=== PATIENT | female | born 1980 | race African-American/Black ===

== ENCOUNTER 2016-09-26 13:22 | Observation (INO) | payer MEDICARE, OTHER ==
[~2016-09-26] VITALS: Ht 172.7 cm; Wt 158.5 kg
[~2016-09-26 13:22] MED LIST: ATOR20TA58 PO; ATORVASTATIN CA80 MG PO; CARV25TA PO; CARV25TA2 PO; CARV6.252 PO; CLIN300C86 PO; ESOM20CA30 PO; FLUO20CA16 PO; GABA-585 PO; HYDR-2679 PO; HYDR-963 PO; INSU100C4 SQ; INSU100I13 SQ; INSU100I17 SQ; LISI30TA4 PO; LISI40TA PO; MECL25TA PO; MELO-156 PO; MULT-208 PO; OMEP40CA5 PO; OXYC-244 PO; PANCREASE PO; PRED-220 PO; PROAIR HFA8.5 GM IH; PROMETHAZINE; SPIR25TA3 PO; TRAZ150T55 PO; ZOLP5TAB PO
--- NOTE | 2016-09-26 13:48 | PHYS DOC ---
Past Medical History Past Medical History: No Pertinent History, CHF, Diabetes-Type I, Hypertension , Other Additional Past Medical Histor: Pancreatitis, diabetic gastroparesis Past Surgical History: Cholecystectomy, Other Additional Past Surgical Histo: Eye surgery, pancrteatic shunts; partial pancreatectomy Alcohol Use: None Drug Use: None Adult General Chief Complaint Chief Complaint: SHORTNESS OF BREATH HPI HPI Patient is a 36 year old female who presents with shortness breath and leg swelling. She states she has a history congestive heart failure secondary to her and last week saw her fast food manager [facility] who increased Coreg and lisinopril because of an elevated heart rate and blood pressure. She states the very next day she started feeling short of breath and her legs started swelling. She states she has keep her legs elevated to keep the swelling down. She states she feels shortness of breath when she ambulance half a flight of steps were normally she can go all the way up the steps without any difficulties. She denies any chest pain or shortness of breath with rest. She does have some lateral left leg discomfort but no pain in her calf area. She did state that she was taken off of Lasix 18 months ago secondary to her EF normalizing. Review of Systems Review of Systems Constitutional: Denies fever or chills [] Eyes: Denies change in visual acuity, redness, or eye pain [] HENT: Denies nasal congestion or sore throat [] Respiratory: Denies cough, positive for shortness of breath [] Cardiovascular: No additional information not addressed in HPI [] GI: Denies abdominal pain, nausea, vomiting, bloody stools or diarrhea [] : Denies dysuria or hematuria [] Musculoskeletal: Denies back pain or joint pain [] Integument: Denies rash or skin lesions [] Neurologic: Denies headache, focal weakness or sensory changes [] Endocrine: Denies polyuria or polydipsia [] Current Medications Current Medications Current Medications Medications (Trade) Dose Ordered Sig/Naveen Start Time Stop Time Status Last Admin Dose Admin Furosemide 20 mg 20 mg 1X ONCE 09/26/16 16:00 09/26/16 16:01 Magnesium Sulfate/ Dextrose (Magnesium Sulfate PREMIX 2GM) 50 ml @ 25 mls/hr 1X ONCE 09/26/16 16:15 09/26/16 18:14 Ondansetron HCl (Zofran) 4 mg PRN Q8HRS PRN 09/26/16 15:30 09/27/16 15:29 Allergies Allergies Allergies Coded Allergies Type Severity Reaction Last Updated Verified shellfish derived Allergy Severe anaphylaxis 09/17/14 Yes Iodine and Iodide Containing Produc Allergy Intermediate hives, itching, fevers, anaphylaxis 09/17/14 Yes Penicillins Allergy Intermediate itching, vomiting, fevers 09/17/14 Yes iodine Allergy Intermediate 03/11/16 Yes meperidine Adverse Reaction Intermediate fevers, vomiting 02/15/15 Yes Physical Exam Physical Exam Constitutional: Well developed, well nourished, no acute distress, non-toxic appearance. [] HENT: Normocephalic, atraumatic, bilateral external ears normal, oropharynx moist, no oral exudates, nose normal. [] Eyes: PERRLA, EOMI, conjunctiva normal, no discharge. [] Neck: Normal range of motion, no tenderness, supple, no stridor. [] Cardiovascular:Heart rate regular rhythm, no murmur [] Lungs & Thorax: Bilateral breath sounds clear to auscultation [] Abdomen: Bowel sounds normal, soft, no tenderness, no masses, no pulsatile masses. [] Skin: Warm, dry, no erythema, no rash. [] Back: No tenderness, no CVA tenderness. [] Extremities: No tenderness, no cyanosis, no clubbing, ROM intact, trace edema. [ ] Neurologic: Alert and oriented X 3, normal motor function, normal sensory function, no focal deficits noted. [] Psychologic: Affect normal, judgement normal, mood normal. [] Current Patient Data Vital Signs Vital Signs Date Time Temp Pulse Resp B/P Pulse Ox O2 Delivery O2 Flow Rate FiO2 09/26/16 13:47 97.3 101 24 150/75 97 Room Air 97.3 Lab Values Laboratory Tests Test 09/26/16 14:00 09/26/16 14:35 09/26/16 14:55 White Blood Count 9.9x10^3/uL (4.0-11.0) Red Blood Count 4.43x10^6/uL (3.50-5.40) Hemoglobin 10.4g/dL (12.0-15.5) L Hematocrit 33.1% (36.0-47.0) L Mean Corpuscular Volume 75fL (79-100) L Mean Corpuscular Hemoglobin 24pg (25-35) L Mean Corpuscular Hemoglobin Concent 31g/dL (31-37) Red Cell Distribution Width 14.8% (11.5-14.5) H Platelet Count 256x10^3/uL (140-400) Neutrophils (%) (Auto) 59% (31-73) Lymphocytes (%) (Auto) 32% (24-48) Monocytes (%) (Auto) 6% (0-9) Eosinophils (%) (Auto) 3% (0-3) Basophils (%) (Auto) 1% (0-3) Neutrophils # (Auto) 5.8x10^3uL (1.8-7.7) Lymphocytes # (Auto) 3.2x10^3/uL (1.0-4.8) Monocytes # (Auto) 0.6x10^3/uL (0.0-1.1) Eosinophils # (Auto) 0.3x10^3/uL (0.0-0.7) Basophils # (Auto) 0.1x10^3/uL (0.0-0.2) Sodium Level 141mmol/L (136-145) Potassium Level 3.8mmol/L (3.5-5.1) Chloride Level 104mmol/L (98-107) Carbon Dioxide Level 30mmol/L (21-32) Anion Gap 7 (6-14) Blood Urea Nitrogen 9mg/dL (7-20) Creatinine 0.8mg/dL (0.6-1.0) Estimated GFR (Cockcroft-Gault) 97.1 Glucose Level 196mg/dL (70-99) H Calcium Level 9.0mg/dL (8.5-10.1) Magnesium Level 1.5mg/dL (1.8-2.4) L Total Bilirubin 0.2mg/dL (0.2-1.0) Direct Bilirubin < 0.1mg/dL (0.0-0.2) Aspartate Amino Transferase (AST) 23U/L (15-37) Alanine Aminotransferase (ALT) 22U/L (14-59) Alkaline Phosphatase 155U/L (46-116) H Creatine Kinase 96U/L (26-192) Creatine Kinase MB (Mass) 0.9ng/mL (0.0-3.6) Creatine Kinase MB Relative Index 0.9% (0-4) Troponin I Quantitative < 0.017ng/mL (0.000-0.055) IT-Nbj-V-Type Natriuretic Peptide 623pg/mL (0-124) H Total Protein 6.9g/dL (6.4-8.2) Albumin 2.7g/dL (3.4-5.0) L Lipase 67U/L (73-393) L Thyroid Stimulating Hormone (TSH) 1.529uIU/mL (0.358-3.74) Prothrombin Time 13.1SEC (11.7-14.0) Prothrombin Time INR 1.1 (0.8-1.1) D-Dimer (Karishma) < 0.27ug/mlFEU (0.00-0.50) Urine Collection Type Unknown Urine Color Yellow Urine Clarity Clear Urine pH 5.0 Urine Specific [place] 1.020 Urine Protein Negativemg/dL (NEG-TRACE) Urine Glucose (UA) 500mg/dL (NEG) Urine Ketones (Stick) Negativemg/dL (NEG) Urine Blood Negative (NEG) Urine Nitrite Negative (NEG) Urine Bilirubin Negative (NEG) Urine Urobilinogen Dipstick 0.2mg/dL (0.2 mg/dL) Urine Leukocyte Esterase Negative (NEG) Urine RBC 0/HPF (0-2) Urine WBC Occ/HPF (0-4) Urine Squamous Epithelial Cells Mod/LPF Urine Bacteria Few/HPF (0-FEW) Urine Mucus Marked/LPF Laboratory Tests 09/26/16 14:00 Laboratory Tests 09/26/16 14:00 EKG EKG EKG shows normal sinus rhythm with left axis deviation, no ST elevations, T- wave inversions noted in lead aVL, 1, QTC 467 ms, as interpreted by me. Radiology/Procedures Radiology/Procedures [facility] [address] [place] [address] IMAGING REPORT Signed PATIENT: MAGNUS HERBERT ACCOUNT: [id number] : 1980 LOCATION: ER AGE: 36 SEX: F EXAM STATUS: PRE ER ORD. PHYSICIAN: SHAR CHARLES MD REASON: soa PROCEDURE: PORTABLE CHEST 1V Portable chest, 09/26/2016: History: Shortness of breath Comparison is made to a study from 04/04/2016. The heart size and pulmonary vascularity are normal. There is an unchanged right upper lobe nodule compatible with a granuloma. No acute infiltrates are seen. There is no evidence of pleural fluid. IMPRESSION: No acute cardiopulmonary abnormality is detected. DICTATED and SIGNED BY: DOROTHY DELCID MD DATE: 09/26/16 5628 CC: SHAR CHARLES MD; UNKNOWN PCP NAME ~ Impressions: Dyspnea Course & Med Decision Making Course & Med Decision Making Pertinent Labs and Imaging studies reviewed. (See chart for details) BNP is slightly elevated chest x-ray does not show acute abnormalities. Patient gets up she gets short of breath with exertion. Her d-dimer is negative. Will give 20 mg IV Lasix 1 and admit to the hospitalist with cardiology consultation for shortness of breath. The patient's agreeable plans in stable condition at this time. Dragon Disclaimer Dragon Disclaimer This electronic medical record was generated, in whole or in part, using a voice recognition dictation system. Departure Departure Impression: Primary Impression: Dyspnea Disposition: ADMITTED INPATIENT Admitting Physician: Kristian Martin Condition: STABLE Referrals: UNKNOWN PCP NAME (PCP) Problem Qualifiers Primary Impression: Dyspnea Dyspnea type: dyspnea on exertion Qualified Code: R06.09 - Other forms of dyspnea SHAR CHARLES MD Sep 26, 2016 13:48
--- NOTE | 2016-09-26 14:04 | EKG ---
[facility] [address] [place] [address] Test Date: 2016-09-26 Test Time: 13:44:40 Pat Name: MAGNUS HERBERT Department: Room: Gender: F Sr. Operations Manager: : 1980 Requested By: SHAR CHARLES Order Number: [id number] Reading MD: Grayson Ward Measurements Intervals [place] Rate: 89 P: 45 RI: 166 QRS: -10 QRSD: 80 T: 93 QT: 378 QTc: 467 Interpretive Statements SINUS RHYTHM LEFTWARD AXIS R-S TRANSITION ZONE IN V LEADS DISPLACED TO THE LEFT NONSPECIFIC ST-T WAVE CHANGES. RI6.01 Unconfirmed report Electronically Signed On 09-30-2016 13:49:00 VALIDATION ARCHITECT by Grayson Ward
[2016-09-26 14:13] LABS: BASO # 0.1 x10^3/uL (0.0-0.2); BASO % 1 % (0-3); EOS % 3 % (0-3); HEMATOCRIT 33.1 % (36.0-47.0); HEMOGLOBIN 10.4 g/dL (12.0-15.5); LYMPH # 3.2 x10^3/uL (1.0-4.8); LYMPH % 32 % (24-48); MEAN CORPUSCULAR HEMOGLOBIN 24 pg (25-35); MEAN CORPUSCULAR HGB CONC 31 g/dL (31-37); MEAN CORPUSCULAR VOLUME 75 fL (79-100); MONO % 6 % (0-9); NEUT % 59 % (31-73); PLATELET COUNT 256 x10^3/uL (140-400); RED BLOOD COUNT 4.43 x10^6/uL (3.50-5.40); RED CELL DISTRIBUTION WIDTH 14.8 % (11.5-14.5); WHITE BLOOD COUNT 9.9 x10^3/uL (4.0-11.0)
--- NOTE | 2016-09-26 14:18 | RAD ---
Portable chest, 09/26/2016: History: Shortness of breath Comparison is made to a study from 04/04/2016. The heart size and pulmonary vascularity are normal. There is an unchanged right upper lobe nodule compatible with a granuloma. No acute infiltrates are seen. There is no evidence of pleural fluid. IMPRESSION: No acute cardiopulmonary abnormality is detected.
[2016-09-26 14:35] LABS: ANION GAP 7 (6-14); BLOOD UREA NITROGEN 9 mg/dL (7-20); CARBON DIOXIDE 30 mmol/L (21-32); CHLORIDE 104 mmol/L (98-107); CREATININE 0.8 mg/dL (0.6-1.0); GFR 97.1; GLUCOSE 196 mg/dL (70-99); POTASSIUM 3.8 mmol/L (3.5-5.1); SODIUM 141 mmol/L (136-145)
[2016-09-26 14:42] LABS: ALBUMIN 2.7 g/dL (3.4-5.0); ALK PHOS 155 U/L (46-116); ALT (SGPT) 22 U/L (14-59); AST (SGOT) 23 U/L (15-37); DIRECT BILIRUBIN < 0.1 mg/dL (0.0-0.2); MAGNESIUM 1.5 mg/dL (1.8-2.4); TOTAL BILIRUBIN 0.2 mg/dL (0.2-1.0); TOTAL PROTEIN 6.9 g/dL (6.4-8.2)
[2016-09-26 14:51] LABS: CKMB INDEX 0.9 % (0-4); CKMB MASS 0.9 ng/mL (0.0-3.6)
[2016-09-26 14:51] LABS: INR 1.1 (0.8-1.1); PROTHROMBIN TIME PATIENT 13.1 SEC (11.7-14.0)
[2016-09-26 15:19] LABS: BILIRUBIN,URINE NEGATIVE (NEG); GLUCOSE,URINE 500 mg/dL (NEG); NITRITE,URINE NEGATIVE (NEG); PROTEIN,URINE NEGATIVE (NEG-TRACE); UROBILINOGEN,URINE 0.2 mg/dL (0.2 mg/dL)
[2016-09-26 15:28] LABS: BACTERIA,URINE FEW /HPF (0-FEW); RBC,URINE 0 /HPF (0-2); SQUAMOUS EPITHELIAL CELL,UR MOD /LPF; WBC,URINE OCC /HPF (0-4)
[2016-09-26] MEDS ORDERED: ONDANSETRON PF 4 MG/2 ML VIAL. IV PRN ×2 (15:30→19:30)
--- NOTE | 2016-09-26 15:54 | PDOC2 ---
CARDIAC CONSULT DATE OF CONSULT Date of Consult DATE: 09/26/16 TIME: 15:36 REASON FOR CONSULT Reason for Consult: Dyspnea REFERRING PHYSICIAN Referring Physician: Tristen SOURCE Source: Chart review, Patient HISTORY OF PRESENT ILLNESS HISTORY OF PRESENT ILLNESS This is a pleasant 36 yo female, with a history of cardiomyopathy, HTN, HLP, DM , and morbid obesity, who presented with complaints of shortness of breath. Patient was hospitalized 2 months ago at for hypotension. Coreg and lisinopril were decrease along with discontinuation of Aldactone. Previously on Lasix but was discontinued approximately 2 years ago. Routine furniture associate is Dr. Sanchez at . At recent visit, BP noted to be elevated. Coreg and Lisinopril were increased. Was not started back on Aldactone. Patient reports LE edema developed a week ago. Has been short of breath with exertion overt the last couple of days. Associated with orthopnea. Denies any CP, palpitations, dizziness, or diaphoresis. No recent illness or fevers. Noted wheezing last night; treated with inhalers, which improved symptoms. Patient reports compliance with medications. Echo conducted approximately 2 months ago at . PAST MEDICAL HISTORY Past Medical History Cardiovascular: CHF, HTN, Hyperlipidemia, Other (cardiomyopathy) Pulmonary: Asthma CENTRAL NERVOUS SYSTEM: Other (No pertinent history) GI: GERD, Other (Chronic pancreatitis) Heme/Onc: No pertinent hx Hepatobiliary: Cholelithiasis Psych: Anxiety Musculoskeletal: low back pain, Other (morbid obesity) Rheumatologic: No pertinent hx Infectious disease: No pertinent hx ENT: Allergic Rhinitis Renal/: No pertinent hx Endocrine: No pertinent hx Dermatology: No pertinent hx PAST SURGICAL HISTORY Past Surgical History Cholecystectomy (laparoscopic), Other (partial pancreatectomy; J tube placement) FAMILY HISTORY Family History Heart Disease (mother CHF) SOCIAL HISTORY Social History Smoke: No (7.5 pk yr) ALCOHOL: none Drugs: None Lives: with Family ALLERGIES ALLERGIES: Coded Allergies: shellfish derived (Verified Allergy, Severe, anaphylaxis, 09/17/14) Iodine and Iodide Containing Produc (Verified Allergy, Intermediate, hives , itching, fevers, anaphylaxis, 09/17/14) Penicillins (Verified Allergy, Intermediate, itching, vomiting, fevers, ) iodine (Verified Allergy, Intermediate, 03/11/16) meperidine (Verified Adverse Reaction, Intermediate, fevers, vomiting, ) ROS Review of System 14 point ROS evaluated with pertinent positive noted per HPI VITALS VITALS Vital Signs Date Time Temp Pulse Resp B/P Pulse Ox O2 Delivery O2 Flow Rate FiO2 09/26/16 13:47 97.3 101 24 150/75 97 Room Air 97.3 LABS Lab: Laboratory Tests Test 09/26/16 14:00 09/26/16 14:35 09/26/16 14:55 White Blood Count 9.9x10^3/uL (4.0-11.0) Red Blood Count 4.43x10^6/uL (3.50-5.40) Hemoglobin 10.4g/dL (12.0-15.5) Hematocrit 33.1% (36.0-47.0) Mean Corpuscular Volume 75fL (79-100) Mean Corpuscular Hemoglobin 24pg (25-35) Mean Corpuscular Hemoglobin Concent 31g/dL (31-37) Red Cell Distribution Width 14.8% (11.5-14.5) Platelet Count 256x10^3/uL (140-400) Neutrophils (%) (Auto) 59% (31-73) Lymphocytes (%) (Auto) 32% (24-48) Monocytes (%) (Auto) 6% (0-9) Eosinophils (%) (Auto) 3% (0-3) Basophils (%) (Auto) 1% (0-3) Neutrophils # (Auto) 5.8x10^3uL (1.8-7.7) Lymphocytes # (Auto) 3.2x10^3/uL (1.0-4.8) Monocytes # (Auto) 0.6x10^3/uL (0.0-1.1) Eosinophils # (Auto) 0.3x10^3/uL (0.0-0.7) Basophils # (Auto) 0.1x10^3/uL (0.0-0.2) Sodium Level 141mmol/L (136-145) Potassium Level 3.8mmol/L (3.5-5.1) Chloride Level 104mmol/L (98-107) Carbon Dioxide Level 30mmol/L (21-32) Anion Gap 7 (6-14) Blood Urea Nitrogen 9mg/dL (7-20) Creatinine 0.8mg/dL (0.6-1.0) Estimated GFR (Cockcroft-Gault) 97.1 Glucose Level 196mg/dL (70-99) Calcium Level 9.0mg/dL (8.5-10.1) Magnesium Level 1.5mg/dL (1.8-2.4) Total Bilirubin 0.2mg/dL (0.2-1.0) Direct Bilirubin < 0.1mg/dL (0.0-0.2) Aspartate Amino Transf (AST/SGOT) 23U/L (15-37) Alanine Aminotransferase (ALT/SGPT) 22U/L (14-59) Alkaline Phosphatase 155U/L (46-116) Creatine Kinase 96U/L (26-192) Creatine Kinase MB (Mass) 0.9ng/mL (0.0-3.6) Creatine Kinase MB Relative Index 0.9% (0-4) Troponin I Quantitative < 0.017ng/mL (0.000-0.055) XW-Viq-L-Type Natriuretic Peptide 623pg/mL (0-124) Total Protein 6.9g/dL (6.4-8.2) Albumin 2.7g/dL (3.4-5.0) Lipase 67U/L (73-393) Thyroid Stimulating Hormone (TSH) 1.529uIU/mL (0.358-3.74) Prothrombin Time 13.1SEC (11.7-14.0) Prothromb Time International Ratio 1.1 (0.8-1.1) D-Dimer (Karishma) < 0.27ug/mlFEU (0.00-0.50) Urine Collection Type Unknown Urine Color Yellow Urine Clarity Clear Urine pH 5.0 Urine Specific [place] 1.020 Urine Protein Negativemg/dL (NEG-TRACE) Urine Glucose (UA) 500mg/dL (NEG) Urine Ketones (Stick) Negativemg/dL (NEG) Urine Blood Negative (NEG) Urine Nitrite Negative (NEG) Urine Bilirubin Negative (NEG) Urine Urobilinogen Dipstick 0.2mg/dL (0.2 mg/dL) Urine Leukocyte Esterase Negative (NEG) Urine RBC 0/HPF (0-2) Urine WBC Occ/HPF (0-4) Urine Squamous Epithelial Cells Mod/LPF Urine Bacteria Few/HPF (0-FEW) Urine Mucus Marked/LPF ECHOCARDIOGRAM ECHOCARDIOGRAM <Conclusion> There is mild global hypokinesis of the left ventricle. EF 40-45% Suspect mild to moderate diastolic dysfunction. No significant valvular disease. Overall, the LV does not look to have robust function given the patient's age. Clinical correlation recommended. DATE: 02/19/16 1706 ASSESSMENT/PLAN ASSESSMENT/PLAN 1. Acute on chronic combine systolic/diastolic CHF: recent cardiac med modifications including BP meds 2. Cardiomyopathy: 30% in the past, improved to 55%. 01/2016 LVEF 40-45% and was ~ 40% on echo 05/2015 @ with Dr. Sanchez 3. DM2/HLP 4. Morbid obesity 5. HTN: labile 6. Hx of chronic pancreatitis 7. Microcytic hypochromic anemia: Hgb 10.4 8. Hypomagnesemia Recommendations 1. Replace Mg 2. Lasix therapy 3. Obtain recent [facility] records. 4. Daily wt. Strict I & O 5. lipid panel, A1C 6. Maintain BP control 7. Continue with lifestyle modification and optimization 8. Resume home antiHTN therapy 9. Hydralazine PRN Problems: VERÓNICA GUZMAN APRN Sep 26, 2016 15:54
[2016-09-26] MEDS ORDERED: FUROSEMIDE 40 MG/4 ML VIAL IVP ONE (16:00)
[2016-09-26] MEDS ORDERED: hydrALAZINE 20 MG/ML VIAL. IVP PRN ×2 (16:15→19:30)
[2016-09-26] MEDS ORDERED: MAGNESIUM SULFATE 2GM 50 ML IV ONE (16:15)
[2016-09-26] MEDS ORDERED: CARVEDILOL 6.25 MG TABLET PO SCH (17:00)
[2016-09-26 18:20] VITALS: BP 137/93
--- NOTE | 2016-09-26 19:21 | PDOC1 ---
History and Physical Past Medical History Cardiovascular: CHF, HTN GI: No pertinent hx, Other Hepatobiliary: No pertinent hx Endocrine: Diabetes Past Surgical History Past Surgical History: Cholecystectomy, Other Family History Family History: Heart Disease, Stroke Social History ALCOHOL: none Drugs: None Current Problem List Problem List Problems Medical Problems: (1) Dyspnea Status: Acute Current Medications Current Medications Current Medications Medications (Trade) Dose Ordered Sig/Naveen Start Time Stop Time Status Last Admin Dose Admin Carvedilol (Coreg) 6.25 mg BIDWMEALS 09/26/16 17:00 Furosemide (Lasix) 40 mg DAILY 09/27/16 09:00 Furosemide 20 mg 20 mg 1X ONCE 09/26/16 16:00 09/26/16 16:01 DC 09/26/16 16:10 20 MG Hydralazine HCl (Apresoline) 10 mg PRN Q4HRS PRN 09/26/16 16:15 Lisinopril (Prinivil) 40 mg DAILY 09/27/16 09:00 Magnesium Sulfate/ Dextrose (Magnesium Sulfate PREMIX 2GM) 50 ml @ 25 mls/hr 1X ONCE 09/26/16 16:15 09/26/16 18:14 DC 09/26/16 16:10 25 MLS/HR Ondansetron HCl (Zofran) 4 mg PRN Q8HRS PRN 09/26/16 15:30 09/27/16 15:29 Allergies Allergies Allergies Coded Allergies Type Severity Reaction Last Updated Verified shellfish derived Allergy Severe anaphylaxis 09/17/14 Yes Iodine and Iodide Containing Produc Allergy Intermediate hives, itching, fevers, anaphylaxis 09/17/14 Yes Penicillins Allergy Intermediate itching, vomiting, fevers 09/17/14 Yes iodine Allergy Intermediate 03/11/16 Yes meperidine Adverse Reaction Intermediate fevers, vomiting 02/15/15 Yes ROS Review of System CONSTITUTIONAL: No fever or chills EYES: No recent changes SKIN: No rash or itching CARDIOVASCULAR: No chest pain, syncope, palpitations, but mild edema RESPIRATORY: SOB GASTROINTESTINAL: No nausea, vomiting or abdominal pain NEUROLOGICAL: No headaches or weakness ENDOCRINE: No cold or heat intolerance GENITOURINARY: No urgency or frequency of urination MUSCULOSKELETAL: No back pain or joint pain LYMPHATICS: No enlarged lymph nodes PSYCHIATRIC: No anxiety or depression Physical Exam Physical Exam GEN.: No apparent distress. Alert and oriented. HEENT: Head is normocephalic, atraumatic NECK: Supple. no jvd LUNGS: Clear to auscultation. normal airflow HEART: RRR, S1, S2 present. Peripheral pulses intact ABDOMEN: Soft, nontender. Positive bowel sounds. EXTREMITIES: +1 edema. NEUROLOGIC: Normal speech, normal tone PSYCHIATRIC: Normal affect, normal mood. SKIN: No ulcerations Vitals Vitals Vital Signs Date Time Temp Pulse Resp B/P Pulse Ox O2 Delivery O2 Flow Rate FiO2 09/26/16 18:20 97.7 84 20 137/93 95 Room Air 97.7 Labs Labs Laboratory Tests Test 09/26/16 14:00 09/26/16 14:35 09/26/16 14:55 White Blood Count 9.9x10^3/uL (4.0-11.0) Red Blood Count 4.43x10^6/uL (3.50-5.40) Hemoglobin 10.4g/dL (12.0-15.5) Hematocrit 33.1% (36.0-47.0) Mean Corpuscular Volume 75fL (79-100) Mean Corpuscular Hemoglobin 24pg (25-35) Mean Corpuscular Hemoglobin Concent 31g/dL (31-37) Red Cell Distribution Width 14.8% (11.5-14.5) Platelet Count 256x10^3/uL (140-400) Neutrophils (%) (Auto) 59% (31-73) Lymphocytes (%) (Auto) 32% (24-48) Monocytes (%) (Auto) 6% (0-9) Eosinophils (%) (Auto) 3% (0-3) Basophils (%) (Auto) 1% (0-3) Neutrophils # (Auto) 5.8x10^3uL (1.8-7.7) Lymphocytes # (Auto) 3.2x10^3/uL (1.0-4.8) Monocytes # (Auto) 0.6x10^3/uL (0.0-1.1) Eosinophils # (Auto) 0.3x10^3/uL (0.0-0.7) Basophils # (Auto) 0.1x10^3/uL (0.0-0.2) Sodium Level 141mmol/L (136-145) Potassium Level 3.8mmol/L (3.5-5.1) Chloride Level 104mmol/L (98-107) Carbon Dioxide Level 30mmol/L (21-32) Anion Gap 7 (6-14) Blood Urea Nitrogen 9mg/dL (7-20) Creatinine 0.8mg/dL (0.6-1.0) Estimated GFR (Cockcroft-Gault) 97.1 Glucose Level 196mg/dL (70-99) Calcium Level 9.0mg/dL (8.5-10.1) Magnesium Level 1.5mg/dL (1.8-2.4) Total Bilirubin 0.2mg/dL (0.2-1.0) Direct Bilirubin < 0.1mg/dL (0.0-0.2) Aspartate Amino Transf (AST/SGOT) 23U/L (15-37) Alanine Aminotransferase (ALT/SGPT) 22U/L (14-59) Alkaline Phosphatase 155U/L (46-116) Creatine Kinase 96U/L (26-192) Creatine Kinase MB (Mass) 0.9ng/mL (0.0-3.6) Creatine Kinase MB Relative Index 0.9% (0-4) Troponin I Quantitative < 0.017ng/mL (0.000-0.055) LE-Hcr-U-Type Natriuretic Peptide 623pg/mL (0-124) Total Protein 6.9g/dL (6.4-8.2) Albumin 2.7g/dL (3.4-5.0) Lipase 67U/L (73-393) Thyroid Stimulating Hormone (TSH) 1.529uIU/mL (0.358-3.74) Prothrombin Time 13.1SEC (11.7-14.0) Prothromb Time International Ratio 1.1 (0.8-1.1) D-Dimer (Karishma) < 0.27ug/mlFEU (0.00-0.50) Urine Collection Type Unknown Urine Color Yellow Urine Clarity Clear Urine pH 5.0 Urine Specific [place] 1.020 Urine Protein Negativemg/dL (NEG-TRACE) Urine Glucose (UA) 500mg/dL (NEG) Urine Ketones (Stick) Negativemg/dL (NEG) Urine Blood Negative (NEG) Urine Nitrite Negative (NEG) Urine Bilirubin Negative (NEG) Urine Urobilinogen Dipstick 0.2mg/dL (0.2 mg/dL) Urine Leukocyte Esterase Negative (NEG) Urine RBC 0/HPF (0-2) Urine WBC Occ/HPF (0-4) Urine Squamous Epithelial Cells Mod/LPF Urine Bacteria Few/HPF (0-FEW) Urine Mucus Marked/LPF Laboratory Tests Test 09/26/16 14:00 09/26/16 14:35 09/26/16 14:55 White Blood Count 9.9x10^3/uL (4.0-11.0) Red Blood Count 4.43x10^6/uL (3.50-5.40) Hemoglobin 10.4g/dL (12.0-15.5) Hematocrit 33.1% (36.0-47.0) Mean Corpuscular Volume 75fL (79-100) Mean Corpuscular Hemoglobin 24pg (25-35) Mean Corpuscular Hemoglobin Concent 31g/dL (31-37) Red Cell Distribution Width 14.8% (11.5-14.5) Platelet Count 256x10^3/uL (140-400) Neutrophils (%) (Auto) 59% (31-73) Lymphocytes (%) (Auto) 32% (24-48) Monocytes (%) (Auto) 6% (0-9) Eosinophils (%) (Auto) 3% (0-3) Basophils (%) (Auto) 1% (0-3) Neutrophils # (Auto) 5.8x10^3uL (1.8-7.7) Lymphocytes # (Auto) 3.2x10^3/uL (1.0-4.8) Monocytes # (Auto) 0.6x10^3/uL (0.0-1.1) Eosinophils # (Auto) 0.3x10^3/uL (0.0-0.7) Basophils # (Auto) 0.1x10^3/uL (0.0-0.2) Sodium Level 141mmol/L (136-145) Potassium Level 3.8mmol/L (3.5-5.1) Chloride Level 104mmol/L (98-107) Carbon Dioxide Level 30mmol/L (21-32) Anion Gap 7 (6-14) Blood Urea Nitrogen 9mg/dL (7-20) Creatinine 0.8mg/dL (0.6-1.0) Estimated GFR (Cockcroft-Gault) 97.1 Glucose Level 196mg/dL (70-99) Calcium Level 9.0mg/dL (8.5-10.1) Magnesium Level 1.5mg/dL (1.8-2.4) Total Bilirubin 0.2mg/dL (0.2-1.0) Direct Bilirubin < 0.1mg/dL (0.0-0.2) Aspartate Amino Transf (AST/SGOT) 23U/L (15-37) Alanine Aminotransferase (ALT/SGPT) 22U/L (14-59) Alkaline Phosphatase 155U/L (46-116) Creatine Kinase 96U/L (26-192) Creatine Kinase MB (Mass) 0.9ng/mL (0.0-3.6) Creatine Kinase MB Relative Index 0.9% (0-4) Troponin I Quantitative < 0.017ng/mL (0.000-0.055) WE-Fdp-I-Type Natriuretic Peptide 623pg/mL (0-124) Total Protein 6.9g/dL (6.4-8.2) Albumin 2.7g/dL (3.4-5.0) Lipase 67U/L (73-393) Thyroid Stimulating Hormone (TSH) 1.529uIU/mL (0.358-3.74) Prothrombin Time 13.1SEC (11.7-14.0) Prothromb Time International Ratio 1.1 (0.8-1.1) D-Dimer (Karishma) < 0.27ug/mlFEU (0.00-0.50) Urine Collection Type Unknown Urine Color Yellow Urine Clarity Clear Urine pH 5.0 Urine Specific [place] 1.020 Urine Protein Negativemg/dL (NEG-TRACE) Urine Glucose (UA) 500mg/dL (NEG) Urine Ketones (Stick) Negativemg/dL (NEG) Urine Blood Negative (NEG) Urine Nitrite Negative (NEG) Urine Bilirubin Negative (NEG) Urine Urobilinogen Dipstick 0.2mg/dL (0.2 mg/dL) Urine Leukocyte Esterase Negative (NEG) Urine RBC 0/HPF (0-2) Urine WBC Occ/HPF (0-4) Urine Squamous Epithelial Cells Mod/LPF Urine Bacteria Few/HPF (0-FEW) Urine Mucus Marked/LPF VTE Prophylaxis Ordered VTE Prophylaxis Devices: No VTE Pharmacological Prophylaxi: No HARSH JENSEN MD Sep 26, 2016 19:21
[2016-09-26] MEDS ORDERED: ACETAMINOPHEN 325 MG TABLET. PO PRN (19:30)
[2016-09-26] MEDS ORDERED: ALBUTEROL SULFATE 2.5 MG/3 ML NEBU. NEB PRN (19:30)
[2016-09-26] MEDS: HYDROCODONE/APAP 5/325MG TABLET. PO PRN (20:03)
[2016-09-26] MEDS ORDERED: CARV25TA PO (21:22)
[2016-09-26] MEDS ORDERED: INSU100I30 SQ (21:22)
[2016-09-26] MEDS ORDERED: FLUO10CA13 PO ×2 (21:25)
[2016-09-26] MEDS ORDERED: LISI40TA PO (21:25)
[2016-09-26] MEDS: INSULIN DEGLUDEC 45 UNIT SQ SCH (22:00)
--- NOTE | 2016-09-26 22:01 | ACF ---
Admission Forms Criteria HEART FAILURE: COMMON COMPLICATIONS Clinical Indications for Inpatient Care (Place 'X' for any and all applicable criteria): Ongoing inpatient care may be indicated for heart failure with ANY ONE of the following (1)(2)(3)(4)(5): [ ]I. Ongoing need for care for primary condition requiring frequent therapy adjustments because of changes in cardiac function (eg, drug dosage changes for drugs that are renally metabolized) [ ]II. New-onset heart failure [ ]III. Heart failure with decreased urine output not responsive to attempts to optimize volume status [ ]IV. Acute cardiac ischemia causing or associated with failure [X]V. Complications of heart failure, including ANY ONE of the following: [ ]a) Pericardial effusion [ ]b) Symptomatic pleural effusion [ ]c) O2 saturation <90% or PO2 < 60 mm Hg (8.0 kPa) on room air or require baseline supplemental O2 [ ]d) Tachypnea [X]e) Dyspnea [ ]f) Syncope [ ]g) Change in mental status [ ]h) Acute renal insufficiency that is severe (reduction of more than 50% in estimated glomerular filtration rate from baseline) or progressive reduction of more than 25% in estimated glomerular filtration rate from baseline, with creatinine continuing to rise) [ ]i) Hemodynamic instability [ ]j) Anasarca [ ]k) Clinically significant metabolic abnormalities due to heart failure (eg, new-onset metabolic acidosis) Extended stay beyond goal length of stay for primary condition may be needed until ALL of the following are present(1)(3): [ ]a) Stable and effective diuretic regimen established (or patient on stable dialysis regimen if in chronic renal failure) [ ]b) Breathing comfortably at rest [ ]c) Saturation of arterial oxygen greater than 90% or at acceptable baseline [ ]d) Pulmonary edema absent or improved [ ]e) Hemodynamic stability [ ]f) Volume status acceptable on oral medication [ ]g) Peripheral or sacral edema absent or improved [ ]h) Renal function stable and manageable at a lower level of care [ ]i) Complications (eg, pleural effusion) resolved or manageable at a lower level of care [ ]j) Patient or caregiver has received written discharge instructions or educational material addressing activity level, diet, discharge medications, follow-up appointment, weight monitoring, and what to do if symptoms worsen The original [facility] content created by [employer] has been revised. The portions of the content which have been revised are identified through the use of italic text or in bold, and [facility] has neither reviewed nor approved the modified material.All other unmodified content is copyright [facility]. Please see references footnoted in the original [facility] edition 2016 Admission Criteria Met?: Yes VAUGHN PERALES Sep 26, 2016 22:00
[2016-09-26] MEDS: FLUOXETINE HCL 10 MG CAPSULE PO SCH (22:30)
[2016-09-26] MEDS: ZOLPIDEM 5 MG TABLET. PO SCH (22:30)
[2016-09-26 23:04] VITALS: BP 147/101
--- NOTE | 2016-09-27 01:15 | HP ---
ADMIT DATE: 09/26/2016 CHIEF COMPLAINT: Short of breath and leg swelling. HISTORY OF PRESENT ILLNESS: A 36-year-old female patient with prior history of cardiomyopathy, hypertension, diabetes and morbid obesity, presented to the ER with few days of worsening shortness of breath and leg swelling. She was seeing doctors at [facility] and her medications have been adjusted. Previously, she was on Lasix, Coreg and lisinopril for heart failure; however, they were discontinued. Recently, the patient's blood pressure was not controlled and also noted to have some leg swellings with increased shortness of breath and fatigue. She denies any new complaints such as palpitations or chest pain. She was last seen in two months ago. PAST MEDICAL HISTORY: Please see my electronic H and P. REVIEW OF SYSTEMS: Please see my electronic H and P. PHYSICAL EXAMINATION: Please see my electronic H and P. LABORATORY FINDINGS: BMP is essentially in normal range except for magnesium of 1.5, troponin is less than 0.01, proBNP is 623. CBC: Hemoglobin is 10.4, MCV is 75, and MCH is 31. PT/INR and D-dimer within normal range. Urine, protein is negative, nitrites negative and leukocyte esterase negative. IMAGING STUDIES: Chest x-ray, no acute process seen. ASSESSMENT: 1. History of cardiomyopathy. 2. Shortness of breath, possibly due to acute on chronic heart failure. 3. Diabetes mellitus. 4. Morbid obesity. 5. Hypertension. 6. Anemia. 7. Hypomagnesemia. PLAN: 1. She received IV Lasix in the ER. 2. Obtain echocardiogram in the a.m. 3. Monitor labs for CBC and BMP in the a.m. 4. Cardiology has been consulted. 5. Home medications need to be verified with family and will be resumed. Currently, she was started on Lasix, lisinopril and Coreg. 6. Cardiac diet. 7. Appreciate Cardiology recommendations. HARSH JENSEN MD DR: FRANCISCO JAVIER/placido JOB#: [id number] / [id number] [place]
[2016-09-27 02:44] VITALS: BP 138/80
[2016-09-27 03:33] LABS: BASO # 0.1 x10^3/uL (0.0-0.2); BASO % 1 % (0-3); EOS % 3 % (0-3); HEMATOCRIT 33.8 % (36.0-47.0); HEMOGLOBIN 10.5 g/dL (12.0-15.5); LYMPH # 3.5 x10^3/uL (1.0-4.8); LYMPH % 36 % (24-48); MEAN CORPUSCULAR HEMOGLOBIN 23 pg (25-35); MEAN CORPUSCULAR HGB CONC 31 g/dL (31-37); MEAN CORPUSCULAR VOLUME 75 fL (79-100); MONO % 6 % (0-9); NEUT % 55 % (31-73); PLATELET COUNT 238 x10^3/uL (140-400); RED BLOOD COUNT 4.54 x10^6/uL (3.50-5.40); RED CELL DISTRIBUTION WIDTH 14.8 % (11.5-14.5); WHITE BLOOD COUNT 9.7 x10^3/uL (4.0-11.0)
[2016-09-27 03:44] LABS: CALCIUM 8.8 mg/dL (8.5-10.1); CREATININE 0.8 mg/dL (0.6-1.0); GFR 97.1; POTASSIUM 3.9 mmol/L (3.5-5.1)
[2016-09-27 03:49] LABS: CHOLESTEROL/HDL RATIO 5.4
[2016-09-27 07:00] VITALS: BP 187/89
[2016-09-27] MEDS: INSULIN DEGLUDEC 45 UNIT SQ SCH ×2 (09:00→21:00)
[2016-09-27] MEDS: CARVEDILOL 12.5 MG TABLET PO SCH ×2 (09:56→17:19)
[2016-09-27] MEDS: FLUOXETINE HCL 10 MG CAPSULE PO SCH ×2 (09:56→21:12)
[2016-09-27] MEDS: PANTOPRAZOLE 40 MG TABLET. PO SCH (09:56)
[2016-09-27] MEDS: FUROSEMIDE 40 MG TABLET PO SCH (09:57)
[2016-09-27] MEDS: LISINOPRIL 10 MG TABLET PO SCH (09:57)
[2016-09-27] MEDS: INSULIN ASPART 300 UNITS/3 ML INSULN.PEN SQ SCH ×3 (10:01→17:21)
--- NOTE | 2016-09-27 10:59 | PDOC ---
PROGRESS NOTES Chief Complaint Chief Complaint 1. History of cardiomyopathy. 2. Shortness of breath, possibly due to acute on chronic heart failure. 3. Diabetes mellitus. 4. Morbid obesity. 5. Hypertension. NOT Controlled. 6. Anemia. 7. Hypomagnesemia.resolved. Plan awaiting cardiology recommendatons Adjust BP medication echo pending BP not cotrolled PT/OT 6 walk before DC History of Present Illness History of Present Illness sob, no fever no chills. Vitals Vitals Vital Signs Date Time Temp Pulse Resp B/P Pulse Ox O2 Delivery O2 Flow Rate FiO2 09/27/16 09:57 84 187/89 09/27/16 07:00 98.1 18 95 Room Air 98.1 Physical Exam General: Alert, Oriented X3 Heart: Normal S1 Lungs: Clear, Other Abdomen: Normal bowel sounds, Soft Labs LABS Laboratory Tests Test 09/26/16 14:00 09/26/16 14:35 09/26/16 14:55 09/26/16 20:29 White Blood Count 9.9x10^3/uL (4.0-11.0) Red Blood Count 4.43x10^6/uL (3.50-5.40) Hemoglobin 10.4g/dL (12.0-15.5) Hematocrit 33.1% (36.0-47.0) Mean Corpuscular Volume 75fL (79-100) Mean Corpuscular Hemoglobin 24pg (25-35) Mean Corpuscular Hemoglobin Concent 31g/dL (31-37) Red Cell Distribution Width 14.8% (11.5-14.5) Platelet Count 256x10^3/uL (140-400) Neutrophils (%) (Auto) 59% (31-73) Lymphocytes (%) (Auto) 32% (24-48) Monocytes (%) (Auto) 6% (0-9) Eosinophils (%) (Auto) 3% (0-3) Basophils (%) (Auto) 1% (0-3) Neutrophils # (Auto) 5.8x10^3uL (1.8-7.7) Lymphocytes # (Auto) 3.2x10^3/uL (1.0-4.8) Monocytes # (Auto) 0.6x10^3/uL (0.0-1.1) Eosinophils # (Auto) 0.3x10^3/uL (0.0-0.7) Basophils # (Auto) 0.1x10^3/uL (0.0-0.2) Sodium Level 141mmol/L (136-145) Potassium Level 3.8mmol/L (3.5-5.1) Chloride Level 104mmol/L (98-107) Carbon Dioxide Level 30mmol/L (21-32) Anion Gap 7 (6-14) Blood Urea Nitrogen 9mg/dL (7-20) Creatinine 0.8mg/dL (0.6-1.0) Estimated GFR (Cockcroft-Gault) 97.1 Glucose Level 196mg/dL (70-99) Hemoglobin A1c 13.0% (4.8-5.6) Calcium Level 9.0mg/dL (8.5-10.1) Magnesium Level 1.5mg/dL (1.8-2.4) Total Bilirubin 0.2mg/dL (0.2-1.0) Direct Bilirubin < 0.1mg/dL (0.0-0.2) Aspartate Amino Transf (AST/SGOT) 23U/L (15-37) Alanine Aminotransferase (ALT/SGPT) 22U/L (14-59) Alkaline Phosphatase 155U/L (46-116) Creatine Kinase 96U/L (26-192) Creatine Kinase MB (Mass) 0.9ng/mL (0.0-3.6) Creatine Kinase MB Relative Index 0.9% (0-4) Troponin I Quantitative < 0.017ng/mL (0.000-0.055) FG-Qza-Y-Type Natriuretic Peptide 623pg/mL (0-124) Total Protein 6.9g/dL (6.4-8.2) Albumin 2.7g/dL (3.4-5.0) Lipase 67U/L (73-393) Thyroid Stimulating Hormone (TSH) 1.529uIU/mL (0.358-3.74) Prothrombin Time 13.1SEC (11.7-14.0) Prothromb Time International Ratio 1.1 (0.8-1.1) D-Dimer (Karishma) < 0.27ug/mlFEU (0.00-0.50) Urine Collection Type Unknown Urine Color Yellow Urine Clarity Clear Urine pH 5.0 Urine Specific [place] 1.020 Urine Protein Negativemg/dL (NEG-TRACE) Urine Glucose (UA) 500mg/dL (NEG) Urine Ketones (Stick) Negativemg/dL (NEG) Urine Blood Negative (NEG) Urine Nitrite Negative (NEG) Urine Bilirubin Negative (NEG) Urine Urobilinogen Dipstick 0.2mg/dL (0.2 mg/dL) Urine Leukocyte Esterase Negative (NEG) Urine RBC 0/HPF (0-2) Urine WBC Occ/HPF (0-4) Urine Squamous Epithelial Cells Mod/LPF Urine Bacteria Few/HPF (0-FEW) Urine Mucus Marked/LPF Glucose (Fingerstick) 117mg/dL (70-99) Test 09/26/16 21:40 09/27/16 03:15 09/27/16 07:10 09/27/16 10:27 Troponin I Quantitative < 0.017ng/mL (0.000-0.055) < 0.017ng/mL (0.000-0.055) White Blood Count 9.7x10^3/uL (4.0-11.0) Red Blood Count 4.54x10^6/uL (3.50-5.40) Hemoglobin 10.5g/dL (12.0-15.5) Hematocrit 33.8% (36.0-47.0) Mean Corpuscular Volume 75fL (79-100) Mean Corpuscular Hemoglobin 23pg (25-35) Mean Corpuscular Hemoglobin Concent 31g/dL (31-37) Red Cell Distribution Width 14.8% (11.5-14.5) Platelet Count 238x10^3/uL (140-400) Neutrophils (%) (Auto) 55% (31-73) Lymphocytes (%) (Auto) 36% (24-48) Monocytes (%) (Auto) 6% (0-9) Eosinophils (%) (Auto) 3% (0-3) Basophils (%) (Auto) 1% (0-3) Neutrophils # (Auto) 5.4x10^3uL (1.8-7.7) Lymphocytes # (Auto) 3.5x10^3/uL (1.0-4.8) Monocytes # (Auto) 0.5x10^3/uL (0.0-1.1) Eosinophils # (Auto) 0.3x10^3/uL (0.0-0.7) Basophils # (Auto) 0.1x10^3/uL (0.0-0.2) Sodium Level 141mmol/L (136-145) Potassium Level 3.9mmol/L (3.5-5.1) Chloride Level 103mmol/L (98-107) Carbon Dioxide Level 31mmol/L (21-32) Anion Gap 7 (6-14) Blood Urea Nitrogen 12mg/dL (7-20) Creatinine 0.8mg/dL (0.6-1.0) Estimated GFR (Cockcroft-Gault) 97.1 Glucose Level 226mg/dL (70-99) Calcium Level 8.8mg/dL (8.5-10.1) Triglycerides Level 202mg/dL (0-150) Cholesterol Level 162mg/dL (0-200) LDL Cholesterol, Calculated 92mg/dL (0-100) VLDL Cholesterol, Calculated 40mg/dL (0-40) HDL Cholesterol 30mg/dL (40-60) Cholesterol/HDL Ratio 5.4 Glucose (Fingerstick) 177mg/dL (70-99) 170mg/dL (70-99) Assessment and Plan Assessmemt and Plan Problems Medical Problems: (1) Dyspnea Status: Acute Problems: Comment Review of Relevant I have reviewed the following items snow (where applicable) has been applied. Labs Laboratory Tests Test 09/26/16 14:00 09/26/16 14:35 09/26/16 14:55 09/26/16 20:29 White Blood Count 9.9x10^3/uL (4.0-11.0) Red Blood Count 4.43x10^6/uL (3.50-5.40) Hemoglobin 10.4g/dL (12.0-15.5) Hematocrit 33.1% (36.0-47.0) Mean Corpuscular Volume 75fL (79-100) Mean Corpuscular Hemoglobin 24pg (25-35) Mean Corpuscular Hemoglobin Concent 31g/dL (31-37) Red Cell Distribution Width 14.8% (11.5-14.5) Platelet Count 256x10^3/uL (140-400) Neutrophils (%) (Auto) 59% (31-73) Lymphocytes (%) (Auto) 32% (24-48) Monocytes (%) (Auto) 6% (0-9) Eosinophils (%) (Auto) 3% (0-3) Basophils (%) (Auto) 1% (0-3) Neutrophils # (Auto) 5.8x10^3uL (1.8-7.7) Lymphocytes # (Auto) 3.2x10^3/uL (1.0-4.8) Monocytes # (Auto) 0.6x10^3/uL (0.0-1.1) Eosinophils # (Auto) 0.3x10^3/uL (0.0-0.7) Basophils # (Auto) 0.1x10^3/uL (0.0-0.2) Sodium Level 141mmol/L (136-145) Potassium Level 3.8mmol/L (3.5-5.1) Chloride Level 104mmol/L (98-107) Carbon Dioxide Level 30mmol/L (21-32) Anion Gap 7 (6-14) Blood Urea Nitrogen 9mg/dL (7-20) Creatinine 0.8mg/dL (0.6-1.0) Estimated GFR (Cockcroft-Gault) 97.1 Glucose Level 196mg/dL (70-99) Hemoglobin A1c 13.0% (4.8-5.6) Calcium Level 9.0mg/dL (8.5-10.1) Magnesium Level 1.5mg/dL (1.8-2.4) Total Bilirubin 0.2mg/dL (0.2-1.0) Direct Bilirubin < 0.1mg/dL (0.0-0.2) Aspartate Amino Transf (AST/SGOT) 23U/L (15-37) Alanine Aminotransferase (ALT/SGPT) 22U/L (14-59) Alkaline Phosphatase 155U/L (46-116) Creatine Kinase 96U/L (26-192) Creatine Kinase MB (Mass) 0.9ng/mL (0.0-3.6) Creatine Kinase MB Relative Index 0.9% (0-4) Troponin I Quantitative < 0.017ng/mL (0.000-0.055) OC-Ncr-V-Type Natriuretic Peptide 623pg/mL (0-124) Total Protein 6.9g/dL (6.4-8.2) Albumin 2.7g/dL (3.4-5.0) Lipase 67U/L (73-393) Thyroid Stimulating Hormone (TSH) 1.529uIU/mL (0.358-3.74) Prothrombin Time 13.1SEC (11.7-14.0) Prothromb Time International Ratio 1.1 (0.8-1.1) D-Dimer (Karishma) < 0.27ug/mlFEU (0.00-0.50) Urine Collection Type Unknown Urine Color Yellow Urine Clarity Clear Urine pH 5.0 Urine Specific [place] 1.020 Urine Protein Negativemg/dL (NEG-TRACE) Urine Glucose (UA) 500mg/dL (NEG) Urine Ketones (Stick) Negativemg/dL (NEG) Urine Blood Negative (NEG) Urine Nitrite Negative (NEG) Urine Bilirubin Negative (NEG) Urine Urobilinogen Dipstick 0.2mg/dL (0.2 mg/dL) Urine Leukocyte Esterase Negative (NEG) Urine RBC 0/HPF (0-2) Urine WBC Occ/HPF (0-4) Urine Squamous Epithelial Cells Mod/LPF Urine Bacteria Few/HPF (0-FEW) Urine Mucus Marked/LPF Glucose (Fingerstick) 117mg/dL (70-99) Test 09/26/16 21:40 09/27/16 03:15 09/27/16 07:10 09/27/16 10:27 Troponin I Quantitative < 0.017ng/mL (0.000-0.055) < 0.017ng/mL (0.000-0.055) White Blood Count 9.7x10^3/uL (4.0-11.0) Red Blood Count 4.54x10^6/uL (3.50-5.40) Hemoglobin 10.5g/dL (12.0-15.5) Hematocrit 33.8% (36.0-47.0) Mean Corpuscular Volume 75fL (79-100) Mean Corpuscular Hemoglobin 23pg (25-35) Mean Corpuscular Hemoglobin Concent 31g/dL (31-37) Red Cell Distribution Width 14.8% (11.5-14.5) Platelet Count 238x10^3/uL (140-400) Neutrophils (%) (Auto) 55% (31-73) Lymphocytes (%) (Auto) 36% (24-48) Monocytes (%) (Auto) 6% (0-9) Eosinophils (%) (Auto) 3% (0-3) Basophils (%) (Auto) 1% (0-3) Neutrophils # (Auto) 5.4x10^3uL (1.8-7.7) Lymphocytes # (Auto) 3.5x10^3/uL (1.0-4.8) Monocytes # (Auto) 0.5x10^3/uL (0.0-1.1) Eosinophils # (Auto) 0.3x10^3/uL (0.0-0.7) Basophils # (Auto) 0.1x10^3/uL (0.0-0.2) Sodium Level 141mmol/L (136-145) Potassium Level 3.9mmol/L (3.5-5.1) Chloride Level 103mmol/L (98-107) Carbon Dioxide Level 31mmol/L (21-32) Anion Gap 7 (6-14) Blood Urea Nitrogen 12mg/dL (7-20) Creatinine 0.8mg/dL (0.6-1.0) Estimated GFR (Cockcroft-Gault) 97.1 Glucose Level 226mg/dL (70-99) Calcium Level 8.8mg/dL (8.5-10.1) Triglycerides Level 202mg/dL (0-150) Cholesterol Level 162mg/dL (0-200) LDL Cholesterol, Calculated 92mg/dL (0-100) VLDL Cholesterol, Calculated 40mg/dL (0-40) HDL Cholesterol 30mg/dL (40-60) Cholesterol/HDL Ratio 5.4 Glucose (Fingerstick) 177mg/dL (70-99) 170mg/dL (70-99) Laboratory Tests Test 09/26/16 14:00 09/26/16 14:35 09/26/16 14:55 09/26/16 20:29 White Blood Count 9.9x10^3/uL (4.0-11.0) Red Blood Count 4.43x10^6/uL (3.50-5.40) Hemoglobin 10.4g/dL (12.0-15.5) Hematocrit 33.1% (36.0-47.0) Mean Corpuscular Volume 75fL (79-100) Mean Corpuscular Hemoglobin 24pg (25-35) Mean Corpuscular Hemoglobin Concent 31g/dL (31-37) Red Cell Distribution Width 14.8% (11.5-14.5) Platelet Count 256x10^3/uL (140-400) Neutrophils (%) (Auto) 59% (31-73) Lymphocytes (%) (Auto) 32% (24-48) Monocytes (%) (Auto) 6% (0-9) Eosinophils (%) (Auto) 3% (0-3) Basophils (%) (Auto) 1% (0-3) Neutrophils # (Auto) 5.8x10^3uL (1.8-7.7) Lymphocytes # (Auto) 3.2x10^3/uL (1.0-4.8) Monocytes # (Auto) 0.6x10^3/uL (0.0-1.1) Eosinophils # (Auto) 0.3x10^3/uL (0.0-0.7) Basophils # (Auto) 0.1x10^3/uL (0.0-0.2) Sodium Level 141mmol/L (136-145) Potassium Level 3.8mmol/L (3.5-5.1) Chloride Level 104mmol/L (98-107) Carbon Dioxide Level 30mmol/L (21-32) Anion Gap 7 (6-14) Blood Urea Nitrogen 9mg/dL (7-20) Creatinine 0.8mg/dL (0.6-1.0) Estimated GFR (Cockcroft-Gault) 97.1 Glucose Level 196mg/dL (70-99) Hemoglobin A1c 13.0% (4.8-5.6) Calcium Level 9.0mg/dL (8.5-10.1) Magnesium Level 1.5mg/dL (1.8-2.4) Total Bilirubin 0.2mg/dL (0.2-1.0) Direct Bilirubin < 0.1mg/dL (0.0-0.2) Aspartate Amino Transf (AST/SGOT) 23U/L (15-37) Alanine Aminotransferase (ALT/SGPT) 22U/L (14-59) Alkaline Phosphatase 155U/L (46-116) Creatine Kinase 96U/L (26-192) Creatine Kinase MB (Mass) 0.9ng/mL (0.0-3.6) Creatine Kinase MB Relative Index 0.9% (0-4) Troponin I Quantitative < 0.017ng/mL (0.000-0.055) HX-Krp-M-Type Natriuretic Peptide 623pg/mL (0-124) Total Protein 6.9g/dL (6.4-8.2) Albumin 2.7g/dL (3.4-5.0) Lipase 67U/L (73-393) Thyroid Stimulating Hormone (TSH) 1.529uIU/mL (0.358-3.74) Prothrombin Time 13.1SEC (11.7-14.0) Prothromb Time International Ratio 1.1 (0.8-1.1) D-Dimer (Karishma) < 0.27ug/mlFEU (0.00-0.50) Urine Collection Type Unknown Urine Color Yellow Urine Clarity Clear Urine pH 5.0 Urine Specific [place] 1.020 Urine Protein Negativemg/dL (NEG-TRACE) Urine Glucose (UA) 500mg/dL (NEG) Urine Ketones (Stick) Negativemg/dL (NEG) Urine Blood Negative (NEG) Urine Nitrite Negative (NEG) Urine Bilirubin Negative (NEG) Urine Urobilinogen Dipstick 0.2mg/dL (0.2 mg/dL) Urine Leukocyte Esterase Negative (NEG) Urine RBC 0/HPF (0-2) Urine WBC Occ/HPF (0-4) Urine Squamous Epithelial Cells Mod/LPF Urine Bacteria Few/HPF (0-FEW) Urine Mucus Marked/LPF Glucose (Fingerstick) 117mg/dL (70-99) Test 09/26/16 21:40 09/27/16 03:15 09/27/16 07:10 09/27/16 10:27 Troponin I Quantitative < 0.017ng/mL (0.000-0.055) < 0.017ng/mL (0.000-0.055) White Blood Count 9.7x10^3/uL (4.0-11.0) Red Blood Count 4.54x10^6/uL (3.50-5.40) Hemoglobin 10.5g/dL (12.0-15.5) Hematocrit 33.8% (36.0-47.0) Mean Corpuscular Volume 75fL (79-100) Mean Corpuscular Hemoglobin 23pg (25-35) Mean Corpuscular Hemoglobin Concent 31g/dL (31-37) Red Cell Distribution Width 14.8% (11.5-14.5) Platelet Count 238x10^3/uL (140-400) Neutrophils (%) (Auto) 55% (31-73) Lymphocytes (%) (Auto) 36% (24-48) Monocytes (%) (Auto) 6% (0-9) Eosinophils (%) (Auto) 3% (0-3) Basophils (%) (Auto) 1% (0-3) Neutrophils # (Auto) 5.4x10^3uL (1.8-7.7) Lymphocytes # (Auto) 3.5x10^3/uL (1.0-4.8) Monocytes # (Auto) 0.5x10^3/uL (0.0-1.1) Eosinophils # (Auto) 0.3x10^3/uL (0.0-0.7) Basophils # (Auto) 0.1x10^3/uL (0.0-0.2) Sodium Level 141mmol/L (136-145) Potassium Level 3.9mmol/L (3.5-5.1) Chloride Level 103mmol/L (98-107) Carbon Dioxide Level 31mmol/L (21-32) Anion Gap 7 (6-14) Blood Urea Nitrogen 12mg/dL (7-20) Creatinine 0.8mg/dL (0.6-1.0) Estimated GFR (Cockcroft-Gault) 97.1 Glucose Level 226mg/dL (70-99) Calcium Level 8.8mg/dL (8.5-10.1) Triglycerides Level 202mg/dL (0-150) Cholesterol Level 162mg/dL (0-200) LDL Cholesterol, Calculated 92mg/dL (0-100) VLDL Cholesterol, Calculated 40mg/dL (0-40) HDL Cholesterol 30mg/dL (40-60) Cholesterol/HDL Ratio 5.4 Glucose (Fingerstick) 177mg/dL (70-99) 170mg/dL (70-99) Medications Current Medications Ondansetron HCl (Zofran) 4 mg PRN Q8HRS PRN IV NAUSEA/VOMITING; Start 09/26/16 at 15:30; Stop 09/26/16 at 22:13; Status DC Furosemide 20 mg 20 mg 1X ONCE IVP Last administered on 09/26/16 16:10; Start 09/26/16 at 16:00; Stop 09/26/16 at 16:01; Status DC Magnesium Sulfate/ Dextrose (Magnesium Sulfate PREMIX 2GM) 50 ml @ 25 mls/hr 1X ONCE IV Last administered on 09/26/16 16:10; Start 09/26/16 at 16:15; Stop 09/26/16 at 18:14; Status DC Carvedilol (Coreg) 6.25 mg BIDWMEALS PO ; Start 09/26/16 at 17:00; Stop 09/26/16 at 22:19; Status DC Hydralazine HCl (Apresoline) 10 mg PRN Q4HRS PRN IVP ELEVATED BP, SEE COMMENTS ; Start 09/26/16 at 16:15 Lisinopril (Prinivil) 40 mg DAILY PO Last administered on 09/27/16 09:57; Start 09/27/16 at 09:00 Furosemide (Lasix) 40 mg DAILY PO Last administered on 09/27/16 09:57; Start at 09:00 Acetaminophen (Tylenol) 325 mg PRN Q6HRS PRN PO MILD PAIN / TEMP; Start at 19:30 Acetaminophen/ Hydrocodone Bitart (Lortab 5/325) 1 tab PRN Q6HRS PRN PO MODERATE TO SEVERE PAIN Last administered on 09/26/16 20:03; Start 09/26/16 at 19 :30 Hydralazine HCl (Apresoline) 10 mg PRN Q4HRS PRN IVP ELEVATED BP, SEE COMMENTS ; Start 09/26/16 at 19:30 Ondansetron HCl (Zofran) 4 mg PRN Q8HRS PRN IV NAUSEA/VOMITING; Start 09/26/16 at 19:30 Albuterol Sulfate (Ventolin Neb Soln) 2.5 mg PRN Q4HRS PRN NEB SHORTNESS OF BREATH; Start 09/26/16 at 19:30 Fluoxetine HCl (Prozac) 10 mg DAILY PO Last administered on 09/27/16 09:56; Start 09/27/16 at 09:00 Fluoxetine HCl (Prozac) 20 mg HS PO ; Start 09/26/16 at 22:30 Zolpidem Tartrate (Ambien) 5 mg QHS PO ; Start 09/26/16 at 22:30 Carvedilol (Coreg) 25 mg BIDWMEALS PO Last administered on 09/27/16 09:56; Start 09/27/16 at 08:00 Insulin Aspart (Novolog) 60 units TIDWMEALS SQ Last administered on 09/27/16 10 :01; Start 09/27/16 at 08:00 Non-Formulary Medication 45 unit BID SQ ; Start 09/26/16 at 22:00; Status UNV Pantoprazole Sodium (Protonix) 40 mg DAILYAC PO Last administered on 09/27/16 09:56; Start 09/27/16 at 07:30 Active Scripts Active Carvedilol 6.25 Mg Tablet 6.25 Mg PO BIDWMEALS Reported Lisinopril 40 Mg Tablet 1 Tab PO Prozac (Fluoxetine Hcl) 10 Mg Capsule 1 Cap PO DAILY Prozac (Fluoxetine Hcl) 10 Mg Capsule 2 Cap PO HS Coreg (Carvedilol) 25 Mg Tablet 1 Tab PO BID Tresiba Flextouch U-100 (Insulin Degludec) 100 Unit/1 Ml Insuln.pen 45 Unit SQ BID Ambien (Zolpidem Tartrate) 5 Mg Tablet 1 Tab PO QHS Lortab 7.5-325 mg Tablet (Hydrocodone/Acetaminophen) 1 Each Tablet 1 Tab PO PRN Q6HRS PRN Novolog (Insulin Aspart) 100 Unit/1 Ml Cartridge 60 Unit SQ TIDWMEALS Proair Hfa Inhaler (Albuterol Sulfate) 8.5 Gm Hfa.aer.ad 2 Puff IH PRN Q4-6HRS Omeprazole 40 Mg Capsule.dr 40 Mg PO DAILY [pancrease mt16] Tab PO QIDACHS Vitals/I & O Vital Sign - Last 24 Hours 09/26/16 09/26/16 09/26/16 09/26/16 13:31 13:47 14:01 14:31 Temp 97.3 97.3 Pulse 89 101 85 84 Resp 24 24 22 20 B/P 150/75 150/75 167/75 145/55 Pulse Ox 97 97 97 97 O2 Delivery Room Air Room Air Room Air Room Air 09/26/16 09/26/16 09/26/16 09/26/16 15:03 15:31 16:01 17:01 Pulse 85 86 81 81 Resp 18 B/P 158/75 176/74 201/88 153/90 Pulse Ox 95 95 96 96 O2 Delivery Room Air Room Air Room Air Room Air 09/26/16 09/26/16 09/26/16 09/26/16 18:20 20:03 21:03 23:04 Temp 97.7 98.2 97.7 98.2 Pulse 84 83 Resp 19 B/P 137/93 147/101 Pulse Ox 95 96 O2 Delivery Room Air Room Air Room Air Room Air 09/27/16 09/27/16 09/27/16 09/27/16 02:44 07:00 09:56 09:57 Temp 98.1 98.1 98.1 98.1 Pulse 85 84 84 84 Resp 18 B/P 138/80 187/89 187/89 187/89 Pulse Ox 96 95 O2 Delivery Room Air Room Air Intake and Output 09/26/16 09/26/16 09/27/16 15:00 23:00 07:00 Intake Total 50 ml 400 ml Balance 50 ml 400 ml HARSH JENSEN MD Sep 27, 2016 10:59
[2016-09-27 11:00] VITALS: BP 156/94
--- NOTE | 2016-09-27 11:12 | PDOC ---
CARDIO Progress Notes Date and Time Date of Service 09/27/16 Subjective Subjective: No Chest Pain, No shortness of breath, No Palpitations, No Dizziness, Other (breathing improved. mild dyspnea with exertion.) Vitals Vitals Vital Signs Date Time Temp Pulse Resp B/P Pulse Ox O2 Delivery O2 Flow Rate FiO2 09/27/16 09:57 84 187/89 09/27/16 07:00 98.1 18 95 Room Air 98.1 Weight Weight [ ] Input and Output Intake and Output Intake and Output 09/27/16 07:00 Intake Total 450 ml Balance 450 ml Intake Oral 400 ml IV Total 50 ml Laboratory Labs Laboratory Tests Test 09/26/16 14:00 09/26/16 14:35 09/26/16 14:55 09/26/16 20:29 White Blood Count 9.9x10^3/uL (4.0-11.0) Red Blood Count 4.43x10^6/uL (3.50-5.40) Hemoglobin 10.4g/dL (12.0-15.5) Hematocrit 33.1% (36.0-47.0) Mean Corpuscular Volume 75fL (79-100) Mean Corpuscular Hemoglobin 24pg (25-35) Mean Corpuscular Hemoglobin Concent 31g/dL (31-37) Red Cell Distribution Width 14.8% (11.5-14.5) Platelet Count 256x10^3/uL (140-400) Neutrophils (%) (Auto) 59% (31-73) Lymphocytes (%) (Auto) 32% (24-48) Monocytes (%) (Auto) 6% (0-9) Eosinophils (%) (Auto) 3% (0-3) Basophils (%) (Auto) 1% (0-3) Neutrophils # (Auto) 5.8x10^3uL (1.8-7.7) Lymphocytes # (Auto) 3.2x10^3/uL (1.0-4.8) Monocytes # (Auto) 0.6x10^3/uL (0.0-1.1) Eosinophils # (Auto) 0.3x10^3/uL (0.0-0.7) Basophils # (Auto) 0.1x10^3/uL (0.0-0.2) Sodium Level 141mmol/L (136-145) Potassium Level 3.8mmol/L (3.5-5.1) Chloride Level 104mmol/L (98-107) Carbon Dioxide Level 30mmol/L (21-32) Anion Gap 7 (6-14) Blood Urea Nitrogen 9mg/dL (7-20) Creatinine 0.8mg/dL (0.6-1.0) Estimated GFR (Cockcroft-Gault) 97.1 Glucose Level 196mg/dL (70-99) Hemoglobin A1c 13.0% (4.8-5.6) Calcium Level 9.0mg/dL (8.5-10.1) Magnesium Level 1.5mg/dL (1.8-2.4) Total Bilirubin 0.2mg/dL (0.2-1.0) Direct Bilirubin < 0.1mg/dL (0.0-0.2) Aspartate Amino Transf (AST/SGOT) 23U/L (15-37) Alanine Aminotransferase (ALT/SGPT) 22U/L (14-59) Alkaline Phosphatase 155U/L (46-116) Creatine Kinase 96U/L (26-192) Creatine Kinase MB (Mass) 0.9ng/mL (0.0-3.6) Creatine Kinase MB Relative Index 0.9% (0-4) Troponin I Quantitative < 0.017ng/mL (0.000-0.055) QA-Qbe-J-Type Natriuretic Peptide 623pg/mL (0-124) Total Protein 6.9g/dL (6.4-8.2) Albumin 2.7g/dL (3.4-5.0) Lipase 67U/L (73-393) Thyroid Stimulating Hormone (TSH) 1.529uIU/mL (0.358-3.74) Prothrombin Time 13.1SEC (11.7-14.0) Prothromb Time International Ratio 1.1 (0.8-1.1) D-Dimer (Karishma) < 0.27ug/mlFEU (0.00-0.50) Urine Collection Type Unknown Urine Color Yellow Urine Clarity Clear Urine pH 5.0 Urine Specific [place] 1.020 Urine Protein Negativemg/dL (NEG-TRACE) Urine Glucose (UA) 500mg/dL (NEG) Urine Ketones (Stick) Negativemg/dL (NEG) Urine Blood Negative (NEG) Urine Nitrite Negative (NEG) Urine Bilirubin Negative (NEG) Urine Urobilinogen Dipstick 0.2mg/dL (0.2 mg/dL) Urine Leukocyte Esterase Negative (NEG) Urine RBC 0/HPF (0-2) Urine WBC Occ/HPF (0-4) Urine Squamous Epithelial Cells Mod/LPF Urine Bacteria Few/HPF (0-FEW) Urine Mucus Marked/LPF Glucose (Fingerstick) 117mg/dL (70-99) Test 09/26/16 21:40 09/27/16 03:15 09/27/16 07:10 09/27/16 10:27 Troponin I Quantitative < 0.017ng/mL (0.000-0.055) < 0.017ng/mL (0.000-0.055) White Blood Count 9.7x10^3/uL (4.0-11.0) Red Blood Count 4.54x10^6/uL (3.50-5.40) Hemoglobin 10.5g/dL (12.0-15.5) Hematocrit 33.8% (36.0-47.0) Mean Corpuscular Volume 75fL (79-100) Mean Corpuscular Hemoglobin 23pg (25-35) Mean Corpuscular Hemoglobin Concent 31g/dL (31-37) Red Cell Distribution Width 14.8% (11.5-14.5) Platelet Count 238x10^3/uL (140-400) Neutrophils (%) (Auto) 55% (31-73) Lymphocytes (%) (Auto) 36% (24-48) Monocytes (%) (Auto) 6% (0-9) Eosinophils (%) (Auto) 3% (0-3) Basophils (%) (Auto) 1% (0-3) Neutrophils # (Auto) 5.4x10^3uL (1.8-7.7) Lymphocytes # (Auto) 3.5x10^3/uL (1.0-4.8) Monocytes # (Auto) 0.5x10^3/uL (0.0-1.1) Eosinophils # (Auto) 0.3x10^3/uL (0.0-0.7) Basophils # (Auto) 0.1x10^3/uL (0.0-0.2) Sodium Level 141mmol/L (136-145) Potassium Level 3.9mmol/L (3.5-5.1) Chloride Level 103mmol/L (98-107) Carbon Dioxide Level 31mmol/L (21-32) Anion Gap 7 (6-14) Blood Urea Nitrogen 12mg/dL (7-20) Creatinine 0.8mg/dL (0.6-1.0) Estimated GFR (Cockcroft-Gault) 97.1 Glucose Level 226mg/dL (70-99) Calcium Level 8.8mg/dL (8.5-10.1) Triglycerides Level 202mg/dL (0-150) Cholesterol Level 162mg/dL (0-200) LDL Cholesterol, Calculated 92mg/dL (0-100) VLDL Cholesterol, Calculated 40mg/dL (0-40) HDL Cholesterol 30mg/dL (40-60) Cholesterol/HDL Ratio 5.4 Glucose (Fingerstick) 177mg/dL (70-99) 170mg/dL (70-99) Physical Exam HEENT: Neck Supple W Full Motion Chest: Symmetric LUNGS: Clear to Auscultation Heart: S1S2, RRR Abdomen: Soft N/T, Other (obestiy ) Extremities: 2+ Dorsalis Pedis, No Edema Neurology: alert, oriented, follow commands Assessment Assessment 1. 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 echo conducted 2 months ago at - records not obtained; request refaxed. 2. cardiomyopathy 30% in the past, improved to 55%. 01/2016 LVEF 40-45% continue optimization therapy 3. Hypertension labile this morning- BP meds not yet give coreg increased- monitor trend if BP stable this afternoon, may discharge from CV standpoint and f/u with routine area safety manager in 1-2 weeks. 4. DM2 uncontrolled, A1C 13 treatment per PCP 5. HLP LDL 92 6. Morbid obesity lifestyle and dietary modification encouraged 7. Hypomagnesemia replaced. recheck LUIS ALBERTO Rodriguez APRN Sep 27, 2016 11:12
[2016-09-27 15:00] VITALS: BP 115/71
[2016-09-27 19:00] VITALS: BP 137/97
[2016-09-27] MEDS: ZOLPIDEM 5 MG TABLET. PO SCH (21:00)
[2016-09-27 22:40] VITALS: BP 141/89
[2016-09-28] MEDS: HYDROCODONE/APAP 5/325MG TABLET. PO PRN (02:47)
[2016-09-28 02:56] VITALS: BP 129/78
[2016-09-28 07:00] VITALS: BP 144/103
[2016-09-28] MEDS: INSULIN ASPART 300 UNITS/3 ML INSULN.PEN SQ SCH ×2 (07:52→11:39)
[2016-09-28] MEDS: PANTOPRAZOLE 40 MG TABLET. PO SCH (08:36)
[2016-09-28] MEDS: FLUOXETINE HCL 10 MG CAPSULE PO SCH (08:36)
[2016-09-28] MEDS: FUROSEMIDE 40 MG TABLET PO SCH (08:36)
[2016-09-28] MEDS: LISINOPRIL 10 MG TABLET PO SCH (08:37)
[2016-09-28] MEDS: CARVEDILOL 12.5 MG TABLET PO SCH (08:38)
[2016-09-28] MEDS: INSULIN DEGLUDEC 45 UNIT SQ SCH (08:41)
[2016-09-28] MEDS ORDERED: FURO-68 PO (09:06)
[2016-09-28 10:45] VITALS: BP 122/85
--- NOTE | 2016-09-28 12:10 | PDOC ---
PROGRESS NOTES Subjective Subjective Patient seen and examined The patient looks and feels better today. Objective Objective Vital Signs Date Time Temp Pulse Resp B/P Pulse Ox O2 Delivery O2 Flow Rate FiO2 09/28/16 10:45 98.8 102 18 122/85 93 Room Air 98.8 Intake and Output 09/28/16 07:00 Intake Total 1170 ml Balance 1170 ml Intake Oral 1170 ml # Voids 5 Physical Exam Abdomen: Normal bowel sounds Heart: Regular rate General: No acute distress Lungs: Other (mildly decreased breath sounds in the bases) Assessment Assessment Problems Medical Problems: (1) Dyspnea Status: Acute (2) HTN (hypertension) Status: Acute Assessment 1. 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 Will continue present medical treatment. Patient is scheduled for follow-up at in the next 3-4 weeks. 2. cardiomyopathy 30% in the past, improved to 55%. 01/2016 LVEF 40-45% continue present treatment. 3. Hypertension Improved. Continue continue present medications. 4. DM2 treatment per PCP 5. HLP LDL 92 6. Morbid obesity lifestyle and dietary modification encouraged Comment Review of Relevant I have reviewed the following items snow (where applicable) has been applied. Labs Laboratory Tests Test 09/26/16 14:00 09/26/16 14:35 09/26/16 14:55 09/26/16 20:29 White Blood Count 9.9x10^3/uL (4.0-11.0) Red Blood Count 4.43x10^6/uL (3.50-5.40) Hemoglobin 10.4g/dL (12.0-15.5) Hematocrit 33.1% (36.0-47.0) Mean Corpuscular Volume 75fL (79-100) Mean Corpuscular Hemoglobin 24pg (25-35) Mean Corpuscular Hemoglobin Concent 31g/dL (31-37) Red Cell Distribution Width 14.8% (11.5-14.5) Platelet Count 256x10^3/uL (140-400) Neutrophils (%) (Auto) 59% (31-73) Lymphocytes (%) (Auto) 32% (24-48) Monocytes (%) (Auto) 6% (0-9) Eosinophils (%) (Auto) 3% (0-3) Basophils (%) (Auto) 1% (0-3) Neutrophils # (Auto) 5.8x10^3uL (1.8-7.7) Lymphocytes # (Auto) 3.2x10^3/uL (1.0-4.8) Monocytes # (Auto) 0.6x10^3/uL (0.0-1.1) Eosinophils # (Auto) 0.3x10^3/uL (0.0-0.7) Basophils # (Auto) 0.1x10^3/uL (0.0-0.2) Sodium Level 141mmol/L (136-145) Potassium Level 3.8mmol/L (3.5-5.1) Chloride Level 104mmol/L (98-107) Carbon Dioxide Level 30mmol/L (21-32) Anion Gap 7 (6-14) Blood Urea Nitrogen 9mg/dL (7-20) Creatinine 0.8mg/dL (0.6-1.0) Estimated GFR (Cockcroft-Gault) 97.1 Glucose Level 196mg/dL (70-99) Hemoglobin A1c 13.0% (4.8-5.6) Calcium Level 9.0mg/dL (8.5-10.1) Magnesium Level 1.5mg/dL (1.8-2.4) Total Bilirubin 0.2mg/dL (0.2-1.0) Direct Bilirubin < 0.1mg/dL (0.0-0.2) Aspartate Amino Transf (AST/SGOT) 23U/L (15-37) Alanine Aminotransferase (ALT/SGPT) 22U/L (14-59) Alkaline Phosphatase 155U/L (46-116) Creatine Kinase 96U/L (26-192) Creatine Kinase MB (Mass) 0.9ng/mL (0.0-3.6) Creatine Kinase MB Relative Index 0.9% (0-4) Troponin I Quantitative < 0.017ng/mL (0.000-0.055) XH-Laz-L-Type Natriuretic Peptide 623pg/mL (0-124) Total Protein 6.9g/dL (6.4-8.2) Albumin 2.7g/dL (3.4-5.0) Lipase 67U/L (73-393) Thyroid Stimulating Hormone (TSH) 1.529uIU/mL (0.358-3.74) Prothrombin Time 13.1SEC (11.7-14.0) Prothromb Time International Ratio 1.1 (0.8-1.1) D-Dimer (Karishma) < 0.27ug/mlFEU (0.00-0.50) Urine Collection Type Unknown Urine Color Yellow Urine Clarity Clear Urine pH 5.0 Urine Specific [place] 1.020 Urine Protein Negativemg/dL (NEG-TRACE) Urine Glucose (UA) 500mg/dL (NEG) Urine Ketones (Stick) Negativemg/dL (NEG) Urine Blood Negative (NEG) Urine Nitrite Negative (NEG) Urine Bilirubin Negative (NEG) Urine Urobilinogen Dipstick 0.2mg/dL (0.2 mg/dL) Urine Leukocyte Esterase Negative (NEG) Urine RBC 0/HPF (0-2) Urine WBC Occ/HPF (0-4) Urine Squamous Epithelial Cells Mod/LPF Urine Bacteria Few/HPF (0-FEW) Urine Mucus Marked/LPF Glucose (Fingerstick) 117mg/dL (70-99) Test 09/26/16 21:40 09/27/16 03:15 09/27/16 07:10 09/27/16 10:27 Troponin I Quantitative < 0.017ng/mL (0.000-0.055) < 0.017ng/mL (0.000-0.055) White Blood Count 9.7x10^3/uL (4.0-11.0) Red Blood Count 4.54x10^6/uL (3.50-5.40) Hemoglobin 10.5g/dL (12.0-15.5) Hematocrit 33.8% (36.0-47.0) Mean Corpuscular Volume 75fL (79-100) Mean Corpuscular Hemoglobin 23pg (25-35) Mean Corpuscular Hemoglobin Concent 31g/dL (31-37) Red Cell Distribution Width 14.8% (11.5-14.5) Platelet Count 238x10^3/uL (140-400) Neutrophils (%) (Auto) 55% (31-73) Lymphocytes (%) (Auto) 36% (24-48) Monocytes (%) (Auto) 6% (0-9) Eosinophils (%) (Auto) 3% (0-3) Basophils (%) (Auto) 1% (0-3) Neutrophils # (Auto) 5.4x10^3uL (1.8-7.7) Lymphocytes # (Auto) 3.5x10^3/uL (1.0-4.8) Monocytes # (Auto) 0.5x10^3/uL (0.0-1.1) Eosinophils # (Auto) 0.3x10^3/uL (0.0-0.7) Basophils # (Auto) 0.1x10^3/uL (0.0-0.2) Sodium Level 141mmol/L (136-145) Potassium Level 3.9mmol/L (3.5-5.1) Chloride Level 103mmol/L (98-107) Carbon Dioxide Level 31mmol/L (21-32) Anion Gap 7 (6-14) Blood Urea Nitrogen 12mg/dL (7-20) Creatinine 0.8mg/dL (0.6-1.0) Estimated GFR (Cockcroft-Gault) 97.1 Glucose Level 226mg/dL (70-99) Calcium Level 8.8mg/dL (8.5-10.1) Magnesium Level 1.7mg/dL (1.8-2.4) Triglycerides Level 202mg/dL (0-150) Cholesterol Level 162mg/dL (0-200) LDL Cholesterol, Calculated 92mg/dL (0-100) VLDL Cholesterol, Calculated 40mg/dL (0-40) HDL Cholesterol 30mg/dL (40-60) Cholesterol/HDL Ratio 5.4 Glucose (Fingerstick) 177mg/dL (70-99) 170mg/dL (70-99) Test 09/27/16 16:09 09/27/16 20:20 09/28/16 07:39 09/28/16 11:00 Glucose (Fingerstick) 106mg/dL (70-99) 118mg/dL (70-99) 317mg/dL (70-99) 202mg/dL (70-99) Laboratory Tests Test 09/27/16 16:09 09/27/16 20:20 09/28/16 07:39 09/28/16 11:00 Glucose (Fingerstick) 106mg/dL (70-99) 118mg/dL (70-99) 317mg/dL (70-99) 202mg/dL (70-99) Medications Current Medications Ondansetron HCl (Zofran) 4 mg PRN Q8HRS PRN IV NAUSEA/VOMITING; Start 09/26/16 at 15:30; Stop 09/26/16 at 22:13; Status DC Furosemide 20 mg 20 mg 1X ONCE IVP Last administered on 09/26/16 16:10; Start 09/26/16 at 16:00; Stop 09/26/16 at 16:01; Status DC Magnesium Sulfate/ Dextrose (Magnesium Sulfate PREMIX 2GM) 50 ml @ 25 mls/hr 1X ONCE IV Last administered on 09/26/16 16:10; Start 09/26/16 at 16:15; Stop 09/26/16 at 18:14; Status DC Carvedilol (Coreg) 6.25 mg BIDWMEALS PO ; Start 09/26/16 at 17:00; Stop 09/26/16 at 22:19; Status DC Hydralazine HCl (Apresoline) 10 mg PRN Q4HRS PRN IVP ELEVATED BP, SEE COMMENTS ; Start 09/26/16 at 16:15 Lisinopril (Prinivil) 40 mg DAILY PO Last administered on 09/28/16 08:37; Start 09/27/16 at 09:00 Furosemide (Lasix) 40 mg DAILY PO Last administered on 09/28/16 08:36; Start at 09:00 Acetaminophen (Tylenol) 325 mg PRN Q6HRS PRN PO MILD PAIN / TEMP; Start at 19:30 Acetaminophen/ Hydrocodone Bitart (Lortab 5/325) 1 tab PRN Q6HRS PRN PO MODERATE TO SEVERE PAIN Last administered on 09/28/16 02:47; Start 09/26/16 at 19 :30 Hydralazine HCl (Apresoline) 10 mg PRN Q4HRS PRN IVP ELEVATED BP, SEE COMMENTS ; Start 09/26/16 at 19:30 Ondansetron HCl (Zofran) 4 mg PRN Q8HRS PRN IV NAUSEA/VOMITING; Start 09/26/16 at 19:30 Albuterol Sulfate (Ventolin Neb Soln) 2.5 mg PRN Q4HRS PRN NEB SHORTNESS OF BREATH; Start 09/26/16 at 19:30 Fluoxetine HCl (Prozac) 10 mg DAILY PO Last administered on 09/28/16 08:36; Start 09/27/16 at 09:00 Fluoxetine HCl (Prozac) 20 mg HS PO Last administered on 09/27/16 21:12; Start 09/26/16 at 22:30 Zolpidem Tartrate (Ambien) 5 mg QHS PO ; Start 09/26/16 at 22:30 Carvedilol (Coreg) 25 mg BIDWMEALS PO Last administered on 09/28/16 08:38; Start 09/27/16 at 08:00 Insulin Aspart (Novolog) 60 units TIDWMEALS SQ Last administered on 09/28/16 11 :39; Start 09/27/16 at 08:00 Non-Formulary Medication 45 unit BID SQ ; Start 09/26/16 at 22:00; Status UNV Pantoprazole Sodium (Protonix) 40 mg DAILYAC PO Last administered on 09/28/16 08:36; Start 09/27/16 at 07:30 Active Scripts Active Carvedilol 6.25 Mg Tablet 6.25 Mg PO BIDWMEALS Reported Lisinopril 40 Mg Tablet 1 Tab PO Prozac (Fluoxetine Hcl) 10 Mg Capsule 1 Cap PO DAILY Prozac (Fluoxetine Hcl) 10 Mg Capsule 2 Cap PO HS Coreg (Carvedilol) 25 Mg Tablet 1 Tab PO BID Tresiba Flextouch U-100 (Insulin Degludec) 100 Unit/1 Ml Insuln.pen 45 Unit SQ BID Ambien (Zolpidem Tartrate) 5 Mg Tablet 1 Tab PO QHS Lortab 7.5-325 mg Tablet (Hydrocodone/Acetaminophen) 1 Each Tablet 1 Tab PO PRN Q6HRS PRN Novolog (Insulin Aspart) 100 Unit/1 Ml Cartridge 60 Unit SQ TIDWMEALS Proair Hfa Inhaler (Albuterol Sulfate) 8.5 Gm Hfa.aer.ad 2 Puff IH PRN Q4-6HRS Omeprazole 40 Mg Capsule.dr 40 Mg PO DAILY [pancrease mt16] Tab PO QIDACHS Vitals/I & O Vital Sign - Last 24 Hours 09/27/16 09/27/16 09/27/16 09/27/16 15:00 17:19 19:00 20:10 Temp 98.7 98.1 98.7 98.1 Pulse 100 100 91 Resp 20 B/P 115/71 115/71 137/97 Pulse Ox 94 98 O2 Delivery Room Air Room Air Room Air 09/27/16 09/28/16 09/28/16 09/28/16 22:40 02:47 02:56 03:47 Temp 99.4 99.0 99.4 99.0 Pulse 93 91 Resp 18 18 B/P 141/89 129/78 Pulse Ox 94 96 94 96 O2 Delivery Room Air Room Air Room Air Room Air 09/28/16 09/28/16 09/28/16 09/28/16 07:00 08:10 08:37 08:38 Temp 98.3 98.3 Pulse 93 93 93 Resp 20 B/P 144/103 144/103 144/103 Pulse Ox 94 O2 Delivery Room Air Room Air 09/28/16 10:45 Temp 98.8 98.8 Pulse 102 Resp 18 B/P 122/85 Pulse Ox 93 O2 Delivery Room Air Intake and Output 09/27/16 09/27/16 09/28/16 15:00 23:00 07:00 Intake Total 180 ml 600 ml 390 ml Balance 180 ml 600 ml 390 ml KEATON PEREZ MD Sep 28, 2016 12:10
--- NOTE | 2016-09-28 12:11 | PDOC3 ---
Discharge Summary Visit Information Date of Admission: Sep 26, 2016 Date of Discharge: Sep 28, 2016 Admitting Diagnosis Comment: 1. History of cardiomyopathy. 2. Shortness of breath, possibly due to acute on chronic heart failure. 3. Diabetes mellitus. 4. Morbid obesity. 5. Hypertension. NOT Controlled. 6. Anemia. 7. Hypomagnesemia.resolved. Final Diagnosis Problems Medical Problems: (1) Dyspnea Status: Acute (2) HTN (hypertension) Status: Acute Brief Hospital Course Allergies Allergies Coded Allergies Type Severity Reaction Last Updated Verified shellfish derived Allergy Severe anaphylaxis 09/17/14 Yes Iodine and Iodide Containing Produc Allergy Intermediate hives, itching, fevers, anaphylaxis 09/17/14 Yes Penicillins Allergy Intermediate itching, vomiting, fevers 09/17/14 Yes iodine Allergy Intermediate 03/11/16 Yes meperidine Adverse Reaction Intermediate fevers, vomiting 02/15/15 Yes Vital Signs Vital Signs Date Time Temp Pulse Resp B/P Pulse Ox O2 Delivery O2 Flow Rate FiO2 09/28/16 10:45 98.8 102 18 122/85 93 Room Air 98.8 Lab Results Laboratory Tests Test 09/26/16 14:00 09/26/16 14:35 09/26/16 14:55 09/26/16 20:29 White Blood Count 9.9x10^3/uL (4.0-11.0) Red Blood Count 4.43x10^6/uL (3.50-5.40) Hemoglobin 10.4g/dL (12.0-15.5) Hematocrit 33.1% (36.0-47.0) Mean Corpuscular Volume 75fL (79-100) Mean Corpuscular Hemoglobin 24pg (25-35) Mean Corpuscular Hemoglobin Concent 31g/dL (31-37) Red Cell Distribution Width 14.8% (11.5-14.5) Platelet Count 256x10^3/uL (140-400) Neutrophils (%) (Auto) 59% (31-73) Lymphocytes (%) (Auto) 32% (24-48) Monocytes (%) (Auto) 6% (0-9) Eosinophils (%) (Auto) 3% (0-3) Basophils (%) (Auto) 1% (0-3) Neutrophils # (Auto) 5.8x10^3uL (1.8-7.7) Lymphocytes # (Auto) 3.2x10^3/uL (1.0-4.8) Monocytes # (Auto) 0.6x10^3/uL (0.0-1.1) Eosinophils # (Auto) 0.3x10^3/uL (0.0-0.7) Basophils # (Auto) 0.1x10^3/uL (0.0-0.2) Sodium Level 141mmol/L (136-145) Potassium Level 3.8mmol/L (3.5-5.1) Chloride Level 104mmol/L (98-107) Carbon Dioxide Level 30mmol/L (21-32) Anion Gap 7 (6-14) Blood Urea Nitrogen 9mg/dL (7-20) Creatinine 0.8mg/dL (0.6-1.0) Estimated GFR (Cockcroft-Gault) 97.1 Glucose Level 196mg/dL (70-99) Hemoglobin A1c 13.0% (4.8-5.6) Calcium Level 9.0mg/dL (8.5-10.1) Magnesium Level 1.5mg/dL (1.8-2.4) Total Bilirubin 0.2mg/dL (0.2-1.0) Direct Bilirubin < 0.1mg/dL (0.0-0.2) Aspartate Amino Transf (AST/SGOT) 23U/L (15-37) Alanine Aminotransferase (ALT/SGPT) 22U/L (14-59) Alkaline Phosphatase 155U/L (46-116) Creatine Kinase 96U/L (26-192) Creatine Kinase MB (Mass) 0.9ng/mL (0.0-3.6) Creatine Kinase MB Relative Index 0.9% (0-4) Troponin I Quantitative < 0.017ng/mL (0.000-0.055) DF-Afh-B-Type Natriuretic Peptide 623pg/mL (0-124) Total Protein 6.9g/dL (6.4-8.2) Albumin 2.7g/dL (3.4-5.0) Lipase 67U/L (73-393) Thyroid Stimulating Hormone (TSH) 1.529uIU/mL (0.358-3.74) Prothrombin Time 13.1SEC (11.7-14.0) Prothromb Time International Ratio 1.1 (0.8-1.1) D-Dimer (Karishma) < 0.27ug/mlFEU (0.00-0.50) Urine Collection Type Unknown Urine Color Yellow Urine Clarity Clear Urine pH 5.0 Urine Specific [place] 1.020 Urine Protein Negativemg/dL (NEG-TRACE) Urine Glucose (UA) 500mg/dL (NEG) Urine Ketones (Stick) Negativemg/dL (NEG) Urine Blood Negative (NEG) Urine Nitrite Negative (NEG) Urine Bilirubin Negative (NEG) Urine Urobilinogen Dipstick 0.2mg/dL (0.2 mg/dL) Urine Leukocyte Esterase Negative (NEG) Urine RBC 0/HPF (0-2) Urine WBC Occ/HPF (0-4) Urine Squamous Epithelial Cells Mod/LPF Urine Bacteria Few/HPF (0-FEW) Urine Mucus Marked/LPF Glucose (Fingerstick) 117mg/dL (70-99) Test 09/26/16 21:40 09/27/16 03:15 09/27/16 07:10 09/27/16 10:27 Troponin I Quantitative < 0.017ng/mL (0.000-0.055) < 0.017ng/mL (0.000-0.055) White Blood Count 9.7x10^3/uL (4.0-11.0) Red Blood Count 4.54x10^6/uL (3.50-5.40) Hemoglobin 10.5g/dL (12.0-15.5) Hematocrit 33.8% (36.0-47.0) Mean Corpuscular Volume 75fL (79-100) Mean Corpuscular Hemoglobin 23pg (25-35) Mean Corpuscular Hemoglobin Concent 31g/dL (31-37) Red Cell Distribution Width 14.8% (11.5-14.5) Platelet Count 238x10^3/uL (140-400) Neutrophils (%) (Auto) 55% (31-73) Lymphocytes (%) (Auto) 36% (24-48) Monocytes (%) (Auto) 6% (0-9) Eosinophils (%) (Auto) 3% (0-3) Basophils (%) (Auto) 1% (0-3) Neutrophils # (Auto) 5.4x10^3uL (1.8-7.7) Lymphocytes # (Auto) 3.5x10^3/uL (1.0-4.8) Monocytes # (Auto) 0.5x10^3/uL (0.0-1.1) Eosinophils # (Auto) 0.3x10^3/uL (0.0-0.7) Basophils # (Auto) 0.1x10^3/uL (0.0-0.2) Sodium Level 141mmol/L (136-145) Potassium Level 3.9mmol/L (3.5-5.1) Chloride Level 103mmol/L (98-107) Carbon Dioxide Level 31mmol/L (21-32) Anion Gap 7 (6-14) Blood Urea Nitrogen 12mg/dL (7-20) Creatinine 0.8mg/dL (0.6-1.0) Estimated GFR (Cockcroft-Gault) 97.1 Glucose Level 226mg/dL (70-99) Calcium Level 8.8mg/dL (8.5-10.1) Magnesium Level 1.7mg/dL (1.8-2.4) Triglycerides Level 202mg/dL (0-150) Cholesterol Level 162mg/dL (0-200) LDL Cholesterol, Calculated 92mg/dL (0-100) VLDL Cholesterol, Calculated 40mg/dL (0-40) HDL Cholesterol 30mg/dL (40-60) Cholesterol/HDL Ratio 5.4 Glucose (Fingerstick) 177mg/dL (70-99) 170mg/dL (70-99) Test 09/27/16 16:09 09/27/16 20:20 09/28/16 07:39 09/28/16 11:00 Glucose (Fingerstick) 106mg/dL (70-99) 118mg/dL (70-99) 317mg/dL (70-99) 202mg/dL (70-99) Laboratory Tests Test 09/27/16 16:09 09/27/16 20:20 09/28/16 07:39 09/28/16 11:00 Glucose (Fingerstick) 106mg/dL (70-99) 118mg/dL (70-99) 317mg/dL (70-99) 202mg/dL (70-99) Brief Hospital Course Ms. Celeste is a 36 old AA female admitted for hTN, hx of above, ONly meds adjusted by cards was to start lasix 40 PO qD and to continue the rest of her meds, Also on high doses insulin, BS ok here, FF up [facility] cards 2 weeks SHe understands Pt seen and examined, [facility] rn internal medicine Information Condition at Discharge: Improved, Stable Follow Up: Weeks (cards [facility] 2 weeks) Disposition/Orders: D/C to Home Scheduled ([pancrease mt16]) TAB PO QIDACHS (Reported) Albuterol Sulfate (Proair Hfa Inhaler) 2 PUFF IH PRN Q4-6HRS (Reported) Carvedilol (Carvedilol) 6.25 MG PO BIDWMEALS Carvedilol (Coreg) 1 TAB PO BID (Reported) Fluoxetine Hcl (Prozac) 2 CAP PO HS (Reported) Fluoxetine Hcl (Prozac) 1 CAP PO DAILY (Reported) Insulin Aspart (Novolog) 60 UNIT SQ TIDWMEALS (Reported) Insulin Degludec (Tresiba Flextouch U-100) 45 UNIT SQ BID (Reported) Omeprazole (Omeprazole) 40 MG PO DAILY (Reported) Zolpidem Tartrate (Ambien) 1 TAB PO QHS (Reported) Scheduled PRN Hydrocodone/Acetaminophen (Lortab 7.5-325 mg Tablet) 1 TAB PO PRN Q6HRS PRN PRN PAIN (Reported) Miscellaneous Medications Lisinopril (Lisinopril) 1 TAB PO (Reported) Discontinued Medications Esomeprazole Magnesium (Nexium 24Hr) 20 MG PO DAILY (Reported) Fluoxetine Hcl (Prozac) 1 CAP PO TID (Reported) Fluoxetine Hcl (Prozac) 30 MG PO QHS (Reported) Insulin Aspart (Novolog) 80 UNIT SQ HS (Reported) Insulin Aspart (Novolog) 60 UNIT SQ TIDWMEALS (Reported) Insulin Glargine,Hum.rec.anlog (Lantus Solostar) 40 UNIT SQ QHS (Reported) Insulin Glargine,Hum.rec.anlog (Lantus Solostar) 40 UNIT SQ DAILY16 (Reported) Insulin Glargine,Hum.rec.anlog (Lantus Solostar) 45 UNIT SQ BID (Reported) Meclizine Hcl (Antivert) 1 TAB PO PRN TID PRN PRN DIZZINESS (Reported) Multivitamin (Multi-Day Vitamins) 1 TAB PO DAILY (Reported) Trazodone Hcl (Trazodone Hcl) 300 MG PO HS (Reported) MARSHA KENNY MD Sep 28, 2016 12:11
== END 2016-09-28 12:55 | disposition home or self-care (01) ==
LOC: ER 13:22 → 5 SOUTH 15:30
PROVIDERS: ADMIT Internal Medicine; ATTEND Internal Medicine
DX: R06.02 Shortness of breath (principal); E11.65 Type 2 diabetes mellitus with hyperglycemia; E11.43 Type 2 diabetes mellitus with diabetic autonomic (poly)neuropathy; K31.84 Gastroparesis; D50.9 Iron deficiency anemia, unspecified; E66.01 Morbid (severe) obesity due to excess calories; E78.5 Hyperlipidemia, unspecified; I10 Essential (primary) hypertension; Z86.79 Personal history of other diseases of the circulatory system; J45.909 Unspecified asthma, uncomplicated; Z87.19 Personal history of other diseases of the digestive system; Z79.899 Other long term (current) drug therapy
CPT/HCPCS: 36415; 71010; 80048; 80061; 80076; 81001; 82553; 82947; 83036; 83690; 83735; 83880; 84443; 84484; 85027; 85379; 85610; 93005; 94250; 94620; 96365; 96366; 96372; 96375; 99285; G0378; J1815; J1940; J7060; G0379

== ENCOUNTER 2016-12-03 12:02 | Emergency (ER) | payer MEDICARE, OTHER ==
[~2016-12-03] VITALS: Ht 171.4 cm; Wt 156.5 kg
[~2016-12-03 12:02] MED LIST changes: +FLUO10CA13 PO; +FURO-68 PO; +INSU100I30 SQ
[2016-12-03] MEDS ORDERED: 0.9 % SODIUM CHLORIDE 10 ML DISP.SYRIN. IV PRN (12:30)
[2016-12-03] MEDS ORDERED: IV NORMAL SALINE 1000ML BAG 1,000 ML IV SCH (12:30)
[2016-12-03 12:33] LABS: BILIRUBIN,URINE NEGATIVE (NEG); GLUCOSE,URINE >=1000 mg/dL (NEG); NITRITE,URINE NEGATIVE (NEG); PH,URINE 5.5; PROTEIN,URINE NEGATIVE (NEG-TRACE); UROBILINOGEN,URINE 0.2 mg/dL (0.2 mg/dL)
[2016-12-03 12:41] LABS: BACTERIA,URINE FEW /HPF (0-FEW); RBC,URINE 0 /HPF (0-2); SQUAMOUS EPITHELIAL CELL,UR MOD /LPF
[2016-12-03] MEDS ORDERED: ONDANSETRON PF 4 MG/2 ML VIAL. IV ONE (12:45)
[2016-12-03] MEDS ORDERED: FAMOTIDINE 20 MG/2 ML VIAL IVP ONE (12:45)
--- NOTE | 2016-12-03 12:46 | PHYS DOC ---
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 Since that time some intermittent bouts of chronic pancreatic tightness. This episode began 3 days ago with typical pain in the epigastrium with radiation to the back described as a sharp burning pain that it does go into her left breast. She denies any vomiting but has had some nausea without loose stool or blood in her stool. She normally uses hydrocodone for treatments which did not improve her symptoms. Pain is worse with deep breaths or movement of her abdominal wall and walking. Patient denies any fever, cough, URI symptoms, trauma, or recent sick contacts. She has had a relationship with her GI doctor for years Review of Systems Review of Systems Constitutional: Denies fever or chills [] Eyes: Denies change in visual acuity, redness, or eye pain [] HENT: Denies nasal congestion or sore throat [] Respiratory: Denies cough or shortness of breath [] Cardiovascular: No additional information not addressed in HPI [] GI: Legs of abdominal pain with nausea no vomiting no diarrhea no bloody stools. : Denies dysuria or hematuria [] Musculoskeletal chronic lower back pain Integument: Denies rash or skin lesions [] Neurologic: Denies headache, focal weakness or sensory changes [] Endocrine: Denies polyuria or polydipsia [] Current Medications Current Medications Current Medications Medications (Trade) Dose Ordered Sig/Naveen Start Time Stop Time Status Last Admin Dose Admin Famotidine (Pepcid) 20 mg 1X ONCE 12/03/16 12:45 12/03/16 12:46 DC 12/03/16 13:10 20 MG Hydromorphone HCl (Dilaudid) 1 mg PRN Q15MIN PRN 12/03/16 12:30 12/04/16 12:29 12/03/16 13:49 1 MG Ondansetron HCl (Zofran) 4 mg 1X ONCE 12/03/16 12:45 12/03/16 12:46 DC 12/03/16 13:08 4 MG Sodium Chloride (Normal Saline Flush) 10 ml QSHIFT PRN 12/03/16 12:30 Allergies Allergies Allergies Coded Allergies Type Severity Reaction Last Updated Verified shellfish derived Allergy Severe anaphylaxis 09/17/14 Yes Iodine and Iodide Containing Produc Allergy Intermediate hives, itching, fevers, anaphylaxis 09/17/14 Yes Penicillins Allergy Intermediate itching, vomiting, fevers 09/17/14 Yes iodine Allergy Intermediate 03/11/16 Yes meperidine Adverse Reaction Intermediate fevers, vomiting 02/15/15 Yes Physical Exam Physical Exam Constitutional: Well developed, patient understand comfortable nontoxic in appearance and diaphoretic morbidly obese laying quietly in the bed grabbing her mid abdomen. HENT: Normocephalic, atraumatic, bilateral external ears normal, oropharynx moist, no oral exudates, nose normal. [] Eyes: PERRLA, EOMI, conjunctiva normal, no discharge. [] Neck: Normal range of motion, no tenderness, supple, no stridor. [] Cardiovascular:Heart rate regular rhythm, no murmur [] Lungs & Thorax: Bilateral breath sounds clear to auscultation [] Abdomen: H is normal bowel sounds with tenderness in the epigastric region with no guarding rebound or organomegaly no pulsatile mass Skin: Warm, dry, no erythema, no rash. [] Back: No tenderness, Extremities: No tenderness, no cyanosis, no clubbing, ROM intact, no edema. [] Neurologic: Alert and oriented X 3, normal motor function, normal sensory function, no focal deficits noted. [] Psychologic: Affect normal, judgement normal, mood normal. [] Current Patient Data Vital Signs Vital Signs Date Time Temp Pulse Resp B/P (MAP) Pulse Ox O2 Delivery O2 Flow Rate FiO2 12/03/16 13:49 Room Air 12/03/16 13:14 90 143/103 (116) 96 12/03/16 12:11 98.7 20 98.7 Lab Values Laboratory Tests Test 12/03/16 12:05 12/03/16 12:40 12/03/16 12:53 Urine Collection Type Void Urine Color Yellow Urine Clarity Clear Urine pH 5.5 Urine Specific Dwarf >=1.030 Urine Protein Negative mg/dL (NEG-TRACE) Urine Glucose (UA) >=1000 mg/dL (NEG) Urine Ketones (Stick) Negative mg/dL (NEG) Urine Blood Negative (NEG) Urine Nitrite Negative (NEG) Urine Bilirubin Negative (NEG) Urine Urobilinogen Dipstick 0.2 mg/dL (0.2 mg/dL) Urine Leukocyte Esterase Negative (NEG) Urine RBC 0 /HPF (0-2) Urine WBC 5-10 /HPF (0-4) Urine Squamous Epithelial Cells Mod /LPF Urine Bacteria Few /HPF (0-FEW) Urine Hyaline Casts Occasional /HPF Urine Mucus Mod /LPF Urine Test Negative (NEG) White Blood Count 11.9 x10^3/uL (4.0-11.0) H Red Blood Count 4.67 x10^6/uL (3.50-5.40) Hemoglobin 10.7 g/dL (12.0-15.5) L Hematocrit 34.4 % (36.0-47.0) L Mean Corpuscular Volume 74 fL (79-100) L Mean Corpuscular Hemoglobin 23 pg (25-35) L Mean Corpuscular Hemoglobin Concent 31 g/dL (31-37) Red Cell Distribution Width 15.3 % (11.5-14.5) H Platelet Count 224 x10^3/uL (140-400) Neutrophils (%) (Auto) 61 % (31-73) Lymphocytes (%) (Auto) 30 % (24-48) Monocytes (%) (Auto) 5 % (0-9) Eosinophils (%) (Auto) 3 % (0-3) Basophils (%) (Auto) 1 % (0-3) Neutrophils # (Auto) 7.2 x10^3uL (1.8-7.7) Lymphocytes # (Auto) 3.6 x10^3/uL (1.0-4.8) Monocytes # (Auto) 0.6 x10^3/uL (0.0-1.1) Eosinophils # (Auto) 0.3 x10^3/uL (0.0-0.7) Basophils # (Auto) 0.1 x10^3/uL (0.0-0.2) Platelet Estimate Adequate (ADEQUATE) Anisocytosis Slight Sodium Level 136 mmol/L (136-145) Potassium Level 3.9 mmol/L (3.5-5.1) Chloride Level 99 mmol/L (98-107) Carbon Dioxide Level 26 mmol/L (21-32) Anion Gap 11 (6-14) Blood Urea Nitrogen 16 mg/dL (7-20) Creatinine 0.9 mg/dL (0.6-1.0) Estimated GFR (Cockcroft-Gault) 84.8 BUN/Creatinine Ratio 18 (6-20) Glucose Level 372 mg/dL (70-99) H Calcium Level 8.7 mg/dL (8.5-10.1) Total Bilirubin 0.3 mg/dL (0.2-1.0) Aspartate Amino Transferase (AST) 11 U/L (15-37) L Alanine Aminotransferase (ALT) 14 U/L (14-59) Alkaline Phosphatase 144 U/L (46-116) H Creatine Kinase 146 U/L (26-192) Creatine Kinase MB (Mass) 1.0 ng/mL (0.0-3.6) Creatine Kinase MB Relative Index 0.7 % (0-4) Troponin I Quantitative < 0.017 ng/mL (0.000-0.055) Total Protein 7.4 g/dL (6.4-8.2) Albumin 2.9 g/dL (3.4-5.0) L Albumin/Globulin Ratio 0.6 (1.0-1.7) L Lipase 72 U/L (73-393) L POC Troponin I 0.00 ng/ml (<0.08) Laboratory Tests 12/03/16 12:40 Laboratory Tests 12/03/16 12:40 EKG EKG [] Radiology/Procedures Radiology/Procedures [] Course & Med Decision Making Course & Med Decision Making Pertinent Labs and Imaging studies reviewed. (See chart for details). Pertinent labs at approximately 1:05 PM troponin negative at this time negative white count urinalysis is clear there is mild contamination with epithelial cells. White blood cells mild bacteria. Patient denies any symptoms without UTI. Patient's abdominal exam is still benign was examined at 1400 with decreasing pain bowel sounds are normal no guarding or rebound or organomegaly. Still awaiting CT scan at this time. Patient has a mildly elevated white count with mild left shift which may be associated with acute pain. Given duration of symptoms lipase is normal which is likely secondary to chronic pancreatitis may be low anyhow. 2:50 PM results of CAT scan from the return after [address] scan small area of dilated small bowel which may be a small ileus patient's abdomen is soft and secondary exam. Given the opportunity for admission for IV fluids keeping nothing by mouth status and medications patient elected to go home instead. She will follow-up with her regular doctor. We talked about the risk of small bowel obstruction versus ileus patient is okay with risk and understands need to follow with primary care doctor. She has normal flatus feels that she will do fine with the second his medications. She understands that she cannot be discharged with any pain medications as this is her chronic pain medic protocol as well as putting her at increased risk for constipation and increasing abdominal pain. Impression abdominal pain of unclear etiology. Possible early small ileus small bowel Disposition told to 24 follow-up repeat abdominal exam by her primary care doctor or here to the mother's pertinent symptoms continue unimproved. Given precautions appendixes looked at as well the normal at the time of CT scan patient has no abdomen pain over the lower right lower quadrant asked to return for any new or increasing symptoms. [] Dragon Disclaimer Dragon Disclaimer This electronic medical record was generated, in whole or in part, using a voice recognition dictation system. Departure Departure Impression: Primary Impression: Abdominal pain Additional Impression: Nausea Disposition: 01 HOME, SELF-CARE Condition: IMPROVED Referrals: UNKNOWN PCP NAME (PCP) Patient Instructions: Abdominal Pain, Nausea, Adult Scripts Ondansetron (ZOFRAN ODT) 4 Mg Tab.rapdis 1 TAB SL Q8HRS, #10 TAB Prov: CHONG MASON MD 12/03/16 Dicyclomine Hcl (BENTYL) 10 Mg Capsule 1 CAP PO TID, #12 CAP 1 Refill Prov: CHONG MASON MD 12/03/16 Problem Qualifiers CHONG MASON MD December 03, 2016 12:46
[2016-12-03 12:54] LABS: BASO # 0.1 x10^3/uL (0.0-0.2); BASO % 1 % (0-3); EOS % 3 % (0-3); HEMATOCRIT 34.4 % (36.0-47.0); HEMOGLOBIN 10.7 g/dL (12.0-15.5); LYMPH # 3.6 x10^3/uL (1.0-4.8); LYMPH % 30 % (24-48); MEAN CORPUSCULAR HEMOGLOBIN 23 pg (25-35); MEAN CORPUSCULAR HGB CONC 31 g/dL (31-37); MEAN CORPUSCULAR VOLUME 74 fL (79-100); MONO % 5 % (0-9); NEUT % 61 % (31-73); PLATELET COUNT 224 x10^3/uL (140-400); RED BLOOD COUNT 4.67 x10^6/uL (3.50-5.40); RED CELL DISTRIBUTION WIDTH 15.3 % (11.5-14.5); WHITE BLOOD COUNT 11.9 x10^3/uL (4.0-11.0)
[2016-12-03] MEDS: HYDROmorphone 2 MG/ML VIAL IV/SQ PRN ×2 (13:11→13:49)
[2016-12-03 13:14] LABS: CALCIUM 8.7 mg/dL (8.5-10.1); CREATININE 0.9 mg/dL (0.6-1.0); GFR 84.8; POTASSIUM 3.9 mmol/L (3.5-5.1)
[2016-12-03 13:20] LABS: ALBUMIN 2.9 g/dL (3.4-5.0); ALBUMIN/GLOBULIN RATIO 0.6 (1.0-1.7); TOTAL BILIRUBIN 0.3 mg/dL (0.2-1.0); TOTAL PROTEIN 7.4 g/dL (6.4-8.2)
[2016-12-03 13:23] LABS: ANISOCYTOSIS SLIGHT; PLT ESTIMATE ADEQUATE (ADEQUATE)
[2016-12-03 13:52] LABS: NEG OBC UR NEG; POS OBC UR POS
--- NOTE | 2016-12-03 14:46 | RAD ---
Exam performed: CT abdomen pelvis. History: Diffuse upper abdominal pain, history of pancreatitis. Date of service: 12/03/16. Comparison: CT abdomen pelvis from 12/10/15. Technique: Contiguous helical acquisitions are obtained through the abdomen and pelvis without IV contrast. Sagittal and coronal reformatted images are obtained and reviewed. Findings: The lung bases are clear. The visualized heart is normal. Lack of IV contrast limits evaluation of abdominal viscera, however the liver, spleen and pancreas appear normal. Cholecystectomy. Both adrenal glands and bilateral kidneys are normal in size. There is no hydronephrosis or nephrolithiasis. Aorta is normal in caliber without aneurysm. Mild prominence of small bowel loops in the left upper abdomen is noted. Scattered stool in the colon. Appendix is normal. No inflammatory changes are seen in the right lower quadrant. The urinary bladder is partially decompressed. Uterus is retroverted. No adnexal masses seen. No free or focal fluid collections or pelvic lymphadenopathy seen. Impression: 1. Mild gaseous prominence of a few small bowel loops in the mid and left upper abdomen probably mild ileus pattern, no obstruction. 2. No additional abnormality seen. . PQRS Compliance Statement: One or more of the following individualized dose reduction techniques were utilized for this examination: 1. Automated exposure control 2. Adjustment of the mA and/or kV according to patient size 3. Use of iterative reconstruction technique
[2016-12-03] MEDS ORDERED: DICY10CA53 PO (14:56)
[2016-12-03] MEDS ORDERED: ONDA4TAB10 SL (14:56)
[2016-12-03 14:58] VITALS: BP 124/71
[2016-12-03] MEDS ORDERED: HYDROmorphone 2 MG/ML VIAL IV ONE (15:00)
== END 2016-12-03 15:19 | disposition home or self-care (01) ==
LOC: ER 12:02
DX: R10.13 Epigastric pain (principal); R11.0 Nausea; D72.829 Elevated white blood cell count, unspecified; G89.29 Other chronic pain; E66.01 Morbid (severe) obesity due to excess calories; R61 Generalized hyperhidrosis; I11.0 Hypertensive heart disease with heart failure; I50.9 Heart failure, unspecified; E10.43 Type 1 diabetes mellitus with diabetic autonomic (poly)neuropathy; K31.84 Gastroparesis; Z87.891 Personal history of nicotine dependence; Z88.0 Allergy status to penicillin; Z88.8 Allergy status to other drugs, medicaments and biological substances; Z91.013 Allergy to seafood; Z90.49 Acquired absence of other specified parts of digestive tract; Z68.43 Body mass index [BMI] 50.0-59.9, adult
CPT/HCPCS: 36415; 74176; 80053; 81001; 81025; 82550; 82553; 83690; 84484; 85007; 85027; 87086; 96361; 96374; 96375; 96376; 99285; J1170; J2405; J7030; S0028

== ENCOUNTER 2016-12-16 20:44 | Inpatient (IN) | payer MEDICARE, OTHER ==
[~2016-12-16] VITALS: Ht 172.7 cm; Wt 161.1 kg
[~2016-12-16 20:44] MED LIST changes: +CLIN300C8 PO; -CLIN300C86 PO; +DICY10CA53 PO; -MELO-156 PO; +MELO7.5T29 PO; +ONDA4TAB10 SL; -OXYC-244 PO; +OXYC-327 PO; +TRAZ150T49 PO; -TRAZ150T55 PO
[2016-12-16 21:23] LABS: BILIRUBIN,URINE NEGATIVE (NEG); GLUCOSE,URINE 100 mg/dL (NEG); NITRITE,URINE NEGATIVE (NEG); PROTEIN,URINE NEGATIVE (NEG-TRACE); UROBILINOGEN,URINE 0.2 mg/dL (0.2 mg/dL)
--- NOTE | 2016-12-16 21:26 | PHYS DOC ---
Past Medical History Past Medical History: CHF, Diabetes-Type I, Hypertension, Pancreatitis, Other Additional Past Medical Histor: diabetic gastroparesis, morbid obesity Past Surgical History: Cholecystectomy, Other Additional Past Surgical Histo: Eye surgery, pancrteatic shunts; partial pancreatectomy Alcohol Use: None Drug Use: None Adult General Chief Complaint Chief Complaint: ABDOMINAL PAIN HPI HPI This is a 36-year-old female with history of chronic pancreatitis who's had continuous abdominal pain in the epigastrium and left upper quadrant for the last several weeks. She has history of diabetes. Patient was seen in this department several weeks ago and offered admission but ultimately decided to leave. She followed up with her audio visual coordinator several days ago and was taken off Glucophage therapy as she was told this could be related to her ongoing pain. Her pain persists despite taking hydrocodone daily. Patient does have history of partial pancreatectomy as well as cholecystectomy but no other history abdominal surgery. She has any dysuria or hematuria. She states she has minimal appetite but has been able tolerate oral fluids without difficulty by taking Zofran. Currently she rates her pain a 10 out of 10 although she does not appear to be in any acute distress. She is nontoxic and afebrile in appearance upon arrival. Review of Systems Review of Systems Constitutional: Denies fever or chills [] Eyes: Denies change in visual acuity, redness, or eye pain [] HENT: Denies nasal congestion or sore throat [] Respiratory: Denies cough or shortness of breath [] Cardiovascular: No additional information not addressed in HPI [] GI: Has abdominal pain, has nausea, denies vomiting, denies bloody stools or diarrhea [] : Denies dysuria or hematuria [] Musculoskeletal: Denies back pain or joint pain [] Integument: Denies rash or skin lesions [] Neurologic: Denies headache, focal weakness or sensory changes [] Endocrine: Denies polyuria or polydipsia [] Current Medications Current Medications Allergies Allergies Allergies Coded Allergies Type Severity Reaction Last Updated Verified shellfish derived Allergy Severe anaphylaxis 09/17/14 Yes Iodine and Iodide Containing Produc Allergy Intermediate hives, itching, fevers, anaphylaxis 09/17/14 Yes Penicillins Allergy Intermediate itching, vomiting, fevers 09/17/14 Yes iodine Allergy Intermediate 03/11/16 Yes meperidine Adverse Reaction Intermediate fevers, vomiting 7/22/15 Yes Physical Exam Physical Exam Constitutional: Well developed, well nourished, no acute distress, non-toxic appearance. [] HENT: Normocephalic, atraumatic, bilateral external ears normal, oropharynx moist, no oral exudates, nose normal. [] Eyes: PERRLA, EOMI, conjunctiva normal, no discharge. [] Neck: Normal range of motion, no tenderness, supple, no stridor. [] Cardiovascular:Heart rate regular rhythm, no murmur [] Lungs & Thorax: Bilateral breath sounds clear to auscultation [] Abdomen: Bowel sounds normal, soft, moderate epigastric and LUQ tenderness, no masses, no pulsatile masses. [] Skin: Warm, dry, no erythema, no rash. [] Back: No tenderness, no CVA tenderness. [] Extremities: No tenderness, no cyanosis, no clubbing, ROM intact, no edema. [] Neurologic: Alert and oriented X 3, normal motor function, normal sensory function, no focal deficits noted. [] Psychologic: Affect normal, judgement normal, mood normal. [] Current Patient Data Vital Signs Vital Signs Date Time Temp Pulse Resp B/P (MAP) Pulse Ox O2 Delivery O2 Flow Rate FiO2 12/16/16 21:00 98.3 110 22 188/110 (136) 97 Room Air 98.3 Lab Values Laboratory Tests Test 12/16/16 20:14 12/16/16 21:00 POC Urine HCG, Qualitative Hcg negative (Negative) Urine Collection Type Unknown Urine Color Yellow Urine Clarity Clear Urine pH 6.0 Urine Specific [place] 1.015 Urine Protein Negative mg/dL (NEG-TRACE) Urine Glucose (UA) 100 mg/dL (NEG) Urine Ketones (Stick) Negative mg/dL (NEG) Urine Blood Negative (NEG) Urine Nitrite Negative (NEG) Urine Bilirubin Negative (NEG) Urine Urobilinogen Dipstick 0.2 mg/dL (0.2 mg/dL) Urine Leukocyte Esterase Negative (NEG) Urine RBC 0 /HPF (0-2) Urine WBC 1-4 /HPF (0-4) Urine Squamous Epithelial Cells Mod /LPF Urine Bacteria Few /HPF (0-FEW) Urine Mucus Mod /LPF EKG EKG [] Radiology/Procedures Radiology/Procedures [] Course & Med Decision Making Course & Med Decision Making Pertinent Labs and Imaging studies reviewed. (See chart for details) This 36-year-old female will have IV placed and have laboratory workup including a CMP and lipase. After discussing at length with the patient about her expectations, the patient will be admitted for ongoing pain control due to her history of chronic pancreatitis and the fact that has not remitted in the last several weeks. The patient will be given a fluid bolus, Zofran, and Dilaudid. I do not see an indication to CT her abdomen as she had a CT scan approximately 10 days ago that did not demonstrate anything other than a partial ileus. She has had no changes in her pain location or severity since that time. Her laboratory workup was unremarkable. She'll be admitted for ongoing pain control. IV was eventually placed and she was given a dose of Dilaudid and Zofran as well as a fluid bolus. I discussed the need to admit the patient with the hospitalist, Dr. Jensen, who agreed to accept the patient for further management and treatment. A GI consult was also placed. Dragon Disclaimer Dragon Disclaimer This electronic medical record was generated, in whole or in part, using a voice recognition dictation system. Departure Departure Impression: Primary Impression: Abdominal pain Additional Impression: Chronic pancreatitis Disposition: ADMITTED INPATIENT Admitting Physician: Ruy Jensen Condition: STABLE Referrals: UNKNOWN PCP NAME (PCP) Problem Qualifiers SAWYER GUERRERO DO December 16, 2016 21:26
[2016-12-16] MEDS ORDERED: HYDROmorphone 2 MG/ML VIAL IV PRN (21:30)
[2016-12-16] MEDS ORDERED: IV NORMAL SALINE 1000ML BAG 1,000 ML IV ONE (21:30)
[2016-12-16] MEDS ORDERED: ONDANSETRON PF 4 MG/2 ML VIAL. IV PRN (21:30)
[2016-12-16] MEDS ORDERED: ONDANSETRON PF 4 MG/2 ML VIAL. IV ONE ×2 (21:30→22:55)
[2016-12-16] MEDS ORDERED: HYDROmorphone 2 MG/ML VIAL IV ONE ×2 (21:30→22:55)
[2016-12-16 21:39] LABS: BACTERIA,URINE FEW /HPF (0-FEW); RBC,URINE 0 /HPF (0-2); SQUAMOUS EPITHELIAL CELL,UR MOD /LPF
[2016-12-16] MEDS: IV NORMAL SALINE 1000ML BAG 1,000 ML IV SCH (21:45)
--- NOTE | 2016-12-16 22:26 | ACF ---
Admission Forms Criteria ABDOMINAL PAIN Clinical Indications for Admission to Inpatient Care (Place 'X' for any and all applicable criteria): Admission is indicated for ANY ONE of the following(1)(2)(3)(4)(5): [X ]I. Inpatient admission required rather than observation care (Also use Abdominal Pain: Observation Care, as appropriate) because of ANY ONE of the following: [X ]a) Severe pain requiring acute inpatient management [X ]b) Identification of etiology/finding that requires inpatient care (eg, aortic dissection, free air) [ ]c) Absent bowel sounds with complete ileus(6) [ ]d) Suspected toxic megacolon [ ]e) Severe electrolyte abnormalities requiring inpatient care [ ]f) High fever or infection requiring inpatient admission as indicated by ANY ONE of following(7)(8): [ ] i) Appropriate outpatient or observational care antimicrobial treatment unavailable, not effective, or not feasible [ ] ii) Documented bacteremia [ ] iii) Temperature > 104.9 degrees F (oral) [ ] iv) T >103.1 F (oral) or < 96.8 F(rectal) that does not respond to all emergency treatment measures [ ]g) Signs of intestinal obstruction [B] [ ]h) Hemodynamic instability [ ]i) IV fluid to replace significant ongoing losses (greater than 3 L/m2 per day) (12)(13) [ ]j) Percutaneous or open drainage (eg, abscess, biliary tract ) procedures [ ]k) Parenteral nutrition regimen that must be implemented on inpatient basis [ ]l) Other condition,treatment or monitoring requiring inpatient admission. [ ]II. Peritoneal signs present [ ]III. Surgery needed that cannot be performed on an ambulatory basis. [ ]IV. Evaluation requires patient to not eat or drink for extended period ( eg, more than 24 hours). [ ]V. Contraindications and/or Inappropriate clinical situations for Observational Care in patients with abdominal pain, when ANY ONE of the following is required: [ ]a) Thorough evaluation is required to prevent catastrophic events due to delays in diagnosing (e.g.Mesenteric ischemia) 1,3 [ ]b) Patient with severe pathology or with chronic symptoms unlikely to improve in the ED stay (3) [ ]. General contraindications and/or Inappropriate clinical situations for Observational Care in patients with abdominal pain, when ANY ONE of the following is required: [ ]a) Prediction of prolongation of LOS based on ANY ONE of the following may be considered as a contraindication for observational care 2, 3, 4, 5, 6, 7, 8, 9, 10, 11 [ ]i) Age > 65 yrs. [ ]ii) Patient arriving by ambulance [ ]iii) Patient with high acuity [ ]iv) Patient requiring vital sign monitoring [ ]v) Patient on IV medication [ ]b) Systolic blood pressures 180mmHg 3,12 [ ]c) Patient with altered mental status including delirium and other alteration of consciousness, (3) [ ]d) Patient whose discharge disposition will be to a nursing home home or rehabilitation home should not be managed in Emergency Department Observation Unit. CMS rule requires 3 days hospital stay before such placement.3,13 [ ]e) Patient with failure to thrive due to broad array of etiologies 3,16,17 [ ]f) Inability to ambulate 3,14 Extended stay beyond goal length of stay may be needed for(2)(3): [ ]a) Persistent abdominal pain with suspected intra-abdominal process [ ]b) Diagnosed condition requiring continued stay (e.g., pancreatitis, complicated diverticulitis) [ ]c) Surgery (e.g., colectomy) The original [facility] content created by [employer] has been revised. The portions of the content which have been revised are identified through the use of italic text or in bold, and [facility] has neither reviewed nor approved the modified material.All other unmodified content is copyright [employer] [facility]. Please see references footnoted in the original [facility] edition 2016 Admission Criteria Met?: Yes JAIME VO December 16, 2016 22:26
[2016-12-16] MEDS ORDERED: HYDROmorphone 2 MG/ML VIAL IM ONE (22:30)
[2016-12-16] MEDS ORDERED: HYDROmorphone 2 MG/ML VIAL IM PRN (22:30)
[2016-12-16 22:40] LABS: BASO # 0.1 x10^3/uL (0.0-0.2); BASO % 1 % (0-3); EOS % 2 % (0-3); HEMATOCRIT 35.7 % (36.0-47.0); HEMOGLOBIN 11.2 g/dL (12.0-15.5); LYMPH # 2.8 x10^3/uL (1.0-4.8); LYMPH % 28 % (24-48); MEAN CORPUSCULAR HEMOGLOBIN 23 pg (25-35); MEAN CORPUSCULAR HGB CONC 31 g/dL (31-37); MEAN CORPUSCULAR VOLUME 74 fL (79-100); MONO % 5 % (0-9); NEUT % 64 % (31-73); PLATELET COUNT 257 x10^3/uL (140-400); RED BLOOD COUNT 4.84 x10^6/uL (3.50-5.40); RED CELL DISTRIBUTION WIDTH 15.7 % (11.5-14.5); WHITE BLOOD COUNT 10.1 x10^3/uL (4.0-11.0)
[2016-12-16] MEDS ORDERED: HYDROmorphone 2 MG/ML VIAL ONE (22:43)
[2016-12-16] MEDS ORDERED: ONDANSETRON ODT 4 MG TAB.RAPDIS. PO ONE (22:45)
[2016-12-16 22:50] LABS: CALCIUM 8.9 mg/dL (8.5-10.1); CREATININE 0.8 mg/dL (0.6-1.0); GFR 97.1; POTASSIUM 4.4 mmol/L (3.5-5.1)
[2016-12-16 22:55] LABS: ALBUMIN 2.9 g/dL (3.4-5.0); ALBUMIN/GLOBULIN RATIO 0.6 (1.0-1.7); TOTAL BILIRUBIN 0.2 mg/dL (0.2-1.0); TOTAL PROTEIN 7.6 g/dL (6.4-8.2)
[2016-12-16 23:32] VITALS: BP 180/120
[2016-12-16 23:35] VITALS: BP 180/120
[2016-12-16] MEDS ORDERED: SPIR25TA3 PO (23:39)
[2016-12-17] VITALS (8 sets, daily range): BP systolic 143–178; BP diastolic 85–109
[2016-12-17] MEDS ORDERED: ONDA4TAB12 PO (00:18)
[2016-12-17] MEDS: MORPHINE SULFATE 2 MG/ML DISP.SYRIN. IV PRN ×8 (01:39→21:32)
[2016-12-17] MEDS: LABETALOL 20 MG/4 ML DISP.SYRIN. IVP PRN ×3 (01:43→15:54)
[2016-12-17] MEDS: IV NORMAL SALINE 1000ML BAG 1,000 ML IV SCH ×2 (07:53→19:24)
[2016-12-17] MEDS ORDERED: PANTOPRAZOLE 40 MG TABLET.DR. PO SCH (08:00)
[2016-12-17] MEDS ORDERED: NON FORMULARY ITEM (Albuterol Sulfate (Proair Hfa Inhaler) 2 PUFF) IH SCH (08:15)
[2016-12-17] MEDS ORDERED: HYDROcodone/APAP 7.5/325MG 1 TAB TABLET PO PRN (08:15)
[2016-12-17] MEDS: CARVEDILOL 12.5 MG TABLET. PO SCH ×2 (08:30→17:00)
[2016-12-17] MEDS: FLUoxetine HCL 20 MG CAPSULE PO SCH (09:00)
[2016-12-17] MEDS: LISINOPRIL 40 MG TABLET. PO SCH (09:00)
[2016-12-17] MEDS: DICYCLOMINE HCL 10 MG CAPSULE PO SCH ×3 (09:00→20:45)
[2016-12-17] MEDS: SPIRONOLACTONE 25 MG TABLET PO SCH (09:00)
[2016-12-17] MEDS ORDERED: FUROSEMIDE 40 MG TABLET. PO SCH (09:00)
--- NOTE | 2016-12-17 09:47 | PDOC2 ---
GI CONSULT Reason For Consult: Chronic pancreatitis HPI: HPI: 36 y/o morbidly obese AA female w/ chronic pancreatitis s/p cholecystectomy for cholelithiasis (h/o gallstone pancreatitis), s/p partial pancreatectomy, and s/ p EUS w/ Dr. Unger at . GI-escobar, takes takes omeprazole, hydrocodone, Zofran , pancreaze, and dicyclomine. Worsening epigastric and LUQ discomfort w/ decreased oral intake and increased nausea after starting Glucophage recently ( which was stopped on Fri). Diarrhea chronic/stable. Last EGD a couple years ago, unclear when last colonoscopy performed. No weight loss. WBC normal, Hgb 11.2 (stable), Alk Phos 174, otherwise normal LFTs, lipse 58. Had CT in ER on w/o significant finding as below. Per RN, primary has just increased morphine dose for better pain control. PMH: PMH: CHF, HTN, HLD, cardiomyopathy, asthma, DM, GERD, pancreatitis, cholelithiasis s/ p cholecystectomy, panxiety, low back pain, allergic rhinitis, partial pancreatectomy, previous J tube FH: Family History: No pertinent hx Social History: ALCOHOL: none Drugs: None ROS: GEN: Denies fevers, chills, sweats HEENT: Denies blurred vision, sore throat CV: Denies chest pain RESP: Denies shortness of air, cough GI: Per HPI : Denies hematuria, dysuria ENDO: Denies weight changes NEURO: Denies confusion, dizziness MSK: Denies weakness, joint pain/swelling SKIN: Denies jaundice, pruritus Vitals: Vitals: Vital Signs Date Time Temp Pulse Resp B/P (MAP) Pulse Ox O2 Delivery O2 Flow Rate FiO2 12/17/16 08:19 106 175/103 12/17/16 08:00 Room Air 12/17/16 07:52 96 12/17/16 07:00 98.9 20 98.9 Labs: Labs: Laboratory Tests Test 12/16/16 20:14 12/16/16 21:00 12/16/16 22:25 Bedside Urine HCG, Qualitative Hcg negative (Negative) Urine Collection Type Unknown Urine Color Yellow Urine Clarity Clear Urine pH 6.0 Urine Specific [place] 1.015 Urine Protein Negative mg/dL (NEG-TRACE) Urine Glucose (UA) 100 mg/dL (NEG) Urine Ketones (Stick) Negative mg/dL (NEG) Urine Blood Negative (NEG) Urine Nitrite Negative (NEG) Urine Bilirubin Negative (NEG) Urine Urobilinogen Dipstick 0.2 mg/dL (0.2 mg/dL) Urine Leukocyte Esterase Negative (NEG) Urine RBC 0 /HPF (0-2) Urine WBC 1-4 /HPF (0-4) Urine Squamous Epithelial Cells Mod /LPF Urine Bacteria Few /HPF (0-FEW) Urine Mucus Mod /LPF White Blood Count 10.1 x10^3/uL (4.0-11.0) Red Blood Count 4.84 x10^6/uL (3.50-5.40) Hemoglobin 11.2 g/dL (12.0-15.5) Hematocrit 35.7 % (36.0-47.0) Mean Corpuscular Volume 74 fL (79-100) Mean Corpuscular Hemoglobin 23 pg (25-35) Mean Corpuscular Hemoglobin Concent 31 g/dL (31-37) Red Cell Distribution Width 15.7 % (11.5-14.5) Platelet Count 257 x10^3/uL (140-400) Neutrophils (%) (Auto) 64 % (31-73) Lymphocytes (%) (Auto) 28 % (24-48) Monocytes (%) (Auto) 5 % (0-9) Eosinophils (%) (Auto) 2 % (0-3) Basophils (%) (Auto) 1 % (0-3) Neutrophils # (Auto) 6.5 x10^3uL (1.8-7.7) Lymphocytes # (Auto) 2.8 x10^3/uL (1.0-4.8) Monocytes # (Auto) 0.5 x10^3/uL (0.0-1.1) Eosinophils # (Auto) 0.2 x10^3/uL (0.0-0.7) Basophils # (Auto) 0.1 x10^3/uL (0.0-0.2) Sodium Level 139 mmol/L (136-145) Potassium Level 4.4 mmol/L (3.5-5.1) Chloride Level 103 mmol/L (98-107) Carbon Dioxide Level 28 mmol/L (21-32) Anion Gap 8 (6-14) Blood Urea Nitrogen 9 mg/dL (7-20) Creatinine 0.8 mg/dL (0.6-1.0) Estimated GFR (Cockcroft-Gault) 97.1 BUN/Creatinine Ratio 11 (6-20) Glucose Level 291 mg/dL (70-99) Calcium Level 8.9 mg/dL (8.5-10.1) Total Bilirubin 0.2 mg/dL (0.2-1.0) Aspartate Amino Transf (AST/SGOT) 27 U/L (15-37) Alanine Aminotransferase (ALT/SGPT) 21 U/L (14-59) Alkaline Phosphatase 174 U/L (46-116) Total Protein 7.6 g/dL (6.4-8.2) Albumin 2.9 g/dL (3.4-5.0) Albumin/Globulin Ratio 0.6 (1.0-1.7) Lipase 58 U/L (73-393) Allergies: Coded Allergies: shellfish derived (Verified Allergy, Severe, anaphylaxis, 09/17/14) Iodine and Iodide Containing Produc (Verified Allergy, Intermediate, hives , itching, fevers, anaphylaxis, 09/17/14) Penicillins (Verified Allergy, Intermediate, itching, vomiting, fevers, ) iodine (Verified Allergy, Intermediate, 03/11/16) meperidine (Verified Adverse Reaction, Intermediate, fevers, vomiting, ) Medications: Current Medications Medications (Trade) Dose Ordered Sig/Naveen Route PRN Reason Start Time Stop Time Status Last Admin Dose Admin Sodium Chloride 1,000 ml @ 1,000 mls/hr 1X ONCE IV 12/16/16 21:30 12/16/16 22:29 DC 12/16/16 22:45 Sodium Chloride 1,000 ml @ 150 mls/hr Q6H40M IV 12/16/16 21:45 12/17/16 21:44 12/17/16 07:53 Hydromorphone HCl (Dilaudid) 1 mg 1X ONCE IV 12/16/16 22:55 12/16/16 22:56 DC 12/16/16 22:46 Ondansetron HCl (Zofran) 4 mg 1X ONCE IV 12/16/16 22:55 12/16/16 22:56 DC 12/16/16 22:45 Morphine Sulfate 2 mg PRN Q2HR PRN IV PAIN 12/17/16 00:45 12/17/16 08:17 DC 12/17/16 07:52 Labetalol HCl (Normodyne) 20 mg PRN Q6HRS PRN IVP HYPERTENSION, SEE COMMENTS 12/17/16 00:45 12/17/16 08:19 Imaging: Imaging: CT A/P w/o contrast 12/03/16 Findings: The lung bases are clear. The visualized heart is normal. Lack of IV contrast limits evaluation of abdominal viscera, however the liver, spleen and pancreas appear normal. Cholecystectomy. Both adrenal glands and bilateral kidneys are normal in size. There is no hydronephrosis or nephrolithiasis. Aorta is normal in caliber without aneurysm. Mild prominence of small bowel loops in the left upper abdomen is noted. Scattered stool in the colon. Appendix is normal. No inflammatory changes are seen in the right lower quadrant. The urinary bladder is partially decompressed. Uterus is retroverted. No adnexal masses seen. No free or focal fluid collections or pelvic lymphadenopathy seen. Impression: 1. Mild gaseous prominence of a few small bowel loops in the mid and left upper abdomen probably mild ileus pattern, no obstruction. 2. No additional abnormality seen. PE: GEN: NAD, obese HEENT: Atraumatic, PERRL LUNGS: CTAB HEART: RRR ABD: NABS, S/ND, epigastric discomfort toward LUQ EXTREMITY: BLE edema SKIN: No rashes, no jaundice NEURO/PSYCH: A & O 3 A/P: A/P: Chronic pancreatitis -s/p cholecystectomy, partial pancreatectomy, EUS, and previous J-tube placement (now removed) -h/o DM, recently started on Glucophage (stopped Fri) -chronic abd pain worse recently w/ decreased PO intake and increased nausea -CT from 12/03 as above -- Resume home GI meds. NPO, supportive care, monitor symptoms. Will also check CA19-9. CLIFFORD MORRISON December 17, 2016 09:47
[2016-12-17] MEDS: INSULIN ASPART 300 UNITS/3 ML INSULN.PEN SQ SCH ×3 (11:30→17:00)
[2016-12-17] MEDS: LIPASE/PROTEAS/AMYLAS 10/34/55 CAPSULE.DR. PO SCH ×2 (12:00→17:00)
[2016-12-17 12:31] LABS: AMYLASE 28 U/L (25-115)
--- NOTE | 2016-12-17 13:10 | HP ---
ADMIT DATE: 12/17/2016 CHIEF COMPLAINT: Abdominal pain. HISTORY OF PRESENT ILLNESS: The patient is a pleasant 36-year-old female who has had a cholecystectomy and partial pancreatitis in the past. She does have a chronic flares of pancreatitis ever since. Once again she has been having more pain in the last few weeks. She went to her doctor, they took her off Glucophage but that did not seem to help, her pain is rated 10/10. She has been increasing her hydrocodone at home as well. In the ER, her lipase level was surprisingly normal, discussed the case with ER physician. We are going to admit the patient and consult Dr. Mercer to get a second opinion regarding her chronic pain. PAST MEDICAL HISTORY: Chronic pancreatitis, partial pancreatectomy, cholecystectomy, obesity, CHF, hypertension, diabetes, diabetic gastroparesis, left eye surgery, pancreatic stents. ALLERGIES: IODINE, PENICILLIN, MEPERIDINE, SHELLFISH. FAMILY HISTORY: Hypertension. SOCIAL HISTORY: She does not drink, smoke or take drugs. MEDICATIONS: Reviewed, please refer to the MRAD. REVIEW OF SYSTEMS: GENERAL: No history of weight change, weakness or fevers. SKIN: No bruising, hair changes or rashes. EYES: No blurred, double or loss of vision. NOSE AND THROAT: No history of nosebleeds, hoarseness or sore throat. HEART: No history of palpitations, chest pain or shortness of breath on exertion. LUNGS: Denies cough, hemoptysis, wheezing or shortness of breath. GASTROINTESTINAL: She complains of severe abdominal pain despite morphine. I discussed this with her, ____ morphine dose. GENITOURINARY: No history of frequency, urgency, hesitancy or nocturia. NEUROLOGIC: Denies history of numbness, tingling, tremor or weakness. PSYCHIATRIC: No history of panic, anxiety or depression. ENDOCRINE: No history of heat or cold intolerance, polyuria or polydipsia. EXTREMITIES: Denies muscle weakness, joint pain, pain on walking or stiffness. PHYSICAL EXAMINATION: VITAL SIGNS: Temperature afebrile, pulse 92, respirations 18, blood pressure 175/103. GENERAL: She is alert, cooperative, complaining of pain. HEART: Normal S1, S2. LUNGS: Clear. ABDOMEN: Soft. Decreased bowel sounds, tender, obese. EXTREMITIES: 1+ edema. SKIN: No rashes. PSYCHIATRIC: She is little anxious. VASCULAR: Good capillary refill. ENDOCRINE: No thyromegaly. LYMPHATICS: No cervical nodes. HEMATOPOIETIC: No bruising. LABORATORY DATA: White count 10, hemoglobin 11, platelets 257. Electrolytes normal. Urinalysis is negative. ASSESSMENT AND PLAN: Abdominal pain, suspect possible pancreatitis. The patient has been admitted, will consult GI, IV narcotics, IV fluids, continue home medicines n.p.o. PROGNOSIS: Guarded. MAURA FERMIN DO DR: ANA LILIA/placido JOB#: [id number] / [id number]
[2016-12-17] MEDS ORDERED: DEXTROSE 50% 25 GM / 50ML DISP.SYRIN. IV PRN (13:30)
[2016-12-17] MEDS: FUROSEMIDE 40 MG/4 ML VIAL. IVP SCH (16:04)
[2016-12-17] MEDS: PANTOPRAZOLE IV PUSH 40 MG VIAL. IVP SCH (16:06)
[2016-12-17] MEDS: ONDANSETRON ODT 4 MG TAB.RAPDIS. PO PRN (19:36)
[2016-12-17] MEDS ORDERED: NON FORMULARY ITEM (Insulin Degludec (Tresiba Flextouch U-100) 100 UNIT) SQ SCH (21:00)
[2016-12-18] VITALS (7 sets, daily range): BP systolic 135–161; BP diastolic 86–108
[2016-12-18] MEDS: ZOLPIDEM 5 MG TABLET. PO SCH ×2 (00:06→21:38)
[2016-12-18] MEDS: MORPHINE SULFATE 2 MG/ML DISP.SYRIN. IV PRN ×6 (00:30→21:50)
[2016-12-18] MEDS: IV NORMAL SALINE 1000ML BAG 1,000 ML IV SCH (04:15)
[2016-12-18 07:09] LABS: CALCIUM 8.8 mg/dL (8.5-10.1); CREATININE 0.6 mg/dL (0.6-1.0); GFR 135.4; POTASSIUM 4.1 mmol/L (3.5-5.1)
[2016-12-18] MEDS: INSULIN ASPART 300 UNITS/3 ML INSULN.PEN SQ SCH ×6 (07:30→17:00)
[2016-12-18] MEDS: CARVEDILOL 12.5 MG TABLET. PO SCH ×2 (08:00→11:25)
[2016-12-18] MEDS: LIPASE/PROTEAS/AMYLAS 10/34/55 CAPSULE.DR. PO SCH ×3 (08:00→18:14)
[2016-12-18] MEDS: SPIRONOLACTONE 25 MG TABLET PO SCH (09:00)
[2016-12-18] MEDS: FLUoxetine HCL 20 MG CAPSULE PO SCH ×2 (09:00)
[2016-12-18] MEDS: LISINOPRIL 40 MG TABLET. PO SCH (09:00)
[2016-12-18] MEDS: DICYCLOMINE HCL 10 MG CAPSULE PO SCH ×3 (09:00→21:38)
--- NOTE | 2016-12-18 09:34 | PDOC ---
PROGRESS NOTES Chief Complaint Chief Complaint Abdominal pain Chronic pancreatitis H/o partial pancreatectomy H/o pancreatic stents H/o cholecystectomy Obesity CHF Hypertension Diabetes Diabetic gastroparesis History of Present Illness History of Present Illness Patient was lying in bed resting in no acute distress Still having abdominal pain Patient states her lipase levels are usually low even with pancreatitis due to partial pancreatectomy Discussed pending CA 19-9 lab Vitals Vitals Vital Signs Date Time Temp Pulse Resp B/P (MAP) Pulse Ox O2 Delivery O2 Flow Rate FiO2 12/18/16 07:53 87 21 161/95 (117) 94 Room Air 12/18/16 03:41 97.0 97.0 Physical Exam General: Alert, Cooperative, No acute distress Heart: Regular rate, Normal S1, Normal S2 Lungs: Clear, Other (no wheezing) Abdomen: Normal bowel sounds, Soft Extremities: No clubbing, No cyanosis Skin: No rashes, No breakdown Labs LABS Laboratory Tests Test 12/17/16 11:35 12/17/16 11:49 12/17/16 16:50 12/17/16 21:03 Amylase Level 28 U/L (25-115) Lipase 59 U/L (73-393) Glucose (Fingerstick) 197 mg/dL (70-99) 196 mg/dL (70-99) 182 mg/dL (70-99) Test 12/18/16 01:11 12/18/16 06:40 12/18/16 07:33 Glucose (Fingerstick) 165 mg/dL (70-99) 183 mg/dL (70-99) Sodium Level 136 mmol/L (136-145) Potassium Level 4.1 mmol/L (3.5-5.1) Chloride Level 102 mmol/L (98-107) Carbon Dioxide Level 24 mmol/L (21-32) Anion Gap 10 (6-14) Blood Urea Nitrogen 10 mg/dL (7-20) Creatinine 0.6 mg/dL (0.6-1.0) Estimated GFR (Cockcroft-Gault) 135.4 Glucose Level 187 mg/dL (70-99) Calcium Level 8.8 mg/dL (8.5-10.1) Review of Systems Review of Systems General: denies weakness GI: abdominal pain, denies N/V/D/C Assessment and Plan Assessmemt and Plan Problems Medical Problems: (1) Abdominal pain Status: Acute (2) Chronic pancreatitis Status: Acute Abdominal pain Chronic pancreatitis H/o partial pancreatectomy H/o pancreatic stents H/o cholecystectomy Obesity CHF Hypertension Diabetes Diabetic gastroparesis Plan: -Continue home GI meds -Diet per GI -Continue pain management -GI following - CA19-9 lab ordered, pending -Recheck am labs -PT/OT if appropriate -Subspecialty input appreciated Problems: Comment Review of Relevant I have reviewed the following items snow (where applicable) has been applied. Labs Laboratory Tests Test 12/16/16 20:14 12/16/16 21:00 12/16/16 22:25 12/17/16 07:31 Bedside Urine HCG, Qualitative Hcg negative (Negative) Urine Collection Type Unknown Urine Color Yellow Urine Clarity Clear Urine pH 6.0 Urine Specific [place] 1.015 Urine Protein Negative mg/dL (NEG-TRACE) Urine Glucose (UA) 100 mg/dL (NEG) Urine Ketones (Stick) Negative mg/dL (NEG) Urine Blood Negative (NEG) Urine Nitrite Negative (NEG) Urine Bilirubin Negative (NEG) Urine Urobilinogen Dipstick 0.2 mg/dL (0.2 mg/dL) Urine Leukocyte Esterase Negative (NEG) Urine RBC 0 /HPF (0-2) Urine WBC 1-4 /HPF (0-4) Urine Squamous Epithelial Cells Mod /LPF Urine Bacteria Few /HPF (0-FEW) Urine Mucus Mod /LPF White Blood Count 10.1 x10^3/uL (4.0-11.0) Red Blood Count 4.84 x10^6/uL (3.50-5.40) Hemoglobin 11.2 g/dL (12.0-15.5) Hematocrit 35.7 % (36.0-47.0) Mean Corpuscular Volume 74 fL (79-100) Mean Corpuscular Hemoglobin 23 pg (25-35) Mean Corpuscular Hemoglobin Concent 31 g/dL (31-37) Red Cell Distribution Width 15.7 % (11.5-14.5) Platelet Count 257 x10^3/uL (140-400) Neutrophils (%) (Auto) 64 % (31-73) Lymphocytes (%) (Auto) 28 % (24-48) Monocytes (%) (Auto) 5 % (0-9) Eosinophils (%) (Auto) 2 % (0-3) Basophils (%) (Auto) 1 % (0-3) Neutrophils # (Auto) 6.5 x10^3uL (1.8-7.7) Lymphocytes # (Auto) 2.8 x10^3/uL (1.0-4.8) Monocytes # (Auto) 0.5 x10^3/uL (0.0-1.1) Eosinophils # (Auto) 0.2 x10^3/uL (0.0-0.7) Basophils # (Auto) 0.1 x10^3/uL (0.0-0.2) Sodium Level 139 mmol/L (136-145) Potassium Level 4.4 mmol/L (3.5-5.1) Chloride Level 103 mmol/L (98-107) Carbon Dioxide Level 28 mmol/L (21-32) Anion Gap 8 (6-14) Blood Urea Nitrogen 9 mg/dL (7-20) Creatinine 0.8 mg/dL (0.6-1.0) Estimated GFR (Cockcroft-Gault) 97.1 BUN/Creatinine Ratio 11 (6-20) Glucose Level 291 mg/dL (70-99) Calcium Level 8.9 mg/dL (8.5-10.1) Total Bilirubin 0.2 mg/dL (0.2-1.0) Aspartate Amino Transf (AST/SGOT) 27 U/L (15-37) Alanine Aminotransferase (ALT/SGPT) 21 U/L (14-59) Alkaline Phosphatase 174 U/L (46-116) Total Protein 7.6 g/dL (6.4-8.2) Albumin 2.9 g/dL (3.4-5.0) Albumin/Globulin Ratio 0.6 (1.0-1.7) Lipase 58 U/L (73-393) Glucose (Fingerstick) 197 mg/dL (70-99) Test 12/17/16 11:35 12/17/16 11:49 12/17/16 16:50 12/17/16 21:03 Amylase Level 28 U/L (25-115) Lipase 59 U/L (73-393) Glucose (Fingerstick) 197 mg/dL (70-99) 196 mg/dL (70-99) 182 mg/dL (70-99) Test 12/18/16 01:11 12/18/16 06:40 12/18/16 07:33 Glucose (Fingerstick) 165 mg/dL (70-99) 183 mg/dL (70-99) Sodium Level 136 mmol/L (136-145) Potassium Level 4.1 mmol/L (3.5-5.1) Chloride Level 102 mmol/L (98-107) Carbon Dioxide Level 24 mmol/L (21-32) Anion Gap 10 (6-14) Blood Urea Nitrogen 10 mg/dL (7-20) Creatinine 0.6 mg/dL (0.6-1.0) Estimated GFR (Cockcroft-Gault) 135.4 Glucose Level 187 mg/dL (70-99) Calcium Level 8.8 mg/dL (8.5-10.1) Laboratory Tests Test 12/17/16 11:35 12/17/16 11:49 12/17/16 16:50 12/17/16 21:03 Amylase Level 28 U/L (25-115) Lipase 59 U/L (73-393) Glucose (Fingerstick) 197 mg/dL (70-99) 196 mg/dL (70-99) 182 mg/dL (70-99) Test 12/18/16 01:11 12/18/16 06:40 12/18/16 07:33 Glucose (Fingerstick) 165 mg/dL (70-99) 183 mg/dL (70-99) Sodium Level 136 mmol/L (136-145) Potassium Level 4.1 mmol/L (3.5-5.1) Chloride Level 102 mmol/L (98-107) Carbon Dioxide Level 24 mmol/L (21-32) Anion Gap 10 (6-14) Blood Urea Nitrogen 10 mg/dL (7-20) Creatinine 0.6 mg/dL (0.6-1.0) Estimated GFR (Cockcroft-Gault) 135.4 Glucose Level 187 mg/dL (70-99) Calcium Level 8.8 mg/dL (8.5-10.1) Medications Current Medications Hydromorphone HCl (Dilaudid) 1 mg 1X ONCE IV ; Start 12/16/16 at 21:30; Stop at 22:30; Status DC Ondansetron HCl (Zofran) 4 mg 1X ONCE IV ; Start 12/16/16 at 21:30; Stop at 22:30; Status DC Sodium Chloride 1,000 ml @ 1,000 mls/hr 1X ONCE IV Last administered on 22:45; Start 12/16/16 at 21:30; Stop 12/16/16 at 22:29; Status DC Ondansetron HCl (Zofran) 4 mg PRN Q8HRS PRN IV NAUSEA/VOMITING; Start 12/16/16 at 21:30; Stop 12/17/16 at 21:29; Status DC Sodium Chloride 1,000 ml @ 150 mls/hr Q6H40M IV Last administered on 04:15; Start 12/16/16 at 21:45; Stop 12/17/16 at 21:44; Status DC Hydromorphone HCl (Dilaudid) 1 mg PRN Q2HR PRN IV PAIN; Start 12/16/16 at 21:30 ; Stop 12/16/16 at 22:30; Status DC Hydromorphone HCl (Dilaudid) 1 mg PRN Q2HR PRN IM PAIN; Start 12/16/16 at 22:30 ; Stop 12/16/16 at 22:43; Status DC Hydromorphone HCl (Dilaudid) 1 mg 1X ONCE IM ; Start 12/16/16 at 22:30; Stop at 22:43; Status DC Ondansetron HCl (Zofran Odt) 4 mg 1X ONCE PO ; Start 12/16/16 at 22:45; Stop at 22:46; Status DC Hydromorphone HCl (Dilaudid) 1 mg 1X ONCE IV Last administered on 12/16/16 22 :46; Start 12/16/16 at 22:55; Stop 12/16/16 at 22:56; Status DC Ondansetron HCl (Zofran) 4 mg 1X ONCE IV Last administered on 12/16/16 22:45 ; Start 12/16/16 at 22:55; Stop 12/16/16 at 22:56; Status DC Hydromorphone HCl (Dilaudid) 2 mg STK-MED ONCE .ROUTE ; Start 12/16/16 at 22:43 ; Stop 12/16/16 at 22:44; Status DC Morphine Sulfate 2 mg PRN Q2HR PRN IV PAIN Last administered on 12/17/16 07:52 ; Start 12/17/16 at 00:45; Stop 12/17/16 at 08:17; Status DC Labetalol HCl (Normodyne) 20 mg PRN Q6HRS PRN IVP HYPERTENSION, SEE COMMENTS Last administered on 12/17/16 15:54; Start 12/17/16 at 00:45 Dicyclomine HCl (Bentyl) 10 mg TID PO Last administered on 12/17/16 20:45; Start 12/17/16 at 09:00 Fluoxetine HCl (PROzac) 20 mg DAILY PO ; Start 12/17/16 at 09:00 Fluoxetine HCl (PROzac) 20 mg DAILY PO ; Start 12/18/16 at 09:00 Furosemide (Lasix) 40 mg DAILY PO ; Start 12/17/16 at 09:00; Stop 12/17/16 at 15 :08; Status DC Acetaminophen/ Hydrocodone Bitart (Lortab 7.5/325) 1 tab PRN Q6HRS PRN PO PAIN MILD TO MOD; Start 12/17/16 at 08:15 Lisinopril (Prinivil) 40 mg DAILY PO ; Start 12/17/16 at 09:00 Ondansetron HCl (Zofran Odt) 4 mg PRN Q8HRS PRN PO NAUSEA/VOMITING Last administered on 12/17/16 19:36; Start 12/17/16 at 08:15 Spironolactone (Aldactone) 25 mg DAILY PO ; Start 12/17/16 at 09:00 Zolpidem Tartrate (Ambien) 5 mg QHS PO Last administered on 12/18/16 00:06; Start 12/17/16 at 21:00 Non-Formulary Medication 2 puff PRN Q4-6HRS IH ; Start 12/17/16 at 08:15 Carvedilol (Coreg) 50 mg BIDWMEALS PO ; Start 12/17/16 at 08:30 Insulin Aspart (NovoLOG) 60 units TIDAC SQ ; Start 12/17/16 at 11:30 Non-Formulary Medication 100 unit HS SQ ; Start 12/17/16 at 21:00; Status UNV Pantoprazole Sodium (Protonix) 40 mg DAILYAC PO ; Start 12/17/16 at 08:00; Stop 12/17/16 at 15:08; Status DC Morphine Sulfate 4 mg PRN Q2HR PRN IV PAIN SEVERE Last administered on 13:44; Start 12/17/16 at 08:30 Amylase/Lipase/ Protease (Zenpep 10,000) 2 cap TIDWMEALS PO ; Start 12/17/16 at 12:00 Insulin Aspart (NovoLOG) 0-7 UNITS TIDWMEALS SQ ; Start 12/17/16 at 17:00 Dextrose (Dextrose 50%-Water Syringe) 12.5 gm PRN Q15MIN PRN IV SEE COMMENTS; Start 12/17/16 at 13:30 Pantoprazole Sodium (Protonix Vial) 40 mg DAILYAC IVP Last administered on 12/17 16:06; Start 12/17/16 at 15:15 Furosemide (Lasix) 40 mg DAILY IVP Last administered on 12/17/16 16:04; Start 12/17/16 at 15:15 Morphine Sulfate 6 mg PRN Q2HR PRN IV PAIN Last administered on 12/18/16 03:45 ; Start 12/17/16 at 16:00 Active Scripts Active Bentyl (Dicyclomine Hcl) 10 Mg Capsule 1 Cap PO TID Lasix (Furosemide) 40 Mg Tablet 1 Tab PO DAILY Reported Ondansetron Odt (Ondansetron) 4 Mg Tab.rapdis 1 Tab PO PRN Q8HRS PRN Spironolactone 25 Mg Tablet 1 Tab PO DAILY Lisinopril 40 Mg Tablet 1 Tab PO Prozac (Fluoxetine Hcl) 10 Mg Capsule 2 Cap PO DAILY Prozac (Fluoxetine Hcl) 10 Mg Capsule 2 Cap PO HS Coreg (Carvedilol) 25 Mg Tablet 2 Tab PO BID Tresiba Flextouch U-100 (Insulin Degludec) 100 Unit/1 Ml Insuln.pen 100 Unit SQ HS Ambien (Zolpidem Tartrate) 5 Mg Tablet 1 Tab PO QHS Lortab 7.5-325 mg Tablet (Hydrocodone/Acetaminophen) 1 Each Tablet 1 Tab PO PRN Q6HRS PRN Novolog (Insulin Aspart) 100 Unit/1 Ml Cartridge 60 Unit SQ TIDWMEALS Proair Hfa Inhaler (Albuterol Sulfate) 8.5 Gm Hfa.aer.ad 2 Puff IH PRN Q4-6HRS Omeprazole 40 Mg Capsule.dr 40 Mg PO DAILY [pancrease mt16] Tab PO QIDACHS Vitals/I & O Vital Sign - Last 24 Hours 12/17/16 12/17/16 12/17/16 12/17/16 11:00 11:03 13:44 14:46 Temp 98.6 98.6 Pulse 96 Resp 20 B/P (MAP) 151/103 (119) Pulse Ox 96 96 96 96 O2 Delivery Room Air Room Air Room Air Room Air 12/17/16 12/17/16 12/17/16 12/17/16 15:00 15:48 15:54 15:58 Temp 98.9 98.9 Pulse 89 94 94 Resp 18 B/P (MAP) 151/109 (123) 167/104 167/104 (125) Pulse Ox 100 100 O2 Delivery Room Air Room Air 12/17/16 12/17/16 12/17/16 12/17/16 17:21 19:38 19:51 21:32 Temp 97.4 97.4 Pulse 97 Resp 20 20 20 B/P (MAP) 163/109 (127) Pulse Ox 100 97 O2 Delivery Room Air Room Air Room Air Room Air 12/17/16 12/18/16 12/18/16 12/18/16 23:50 00:30 03:41 03:45 Temp 98.2 97.0 98.2 97.0 Pulse 95 89 Resp 20 18 20 20 B/P (MAP) 152/99 (116) 161/93 (115) Pulse Ox 95 99 O2 Delivery Room Air Room Air Room Air Room Air 12/18/16 12/18/16 04:20 07:53 Pulse 90 87 Resp 21 B/P (MAP) 152/92 (112) 161/95 (117) Pulse Ox 94 O2 Delivery Room Air Room Air Intake and Output 12/17/16 12/17/16 12/18/16 15:00 23:00 07:00 Intake Total 0 ml 80 ml Output Total 2200 ml Balance -2200 ml 80 ml CASTMATT,NIAL K III DO December 18, 2016 09:34
[2016-12-18 10:08] LABS: BASO % 1 % (0-3); EOS % 2 % (0-3); HEMATOCRIT 33.6 % (36.0-47.0); HEMOGLOBIN 10.9 g/dL (12.0-15.5); LYMPH # 2.6 x10^3/uL (1.0-4.8); LYMPH % 29 % (24-48); MEAN CORPUSCULAR HEMOGLOBIN 23 pg (25-35); MEAN CORPUSCULAR HGB CONC 33 g/dL (31-37); MEAN CORPUSCULAR VOLUME 72 fL (79-100); MONO % 7 % (0-9); NEUT % 61 % (31-73); PLATELET COUNT 240 x10^3/uL (140-400); RED BLOOD COUNT 4.67 x10^6/uL (3.50-5.40); RED CELL DISTRIBUTION WIDTH 15.3 % (11.5-14.5); WHITE BLOOD COUNT 8.8 x10^3/uL (4.0-11.0)
[2016-12-18] MEDS: FUROSEMIDE 40 MG/4 ML VIAL. IVP SCH (11:35)
[2016-12-18] MEDS: PANTOPRAZOLE IV PUSH 40 MG VIAL. IVP SCH (11:36)
--- NOTE | 2016-12-18 12:29 | PDOC ---
Subjective: Subjective: A little less pain. Mouth is dry - would like to drink something. Nausea earlier, better now. Objective: Vital Signs: Vital Signs Date Time Temp Pulse Resp B/P (MAP) Pulse Ox O2 Delivery O2 Flow Rate FiO2 12/18/16 11:37 Room Air 12/18/16 10:43 89 20 148/108 (121) 96 12/18/16 03:41 97.0 97.0 Labs: Laboratory Tests Test 12/17/16 16:50 12/17/16 21:03 12/18/16 01:11 12/18/16 06:40 Glucose (Fingerstick) 196 mg/dL 182 mg/dL 165 mg/dL Sodium Level 136 mmol/L Potassium Level 4.1 mmol/L Chloride Level 102 mmol/L Carbon Dioxide Level 24 mmol/L Anion Gap 10 Blood Urea Nitrogen 10 mg/dL Creatinine 0.6 mg/dL Estimated GFR (Cockcroft-Gault) 135.4 Glucose Level 187 mg/dL Calcium Level 8.8 mg/dL Test 12/18/16 07:33 12/18/16 09:25 12/18/16 10:26 Glucose (Fingerstick) 183 mg/dL 177 mg/dL White Blood Count 8.8 x10^3/uL Red Blood Count 4.67 x10^6/uL Hemoglobin 10.9 g/dL Hematocrit 33.6 % Mean Corpuscular Volume 72 fL Mean Corpuscular Hemoglobin 23 pg Mean Corpuscular Hemoglobin Concent 33 g/dL Red Cell Distribution Width 15.3 % Platelet Count 240 x10^3/uL Neutrophils (%) (Auto) 61 % Lymphocytes (%) (Auto) 29 % Monocytes (%) (Auto) 7 % Eosinophils (%) (Auto) 2 % Basophils (%) (Auto) 1 % Neutrophils # (Auto) 5.3 x10^3uL Lymphocytes # (Auto) 2.6 x10^3/uL Monocytes # (Auto) 0.7 x10^3/uL Eosinophils # (Auto) 0.2 x10^3/uL Basophils # (Auto) 0.0 x10^3/uL PE: GEN: NAD LUNGS: clear anteriorly HEART: distant ABD: LUQ > epigastric discomfort, morbidly obese NEURO/PSYCH: A & O 3 A/P: Chronic pancreatitis -s/p cholecystectomy, partial pancreatectomy, EUS -h/o DM -chronic abd pain worse recently (?after starting Glucophage - since stopped) -last CT 12/03, CA19-9 WNL -- She would like to cautiously try clears. RN present, discussed. CLIFFORD MORRISON December 18, 2016 12:29
[2016-12-18] MEDS ORDERED: INSULIN DETEMIR 300 UNITS/3 ML INSULN.PEN. SQ SCH (21:00)
[2016-12-19 03:00] VITALS: BP 161/95
[2016-12-19] MEDS: MORPHINE SULFATE 2 MG/ML DISP.SYRIN. IV PRN ×4 (04:17→11:53)
[2016-12-19] MEDS: PANTOPRAZOLE IV PUSH 40 MG VIAL. IVP SCH (06:26)
[2016-12-19 06:43] LABS: BASO # 0.1 x10^3/uL (0.0-0.2); BASO % 1 % (0-3); EOS % 3 % (0-3); HEMATOCRIT 36.9 % (36.0-47.0); HEMOGLOBIN 11.4 g/dL (12.0-15.5); LYMPH # 3.6 x10^3/uL (1.0-4.8); LYMPH % 32 % (24-48); MEAN CORPUSCULAR HEMOGLOBIN 23 pg (25-35); MEAN CORPUSCULAR HGB CONC 31 g/dL (31-37); MEAN CORPUSCULAR VOLUME 74 fL (79-100); MONO % 6 % (0-9); NEUT % 59 % (31-73); PLATELET COUNT 270 x10^3/uL (140-400); RED BLOOD COUNT 4.99 x10^6/uL (3.50-5.40); RED CELL DISTRIBUTION WIDTH 15.5 % (11.5-14.5); WHITE BLOOD COUNT 11.4 x10^3/uL (4.0-11.0)
[2016-12-19 06:58] LABS: CALCIUM 9.3 mg/dL (8.5-10.1); CREATININE 0.7 mg/dL (0.6-1.0); GFR 113.3; POTASSIUM 4.1 mmol/L (3.5-5.1)
[2016-12-19 07:00] VITALS: BP 149/84
[2016-12-19] MEDS: INSULIN ASPART 300 UNITS/3 ML INSULN.PEN SQ SCH ×6 (07:30→17:52)
[2016-12-19] MEDS: LIPASE/PROTEAS/AMYLAS 10/34/55 CAPSULE.DR. PO SCH ×3 (08:53→17:45)
[2016-12-19] MEDS: SPIRONOLACTONE 25 MG TABLET PO SCH (08:53)
[2016-12-19] MEDS: DICYCLOMINE HCL 10 MG CAPSULE PO SCH ×3 (08:53→20:48)
[2016-12-19] MEDS: FLUoxetine HCL 20 MG CAPSULE PO SCH (08:53)
[2016-12-19] MEDS: LISINOPRIL 40 MG TABLET. PO SCH (08:55)
[2016-12-19] MEDS: FUROSEMIDE 40 MG/4 ML VIAL. IVP SCH (08:56)
[2016-12-19] MEDS: CARVEDILOL 12.5 MG TABLET. PO SCH ×2 (09:01→17:47)
[2016-12-19 11:00] VITALS: BP 126/85
--- NOTE | 2016-12-19 11:10 | PDOC ---
Subjective: Subjective: Pain is a little better overall even though needed pain meds this morning. Hasn 't tried eating yet today but took a couple sips yesterday, tolerated. Objective: Objective: Per RN - needed morphine this morning, hasn't eaten anything today. Vital Signs: Vital Signs Date Time Temp Pulse Resp B/P (MAP) Pulse Ox O2 Delivery O2 Flow Rate FiO2 12/19/16 09:52 Room Air 12/19/16 09:01 108 149/84 12/19/16 07:00 97.9 20 94 97.9 Labs: Laboratory Tests Test 12/18/16 16:16 12/18/16 21:08 12/19/16 04:22 12/19/16 06:00 Glucose (Fingerstick) 175 mg/dL 166 mg/dL 178 mg/dL White Blood Count 11.4 x10^3/uL Red Blood Count 4.99 x10^6/uL Hemoglobin 11.4 g/dL Hematocrit 36.9 % Mean Corpuscular Volume 74 fL Mean Corpuscular Hemoglobin 23 pg Mean Corpuscular Hemoglobin Concent 31 g/dL Red Cell Distribution Width 15.5 % Platelet Count 270 x10^3/uL Neutrophils (%) (Auto) 59 % Lymphocytes (%) (Auto) 32 % Monocytes (%) (Auto) 6 % Eosinophils (%) (Auto) 3 % Basophils (%) (Auto) 1 % Neutrophils # (Auto) 6.7 x10^3uL Lymphocytes # (Auto) 3.6 x10^3/uL Monocytes # (Auto) 0.6 x10^3/uL Eosinophils # (Auto) 0.3 x10^3/uL Basophils # (Auto) 0.1 x10^3/uL Sodium Level 137 mmol/L Potassium Level 4.1 mmol/L Chloride Level 100 mmol/L Carbon Dioxide Level 24 mmol/L Anion Gap 13 Blood Urea Nitrogen 10 mg/dL Creatinine 0.7 mg/dL Estimated GFR (Cockcroft-Gault) 113.3 Glucose Level 206 mg/dL Calcium Level 9.3 mg/dL Test 12/19/16 11:05 Glucose (Fingerstick) 222 mg/dL PE: GEN: NAD, up to chair, was asleep LUNGS:clear HEART: distant ABD: obese, LUQ discomfort NEURO/PSYCH: A & O 3 A/P: Chronic pancreatitis -s/p cholecystectomy, partial pancreatectomy, EUS, h/o DM -abd pain, mostly LUQ to back -last CT 12/03, CA19-9 WNL, WBC up today (11.4) -- ?slow improvement in pain, very slight elevation in WBC today Continue clear liquid diet, supportive care. CLIFFORD MORRISON December 19, 2016 11:10
[2016-12-19] MEDS ORDERED: POLYETHYLENE GLYCOL 3350 17 GM PACKET. PO PRN (11:15)
[2016-12-19] MEDS: ONDANSETRON ODT 4 MG TAB.RAPDIS. PO PRN (11:54)
--- NOTE | 2016-12-19 12:29 | PDOC ---
PROGRESS NOTES Chief Complaint Chief Complaint Abdominal pain Chronic pancreatitis H/o partial pancreatectomy H/o pancreatic stents H/o cholecystectomy Obesity CHF Hypertension Diabetes Diabetic gastroparesis History of Present Illness History of Present Illness So nauseated DId not touch breakfast NOt interested in lunch Lipase normal HGb a1c 13 in september Chuck DM gastroparesis ON very high doses insulin,.60 TID and 80 plus qhs PLAN: Start reglan 10 PO TID MAy check GET if none done recently - I did check old records, did not see any Dec levemir to 40 qhs Dc novolog 60 SInce not eating Requests hydrcodone upon dc - not ready yet WIll consider IVF since very poor PO Vitals Vitals Vital Signs Date Time Temp Pulse Resp B/P (MAP) Pulse Ox O2 Delivery O2 Flow Rate FiO2 12/19/16 11:53 Room Air 12/19/16 11:00 98.1 71 18 126/85 (99) 93 98.1 Physical Exam General: Alert, Cooperative, No acute distress Heart: Regular rate, Normal S1, Normal S2 Lungs: Clear, Other (no wheezing) Abdomen: Normal bowel sounds, Soft Extremities: No clubbing, No cyanosis Skin: No rashes, No breakdown Labs LABS Laboratory Tests Test 12/18/16 16:16 12/18/16 21:08 12/19/16 04:22 12/19/16 06:00 Glucose (Fingerstick) 175 mg/dL (70-99) 166 mg/dL (70-99) 178 mg/dL (70-99) White Blood Count 11.4 x10^3/uL (4.0-11.0) Red Blood Count 4.99 x10^6/uL (3.50-5.40) Hemoglobin 11.4 g/dL (12.0-15.5) Hematocrit 36.9 % (36.0-47.0) Mean Corpuscular Volume 74 fL (79-100) Mean Corpuscular Hemoglobin 23 pg (25-35) Mean Corpuscular Hemoglobin Concent 31 g/dL (31-37) Red Cell Distribution Width 15.5 % (11.5-14.5) Platelet Count 270 x10^3/uL (140-400) Neutrophils (%) (Auto) 59 % (31-73) Lymphocytes (%) (Auto) 32 % (24-48) Monocytes (%) (Auto) 6 % (0-9) Eosinophils (%) (Auto) 3 % (0-3) Basophils (%) (Auto) 1 % (0-3) Neutrophils # (Auto) 6.7 x10^3uL (1.8-7.7) Lymphocytes # (Auto) 3.6 x10^3/uL (1.0-4.8) Monocytes # (Auto) 0.6 x10^3/uL (0.0-1.1) Eosinophils # (Auto) 0.3 x10^3/uL (0.0-0.7) Basophils # (Auto) 0.1 x10^3/uL (0.0-0.2) Sodium Level 137 mmol/L (136-145) Potassium Level 4.1 mmol/L (3.5-5.1) Chloride Level 100 mmol/L (98-107) Carbon Dioxide Level 24 mmol/L (21-32) Anion Gap 13 (6-14) Blood Urea Nitrogen 10 mg/dL (7-20) Creatinine 0.7 mg/dL (0.6-1.0) Estimated GFR (Cockcroft-Gault) 113.3 Glucose Level 206 mg/dL (70-99) Calcium Level 9.3 mg/dL (8.5-10.1) Test 12/19/16 11:05 Glucose (Fingerstick) 222 mg/dL (70-99) Review of Systems Review of Systems nausea, emesis, abd pain, no cp, soa Assessment and Plan Assessmemt and Plan Problems Medical Problems: (1) Abdominal pain Status: Acute (2) Chronic pancreatitis Status: Acute Problems: Comment Review of Relevant I have reviewed the following items snow (where applicable) has been applied. Labs Laboratory Tests Test 12/17/16 16:50 12/17/16 21:03 12/18/16 01:11 12/18/16 06:40 Glucose (Fingerstick) 196 mg/dL (70-99) 182 mg/dL (70-99) 165 mg/dL (70-99) Sodium Level 136 mmol/L (136-145) Potassium Level 4.1 mmol/L (3.5-5.1) Chloride Level 102 mmol/L (98-107) Carbon Dioxide Level 24 mmol/L (21-32) Anion Gap 10 (6-14) Blood Urea Nitrogen 10 mg/dL (7-20) Creatinine 0.6 mg/dL (0.6-1.0) Estimated GFR (Cockcroft-Gault) 135.4 Glucose Level 187 mg/dL (70-99) Calcium Level 8.8 mg/dL (8.5-10.1) Test 12/18/16 07:33 12/18/16 09:25 12/18/16 10:26 12/18/16 16:16 Glucose (Fingerstick) 183 mg/dL (70-99) 177 mg/dL (70-99) 175 mg/dL (70-99) White Blood Count 8.8 x10^3/uL (4.0-11.0) Red Blood Count 4.67 x10^6/uL (3.50-5.40) Hemoglobin 10.9 g/dL (12.0-15.5) Hematocrit 33.6 % (36.0-47.0) Mean Corpuscular Volume 72 fL (79-100) Mean Corpuscular Hemoglobin 23 pg (25-35) Mean Corpuscular Hemoglobin Concent 33 g/dL (31-37) Red Cell Distribution Width 15.3 % (11.5-14.5) Platelet Count 240 x10^3/uL (140-400) Neutrophils (%) (Auto) 61 % (31-73) Lymphocytes (%) (Auto) 29 % (24-48) Monocytes (%) (Auto) 7 % (0-9) Eosinophils (%) (Auto) 2 % (0-3) Basophils (%) (Auto) 1 % (0-3) Neutrophils # (Auto) 5.3 x10^3uL (1.8-7.7) Lymphocytes # (Auto) 2.6 x10^3/uL (1.0-4.8) Monocytes # (Auto) 0.7 x10^3/uL (0.0-1.1) Eosinophils # (Auto) 0.2 x10^3/uL (0.0-0.7) Basophils # (Auto) 0.0 x10^3/uL (0.0-0.2) Test 12/18/16 21:08 12/19/16 04:22 12/19/16 06:00 12/19/16 11:05 Glucose (Fingerstick) 166 mg/dL (70-99) 178 mg/dL (70-99) 222 mg/dL (70-99) White Blood Count 11.4 x10^3/uL (4.0-11.0) Red Blood Count 4.99 x10^6/uL (3.50-5.40) Hemoglobin 11.4 g/dL (12.0-15.5) Hematocrit 36.9 % (36.0-47.0) Mean Corpuscular Volume 74 fL (79-100) Mean Corpuscular Hemoglobin 23 pg (25-35) Mean Corpuscular Hemoglobin Concent 31 g/dL (31-37) Red Cell Distribution Width 15.5 % (11.5-14.5) Platelet Count 270 x10^3/uL (140-400) Neutrophils (%) (Auto) 59 % (31-73) Lymphocytes (%) (Auto) 32 % (24-48) Monocytes (%) (Auto) 6 % (0-9) Eosinophils (%) (Auto) 3 % (0-3) Basophils (%) (Auto) 1 % (0-3) Neutrophils # (Auto) 6.7 x10^3uL (1.8-7.7) Lymphocytes # (Auto) 3.6 x10^3/uL (1.0-4.8) Monocytes # (Auto) 0.6 x10^3/uL (0.0-1.1) Eosinophils # (Auto) 0.3 x10^3/uL (0.0-0.7) Basophils # (Auto) 0.1 x10^3/uL (0.0-0.2) Sodium Level 137 mmol/L (136-145) Potassium Level 4.1 mmol/L (3.5-5.1) Chloride Level 100 mmol/L (98-107) Carbon Dioxide Level 24 mmol/L (21-32) Anion Gap 13 (6-14) Blood Urea Nitrogen 10 mg/dL (7-20) Creatinine 0.7 mg/dL (0.6-1.0) Estimated GFR (Cockcroft-Gault) 113.3 Glucose Level 206 mg/dL (70-99) Calcium Level 9.3 mg/dL (8.5-10.1) Laboratory Tests Test 12/18/16 16:16 12/18/16 21:08 12/19/16 04:22 12/19/16 06:00 Glucose (Fingerstick) 175 mg/dL (70-99) 166 mg/dL (70-99) 178 mg/dL (70-99) White Blood Count 11.4 x10^3/uL (4.0-11.0) Red Blood Count 4.99 x10^6/uL (3.50-5.40) Hemoglobin 11.4 g/dL (12.0-15.5) Hematocrit 36.9 % (36.0-47.0) Mean Corpuscular Volume 74 fL (79-100) Mean Corpuscular Hemoglobin 23 pg (25-35) Mean Corpuscular Hemoglobin Concent 31 g/dL (31-37) Red Cell Distribution Width 15.5 % (11.5-14.5) Platelet Count 270 x10^3/uL (140-400) Neutrophils (%) (Auto) 59 % (31-73) Lymphocytes (%) (Auto) 32 % (24-48) Monocytes (%) (Auto) 6 % (0-9) Eosinophils (%) (Auto) 3 % (0-3) Basophils (%) (Auto) 1 % (0-3) Neutrophils # (Auto) 6.7 x10^3uL (1.8-7.7) Lymphocytes # (Auto) 3.6 x10^3/uL (1.0-4.8) Monocytes # (Auto) 0.6 x10^3/uL (0.0-1.1) Eosinophils # (Auto) 0.3 x10^3/uL (0.0-0.7) Basophils # (Auto) 0.1 x10^3/uL (0.0-0.2) Sodium Level 137 mmol/L (136-145) Potassium Level 4.1 mmol/L (3.5-5.1) Chloride Level 100 mmol/L (98-107) Carbon Dioxide Level 24 mmol/L (21-32) Anion Gap 13 (6-14) Blood Urea Nitrogen 10 mg/dL (7-20) Creatinine 0.7 mg/dL (0.6-1.0) Estimated GFR (Cockcroft-Gault) 113.3 Glucose Level 206 mg/dL (70-99) Calcium Level 9.3 mg/dL (8.5-10.1) Test 12/19/16 11:05 Glucose (Fingerstick) 222 mg/dL (70-99) Medications Current Medications Hydromorphone HCl (Dilaudid) 1 mg 1X ONCE IV ; Start 12/16/16 at 21:30; Stop at 22:30; Status DC Ondansetron HCl (Zofran) 4 mg 1X ONCE IV ; Start 12/16/16 at 21:30; Stop at 22:30; Status DC Sodium Chloride 1,000 ml @ 1,000 mls/hr 1X ONCE IV Last administered on 22:45; Start 12/16/16 at 21:30; Stop 12/16/16 at 22:29; Status DC Ondansetron HCl (Zofran) 4 mg PRN Q8HRS PRN IV NAUSEA/VOMITING; Start 12/16/16 at 21:30; Stop 12/17/16 at 21:29; Status DC Sodium Chloride 1,000 ml @ 150 mls/hr Q6H40M IV Last administered on 04:15; Start 12/16/16 at 21:45; Stop 12/17/16 at 21:44; Status DC Hydromorphone HCl (Dilaudid) 1 mg PRN Q2HR PRN IV PAIN; Start 12/16/16 at 21:30 ; Stop 12/16/16 at 22:30; Status DC Hydromorphone HCl (Dilaudid) 1 mg PRN Q2HR PRN IM PAIN; Start 12/16/16 at 22:30 ; Stop 12/16/16 at 22:43; Status DC Hydromorphone HCl (Dilaudid) 1 mg 1X ONCE IM ; Start 12/16/16 at 22:30; Stop at 22:43; Status DC Ondansetron HCl (Zofran Odt) 4 mg 1X ONCE PO ; Start 12/16/16 at 22:45; Stop at 22:46; Status DC Hydromorphone HCl (Dilaudid) 1 mg 1X ONCE IV Last administered on 12/16/16 22 :46; Start 12/16/16 at 22:55; Stop 12/16/16 at 22:56; Status DC Ondansetron HCl (Zofran) 4 mg 1X ONCE IV Last administered on 12/16/16 22:45 ; Start 12/16/16 at 22:55; Stop 12/16/16 at 22:56; Status DC Hydromorphone HCl (Dilaudid) 2 mg STK-MED ONCE .ROUTE ; Start 12/16/16 at 22:43 ; Stop 12/16/16 at 22:44; Status DC Morphine Sulfate 2 mg PRN Q2HR PRN IV PAIN Last administered on 12/17/16 07:52 ; Start 12/17/16 at 00:45; Stop 12/17/16 at 08:17; Status DC Labetalol HCl (Normodyne) 20 mg PRN Q6HRS PRN IVP HYPERTENSION, SEE COMMENTS Last administered on 12/17/16 15:54; Start 12/17/16 at 00:45 Dicyclomine HCl (Bentyl) 10 mg TID PO Last administered on 12/19/16 08:53; Start 12/17/16 at 09:00 Fluoxetine HCl (PROzac) 20 mg DAILY PO ; Start 12/17/16 at 09:00; Stop 12/18/16 at 13:05; Status DC Fluoxetine HCl (PROzac) 20 mg DAILY PO Last administered on 12/19/16 08:53; Start 12/18/16 at 09:00 Furosemide (Lasix) 40 mg DAILY PO ; Start 12/17/16 at 09:00; Stop 12/17/16 at 15 :08; Status DC Acetaminophen/ Hydrocodone Bitart (Lortab 7.5/325) 1 tab PRN Q6HRS PRN PO PAIN MILD TO MOD; Start 12/17/16 at 08:15 Lisinopril (Prinivil) 40 mg DAILY PO Last administered on 12/19/16 08:55; Start 12/17/16 at 09:00 Ondansetron HCl (Zofran Odt) 4 mg PRN Q8HRS PRN PO NAUSEA/VOMITING Last administered on 12/19/16 11:54; Start 12/17/16 at 08:15 Spironolactone (Aldactone) 25 mg DAILY PO Last administered on 12/19/16 08:53 ; Start 12/17/16 at 09:00 Zolpidem Tartrate (Ambien) 5 mg QHS PO Last administered on 12/18/16 21:38; Start 12/17/16 at 21:00 Non-Formulary Medication 2 puff PRN Q4-6HRS IH ; Start 12/17/16 at 08:15 Carvedilol (Coreg) 50 mg BIDWMEALS PO Last administered on 12/19/16 09:01; Start 12/17/16 at 08:30 Insulin Aspart (NovoLOG) 60 units TIDAC SQ ; Start 12/17/16 at 11:30 Non-Formulary Medication 100 unit HS SQ ; Start 12/17/16 at 21:00; Stop at 14:46; Status DC Pantoprazole Sodium (Protonix) 40 mg DAILYAC PO ; Start 12/17/16 at 08:00; Stop 12/17/16 at 15:08; Status DC Morphine Sulfate 4 mg PRN Q2HR PRN IV PAIN SEVERE Last administered on 11:53; Start 12/17/16 at 08:30 Amylase/Lipase/ Protease (Zenpep 10,000) 2 cap TIDWMEALS PO Last administered on 12/19/16 08:53; Start 12/17/16 at 12:00 Insulin Aspart (NovoLOG) 0-7 UNITS TIDWMEALS SQ ; Start 12/17/16 at 17:00 Dextrose (Dextrose 50%-Water Syringe) 12.5 gm PRN Q15MIN PRN IV SEE COMMENTS; Start 12/17/16 at 13:30 Pantoprazole Sodium (Protonix Vial) 40 mg DAILYAC IVP Last administered on 12/19 06:26; Start 12/17/16 at 15:15 Furosemide (Lasix) 40 mg DAILY IVP Last administered on 12/19/16 08:56; Start 12/17/16 at 15:15 Morphine Sulfate 6 mg PRN Q2HR PRN IV PAIN Last administered on 12/19/16 06:35 ; Start 12/17/16 at 16:00 Insulin Detemir (Levemir) 82 units QHS SQ Last administered on 12/18/16 23:39 ; Start 12/18/16 at 21:00 Polyethylene Glycol (miraLAX PACKET) 17 gm PRN DAILY PRN PO CONSTIPATION; Start 12/19/16 at 11:15 Active Scripts Active Bentyl (Dicyclomine Hcl) 10 Mg Capsule 1 Cap PO TID Lasix (Furosemide) 40 Mg Tablet 1 Tab PO DAILY Reported Ondansetron Odt (Ondansetron) 4 Mg Tab.rapdis 1 Tab PO PRN Q8HRS PRN Spironolactone 25 Mg Tablet 1 Tab PO DAILY Lisinopril 40 Mg Tablet 1 Tab PO Prozac (Fluoxetine Hcl) 10 Mg Capsule 2 Cap PO DAILY Prozac (Fluoxetine Hcl) 10 Mg Capsule 2 Cap PO HS Coreg (Carvedilol) 25 Mg Tablet 2 Tab PO BID Tresiba Flextouch U-100 (Insulin Degludec) 100 Unit/1 Ml Insuln.pen 100 Unit SQ HS Ambien (Zolpidem Tartrate) 5 Mg Tablet 1 Tab PO QHS Lortab 7.5-325 mg Tablet (Hydrocodone/Acetaminophen) 1 Each Tablet 1 Tab PO PRN Q6HRS PRN Novolog (Insulin Aspart) 100 Unit/1 Ml Cartridge 60 Unit SQ TIDWMEALS Proair Hfa Inhaler (Albuterol Sulfate) 8.5 Gm Hfa.aer.ad 2 Puff IH PRN Q4-6HRS Omeprazole 40 Mg Capsule.dr 40 Mg PO DAILY [pancrease mt16] Tab PO QIDACHS Vitals/I & O Vital Sign - Last 24 Hours 12/18/16 12/18/16 12/18/16 12/18/16 14:02 15:00 16:27 19:00 Temp 97.9 97.9 Pulse 92 90 Resp 20 B/P (MAP) 135/95 (108) 148/86 (106) Pulse Ox 94 96 O2 Delivery Room Air Room Air Room Air 12/18/16 12/18/16 12/19/16 12/19/16 21:50 23:00 03:00 04:17 Temp 96.6 97.7 96.6 97.7 Pulse 91 101 Resp 16 20 20 18 B/P (MAP) 144/88 (106) 161/95 (117) Pulse Ox 96 98 94 94 O2 Delivery Room Air Room Air Room Air Room Air 12/19/16 12/19/16 12/19/16 12/19/16 04:47 06:35 07:00 08:00 Temp 97.9 97.9 Pulse 106 Resp 20 20 20 B/P (MAP) 149/84 (105) Pulse Ox 94 94 94 O2 Delivery Room Air Room Air Room Air Room Air 12/19/16 12/19/16 12/19/16 12/19/16 08:55 09:01 09:52 11:00 Temp 98.1 98.1 Pulse 108 108 71 Resp 18 B/P (MAP) 149/84 149/84 126/85 (99) Pulse Ox 93 O2 Delivery Room Air Room Air 12/19/16 11:53 O2 Delivery Room Air Intake and Output 12/18/16 12/18/16 12/19/16 15:00 23:00 07:00 Intake Total 600 ml Balance 600 ml MARSHA KENNY MD December 19, 2016 12:29
[2016-12-19] MEDS ORDERED: DEXTROSE 50% 25 GM / 50ML DISP.SYRIN. IV PRN (12:30)
[2016-12-19] MEDS ORDERED: ALBUTEROL SULFATE 2.5 MG/3 ML NEBU. NEB PRN (12:45)
[2016-12-19] MEDS: METOCLOPRAMIDE 10 MG TABLET. PO SCH ×2 (13:09→20:48)
[2016-12-19 15:26] VITALS: BP 94/60
[2016-12-19 19:00] VITALS: BP 89/45
[2016-12-19] MEDS ORDERED: INSULIN DETEMIR 300 UNITS/3 ML INSULN.PEN. SQ SCH (21:00)
[2016-12-19] MEDS: ZOLPIDEM 5 MG TABLET. PO SCH (21:00)
[2016-12-19 23:00] VITALS: BP 166/85
[2016-12-20 03:00] VITALS: BP 157/106
[2016-12-20] MEDS ORDERED: oxyCODONE/APAP 5/325 1 TAB TABLET PO PRN (05:15)
[2016-12-20 07:52] VITALS: BP 143/83
[2016-12-20] MEDS: MORPHINE SULFATE 2 MG/ML DISP.SYRIN. IV PRN (07:54)
[2016-12-20] MEDS: LIPASE/PROTEAS/AMYLAS 10/34/55 CAPSULE.DR. PO SCH ×2 (07:57→12:34)
[2016-12-20] MEDS: DICYCLOMINE HCL 10 MG CAPSULE PO SCH ×2 (07:57→14:00)
[2016-12-20] MEDS: PANTOPRAZOLE IV PUSH 40 MG VIAL. IVP SCH (07:58)
[2016-12-20] MEDS: METOCLOPRAMIDE 10 MG TABLET. PO SCH ×2 (07:58→14:00)
[2016-12-20] MEDS: FLUoxetine HCL 20 MG CAPSULE PO SCH (07:58)
[2016-12-20] MEDS: SPIRONOLACTONE 25 MG TABLET PO SCH (07:58)
[2016-12-20] MEDS: LISINOPRIL 40 MG TABLET. PO SCH (08:02)
[2016-12-20] MEDS: CARVEDILOL 12.5 MG TABLET. PO SCH (08:03)
[2016-12-20] MEDS: INSULIN ASPART 300 UNITS/3 ML INSULN.PEN SQ SCH ×2 (08:11→12:37)
[2016-12-20] MEDS ORDERED: FUROSEMIDE 40 MG TABLET. PO SCH (09:00)
[2016-12-20 09:29] LABS: BASO # 0.1 x10^3/uL (0.0-0.2); BASO % 1 % (0-3); EOS % 2 % (0-3); HEMATOCRIT 35.3 % (36.0-47.0); HEMOGLOBIN 11.3 g/dL (12.0-15.5); LYMPH # 3.4 x10^3/uL (1.0-4.8); LYMPH % 34 % (24-48); MEAN CORPUSCULAR HEMOGLOBIN 23 pg (25-35); MEAN CORPUSCULAR HGB CONC 32 g/dL (31-37); MEAN CORPUSCULAR VOLUME 73 fL (79-100); MONO % 6 % (0-9); NEUT % 58 % (31-73); PLATELET COUNT 303 x10^3/uL (140-400); RED BLOOD COUNT 4.86 x10^6/uL (3.50-5.40); RED CELL DISTRIBUTION WIDTH 15.5 % (11.5-14.5); WHITE BLOOD COUNT 9.9 x10^3/uL (4.0-11.0)
[2016-12-20 09:41] LABS: CALCIUM 9.1 mg/dL (8.5-10.1); GFR 75.1; POTASSIUM 3.9 mmol/L (3.5-5.1)
[2016-12-20 10:45] VITALS: BP 122/76
--- NOTE | 2016-12-20 11:42 | PDOC3 ---
Discharge Summary Visit Information Date of Admission: December 16, 2016 Date of Discharge: December 20, 2016 Admitting Diagnosis Comment: Abdominal pain Chronic pancreatitis H/o partial pancreatectomy H/o pancreatic stents H/o cholecystectomy Obesity CHF Hypertension Diabetes Diabetic gastroparesis Final Diagnosis Problems Medical Problems: (1) Abdominal pain Status: Acute (2) Chronic pancreatitis Status: Acute Brief Hospital Course Allergies Allergies Coded Allergies Type Severity Reaction Last Updated Verified shellfish derived Allergy Severe anaphylaxis 09/17/14 Yes Iodine and Iodide Containing Produc Allergy Intermediate hives, itching, fevers, anaphylaxis 09/17/14 Yes Penicillins Allergy Intermediate itching, vomiting, fevers 09/17/14 Yes iodine Allergy Intermediate 03/11/16 Yes meperidine Adverse Reaction Intermediate fevers, vomiting 02/15/15 Yes Vital Signs Vital Signs Date Time Temp Pulse Resp B/P (MAP) Pulse Ox O2 Delivery O2 Flow Rate FiO2 12/20/16 08:03 92 143/83 12/20/16 08:00 Room Air 12/20/16 07:52 98.1 18 94 98.1 Lab Results Laboratory Tests Test 12/18/16 16:16 12/18/16 21:08 12/19/16 04:22 12/19/16 06:00 Glucose (Fingerstick) 175 mg/dL (70-99) 166 mg/dL (70-99) 178 mg/dL (70-99) White Blood Count 11.4 x10^3/uL (4.0-11.0) Red Blood Count 4.99 x10^6/uL (3.50-5.40) Hemoglobin 11.4 g/dL (12.0-15.5) Hematocrit 36.9 % (36.0-47.0) Mean Corpuscular Volume 74 fL (79-100) Mean Corpuscular Hemoglobin 23 pg (25-35) Mean Corpuscular Hemoglobin Concent 31 g/dL (31-37) Red Cell Distribution Width 15.5 % (11.5-14.5) Platelet Count 270 x10^3/uL (140-400) Neutrophils (%) (Auto) 59 % (31-73) Lymphocytes (%) (Auto) 32 % (24-48) Monocytes (%) (Auto) 6 % (0-9) Eosinophils (%) (Auto) 3 % (0-3) Basophils (%) (Auto) 1 % (0-3) Neutrophils # (Auto) 6.7 x10^3uL (1.8-7.7) Lymphocytes # (Auto) 3.6 x10^3/uL (1.0-4.8) Monocytes # (Auto) 0.6 x10^3/uL (0.0-1.1) Eosinophils # (Auto) 0.3 x10^3/uL (0.0-0.7) Basophils # (Auto) 0.1 x10^3/uL (0.0-0.2) Sodium Level 137 mmol/L (136-145) Potassium Level 4.1 mmol/L (3.5-5.1) Chloride Level 100 mmol/L (98-107) Carbon Dioxide Level 24 mmol/L (21-32) Anion Gap 13 (6-14) Blood Urea Nitrogen 10 mg/dL (7-20) Creatinine 0.7 mg/dL (0.6-1.0) Estimated GFR (Cockcroft-Gault) 113.3 Glucose Level 206 mg/dL (70-99) Calcium Level 9.3 mg/dL (8.5-10.1) Test 12/19/16 07:21 12/19/16 11:05 12/19/16 16:06 12/19/16 20:52 Glucose (Fingerstick) 200 mg/dL (70-99) 222 mg/dL (70-99) 231 mg/dL (70-99) 239 mg/dL (70-99) Test 12/20/16 08:01 12/20/16 09:05 12/20/16 11:29 Glucose (Fingerstick) 245 mg/dL (70-99) 258 mg/dL (70-99) White Blood Count 9.9 x10^3/uL (4.0-11.0) Red Blood Count 4.86 x10^6/uL (3.50-5.40) Hemoglobin 11.3 g/dL (12.0-15.5) Hematocrit 35.3 % (36.0-47.0) Mean Corpuscular Volume 73 fL (79-100) Mean Corpuscular Hemoglobin 23 pg (25-35) Mean Corpuscular Hemoglobin Concent 32 g/dL (31-37) Red Cell Distribution Width 15.5 % (11.5-14.5) Platelet Count 303 x10^3/uL (140-400) Neutrophils (%) (Auto) 58 % (31-73) Lymphocytes (%) (Auto) 34 % (24-48) Monocytes (%) (Auto) 6 % (0-9) Eosinophils (%) (Auto) 2 % (0-3) Basophils (%) (Auto) 1 % (0-3) Neutrophils # (Auto) 5.7 x10^3uL (1.8-7.7) Lymphocytes # (Auto) 3.4 x10^3/uL (1.0-4.8) Monocytes # (Auto) 0.6 x10^3/uL (0.0-1.1) Eosinophils # (Auto) 0.1 x10^3/uL (0.0-0.7) Basophils # (Auto) 0.1 x10^3/uL (0.0-0.2) Sodium Level 137 mmol/L (136-145) Potassium Level 3.9 mmol/L (3.5-5.1) Chloride Level 101 mmol/L (98-107) Carbon Dioxide Level 26 mmol/L (21-32) Anion Gap 10 (6-14) Blood Urea Nitrogen 10 mg/dL (7-20) Creatinine 1.0 mg/dL (0.6-1.0) Estimated GFR (Cockcroft-Gault) 75.1 Glucose Level 225 mg/dL (70-99) Calcium Level 9.1 mg/dL (8.5-10.1) Laboratory Tests Test 12/19/16 16:06 12/19/16 20:52 12/20/16 08:01 12/20/16 09:05 Glucose (Fingerstick) 231 mg/dL (70-99) 239 mg/dL (70-99) 245 mg/dL (70-99) White Blood Count 9.9 x10^3/uL (4.0-11.0) Red Blood Count 4.86 x10^6/uL (3.50-5.40) Hemoglobin 11.3 g/dL (12.0-15.5) Hematocrit 35.3 % (36.0-47.0) Mean Corpuscular Volume 73 fL (79-100) Mean Corpuscular Hemoglobin 23 pg (25-35) Mean Corpuscular Hemoglobin Concent 32 g/dL (31-37) Red Cell Distribution Width 15.5 % (11.5-14.5) Platelet Count 303 x10^3/uL (140-400) Neutrophils (%) (Auto) 58 % (31-73) Lymphocytes (%) (Auto) 34 % (24-48) Monocytes (%) (Auto) 6 % (0-9) Eosinophils (%) (Auto) 2 % (0-3) Basophils (%) (Auto) 1 % (0-3) Neutrophils # (Auto) 5.7 x10^3uL (1.8-7.7) Lymphocytes # (Auto) 3.4 x10^3/uL (1.0-4.8) Monocytes # (Auto) 0.6 x10^3/uL (0.0-1.1) Eosinophils # (Auto) 0.1 x10^3/uL (0.0-0.7) Basophils # (Auto) 0.1 x10^3/uL (0.0-0.2) Sodium Level 137 mmol/L (136-145) Potassium Level 3.9 mmol/L (3.5-5.1) Chloride Level 101 mmol/L (98-107) Carbon Dioxide Level 26 mmol/L (21-32) Anion Gap 10 (6-14) Blood Urea Nitrogen 10 mg/dL (7-20) Creatinine 1.0 mg/dL (0.6-1.0) Estimated GFR (Cockcroft-Gault) 75.1 Glucose Level 225 mg/dL (70-99) Calcium Level 9.1 mg/dL (8.5-10.1) Test 12/20/16 11:29 Glucose (Fingerstick) 258 mg/dL (70-99) Brief Hospital Course Ms. Celeste is a 36 old obese AA female on very high doses insulin, admitted ofr abd pain and emesis, Last hgba1c was 10,. REally was having emesis,. SAid she has had numerous GET and was delayed. Treate symptomatically., I did rx reglan tabs 10 TID scheduled for 7 days then prn DispO; home Proc: none COnsults Rx in chart time 31 mins > 50% counselling Discharge Information Condition at Discharge: Improved, Stable Disposition/Orders: D/C to Home Scheduled Albuterol Sulfate (Proair Hfa Inhaler), 2 PUFF IH PRN Q4-6HRS, (Reported) Carvedilol (Coreg), 2 TAB PO BID, (Reported) Dicyclomine Hcl (Bentyl), 1 CAP PO TID Fluoxetine Hcl (Prozac), 2 CAP PO HS, (Reported) Fluoxetine Hcl (Prozac), 2 CAP PO DAILY, (Reported) Furosemide (Lasix), 1 TAB PO DAILY Insulin Aspart (Novolog), 60 UNIT SQ TIDWMEALS, (Reported) Insulin Degludec (Tresiba Flextouch U-100), 100 UNIT SQ HS, (Reported) Omeprazole (Omeprazole), 40 MG PO DAILY, (Reported) Spironolactone (Spironolactone), 1 TAB PO DAILY, (Reported) Zolpidem Tartrate (Ambien), 1 TAB PO QHS, (Reported) [pancrease mt16], TAB PO QIDACHS, (Reported) Scheduled PRN Hydrocodone/Acetaminophen (Lortab 7.5-325 mg Tablet), 1 TAB PO PRN Q6HRS PRN for PAIN, (Reported) Ondansetron (Ondansetron Odt), 1 TAB PO PRN Q8HRS PRN for NAUSEA/VOMITING, ( Reported) Miscellaneous Medications Lisinopril (Lisinopril), 1 TAB PO, (Reported) MARSHA KENNY MD December 20, 2016 11:42
--- NOTE | 2016-12-20 13:59 | PDOC ---
Subjective: Subjective: Feeling better, tolerating PO. Ready to leave. Objective: Objective: DC today per RN. Vital Signs: Vital Signs Date Time Temp Pulse Resp B/P (MAP) Pulse Ox O2 Delivery O2 Flow Rate FiO2 12/20/16 10:45 97.7 85 18 122/76 (91) 94 Room Air 97.7 Labs: Laboratory Tests Test 12/19/16 16:06 12/19/16 20:52 12/20/16 08:01 12/20/16 11:29 Glucose (Fingerstick) 231 mg/dL (70-99) 239 mg/dL (70-99) 245 mg/dL (70-99) 258 mg/dL (70-99) PE: GEN: NAD ABD: less tender, obese NEURO/PSYCH: A & O 3 A/P: Chronic pancreatitis -s/p cholecystectomy, partial pancreatectomy, EUS, h/o DM -abd pain improved, nausea better, was started on PO Reglan by primary w/ suspicion for diabetic gastroparesis -- DC okay per GI. CLIFFORD MORRISON December 20, 2016 13:59
[2016-12-20] MEDS ORDERED: INSULIN DETEMIR 300 UNITS/3 ML INSULN.PEN. SQ SCH (21:00)
[2016-12-21] MEDS ORDERED: PANTOPRAZOLE 40 MG TABLET.DR. PO SCH (07:30)
== END 2016-12-20 13:55 | disposition home or self-care (01) | DRG 438 ==
LOC: ER 20:44 → 5 NORTH 21:29
PROVIDERS: ADMIT Internal Medicine; ATTEND Internal Medicine
DX: K86.1 Other chronic pancreatitis (principal); E43 Unspecified severe protein-calorie malnutrition; I42.9 Cardiomyopathy, unspecified; Z68.43 Body mass index [BMI] 50.0-59.9, adult; E11.43 Type 2 diabetes mellitus with diabetic autonomic (poly)neuropathy; K31.84 Gastroparesis; E66.01 Morbid (severe) obesity due to excess calories; E78.5 Hyperlipidemia, unspecified; G89.29 Other chronic pain; I11.0 Hypertensive heart disease with heart failure; I50.9 Heart failure, unspecified; J45.909 Unspecified asthma, uncomplicated; K21.9 Gastro-esophageal reflux disease without esophagitis; R31.9 Hematuria, unspecified; Z79.4 Long term (current) use of insulin; Z82.49 Family history of ischemic heart disease and other diseases of the circulatory system; Z90.411 Acquired partial absence of pancreas; Z90.49 Acquired absence of other specified parts of digestive tract; Z88.8 Allergy status to other drugs, medicaments and biological substances; Z88.0 Allergy status to penicillin; Z91.013 Allergy to seafood
CPT/HCPCS: 36415; 80048; 80053; 81001; 81025; 82150; 82962; 83690; 85027; 86301; 96374; 96375; C9113; J1170; J1815; J1940; J2270; J2405; J3490; J7030; J8597; Q0162; 99285-25

== ENCOUNTER 2016-12-24 22:23 | Emergency (ER) | payer MEDICARE, OTHER ==
[~2016-12-24] VITALS: Ht 172.7 cm; Wt 154.2 kg
[~2016-12-24 22:23] MED LIST changes: -CLIN300C8 PO; +CLIN300C86 PO; +MELO-156 PO; -MELO7.5T29 PO; +ONDA4TAB12 PO; +OXYC-244 PO; -OXYC-327 PO; -TRAZ150T49 PO; +TRAZ150T55 PO
[2016-12-24] MEDS ORDERED: IV NORMAL SALINE 1000ML BAG 1,000 ML IV SCH (22:50)
--- NOTE | 2016-12-24 23:11 | PHYS DOC ---
Past Medical History Past Medical History: CHF, Diabetes-Type I, Hypertension, Pancreatitis, Other Additional Past Medical Histor: diabetic gastroparesis, morbid obesity Past Surgical History: Cholecystectomy, Other Additional Past Surgical Histo: Eye surgery, pancrteatic shunts; partial pancreatectomy Alcohol Use: None Drug Use: None Adult General Chief Complaint Chief Complaint: FLANK PAIN [facility] HPI Patient is a 36 year old female who presents with complaint of right-sided flank and abdominal pain. Patient has history of chronic pancreatitis type 2 diabetes mellitus, and diabetic gastroparesis. Patient was recently admitted the hospital and released on December 14 for treatment of abdominal pain and gastroparesis. Patient states she started having worsening symptoms over the past few days. Patient denies any vomiting or bloody stools. Patient has been taking hydrocodone with no relief in symptoms. The patient states that she has also been taking Reglan as prescribed from her previous discharge. Patient rates her pain as 10 out of 10. Patient states that the pain starts in her right flank and radiates towards her right lower quadrant. Patient denies any fevers or shortness of breath. Review of Systems Review of Systems Constitutional: Denies fever or chills [] Eyes: Denies change in visual acuity, redness, or eye pain [] HENT: Denies nasal congestion or sore throat [] Respiratory: Denies cough or shortness of breath [] Cardiovascular: No additional information not addressed in HPI [] GI: Abdominal pain, nausea, denies vomiting or diarrhea [] : Right flank pain, denies dysuria or hematuria [] Musculoskeletal: Denies back pain or joint pain [] Integument: Denies rash or skin lesions [] Neurologic: Denies headache, focal weakness or sensory changes [] Endocrine: Denies polyuria or polydipsia [] Current Medications Current Medications Current Medications Medications (Trade) Dose Ordered Sig/Naveen Start Time Stop Time Status Last Admin Dose Admin Famotidine (Pepcid) 20 mg 1X ONCE 12/24/16 23:15 12/24/16 23:16 DC Hydromorphone HCl (Dilaudid) 1 mg PRN Q15MIN PRN 12/24/16 23:00 12/25/16 22:59 12/25/16 00:05 1 MG Labetalol HCl (Normodyne) 20 mg 1X ONCE 12/24/16 23:30 12/24/16 23:31 DC 12/24/16 23:55 20 MG Ondansetron HCl (Zofran) 4 mg 1X ONCE 12/24/16 23:15 12/24/16 23:16 DC 12/24/16 23:39 4 MG Sodium Chloride 1,000 ml @ 1,000 mls/hr Q1H 12/24/16 22:50 12/24/16 23:49 DC 12/24/16 23:38 1,000 MLS/HR Allergies Allergies Allergies Coded Allergies Type Severity Reaction Last Updated Verified shellfish derived Allergy Severe anaphylaxis 09/17/14 Yes Iodine and Iodide Containing Produc Allergy Intermediate hives, itching, fevers, anaphylaxis 09/17/14 Yes Penicillins Allergy Intermediate itching, vomiting, fevers 09/17/14 Yes iodine Allergy Intermediate 03/11/16 Yes meperidine Adverse Reaction Intermediate fevers, vomiting 02/15/15 Yes Physical Exam Physical Exam Constitutional: Alert, afebrile, appears in mild discomfort. [] HENT: Normocephalic, atraumatic, bilateral external ears normal, oropharynx moist, no oral exudates, nose normal. [] Eyes: PERRLA, EOMI, conjunctiva normal, no discharge. [] Neck: Normal range of motion, no tenderness, supple, no stridor. [] Cardiovascular:Heart rate regular rhythm, no murmur [] Lungs & Thorax: Bilateral breath sounds clear to auscultation [] Abdomen: Bowel sounds normal, soft, right upper and lower quadrant tenderness to palpation, no masses, no pulsatile masses. [] Skin: Warm, dry, no erythema, no rash. [] Back: No midline tenderness, no CVA tenderness, no flank ecchymosis. [] Extremities: No tenderness, no cyanosis, no clubbing, ROM intact, no edema. [] Neurologic: Alert and oriented X 3, normal motor function, normal sensory function, no focal deficits noted. [] Current Patient Data Vital Signs Vital Signs Date Time Temp Pulse Resp B/P (MAP) Pulse Ox O2 Delivery O2 Flow Rate FiO2 12/25/16 00:05 18 99 Room Air 12/25/16 00:00 95 166/90 (115) 12/24/16 23:08 98.4 98.4 Lab Values Laboratory Tests Test 12/24/16 21:44 12/24/16 22:50 12/24/16 23:50 POC Urine HCG, Qualitative Hcg negative (Negative) Urine Collection Type Unknown Urine Color Yellow Urine Clarity Clear Urine pH 7.0 Urine Specific [place] 1.015 Urine Protein Negative mg/dL (NEG-TRACE) Urine Glucose (UA) Negative mg/dL (NEG) Urine Ketones (Stick) Negative mg/dL (NEG) Urine Blood Negative (NEG) Urine Nitrite Negative (NEG) Urine Bilirubin Negative (NEG) Urine Urobilinogen Dipstick 1.0 mg/dL (0.2 mg/dL) Urine Leukocyte Esterase Negative (NEG) Urine RBC 0 /HPF (0-2) Urine WBC Occ /HPF (0-4) Urine Squamous Epithelial Cells Mod /LPF Urine Bacteria 0 /HPF (0-FEW) White Blood Count 10.8 x10^3/uL (4.0-11.0) Red Blood Count 5.16 x10^6/uL (3.50-5.40) Hemoglobin 11.9 g/dL (12.0-15.5) L Hematocrit 37.5 % (36.0-47.0) Mean Corpuscular Volume 73 fL (79-100) L Mean Corpuscular Hemoglobin 23 pg (25-35) L Mean Corpuscular Hemoglobin Concent 32 g/dL (31-37) Red Cell Distribution Width 15.7 % (11.5-14.5) H Platelet Count 266 x10^3/uL (140-400) Neutrophils (%) (Auto) 56 % (31-73) Lymphocytes (%) (Auto) 36 % (24-48) Monocytes (%) (Auto) 5 % (0-9) Eosinophils (%) (Auto) 1 % (0-3) Basophils (%) (Auto) 1 % (0-3) Neutrophils # (Auto) 6.0 x10^3uL (1.8-7.7) Lymphocytes # (Auto) 3.9 x10^3/uL (1.0-4.8) Monocytes # (Auto) 0.6 x10^3/uL (0.0-1.1) Eosinophils # (Auto) 0.1 x10^3/uL (0.0-0.7) Basophils # (Auto) 0.1 x10^3/uL (0.0-0.2) Sodium Level 140 mmol/L (136-145) Potassium Level 3.8 mmol/L (3.5-5.1) Chloride Level 103 mmol/L (98-107) Carbon Dioxide Level 27 mmol/L (21-32) Anion Gap 10 (6-14) Blood Urea Nitrogen 7 mg/dL (7-20) Creatinine 0.7 mg/dL (0.6-1.0) Estimated GFR (Cockcroft-Gault) 113.3 BUN/Creatinine Ratio 10 (6-20) Glucose Level 157 mg/dL (70-99) H Calcium Level 9.5 mg/dL (8.5-10.1) Total Bilirubin 0.4 mg/dL (0.2-1.0) Aspartate Amino Transferase (AST) 25 U/L (15-37) Alanine Aminotransferase (ALT) 27 U/L (14-59) Alkaline Phosphatase 178 U/L (46-116) H Total Protein 8.4 g/dL (6.4-8.2) H Albumin 3.4 g/dL (3.4-5.0) Albumin/Globulin Ratio 0.7 (1.0-1.7) L Lipase 51 U/L (73-393) L Laboratory Tests 12/24/16 23:50 Laboratory Tests 12/24/16 23:50 EKG EKG Not performed [] Radiology/Procedures Radiology/Procedures Two-view abdominal x-rays interpreted by me: Nonobstructive bowel gas pattern, no free air under the diaphragm, mild to moderate amount of retained stool in colon [] Course & Med Decision Making Course & Med Decision Making Pertinent Labs and Imaging studies reviewed. (See chart for details) Patient was given IV Zofran, Dilaudid, and labetalol. Patient's blood pressure improved to 160 systolic and patient's pain has improved on reevaluation. Patient's workup shows no acute or surgical pathology causing the patient's symptoms at this time. I suspect that the patient's symptoms are due to exacerbation of chronic abdominal pain syndrome. Advised patient to continue on her home medications as needed for pain. Advised return to the emergency department for any worsening symptoms and recommended follow-up in one week with her primary doctor. Patient voiced understanding and in agreement with treatment plan. Dragon Disclaimer Dragon Disclaimer This electronic medical record was generated, in whole or in part, using a voice recognition dictation system. Departure Departure Impression: Primary Impression: Abdominal pain Additional Impression: Accelerated hypertension Disposition: 01 HOME, SELF-CARE Condition: IMPROVED Referrals: UNKNOWN PCP NAME (PCP) Patient Instructions: Abdominal Pain (Nonspecific), Hypertension Additional Instructions: Follow-up to primary doctor in 1 week. Return to emergency department for any worsening symptoms. Problem Qualifiers Primary Impression: Abdominal pain Abdominal location: lower abdomen, unspecified Qualified Codes: R10.30 - Lower abdominal pain, unspecified ADIEL LEONE MD December 24, 2016 23:11
[2016-12-24] MEDS ORDERED: ONDANSETRON PF 4 MG/2 ML VIAL. IV ONE (23:15)
[2016-12-24] MEDS ORDERED: FAMOTIDINE 20 MG/2 ML VIAL IVP ONE (23:15)
[2016-12-24 23:16] LABS: BILIRUBIN,URINE NEGATIVE (NEG); GLUCOSE,URINE NEGATIVE (NEG); NITRITE,URINE NEGATIVE (NEG); PROTEIN,URINE NEGATIVE (NEG-TRACE)
[2016-12-24 23:26] LABS: BACTERIA,URINE 0 /HPF (0-FEW); RBC,URINE 0 /HPF (0-2); SQUAMOUS EPITHELIAL CELL,UR MOD /LPF; WBC,URINE OCC /HPF (0-4)
[2016-12-24] MEDS ORDERED: LABETALOL 20 MG/4 ML DISP.SYRIN. IVP ONE (23:30)
[2016-12-24] MEDS: HYDROmorphone 2 MG/ML VIAL IV/SQ PRN (23:46)
[2016-12-25] LABS: BASO # 0.1 x10^3/uL (0.0-0.2); BASO % 1 % (0-3); EOS % 1 % (0-3); HEMATOCRIT 37.5 % (36.0-47.0); HEMOGLOBIN 11.9 g/dL (12.0-15.5); LYMPH # 3.9 x10^3/uL (1.0-4.8); LYMPH % 36 % (24-48); MEAN CORPUSCULAR HEMOGLOBIN 23 pg (25-35); MEAN CORPUSCULAR HGB CONC 32 g/dL (31-37); MEAN CORPUSCULAR VOLUME 73 fL (79-100); MONO % 5 % (0-9); NEUT % 56 % (31-73); PLATELET COUNT 266 x10^3/uL (140-400); RED BLOOD COUNT 5.16 x10^6/uL (3.50-5.40); RED CELL DISTRIBUTION WIDTH 15.7 % (11.5-14.5); WHITE BLOOD COUNT 10.8 x10^3/uL (4.0-11.0)
[2016-12-25] MEDS: HYDROmorphone 2 MG/ML VIAL IV/SQ PRN (00:05)
[2016-12-25 00:10] LABS: CALCIUM 9.5 mg/dL (8.5-10.1); CREATININE 0.7 mg/dL (0.6-1.0); GFR 113.3; POTASSIUM 3.8 mmol/L (3.5-5.1)
[2016-12-25 00:16] LABS: ALBUMIN 3.4 g/dL (3.4-5.0); ALBUMIN/GLOBULIN RATIO 0.7 (1.0-1.7); TOTAL BILIRUBIN 0.4 mg/dL (0.2-1.0); TOTAL PROTEIN 8.4 g/dL (6.4-8.2)
[2016-12-25 00:36] VITALS: BP 155/104
[2016-12-25] MEDS ORDERED: METOCLOPRAMIDE HCL 10 MG/2 ML VIAL. IV ONE (00:45)
--- NOTE | 2016-12-25 08:21 | RAD ---
Indication right-sided abdominal pain. Supine and upright films of the abdomen were obtained. Note is made of a similar examination 10/07/2015. The lung bases are clear. There is no evidence of free air. The abdominal gas pattern is normal. No organomegaly or abnormal calculi are seen and the visualized bony structures appear grossly intact. IMPRESSION: No acute finding seen on plain films of the abdomen
== END 2016-12-25 01:00 | disposition home or self-care (01) ==
LOC: ER 22:23
DX: R10.31 Right lower quadrant pain (principal); I10 Essential (primary) hypertension; I11.0 Hypertensive heart disease with heart failure; I50.9 Heart failure, unspecified; E10.43 Type 1 diabetes mellitus with diabetic autonomic (poly)neuropathy; K31.84 Gastroparesis; E66.01 Morbid (severe) obesity due to excess calories; Z68.43 Body mass index [BMI] 50.0-59.9, adult; Z90.49 Acquired absence of other specified parts of digestive tract; Z88.0 Allergy status to penicillin; Z88.8 Allergy status to other drugs, medicaments and biological substances; Z91.041 Radiographic dye allergy status; Z91.013 Allergy to seafood; Z90.411 Acquired partial absence of pancreas
CPT/HCPCS: 36415; 74020; 80053; 81001; 81025; 83690; 85027; 96361; 96374; 96375; 99285; J1170; J2405; J2765; J3490; J7030

== ENCOUNTER 2017-01-01 08:05 | Emergency (ER) | payer MEDICARE, OTHER ==
[~2017-01-01] VITALS: Ht 172.7 cm; Wt 154.2 kg
[~2017-01-01 08:05] MED LIST changes: +CLIN300C8 PO; -CLIN300C86 PO; -MELO-156 PO; +MELO7.5T29 PO; -OXYC-244 PO; +OXYC-327 PO; +TRAZ150T49 PO; -TRAZ150T55 PO
[2017-01-01 08:21] VITALS: BP 147/93
[2017-01-01 08:36] LABS: BILIRUBIN,URINE NEGATIVE (NEG); GLUCOSE,URINE NEGATIVE (NEG); NITRITE,URINE NEGATIVE (NEG); PH,URINE 5.5; PROTEIN,URINE NEGATIVE (NEG-TRACE); UROBILINOGEN,URINE 0.2 mg/dL (0.2 mg/dL)
--- NOTE | 2017-01-01 08:42 | PHYS DOC ---
Past Medical History Past Medical History: Other Additional Past Medical Histor: GASTROPORESIS, chronic pain Past Surgical History: Cholecystectomy, Other Additional Past Surgical Histo: Eye surgery, pancrteatic shunts; partial pancreatectomy Alcohol Use: None Drug Use: None Adult General Chief Complaint Chief Complaint: ABDOMINAL PAIN HPI HPI Patient is a 36 year old female with gastroparesis, chronic abdominal pain, and chronic n/v/d who presents with right upper quadrant abdominal pain radiating to right flank persistently for the past >1 week. She was seen here close to onset of her symptoms on 12/24/16. States she had negative workup and tried to follow-up with her PCP [facility]. Her PCP recommended coming to the emergency department at . She had a CT scan and labs there that were noted to be unremarkable. She then followed up with her primary care doctor and had a pelvic exam with urinalysis that were noted to be unremarkable. She states these were normal. She has continued to take narcotic pain medicine as prescribed by her primary care doctor. She has not called or been seen by her GI doctor. She is on a PPI chronically. She denies fever or chills, dark or bloody stools, bloody or bilious emesis, chest pain, dyspnea, cough, palpitations, orthopnea, leg pain or swelling, numbness, tingling, weakness, saddle anesthesia, bowel or bladder dysfunction. Review of Systems Review of Systems Constitutional: Denies fever or chills [] Eyes: Denies change in visual acuity, redness, or eye pain [] HENT: Denies nasal congestion or sore throat [] Respiratory: Denies cough or shortness of breath [] Cardiovascular: No additional information not addressed in HPI [] GI: Denies nausea, vomiting, bloody stools or diarrhea [] : Denies dysuria or hematuria [] Musculoskeletal: Denies joint pain [] Integument: Denies rash or skin lesions [] Neurologic: Denies headache, focal weakness or sensory changes [] Endocrine: Denies polyuria or polydipsia [] Current Medications Current Medications Current Medications Medications (Trade) Dose Ordered Sig/Naveen Start Time Stop Time Status Last Admin Dose Admin Multi-Ingredient Mouthwash/Gargle (Gi Cocktail Single Dose) 15 ml 1X ONCE 01/01/17 08:45 01/01/17 08:46 DC 01/01/17 08:43 15 ML Allergies Allergies Allergies Coded Allergies Type Severity Reaction Last Updated Verified shellfish derived Allergy Severe anaphylaxis 09/17/14 Yes Iodine and Iodide Containing Produc Allergy Intermediate hives, itching, fevers, anaphylaxis 09/17/14 Yes Penicillins Allergy Intermediate itching, vomiting, fevers 09/17/14 Yes iodine Allergy Intermediate 03/11/16 Yes meperidine Adverse Reaction Intermediate fevers, vomiting 02/15/15 Yes Physical Exam Physical Exam Constitutional: Well developed, well nourished, no acute distress, non-toxic appearance. [] HENT: Normocephalic, atraumatic, bilateral external ears normal, oropharynx moist, nose normal. [] Eyes: PERRLA, EOMI. [] Neck: Normal range of motion, supple. [] Cardiovascular:Heart rate regular rhythm [] Lungs & Thorax: Bilateral breath sounds clear to auscultation [] Abdomen: Bowel sounds normal, soft, mild RUQ tenderness, no guarding or rebound. [] Skin: Warm, dry, no erythema, no rash. [] Back: No tenderness, no CVA tenderness. No visual or palpable abnormality. [] Extremities: No tenderness, ROM intact, no edema. [] Neurologic: Alert and oriented X 3, normal motor function, normal sensory function, no focal deficits noted. [] Psychologic: Affect normal, judgement normal, mood normal. [] Current Patient Data Vital Signs Vital Signs Date Time Temp Pulse Resp B/P (MAP) Pulse Ox O2 Delivery O2 Flow Rate FiO2 01/01/17 08:21 98.3 110 20 147/93 (111) 99 Room Air 98.3 Lab Values Laboratory Tests Test 01/01/17 07:34 01/01/17 08:10 POC Urine HCG, Qualitative Hcg negative (Negative) Urine Collection Type Unknown Urine Color Yellow Urine Clarity Clear Urine pH 5.5 Urine Specific [place] >=1.030 Urine Protein Negative mg/dL (NEG-TRACE) Urine Glucose (UA) Negative mg/dL (NEG) Urine Ketones (Stick) Negative mg/dL (NEG) Urine Blood Negative (NEG) Urine Nitrite Negative (NEG) Urine Bilirubin Negative (NEG) Urine Urobilinogen Dipstick 0.2 mg/dL (0.2 mg/dL) Urine Leukocyte Esterase Negative (NEG) Urine RBC 0 /HPF (0-2) Urine WBC Occ /HPF (0-4) Urine Squamous Epithelial Cells Occ /LPF Urine Bacteria 0 /HPF (0-FEW) Urine Hyaline Casts Occasional /HPF Urine Mucus Marked /LPF Course & Med Decision Making Course & Med Decision Making Discussed has recent thorough workup and have concern for gastritis versus peptic ulcer disease versus other. Recommend taking H2 ivania in addition of PPI for short course as well as sucralfate. Recommend follow-up with GI and primary care. Return precautions given. She understands and agrees with plan. Vickey Disclaimer Vickey Disclaimer This electronic medical record was generated, in whole or in part, using a voice recognition dictation system. Departure Departure Impression: Primary Impression: Abdominal pain Disposition: HOME, SELF-CARE Condition: STABLE Referrals: UNKNOWN PCP NAME (PCP) Patient Instructions: Gastritis, Adult, [id number] Additional Instructions: Take famotidine and sacral as prescribed. Follow-up with your GI and primary care doctor. Please call for appointment. Return for any concerns. Scripts Sucralfate (SUCRALFATE) 1 Gm Tablet 1 TAB PO TID, #45 TAB 0 Refills Do not take within 2 hours of taking furosemide. Prov: Winnie FISCHER MD 01/01/17 Famotidine (FAMOTIDINE) 20 Mg Tablet 20 MG PO BID, #30 TAB Prov: Winnie FISCHER MD 01/01/17 Problem Qualifiers Primary Impression: Abdominal pain Abdominal location: right upper quadrant Qualified Codes: R10.11 - Right upper quadrant pain Winnie FISCHER MD Jan 01, 2017 08:42
[2017-01-01] MEDS ORDERED: LIDO:MAALOX:DONNATAL 1:1:1 15 ML SINGLE DOSE SWSW ONE (08:45)
[2017-01-01 08:46] LABS: BACTERIA,URINE 0 /HPF (0-FEW); RBC,URINE 0 /HPF (0-2); SQUAMOUS EPITHELIAL CELL,UR OCC /LPF; WBC,URINE OCC /HPF (0-4)
[2017-01-01] MEDS ORDERED: FAMO20TA5 PO (08:55)
[2017-01-01] MEDS ORDERED: SUCR1TAB PO (08:55)
== END 2017-01-01 09:06 | disposition home or self-care (01) ==
LOC: ER 08:05
DX: G89.29 Other chronic pain (principal); R10.11 Right upper quadrant pain; R11.2 Nausea with vomiting, unspecified; Z90.49 Acquired absence of other specified parts of digestive tract; Z90.411 Acquired partial absence of pancreas; Z88.0 Allergy status to penicillin; Z88.8 Allergy status to other drugs, medicaments and biological substances; Z91.041 Radiographic dye allergy status; Z91.013 Allergy to seafood
CPT/HCPCS: 81001; 81025; 99283

== ENCOUNTER 2017-03-14 11:42 | Emergency (ER) | payer MEDICARE, OTHER ==
[~2017-03-14] VITALS: Ht 172.7 cm; Wt 153.8 kg
[~2017-03-14 11:42] MED LIST changes: +FAMO20TA5 PO; +SUCR1TAB PO
[2017-03-14 12:58] LABS: BILIRUBIN,URINE NEGATIVE (NEG); GLUCOSE,URINE NEGATIVE (NEG); NITRITE,URINE NEGATIVE (NEG); PH,URINE 5.5; PROTEIN,URINE NEGATIVE (NEG-TRACE); UROBILINOGEN,URINE 0.2 mg/dL (0.2 mg/dL)
[2017-03-14 12:59] LABS: BASO # 0.1 x10^3/uL (0.0-0.2); BASO % 1 % (0-3); EOS % 2 % (0-3); HEMATOCRIT 28.2 % (36.0-47.0); HEMOGLOBIN 8.8 g/dL (12.0-15.5); LYMPH # 2.5 x10^3/uL (1.0-4.8); LYMPH % 30 % (24-48); MEAN CORPUSCULAR HEMOGLOBIN 23 pg (25-35); MEAN CORPUSCULAR HGB CONC 31 g/dL (31-37); MEAN CORPUSCULAR VOLUME 73 fL (79-100); MONO % 7 % (0-9); NEUT % 61 % (31-73); PLATELET COUNT 342 x10^3/uL (140-400); RED BLOOD COUNT 3.88 x10^6/uL (3.50-5.40); RED CELL DISTRIBUTION WIDTH 15.7 % (11.5-14.5); WHITE BLOOD COUNT 8.5 x10^3/uL (4.0-11.0)
[2017-03-14] MEDS ORDERED: ONDANSETRON PF 4 MG/2 ML VIAL. IV ONE (13:00)
[2017-03-14] MEDS ORDERED: IV NORMAL SALINE 1000ML BAG 1,000 ML IV ONE (13:00)
[2017-03-14] MEDS ORDERED: MORPHINE SULFATE 10 MG/ML VIAL. IV ONE (13:00)
[2017-03-14 13:08] LABS: CALCIUM 8.6 mg/dL (8.5-10.1); CREATININE 0.7 mg/dL (0.6-1.0); GFR 112.7; POTASSIUM 3.8 mmol/L (3.5-5.1)
[2017-03-14 13:11] LABS: BACTERIA,URINE MODERATE /HPF (0-FEW); RBC,URINE 0 /HPF (0-2); SQUAMOUS EPITHELIAL CELL,UR MOD /LPF
[2017-03-14 13:12] LABS: INR 1.1 (0.8-1.1); PROTHROMBIN TIME PATIENT 13.3 SEC (11.7-14.0)
[2017-03-14 13:13] LABS: ALBUMIN 2.8 g/dL (3.4-5.0); ALBUMIN/GLOBULIN RATIO 0.6 (1.0-1.7); TOTAL BILIRUBIN 0.2 mg/dL (0.2-1.0); TOTAL PROTEIN 7.4 g/dL (6.4-8.2)
--- NOTE | 2017-03-14 13:40 | RAD ---
Acute abdominal series with single view chest 03/14/2017 at 1308 hours Indication: Abdominal pain status post gastric bypass surgery Comparison: Abdominal radiograph 12/24/2016 Technique: Frontal view of the chest, upright view of the abdomen and supine views of the abdomen are provided. Findings: The cardiomediastinal silhouette is within normal limits. There are no pleural effusions. No pulmonary vascular congestion. No pneumothorax. Stable 5 mm nodule in the right upper lobe, favored to represent calcified granuloma. There is no free intraperitoneal air. Surgical clips from cholecystectomy are noted. Surgical clips from gastric bypass surgery are present. There are no dilated loops of small or large bowel. Moderate amount fecal contents are identified. Gas is identified within the rectum. Impression: 1. No acute cardiopulmonary process. 2. No findings to suggest pneumoperitoneum. Nonobstructive bowel gas pattern.
[2017-03-14] MEDS ORDERED: HYDROmorphone 2 MG/ML VIAL IV ONE (13:45)
--- NOTE | 2017-03-14 13:55 | PHYS DOC ---
Past Medical History Past Medical History: Other Additional Past Medical Histor: GASTROPORESIS, chronic pain Past Surgical History: Cholecystectomy, Gastric Bypass, Other Additional Past Surgical Histo: Eye surgery, pancrteatic shunts; partial pancreatectomy Alcohol Use: None Drug Use: None Adult General Chief Complaint Chief Complaint: ABDOMINAL PAIN HPI HPI Patient is a 37 year old female presenting to the emergency department for evaluation of diffuse abdominal pain worse in her upper quadrants. Patient had gastric bypass surgery at [facility] on February [address] Kearney. I spoke to Dr. Kearney and he says that the surgery went fairly well except she had some wound dehiscence and delayed closure with wound VAC in place. He says that she has not kept her follow-up appointments including yesterday she did not go to her follow-up appointment. Patient says that the pain is upper with nausea but no fevers chills vomiting dysuria hematuria diarrhea or constipation. Patient says that she thinks she may have pancreatitis as she has had in the past. She follows with GI at [facility]. Review of Systems Review of Systems Constitutional: Denies fever or chills [] Eyes: Denies change in visual acuity, redness, or eye pain [] HENT: Denies nasal congestion or sore throat [] Respiratory: Denies cough or shortness of breath [] Cardiovascular: No additional information not addressed in HPI [] GI: + abdominal pain, nausea. No vomiting, bloody stools or diarrhea [] : Denies dysuria or hematuria [] Musculoskeletal: Denies back pain or joint pain [] Integument: No redness swelling or drainage Neurologic: Denies headache, focal weakness or sensory changes [] Current Medications Current Medications Current Medications Medications (Trade) Dose Ordered Sig/[facility] Start Time Stop Time Status Last Admin Dose Admin Hydromorphone HCl (Dilaudid) 1 mg 1X ONCE 03/14/17 13:45 03/14/17 13:46 DC Morphine Sulfate 5 mg 1X ONCE 03/14/17 13:00 03/14/17 13:01 DC 03/14/17 13:00 5 MG Ondansetron HCl (Zofran) 8 mg 1X ONCE 03/14/17 13:00 03/14/17 13:01 DC 03/14/17 13:00 8 MG Sodium Chloride 1,000 ml @ 1,000 mls/hr 1X ONCE 03/14/17 13:00 03/14/17 13:59 03/14/17 13:00 1,000 MLS/HR Allergies Allergies Allergies Coded Allergies Type Severity Reaction Last Updated Verified shellfish derived Allergy Severe anaphylaxis 09/17/14 Yes Iodine and Iodide Containing Produc Allergy Intermediate hives, itching, fevers, anaphylaxis 09/17/14 Yes Penicillins Allergy Intermediate itching, vomiting, fevers 09/17/14 Yes iodine Allergy Intermediate 03/11/16 Yes meperidine Adverse Reaction Intermediate fevers, vomiting 02/15/15 Yes Physical Exam Physical Exam Constitutional: Well developed, well nourished, no acute distress, non-toxic appearance. [] HENT: Normocephalic, atraumatic, bilateral external ears normal, oropharynx moist, no oral exudates, nose normal. [] Eyes: PERRLA, EOMI, conjunctiva normal, no discharge. [] Neck: Normal range of motion, no tenderness, supple, no stridor. [] Cardiovascular:Heart rate regular rhythm, no murmur [] Lungs & Thorax: Bilateral breath sounds clear to auscultation [] Abdomen: Bowel sounds normal, soft, mild diffuse tenderness, no rebound or guarding, no masses, no pulsatile masses. [] Skin: Slight wound dehiscence on bottom 2 inches. Skin is dehisced and there is some fat exposure but there is no peritoneal dehiscence. It is clean dry and intact with no drainage. Back: No tenderness, no CVA tenderness. [] Extremities: No tenderness, no cyanosis, no clubbing, ROM intact, no edema. [] Neurologic: Alert and oriented X 3, normal motor function, normal sensory function, no focal deficits noted. [] Current Patient Data Vital Signs Vital Signs Date Time Temp Pulse Resp B/P (MAP) Pulse Ox O2 Delivery O2 Flow Rate FiO2 03/14/17 13:30 88 15 162/77 (105) 94 Room Air 03/14/17 11:50 97.5 97.5 Lab Values Laboratory Tests Test 03/14/17 11:05 03/14/17 12:00 03/14/17 12:02 03/14/17 12:39 POC Urine HCG, Qualitative Hcg negative (Negative) Urine Collection Type Unknown Urine Color Yellow Urine Clarity Clear Urine pH 5.5 Urine Specific [place] 1.025 Urine Protein Negative mg/dL (NEG-TRACE) Urine Glucose (UA) Negative mg/dL (NEG) Urine Ketones (Stick) Negative mg/dL (NEG) Urine Blood Negative (NEG) Urine Nitrite Negative (NEG) Urine Bilirubin Negative (NEG) Urine Urobilinogen Dipstick 0.2 mg/dL (0.2 mg/dL) Urine Leukocyte Esterase Small (NEG) Urine RBC 0 /HPF (0-2) Urine WBC 1-4 /HPF (0-4) Urine Squamous Epithelial Cells Mod /LPF Urine Bacteria Moderate /HPF (0-FEW) Urine Mucus Marked /LPF Glucose (Fingerstick) 163 mg/dL (70-99) H White Blood Count 8.5 x10^3/uL (4.0-11.0) Red Blood Count 3.88 x10^6/uL (3.50-5.40) Hemoglobin 8.8 g/dL (12.0-15.5) L Hematocrit 28.2 % (36.0-47.0) L Mean Corpuscular Volume 73 fL (79-100) L Mean Corpuscular Hemoglobin 23 pg (25-35) L Mean Corpuscular Hemoglobin Concent 31 g/dL (31-37) Red Cell Distribution Width 15.7 % (11.5-14.5) H Platelet Count 342 x10^3/uL (140-400) Neutrophils (%) (Auto) 61 % (31-73) Lymphocytes (%) (Auto) 30 % (24-48) Monocytes (%) (Auto) 7 % (0-9) Eosinophils (%) (Auto) 2 % (0-3) Basophils (%) (Auto) 1 % (0-3) Neutrophils # (Auto) 5.2 x10^3uL (1.8-7.7) Lymphocytes # (Auto) 2.5 x10^3/uL (1.0-4.8) Monocytes # (Auto) 0.6 x10^3/uL (0.0-1.1) Eosinophils # (Auto) 0.2 x10^3/uL (0.0-0.7) Basophils # (Auto) 0.1 x10^3/uL (0.0-0.2) Platelet Estimate Pending Prothrombin Time 13.3 SEC (11.7-14.0) Prothrombin Time INR 1.1 (0.8-1.1) PTT 30 SEC (24-38) Sodium Level 141 mmol/L (136-145) Potassium Level 3.8 mmol/L (3.5-5.1) Chloride Level 103 mmol/L (98-107) Carbon Dioxide Level 26 mmol/L (21-32) Anion Gap 12 (6-14) Blood Urea Nitrogen 11 mg/dL (7-20) Creatinine 0.7 mg/dL (0.6-1.0) Estimated GFR (Cockcroft-Gault) 112.7 BUN/Creatinine Ratio 16 (6-20) Glucose Level 181 mg/dL (70-99) H Calcium Level 8.6 mg/dL (8.5-10.1) Total Bilirubin 0.2 mg/dL (0.2-1.0) Aspartate Amino Transferase (AST) 20 U/L (15-37) Alanine Aminotransferase (ALT) 16 U/L (14-59) Alkaline Phosphatase 156 U/L (46-116) H Total Protein 7.4 g/dL (6.4-8.2) Albumin 2.8 g/dL (3.4-5.0) L Albumin/Globulin Ratio 0.6 (1.0-1.7) L Lipase 188 U/L (73-393) Laboratory Tests 03/14/17 12:39 Laboratory Tests 03/14/17 12:39 EKG EKG Normal sinus rhythm at 88 bpm with leftward axis no obvious ST elevation or depression and normal T waves. 2 PVCs noted. Radiology/Procedures Radiology/Procedures Acute abdominal series with single view chest 03/14/2017 at 1308 hours Indication: Abdominal pain status post gastric bypass surgery Comparison: Abdominal radiograph 12/24/2016 Technique: Frontal view of the chest, upright view of the abdomen and supine views of the abdomen are provided. Findings: The cardiomediastinal silhouette is within normal limits. There are no pleural effusions. No pulmonary vascular congestion. No pneumothorax. Stable 5 mm nodule in the right upper lobe, favored to represent calcified granuloma. There is no free intraperitoneal air. Surgical clips from cholecystectomy are noted. Surgical clips from gastric bypass surgery are present. There are no dilated loops of small or large bowel. Moderate amount fecal contents are identified. Gas is identified within the rectum. Impression: 1. No acute cardiopulmonary process. 2. No findings to suggest pneumoperitoneum. Nonobstructive bowel gas pattern. DICTATED and SIGNED BY: MARJORIE CORDOVA MD DATE: 03/14/17 4067 Course & Med Decision Making Course & Med Decision Making Patient with nonspecific diffuse abdominal pain. Unfortunately unable to do CT with contrast given her allergies but clinically I do not suspect an anastomotic leak. She has no rebound or guarding on exam. She says that she is almost out of her pain medications. I had a lengthy discussion with Dr. Kearney about patient and went over labs and presentation and exam. He stated there is no reason to transfer her to [facility] and in his opinion there is no reason to admit the patient as it would be better if she went home and was up and ambulatory rather than being in the hospital. She has no fever leukocytosis and her labs are fairly unremarkable. Her pain is much improved after morphine and Dilaudid and she has a repeat benign abdominal exam. I spoke to patient about workup and she said that she would rather go home given she is feeling better and she is eating and drinking at home. She has a Zofran prescription but she would like more pain medicines written for her. He said that she has already rescheduled her appointment with Dr. Kearney. Patient aware and agreeable with plan for discharge and verbalized understanding of the need for short-term follow-up and strict ER return precautions discussed including worsening pain fevers vomiting or other general concerns. Dragon Disclaimer Dragon Disclaimer This electronic medical record was generated, in whole or in part, using a voice recognition dictation system. Departure Departure Impression: Primary Impression: Abdominal pain Additional Impression: Nausea Disposition: 01 HOME, SELF-CARE Condition: STABLE Referrals: NON,STAFF (PCP) Patient Instructions: Abdominal Pain (Nonspecific) Scripts Hydrocodone/Apap 5-325 (NORCO 5-325 TABLET) 1 Each Tablet 1 TAB PO PRN Q6HRS Y for PAIN, #20 TAB 0 Refills Prov: TJ KAMINSKI DO 03/14/17 Problem Qualifiers Primary Impression: Abdominal pain Abdominal location: generalized Qualified Codes: R10.84 - Generalized abdominal pain TJ KAMINSKI DO Mar 14, 2017 13:54
[2017-03-14] MEDS ORDERED: HYDR-971 PO (13:58)
[2017-03-14 14:13] LABS: PLT ESTIMATE ADEQUATE (ADEQUATE)
[2017-03-14 14:14] LABS: HYPOCHROMIA MOD; MICROCYTOSIS SLIGHT
[2017-03-14 14:26] LABS: POIKILOCYTOSIS SLIGHT
[2017-03-14 14:30] VITALS: BP 144/84
[2017-03-14] MEDS ORDERED: ONDANSETRON PF 4 MG/2 ML VIAL. IV PRN (14:45)
[2017-03-14] MEDS ORDERED: ACETAMINOPHEN 325 MG TABLET. PO PRN (14:45)
== END 2017-03-14 15:07 | disposition home or self-care (01) ==
LOC: ER 11:42
DX: R10.84 Generalized abdominal pain (principal); R11.0 Nausea; K31.84 Gastroparesis; G89.29 Other chronic pain; Z98.84 Bariatric surgery status; Z88.0 Allergy status to penicillin; Z91.013 Allergy to seafood; Z91.041 Radiographic dye allergy status; Z88.8 Allergy status to other drugs, medicaments and biological substances
CPT/HCPCS: 36415; 74022; 80053; 81001; 81025; 82962; 83690; 83880; 85025; 85610; 85730; 87086; 96361; 96374; 96375; 99285; J1170; J2270; J2405; J7030

== ENCOUNTER 2017-04-03 21:37 | Emergency (ER) | payer MEDICARE, OTHER ==
[~2017-04-03] VITALS: Ht 172.7 cm; Wt 148.8 kg
[~2017-04-03 21:37] MED LIST changes: +HYDR-971 PO
[2017-04-03] MEDS ORDERED: ONDANSETRON PF 4 MG/2 ML VIAL. IV ONE (22:00)
[2017-04-03] MEDS ORDERED: KETOROLAC TROMETHAMINE 30 MG/ML INJ. IV ONE (22:00)
[2017-04-03 22:10] LABS: BILIRUBIN,URINE SMALL (NEG); GLUCOSE,URINE 100 mg/dL (NEG); NITRITE,URINE NEGATIVE (NEG); PROTEIN,URINE 30 mg/dL (NEG-TRACE)
[2017-04-03 22:16] LABS: BACTERIA,URINE FEW /HPF (0-FEW); RBC,URINE 0 /HPF (0-2); SQUAMOUS EPITHELIAL CELL,UR MOD /LPF
[2017-04-03 22:35] LABS: BASO # 0.1 x10^3/uL (0.0-0.2); BASO % 1 % (0-3); EOS % 3 % (0-3); HEMATOCRIT 34.6 % (36.0-47.0); HEMOGLOBIN 10.8 g/dL (12.0-15.5); LYMPH # 2.6 x10^3/uL (1.0-4.8); LYMPH % 28 % (24-48); MEAN CORPUSCULAR HEMOGLOBIN 23 pg (25-35); MEAN CORPUSCULAR HGB CONC 31 g/dL (31-37); MEAN CORPUSCULAR VOLUME 73 fL (79-100); MONO % 5 % (0-9); NEUT % 63 % (31-73); PLATELET COUNT 191 x10^3/uL (140-400); RED BLOOD COUNT 4.74 x10^6/uL (3.50-5.40); RED CELL DISTRIBUTION WIDTH 16.4 % (11.5-14.5); WHITE BLOOD COUNT 9.2 x10^3/uL (4.0-11.0)
[2017-04-03 22:45] LABS: CREATININE 0.9 mg/dL (0.6-1.0); GFR 84.3; POTASSIUM 3.6 mmol/L (3.5-5.1)
[2017-04-03] MEDS ORDERED: KETOROLAC TROMETHAMINE 30 MG/ML INJ. IM ONE (22:45)
[2017-04-03] MEDS ORDERED: ONDANSETRON ODT 4 MG TAB.RAPDIS. PO ONE (22:45)
[2017-04-03 22:50] LABS: ALBUMIN 3.3 g/dL (3.4-5.0); ALBUMIN/GLOBULIN RATIO 0.7 (1.0-1.7); TOTAL BILIRUBIN 0.4 mg/dL (0.2-1.0); TOTAL PROTEIN 8.2 g/dL (6.4-8.2)
[2017-04-03 23:00] VITALS: BP 185/95
[2017-04-03 23:27] LABS: PLT ESTIMATE ADEQUATE (ADEQUATE)
[2017-04-03 23:29] LABS: HYPOCHROMIA SLIGHT; MICROCYTOSIS SLIGHT
--- NOTE | 2017-04-04 00:53 | ED.ADGEN ---
Past Medical History Past Medical History: Diabetes-Type I, High Cholesterol, Hypertension, Pancreatitis, Other Additional Past Medical Histor: GASTROPORESIS, chronic pain Past Surgical History: Cholecystectomy, Gastric Bypass, Other Additional Past Surgical Histo: Eye surgery, pancrteatic shunts; partial pancreatectomy Alcohol Use: None Drug Use: None Adult General Chief Complaint Chief Complaint: ABDOMINAL PAIN HPI HPI Patient is a 37 year old woman, history of diabetes, gastroparesis, chronic pancreatitis, hypertension, morbid obesity, who uses hydrocodone and Zofran as needed at baseline, who presents to the emergency department with complaint of "chronic pancreatitis, again". Patient states that she's been taking her medications that is experiencing pain in the middle of her upper abdomen and the left side of her abdomen. Patient has a healing surgical incision after a gastric bypass surgery, denies any changes in this incision, any pain in the lower abdomen, states that she did have some nausea but no vomiting, denies any fevers or chills, denies any weakness, numbness, tingling, diarrhea, since last although was yesterday and was normal. No new injuries or other complaints. States her symptoms are consistent with previous episodes of pancreatitis. Review of Systems Review of Systems Constitutional: Denies fever or chills. [] Eyes: Denies change in visual acuity. [] HENT: Denies nasal congestion or sore throat. [] Respiratory: Denies cough or shortness of breath. [] Cardiovascular: Denies chest pain or edema. [] GI: Denies vomiting, bloody stools or diarrhea. [] Complaining of nausea, and upper mid epigastric and left-sided abdominal pain. : Denies dysuria. [] Musculoskeletal: Denies back pain or joint pain. [] Integument: Denies rash. [] Neurologic: Denies headache, focal weakness or sensory changes. [] Endocrine: Denies polyuria or polydipsia. [] Lymphatic: Denies swollen glands. [] Psychiatric: Denies depression or anxiety. [] Current Medications Current Medications Current Medications Medications (Trade) Dose Ordered Sig/[facility] Start Time Stop Time Status Last Admin Dose Admin Ketorolac Tromethamine (Toradol) 30 mg 1X ONCE 04/03/17 22:45 04/03/17 22:46 DC 04/03/17 22:45 30 MG Ondansetron HCl (Zofran Odt) 4 mg 1X ONCE 04/03/17 22:45 04/03/17 22:46 DC 04/03/17 22:45 4 MG Ondansetron HCl (Zofran) 4 mg 1X ONCE 04/03/17 22:00 04/03/17 22:01 DC Allergies Allergies Allergies Coded Allergies Type Severity Reaction Last Updated Verified shellfish derived Allergy Severe anaphylaxis 09/17/14 Yes Iodine and Iodide Containing Produc Allergy Intermediate hives, itching, fevers, anaphylaxis 09/17/14 Yes Penicillins Allergy Intermediate itching, vomiting, fevers 09/17/14 Yes iodine Allergy Intermediate 03/11/16 Yes meperidine Adverse Reaction Intermediate fevers, vomiting 02/15/15 Yes Physical Exam Physical Exam Constitutional: Well developed, well nourished, no acute distress, non-toxic appearance. [] HENT: Normocephalic, atraumatic, bilateral external ears normal, oropharynx moist, no oral exudates, nose normal. [] Eyes: PERRLA, EOMI, conjunctiva normal, no discharge. [] Neck: Normal range of motion, no tenderness, supple, no stridor. [] Cardiovascular:Heart rate regular rhythm, no murmur, S1, S2, rubs or gallops. Things reasonable [] Lungs & Thorax: Bilateral breath sounds clear to auscultation, no wheezing, rhonchi, rales. No chest or crepitus or tenderness. [] Abdomen: Bowel sounds normal, soft, obese, mild tenderness to palpation in the epigastric region, patient with healing surgical incision noted in the midline abdomen, with dressing in place, small area of dehiscence noted at the lower aspect, but no evidence of induration or drainage, patient states the area is looking improved and has been evaluated recently by her surgeon. No masses, no pulsatile masses. [] Skin: Warm, dry, no erythema, no rash. [] Back: No tenderness, no CVA tenderness. [] Extremities: No tenderness, no cyanosis, no clubbing, ROM intact, no edema. [] Neurologic: Alert and oriented X 3, normal motor function, normal sensory function, no focal deficits noted. [] Psychologic: Affect normal, judgement normal, mood normal. [] Current Patient Data Vital Signs Vital Signs Date Time Temp Pulse Resp B/P (MAP) Pulse Ox O2 Delivery O2 Flow Rate FiO2 9/7/17 23:00 92 20 185/95 (125) 100 Room Air 04/03/17 21:37 98.1 98.1 Lab Values Laboratory Tests Test 04/03/17 21:50 04/03/17 22:25 Urine Collection Type Unknown Urine Color Leonora Urine Clarity Cloudy Urine pH 5.0 Urine Specific [place] >=1.030 Urine Protein 30 mg/dL (NEG-TRACE) Urine Glucose (UA) 100 mg/dL (NEG) Urine Ketones (Stick) Negative mg/dL (NEG) Urine Blood Negative (NEG) Urine Nitrite Negative (NEG) Urine Bilirubin Small (NEG) Urine Urobilinogen Dipstick 1.0 mg/dL (0.2 mg/dL) Urine Leukocyte Esterase Negative (NEG) Urine RBC 0 /HPF (0-2) Urine WBC 1-4 /HPF (0-4) Urine Squamous Epithelial Cells Mod /LPF Urine Bacteria Few /HPF (0-FEW) Urine Mucus Marked /LPF White Blood Count 9.2 x10^3/uL (4.0-11.0) Red Blood Count 4.74 x10^6/uL (3.50-5.40) Hemoglobin 10.8 g/dL (12.0-15.5) L Hematocrit 34.6 % (36.0-47.0) L Mean Corpuscular Volume 73 fL (79-100) L Mean Corpuscular Hemoglobin 23 pg (25-35) L Mean Corpuscular Hemoglobin Concent 31 g/dL (31-37) Red Cell Distribution Width 16.4 % (11.5-14.5) H Platelet Count 191 x10^3/uL (140-400) Neutrophils (%) (Auto) 63 % (31-73) Lymphocytes (%) (Auto) 28 % (24-48) Monocytes (%) (Auto) 5 % (0-9) Eosinophils (%) (Auto) 3 % (0-3) Basophils (%) (Auto) 1 % (0-3) Neutrophils # (Auto) 5.8 x10^3uL (1.8-7.7) Lymphocytes # (Auto) 2.6 x10^3/uL (1.0-4.8) Monocytes # (Auto) 0.5 x10^3/uL (0.0-1.1) Eosinophils # (Auto) 0.2 x10^3/uL (0.0-0.7) Basophils # (Auto) 0.1 x10^3/uL (0.0-0.2) Platelet Estimate Adequate (ADEQUATE) Hypochromasia Slight Microcytosis Slight Sodium Level 140 mmol/L (136-145) Potassium Level 3.6 mmol/L (3.5-5.1) Chloride Level 102 mmol/L (98-107) Carbon Dioxide Level 27 mmol/L (21-32) Anion Gap 11 (6-14) Blood Urea Nitrogen 10 mg/dL (7-20) Creatinine 0.9 mg/dL (0.6-1.0) Estimated GFR (Cockcroft-Gault) 84.3 BUN/Creatinine Ratio 11 (6-20) Glucose Level 244 mg/dL (70-99) H Calcium Level 9.0 mg/dL (8.5-10.1) Total Bilirubin 0.4 mg/dL (0.2-1.0) Aspartate Amino Transferase (AST) 44 U/L (15-37) H Alanine Aminotransferase (ALT) 32 U/L (14-59) Alkaline Phosphatase 199 U/L (46-116) H Total Protein 8.2 g/dL (6.4-8.2) Albumin 3.3 g/dL (3.4-5.0) L Albumin/Globulin Ratio 0.7 (1.0-1.7) L Lipase 64 U/L (73-393) L Laboratory Tests 04/03/17 22:25 Laboratory Tests 04/03/17 22:25 EKG EKG Not indicated.[] Radiology/Procedures Radiology/Procedures Acute abdominal series: 3 view: Patient with unchanged 5 mm nodule noted in the right chest, no infiltrates or effusions, normal cardiac silhouette, no pneumothorax, no free air, no bony or soft tissue abnormality is identified. Patient noted to have stool and gas throughout, although there is some posterior the right side, no evidence of dilatation or mechanical obstruction. As interpreted by me. Course & Med Decision Making Course & Med Decision Making Pertinent Labs and Imaging studies reviewed. (See chart for details) Patient well-appearing, multiple attempts to obtain IV access were unsuccessful , including attempts placement of an EJ. Laboratory studies were obtained, which revealed a lipase of 62, and no other concerning abnormality identified. Patient received IM injection of Toradol, and sublingual Zofran, with no vomiting in the emergency department. On reevaluation, I did discuss these findings with patient, and presence of chronic pancreatitis without evidence of acutely concerning findings. I did offer the patient additional intramuscular medication, patient states that she does not want any additional IM medications at this time, as the initial medication did not work, and states "I'm just going to leave and go to ". Patient is ambulating without difficulty, with no concerning findings and laboratory studies on examination at this time, and if she desires stated and further treatment at this time, she did receive discharge paperwork, inserting her to continue her home medications, and to follow-up with a primary care provider, to return to the ED for concerning symptoms as discussed. Patient discharged in stable condition with plan as above. Dragon Disclaimer Dragon Disclaimer This electronic medical record was generated, in whole or in part, using a voice recognition dictation system. Departure Impression: Primary Impression: Abdominal pain Disposition: HOME, SELF-CARE Condition: STABLE JACINTA ORO DO Apr 04, 2017 00:53
--- NOTE | 2017-04-04 08:03 | RAD ---
Acute abdomen series with chest, 3 views, 04/03/2017: History: Abdominal pain, nausea and vomiting The images are of suboptimal quality due to the patient's size. There are surgical clips in the abdomen. The abdominal gas pattern is unremarkable without evidence of obstruction. No free air is seen in the abdomen. The heart size is normal. There is a calcified granuloma in the right upper lobe. No acute infiltrates are seen. There is no evidence of pleural fluid. IMPRESSION: No acute abdominal abnormality is detected.
== END 2017-04-04 00:54 | disposition home or self-care (01) ==
LOC: ER 21:37
DX: R10.11 Right upper quadrant pain (principal); R10.13 Epigastric pain; E10.9 Type 1 diabetes mellitus without complications; G89.29 Other chronic pain; I10 Essential (primary) hypertension; E78.00 Pure hypercholesterolemia, unspecified; E66.01 Morbid (severe) obesity due to excess calories; Z98.84 Bariatric surgery status; Z90.49 Acquired absence of other specified parts of digestive tract; Z88.8 Allergy status to other drugs, medicaments and biological substances; Z91.041 Radiographic dye allergy status; Z88.0 Allergy status to penicillin; Z91.013 Allergy to seafood
CPT/HCPCS: 36415; 74022; 80053; 81001; 83690; 85025; 96372; 99285; J1885; Q0162

== ENCOUNTER 2017-08-22 19:02 | Inpatient (IN) | payer MEDICARE, OTHER ==
[2017-08-22 20:36] LABS: URINE HCG POC HCG NEGATIVE (Negative)
[2017-08-22 20:40] LABS: BILIRUBIN,URINE NEGATIVE (NEG); CLARITY,URINE CLEAR; COLOR,URINE YELLOW; GLUCOSE,URINE >=1000 mg/dL (NEG); NITRITE,URINE NEGATIVE (NEG); PH,URINE 5.5; PROTEIN,URINE NEGATIVE (NEG-TRACE); UROBILINOGEN,URINE 0.2 mg/dL (0.2 mg/dL)
[2017-08-22 20:45] LABS: RBC,URINE 0 /HPF (0-2); WBC,URINE 0 /HPF (0-4)
[2017-08-22 20:46] LABS: BACTERIA,URINE FEW /HPF (0-FEW); SQUAMOUS EPITHELIAL CELL,UR FEW /LPF
[2017-08-22 21:09] LABS: ADD MAN DIFF? NO
[2017-08-22 21:16] LABS: BASO % 0 % (0-3); EOS # 0.2 x10^3/uL (0.0-0.7); EOS % 2 % (0-3); HEMATOCRIT 36.8 % (36.0-47.0); HEMOGLOBIN 11.6 g/dL (12.0-15.5); LYMPH # 2.9 x10^3/uL (1.0-4.8); LYMPH % 33 % (24-48); MEAN CORPUSCULAR HEMOGLOBIN 23 pg (25-35); MEAN CORPUSCULAR HGB CONC 32 g/dL (31-37); MEAN CORPUSCULAR VOLUME 74 fL (79-100); MONO # 0.4 x10^3/uL (0.0-1.1); MONO % 5 % (0-9); NEUT # 5.2 x10^3uL (1.8-7.7); NEUT % 60 % (31-73); PLATELET COUNT 209 x10^3/uL (140-400); RED BLOOD COUNT 4.96 x10^6/uL (3.50-5.40); RED CELL DISTRIBUTION WIDTH 16.8 % (11.5-14.5); WHITE BLOOD COUNT 8.6 x10^3/uL (4.0-11.0)
[2017-08-22 21:28] LABS: ANION GAP 11 (6-14); BLOOD UREA NITROGEN 21 mg/dL (7-20); CALCIUM 8.7 mg/dL (8.5-10.1); CARBON DIOXIDE 23 mmol/L (21-32); CHLORIDE 96 mmol/L (98-107); CREATININE 1.1 mg/dL (0.6-1.0); GFR 66.9; GLUCOSE 439 mg/dL (70-99); POTASSIUM 4.3 mmol/L (3.5-5.1); SODIUM 130 mmol/L (136-145)
[2017-08-22 21:32] LABS: C-REACTIVE PROTEIN 25.6 mg/L (0-3.3)
[2017-08-22 21:34] LABS: ALBUMIN 3.4 g/dL (3.4-5.0); ALK PHOS 176 U/L (46-116); ALT (SGPT) 22 U/L (14-59); AST (SGOT) 20 U/L (15-37); DIRECT BILIRUBIN 0.1 mg/dL (0.0-0.2); TOTAL BILIRUBIN 0.3 mg/dL (0.2-1.0); TOTAL PROTEIN 8.3 g/dL (6.4-8.2)
[2017-08-22 21:43] LABS: NT-PRO BNP 99 pg/mL (0-124)
[2017-08-22] MEDS: VANCOMYCIN 2 GM in IV DEXTROSE 5 %-0.2 % NACL 500 ML IV (21:59)
[2017-08-22] MEDS ORDERED: ONDANSETRON PF 4 MG/2 ML VIAL. IV ×4 (22:15→22:45)
[2017-08-22 22:18] LABS: SEDIMENTATION RATE 35 (0-25)
[2017-08-22] MEDS: oxyCODONE IR 5 MG TABLET PO ×2 (22:20)
[2017-08-22] MEDS: VANCOMYCIN PER PHARMACY MC ×2 (22:36)
[2017-08-22] MEDS ORDERED: NON FORMULARY ITEM (Albuterol Sulfate (Proair Hfa Inhaler) 2 PUFF) IH ×2 (22:45)
[2017-08-22] MEDS ORDERED: ONDANSETRON ODT 4 MG TAB.RAPDIS. PO ×2 (22:45)
[2017-08-22] MEDS ORDERED: LABETALOL 20 MG/4 ML DISP.SYRIN. IVP ×2 (22:45)
[2017-08-22] MEDS ORDERED: diphenhydrAMINE HCL 25 MG CAPSULE PO ×2 (22:45)
[2017-08-22] MEDS: ZOLPIDEM 5 MG TABLET. PO ×2 (22:45)
[2017-08-22] MEDS: IV NORMAL SALINE 1000ML BAG 1,000 ML IV ×2 (22:45)
[2017-08-22] MEDS ORDERED: DEXTROSE 50% 25 GM / 50ML DISP.SYRIN. IV ×2 (22:45)
[2017-08-22] MEDS ORDERED: ALBUTEROL SULFATE 2.5 MG/3 ML NEBU. NEB ×2 (23:00)
[2017-08-22 23:22] LABS: TROPONINI < 0.017 ng/mL (0.000-0.055)
[2017-08-23] MEDS: DICYCLOMINE HCL 10 MG CAPSULE PO ×8 (01:59→20:09)
[2017-08-23] MEDS: INSULIN DETEMIR 300 UNITS/3 ML INSULN.PEN. SQ ×4 (02:03→22:04)
[2017-08-23] MEDS: INSULIN ASPART 300 UNITS/3 ML INSULN.PEN SQ ×14 (02:04→17:34)
[2017-08-23 02:09] LABS: POC GLUCOSE 387 mg/dL (70-99)
[2017-08-23] MEDS: IV NORMAL SALINE 1000ML BAG 1,000 ML IV ×6 (03:18→14:45)
[2017-08-23] MEDS: fentaNYL PF VIAL 100 MCG/2 ML VIAL IV ×2 (03:21)
[2017-08-23 05:54] LABS: ADD MAN DIFF? NO
[2017-08-23 05:57] LABS: POC GLUCOSE 124 mg/dL (70-99)
[2017-08-23 06:29] LABS: BASO % 0 % (0-3); EOS # 0.2 x10^3/uL (0.0-0.7); EOS % 3 % (0-3); HEMATOCRIT 38.2 % (36.0-47.0); HEMOGLOBIN 11.9 g/dL (12.0-15.5); LYMPH # 3.6 x10^3/uL (1.0-4.8); LYMPH % 40 % (24-48); MEAN CORPUSCULAR HEMOGLOBIN 23 pg (25-35); MEAN CORPUSCULAR HGB CONC 31 g/dL (31-37); MEAN CORPUSCULAR VOLUME 74 fL (79-100); MONO # 0.5 x10^3/uL (0.0-1.1); MONO % 6 % (0-9); NEUT # 4.6 x10^3uL (1.8-7.7); NEUT % 51 % (31-73); PLATELET COUNT 195 x10^3/uL (140-400); RED BLOOD COUNT 5.14 x10^6/uL (3.50-5.40); RED CELL DISTRIBUTION WIDTH 16.8 % (11.5-14.5)
[2017-08-23 06:43] LABS: ANION GAP 14 (6-14); BLOOD UREA NITROGEN 20 mg/dL (7-20); CALCIUM 8.8 mg/dL (8.5-10.1); CARBON DIOXIDE 21 mmol/L (21-32); CHLORIDE 101 mmol/L (98-107); CREATININE 0.9 mg/dL (0.6-1.0); GFR 84.3; GLUCOSE 159 mg/dL (70-99); POTASSIUM 3.7 mmol/L (3.5-5.1); SODIUM 136 mmol/L (136-145)
[2017-08-23] MEDS ORDERED: diphenhydrAMINE HCL 25 MG CAPSULE PO ×2 (08:00)
[2017-08-23 08:30] LABS: POC GLUCOSE 135 mg/dL (70-99)
[2017-08-23] MEDS: SUCRALFATE 1 GM TABLET. PO ×6 (09:04→16:31)
[2017-08-23] MEDS: LIPASE/PROTEAS/AMYLAS 10/34/55 CAPSULE.DR. PO ×6 (09:04→17:24)
[2017-08-23] MEDS: CARVEDILOL 12.5 MG TABLET. PO ×4 (09:04→17:27)
[2017-08-23] MEDS: PANTOPRAZOLE 40 MG TABLET.DR. PO ×2 (09:04)
[2017-08-23] MEDS: LACTOBACILLUS RHAMNOSUS GG 1 CAPSULE. PO ×4 (09:09→20:09)
[2017-08-23] MEDS: VANCOMYCIN 1.75 GM in IV DEXTROSE 5 %-0.2 % NACL 500 ML IV ×2 (10:36→21:55)
[2017-08-23] MEDS: oxyCODONE/APAP 5/325 1 TAB TABLET PO ×4 (11:01→20:09)
[2017-08-23 11:23] LABS: POC GLUCOSE 137 mg/dL (70-99)
[2017-08-23] MEDS: VANCOMYCIN PER PHARMACY MC ×2 (14:52)
[2017-08-23] MEDS: FLUCONAZOLE 100 MG TABLET. PO ×2 (16:30)
[2017-08-23 16:57] LABS: POC GLUCOSE 175 mg/dL (70-99)
[2017-08-23 20:12] LABS: HEMOGLOBIN A1C 11.7 % (4.8-5.6)
[2017-08-23] MEDS: DIPHENHYDRAMINE/ZINC ACETATE 2%/0.1% TOPICAL CREAM 28GM TUBE. TP ×2 (20:12)
[2017-08-23] MEDS: MINERAL OIL/PETROLATUM TOPICAL CREAM 113GM JAR. TP ×2 (20:12)
[2017-08-23 21:49] LABS: POC GLUCOSE 204 mg/dL (70-99)
[2017-08-23] MEDS: ZOLPIDEM 5 MG TABLET. PO ×2 (23:58)
[2017-08-24] MEDS: oxyCODONE/APAP 5/325 1 TAB TABLET PO ×8 (00:01→21:38)
[2017-08-24] MEDS: IV NORMAL SALINE 1000ML BAG 1,000 ML IV ×8 (03:13→23:32)
[2017-08-24 07:39] LABS: POC GLUCOSE 159 mg/dL (70-99)
[2017-08-24] MEDS: INSULIN ASPART 300 UNITS/3 ML INSULN.PEN SQ ×12 (08:00→17:11)
[2017-08-24] MEDS: DICYCLOMINE HCL 10 MG CAPSULE PO ×6 (08:27→21:38)
[2017-08-24] MEDS: SUCRALFATE 1 GM TABLET. PO ×6 (08:27→16:34)
[2017-08-24] MEDS: CARVEDILOL 12.5 MG TABLET. PO ×4 (08:28→17:06)
[2017-08-24] MEDS: PANTOPRAZOLE 40 MG TABLET.DR. PO ×2 (08:28)
[2017-08-24] MEDS: FLUCONAZOLE 100 MG TABLET. PO ×2 (08:28)
[2017-08-24] MEDS: LIPASE/PROTEAS/AMYLAS 10/34/55 CAPSULE.DR. PO ×6 (08:28→17:06)
[2017-08-24] MEDS: LACTOBACILLUS RHAMNOSUS GG 1 CAPSULE. PO ×4 (08:28→21:38)
[2017-08-24 09:48] LABS: VANC TR 20.6 mcg/mL (10.0-20.0)
[2017-08-24] MEDS: VANCOMYCIN 1.75 GM in IV DEXTROSE 5 %-0.2 % NACL 500 ML IV (10:00)
[2017-08-24 11:56] LABS: POC GLUCOSE 159 mg/dL (70-99)
[2017-08-24] MEDS: VANCOMYCIN PER PHARMACY MC ×2 (12:13)
[2017-08-24] MEDS: VANCOMYCIN 1.5 GM in IV DEXTROSE 5 %-0.2 % NACL 500 ML IV (12:29)
[2017-08-24 16:13] LABS: POC GLUCOSE 174 mg/dL (70-99)
[2017-08-24 21:35] LABS: POC GLUCOSE 187 mg/dL (70-99)
[2017-08-24] MEDS: INSULIN DETEMIR 300 UNITS/3 ML INSULN.PEN. SQ ×2 (21:46)
[2017-08-24] MEDS: ZOLPIDEM 5 MG TABLET. PO ×2 (23:33)
[2017-08-25] MEDS: oxyCODONE/APAP 5/325 1 TAB TABLET PO ×4 (03:15→09:07)
[2017-08-25 05:21] LABS: THYROID STIM HORMONE (TSH) 1.973 uIU/mL (0.358-3.74)
[2017-08-25 07:27] LABS: POC GLUCOSE 105 mg/dL (70-99)
[2017-08-25] MEDS: INSULIN ASPART 300 UNITS/3 ML INSULN.PEN SQ ×14 (07:54→17:42)
[2017-08-25] MEDS: PANTOPRAZOLE 40 MG TABLET.DR. PO ×2 (08:58)
[2017-08-25] MEDS: FLUCONAZOLE 100 MG TABLET. PO ×2 (08:58)
[2017-08-25] MEDS: DICYCLOMINE HCL 10 MG CAPSULE PO ×6 (08:58→20:55)
[2017-08-25] MEDS: LIPASE/PROTEAS/AMYLAS 10/34/55 CAPSULE.DR. PO ×6 (08:58→17:35)
[2017-08-25] MEDS: LACTOBACILLUS RHAMNOSUS GG 1 CAPSULE. PO ×4 (08:58→20:55)
[2017-08-25] MEDS: CARVEDILOL 12.5 MG TABLET. PO ×4 (08:58→17:35)
[2017-08-25] MEDS: SUCRALFATE 1 GM TABLET. PO ×6 (08:59→17:35)
[2017-08-25 10:59] LABS: POC GLUCOSE 150 mg/dL (70-99)
[2017-08-25] MEDS: oxyCODONE/APAP 7.5/325 1 TAB TABLET PO ×4 (12:44→23:16)
[2017-08-25 17:02] LABS: POC GLUCOSE 168 mg/dL (70-99)
[2017-08-25] MEDS: MINERAL OIL/PETROLATUM TOPICAL CREAM 113GM JAR. TP ×2 (17:35)
[2017-08-25] MEDS: DIPHENHYDRAMINE/ZINC ACETATE 2%/0.1% TOPICAL CREAM 28GM TUBE. TP ×2 (17:36)
[2017-08-25] MEDS: INSULIN DETEMIR 300 UNITS/3 ML INSULN.PEN. SQ ×2 (21:00)
[2017-08-25] MEDS: ZOLPIDEM 5 MG TABLET. PO ×2 (21:00)
[2017-08-25 21:15] LABS: POC GLUCOSE 188 mg/dL (70-99)
[2017-08-26] MEDS: oxyCODONE/APAP 7.5/325 1 TAB TABLET PO ×8 (04:57→22:46)
[2017-08-26 05:37] LABS: CREATININE 0.8 mg/dL (0.6-1.0)
[2017-08-26 05:37] LABS: GFR 96.6
[2017-08-26] MEDS: INSULIN ASPART 300 UNITS/3 ML INSULN.PEN SQ ×12 (08:00→17:00)
[2017-08-26 08:01] LABS: POC GLUCOSE 109 mg/dL (70-99)
[2017-08-26] MEDS: LIPASE/PROTEAS/AMYLAS 10/34/55 CAPSULE.DR. PO ×6 (08:19→17:21)
[2017-08-26] MEDS: DICYCLOMINE HCL 10 MG CAPSULE PO ×6 (08:19→20:49)
[2017-08-26] MEDS: SUCRALFATE 1 GM TABLET. PO ×6 (08:19→16:28)
[2017-08-26] MEDS: FLUCONAZOLE 100 MG TABLET. PO ×2 (08:20)
[2017-08-26] MEDS: CARVEDILOL 12.5 MG TABLET. PO ×4 (08:20→17:22)
[2017-08-26] MEDS: PANTOPRAZOLE 40 MG TABLET.DR. PO ×2 (08:20)
[2017-08-26] MEDS: LACTOBACILLUS RHAMNOSUS GG 1 CAPSULE. PO ×4 (08:20→20:49)
[2017-08-26] MEDS: DIPHENHYDRAMINE/ZINC ACETATE 2%/0.1% TOPICAL CREAM 28GM TUBE. TP ×4 (08:21→17:21)
[2017-08-26] MEDS: LINEZOLID 600 MG TABLET PO ×4 (11:17→20:49)
[2017-08-26 11:18] LABS: POC GLUCOSE 104 mg/dL (70-99)
[2017-08-26 16:29] LABS: POC GLUCOSE 138 mg/dL (70-99)
[2017-08-26] MEDS: INSULIN DETEMIR 300 UNITS/3 ML INSULN.PEN. SQ ×2 (20:54)
[2017-08-26 20:57] LABS: POC GLUCOSE 167 mg/dL (70-99)
[2017-08-26] MEDS: ZOLPIDEM 5 MG TABLET. PO ×2 (22:45)
[2017-08-27] MEDS: SUCRALFATE 1 GM TABLET. PO ×2 (07:58)
[2017-08-27] MEDS: LACTOBACILLUS RHAMNOSUS GG 1 CAPSULE. PO ×2 (07:58)
[2017-08-27] MEDS: PANTOPRAZOLE 40 MG TABLET.DR. PO ×2 (07:58)
[2017-08-27] MEDS: FLUCONAZOLE 100 MG TABLET. PO ×2 (07:59)
[2017-08-27] MEDS: LIPASE/PROTEAS/AMYLAS 10/34/55 CAPSULE.DR. PO ×2 (07:59)
[2017-08-27] MEDS: CARVEDILOL 12.5 MG TABLET. PO ×2 (07:59)
[2017-08-27] MEDS: DICYCLOMINE HCL 10 MG CAPSULE PO ×2 (07:59)
[2017-08-27] MEDS: LINEZOLID 600 MG TABLET PO ×2 (07:59)
[2017-08-27] MEDS: INSULIN ASPART 300 UNITS/3 ML INSULN.PEN SQ ×4 (08:00)
[2017-08-27] MEDS: oxyCODONE/APAP 7.5/325 1 TAB TABLET PO ×2 (08:00)
[2017-08-27 08:03] LABS: POC GLUCOSE 116 mg/dL (70-99)
== END 2017-08-27 10:52 | disposition home or self-care (01) | DRG 872 ==
LOC: ER 19:02 → 5 SOUTH 21:30
DX: A41.9 Sepsis, unspecified organism (principal); I42.9 Cardiomyopathy, unspecified; E11.42 Type 2 diabetes mellitus with diabetic polyneuropathy; I50.32 Chronic diastolic (congestive) heart failure; I11.0 Hypertensive heart disease with heart failure; E66.01 Morbid (severe) obesity due to excess calories; L03.115 Cellulitis of right lower limb; L03.116 Cellulitis of left lower limb; K86.1 Other chronic pancreatitis; Z68.42 Body mass index [BMI] 45.0-49.9, adult; K31.84 Gastroparesis; B35.9 Dermatophytosis, unspecified; E78.00 Pure hypercholesterolemia, unspecified; F41.9 Anxiety disorder, unspecified; I95.1 Orthostatic hypotension; J45.909 Unspecified asthma, uncomplicated; K21.9 Gastro-esophageal reflux disease without esophagitis; F32.9 Major depressive disorder, single episode, unspecified; G89.29 Other chronic pain; M19.90 Unspecified osteoarthritis, unspecified site; E11.43 Type 2 diabetes mellitus with diabetic autonomic (poly)neuropathy; Z88.8 Allergy status to other drugs, medicaments and biological substances; Z91.041 Radiographic dye allergy status; Z88.0 Allergy status to penicillin; Z91.013 Allergy to seafood; Z79.4 Long term (current) use of insulin; Z79.899 Other long term (current) drug therapy; Z82.3 Family history of stroke; Z87.891 Personal history of nicotine dependence; Z98.84 Bariatric surgery status; Z90.411 Acquired partial absence of pancreas; Z90.49 Acquired absence of other specified parts of digestive tract; Z82.49 Family history of ischemic heart disease and other diseases of the circulatory system
CPT/HCPCS: 36415; 80048; 80076; 80202; 81001; 81025; 82565; 82962; 83036; 83880; 84443; 84484; 85025; 85651; 86140; 87040; 93306; 93970; 96374; 97165-GO; 99285; 99285-25; J1815; J3010; J3370; J7030

== ENCOUNTER 2017-10-24 19:42 | Emergency (ER) | payer MEDICARE, OTHER | END 2017-10-24 22:35 | disposition home or self-care (01) | LOC: ER 19:42 | DX: L03.116 Cellulitis of left lower limb (principal); L03.115 Cellulitis of right lower limb; E10.40 Type 1 diabetes mellitus with diabetic neuropathy, unspecified; G89.29 Other chronic pain; E78.00 Pure hypercholesterolemia, unspecified; I10 Essential (primary) hypertension; Z88.1 Allergy status to other antibiotic agents; Z91.041 Radiographic dye allergy status; Z88.0 Allergy status to penicillin; Z91.013 Allergy to seafood | CPT/HCPCS: 99283 ==

== ENCOUNTER 2017-10-28 03:01 | Emergency (ER) | payer MEDICARE, OTHER | END 2017-10-28 03:47 | disposition home or self-care (01) | LOC: ER 03:01 | DX: B35.9 Dermatophytosis, unspecified (principal); G89.4 Chronic pain syndrome; E10.43 Type 1 diabetes mellitus with diabetic autonomic (poly)neuropathy; K31.84 Gastroparesis; E10.40 Type 1 diabetes mellitus with diabetic neuropathy, unspecified; E78.00 Pure hypercholesterolemia, unspecified; I10 Essential (primary) hypertension; Z88.0 Allergy status to penicillin; Z90.49 Acquired absence of other specified parts of digestive tract; Z98.84 Bariatric surgery status; Z90.411 Acquired partial absence of pancreas; Z91.013 Allergy to seafood; Z91.041 Radiographic dye allergy status; Z88.8 Allergy status to other drugs, medicaments and biological substances | CPT/HCPCS: 99283 ==

== ENCOUNTER 2018-03-01 17:18 | Emergency (ER) | payer MEDICARE, OTHER ==
[2018-03-01] MEDS: NAPROXEN 500 MG TABLET PO (17:56)
[2018-03-01] MEDS: HYDROcodone/APAP 5/325MG 1 TAB TABLET PO (17:56)
== END 2018-03-01 18:13 | disposition home or self-care (01) ==
LOC: ER 17:18
DX: L03.116 Cellulitis of left lower limb (principal); L03.115 Cellulitis of right lower limb; E78.00 Pure hypercholesterolemia, unspecified; G89.29 Other chronic pain; E10.40 Type 1 diabetes mellitus with diabetic neuropathy, unspecified; E10.43 Type 1 diabetes mellitus with diabetic autonomic (poly)neuropathy; K31.84 Gastroparesis; I10 Essential (primary) hypertension; Z88.8 Allergy status to other drugs, medicaments and biological substances; Z91.041 Radiographic dye allergy status; Z88.0 Allergy status to penicillin; Z91.013 Allergy to seafood
CPT/HCPCS: 99283

== ENCOUNTER 2018-03-26 08:32 | Emergency (ER) | payer MEDICARE, OTHER ==
[~2018-03-26] VITALS: Ht 174 cm; Wt 116.6 kg
[~2018-03-26 08:32] MED LIST changes: +CARV12.5 PO; +CLOT15CR3 TP; +FLUC200T PO; +LINE600T PO; +LISI-130 PO; -LISI40TA PO; -SPIR25TA3 PO; +SPIR25TA5 PO; +SULF1TAB24 PO; +TRAM50TA PO
[2018-03-26] MEDS ORDERED: MORPHINE SULFATE 10 MG/ML VIAL. IV ONE ×2 (09:00→13:30)
[2018-03-26] MEDS ORDERED: IV NORMAL SALINE 1000ML BAG 1,000 ML IV ONE (09:00)
[2018-03-26] MEDS ORDERED: ONDANSETRON PF 4 MG/2 ML VIAL. IV ONE (09:00)
--- NOTE | 2018-03-26 09:00 | PHYS DOC ---
Past Medical History Past Medical History: Diabetes-Type I, High Cholesterol, Hypertension, Pancreatitis, Other Additional Past Medical Histor: GASTROPORESIS, chronic pain, NEUROPATHY Past Surgical History: Cholecystectomy, Gastric Bypass, Other Additional Past Surgical Histo: Eye surgery, pancreatic shunts; partial pancreatectomy Alcohol Use: None Drug Use: None Adult General Chief Complaint Chief Complaint: ABDOMINAL PAIN [facility] HPI Patient is a 38 year old female with history of hypertension, pancreatitis with partial pancreatomy, diabetes who presents today complaining of 8 out of 10 left upper quadrant abdominal pain with nausea that began 3 days ago. Patient denies anything exacerbating or making the pain better. She has not tried anything for her pain. She states she believes she is having pancreatitis. She states she does not know what induces her pancreatitis but she does not drink. Review of Systems Review of Systems Constitutional: Denies fever or chills [] Eyes: Denies change in visual acuity, redness, or eye pain [] HENT: Denies nasal congestion or sore throat [] Respiratory: Denies cough or shortness of breath [] Cardiovascular: No additional information not addressed in HPI [] GI: Reports left upper quadrant abdominal pain and nausea, denies vomiting, bloody stools or diarrhea [] : Denies dysuria or hematuria [] Musculoskeletal: Denies back pain or joint pain [] Integument: Denies rash or skin lesions [] Neurologic: Denies headache, focal weakness or sensory changes [] All other systems were reviewed and found to be within normal limits, except as documented in this note. Current Medications Current Medications Current Medications Medications (Trade) Dose Ordered Sig/Naveen Start Time Stop Time Status Last Admin Dose Admin Morphine Sulfate (Morphine Sulfate) 5 mg 1X ONCE 03/26/18 13:30 03/26/18 13:31 DC 03/26/18 13:52 5 MG Ondansetron HCl (Zofran) 4 mg 1X ONCE 03/26/18 09:00 03/26/18 09:01 DC 03/26/18 10:35 4 MG Sodium Chloride 1,000 ml @ 1,000 mls/hr 1X ONCE 03/26/18 09:00 03/26/18 09:59 DC 03/26/18 10:33 1,000 MLS/HR Allergies Allergies Allergies Coded Allergies Type Severity Reaction Last Updated Verified shellfish derived Allergy Severe anaphylaxis 09/17/14 Yes Iodine and Iodide Containing Produc Allergy Intermediate hives, itching, fevers, anaphylaxis 09/17/14 Yes Penicillins Allergy Intermediate itching, vomiting, fevers 09/17/14 Yes iodine Allergy Intermediate 03/11/16 Yes meperidine Adverse Reaction Intermediate fevers, vomiting 02/15/15 Yes Physical Exam Physical Exam Constitutional: Well developed, well nourished, no acute distress, non-toxic appearance. [] HENT: Normocephalic, atraumatic, bilateral external ears normal, oropharynx moist, no oral exudates, nose normal. [] Eyes: PERRLA, EOMI, conjunctiva normal, no discharge. [] Neck: Normal range of motion, no tenderness, supple, no stridor. [] Cardiovascular:Heart rate regular rhythm, no murmur [] Lungs & Thorax: Bilateral breath sounds clear to auscultation [] Abdomen: Abdomen with an old healed surgical incision midline abdomen. Bowel sounds normal, soft, mild tenderness to the left upper quadrant, no tenderness of the right lower quadrant or right upper quadrant no masses, no pulsatile masses. [] Skin: Warm, dry, no erythema, no rash. [] Back: No tenderness, no CVA tenderness. [] Extremities: No tenderness, no cyanosis, no clubbing, ROM intact, no edema. [] Neurologic: Alert and oriented X 3, normal motor function, normal sensory function, no focal deficits noted. [] Psychologic: Affect normal, judgement normal, mood normal. [] Current Patient Data Vital Signs Vital Signs Date Time Temp Pulse Resp B/P (MAP) Pulse Ox O2 Delivery O2 Flow Rate FiO2 03/26/18 14:33 82 18 145/97 (113) 97 Room Air 03/26/18 08:55 97.7 97.7 Lab Values Laboratory Tests Test 03/26/18 08:35 03/26/18 09:00 03/26/18 10:25 Urine Collection Type Unknown Urine Color Yellow Urine Clarity Clear Urine pH 6.0 Urine Specific [place] 1.020 Urine Protein Negative mg/dL (NEG-TRACE) Urine Glucose (UA) 500 mg/dL (NEG) Urine Ketones (Stick) Negative mg/dL (NEG) Urine Blood Negative (NEG) Urine Nitrite Negative (NEG) Urine Bilirubin Negative (NEG) Urine Urobilinogen Dipstick 1.0 mg/dL (0.2 mg/dL) Urine Leukocyte Esterase Negative (NEG) Urine RBC 0 /HPF (0-2) Urine WBC 0 /HPF (0-4) Urine Squamous Epithelial Cells Few /LPF Urine Bacteria 0 /HPF (0-FEW) Urine Mucus Mod /LPF Urine Opiates Screen Neg (NEG) Urine Methadone Screen Neg (NEG) Urine Barbiturates Neg (NEG) Urine Phencyclidine Screen Neg (NEG) Urine Amphetamine/Methamphetamine Neg (NEG) Urine Benzodiazepines Screen Neg (NEG) Urine Cocaine Screen Neg (NEG) Urine Cannabinoids Screen Neg (NEG) Urine Ethyl Alcohol Neg (NEG) White Blood Count 7.6 x10^3/uL (4.0-11.0) Red Blood Count 4.84 x10^6/uL (3.50-5.40) Hemoglobin 11.7 g/dL (12.0-15.5) L Hematocrit 36.1 % (36.0-47.0) Mean Corpuscular Volume 75 fL (79-100) L Mean Corpuscular Hemoglobin 24 pg (25-35) L Mean Corpuscular Hemoglobin Concent 33 g/dL (31-37) Red Cell Distribution Width 15.5 % (11.5-14.5) H Platelet Count 185 x10^3/uL (140-400) Neutrophils (%) (Auto) 51 % (31-73) Lymphocytes (%) (Auto) 39 % (24-48) Monocytes (%) (Auto) 6 % (0-9) Eosinophils (%) (Auto) 3 % (0-3) Basophils (%) (Auto) 1 % (0-3) Neutrophils # (Auto) 3.9 x10^3uL (1.8-7.7) Lymphocytes # (Auto) 3.0 x10^3/uL (1.0-4.8) Monocytes # (Auto) 0.5 x10^3/uL (0.0-1.1) Eosinophils # (Auto) 0.3 x10^3/uL (0.0-0.7) Basophils # (Auto) 0.0 x10^3/uL (0.0-0.2) Sodium Level 135 mmol/L (136-145) L Potassium Level 3.9 mmol/L (3.5-5.1) Chloride Level 105 mmol/L (98-107) Carbon Dioxide Level 26 mmol/L (21-32) Anion Gap 4 (6-14) L Blood Urea Nitrogen 12 mg/dL (7-20) Creatinine 0.8 mg/dL (0.6-1.0) Estimated GFR (Cockcroft-Gault) 96.1 BUN/Creatinine Ratio 15 (6-20) Glucose Level 308 mg/dL (70-99) H Calcium Level 8.9 mg/dL (8.5-10.1) Total Bilirubin 0.3 mg/dL (0.2-1.0) Aspartate Amino Transferase (AST) 21 U/L (15-37) Alanine Aminotransferase (ALT) 32 U/L (14-59) Alkaline Phosphatase 239 U/L (46-116) H Total Protein 7.1 g/dL (6.4-8.2) Albumin 3.1 g/dL (3.4-5.0) L Albumin/Globulin Ratio 0.8 (1.0-1.7) L Lipase 84 U/L (73-393) Ethyl Alcohol Level < 10 mg/dL (0-10) Laboratory Tests 03/26/18 10:25 Laboratory Tests 03/26/18 10:25 EKG EKG [] Radiology/Procedures Radiology/Procedures []PROCEDURE: CT ABDOMEN PELVIS WO CONTRAST CT Abdomen and Pelvis without contrast History: Upper abdominal pain, history of pancreatitis Technique: Noncontrast CT imaging was performed of the abdomen and pelvis. Multiplanar images are reviewed. Exposure: One or more of the following individualized dose reduction techniques were utilized for this examination: 1. Automated exposure control 2. Adjustment of the mA and/or kV according to patient size 3. Use of iterative reconstruction technique. Comparison: December 03, 2016 Findings: There is no pleural fluid at the visualized lung bases. Accurate evaluation of abdominal visceral organs is limited without intravenous contrast. There is no obvious abnormality of the spleen, liver, or atrophic pancreas. 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 There has been cholecystectomy. There is no adrenal nodularity. No urolithiasis or hydronephrosis is identified. There is stable borderline caliber of the appendix without new adjacent inflammatory-type change. Accurate evaluation of bowel is limited without oral contrast. There are now postsurgical changes of the stomach. There is retained stool greater of the ascending and transverse colon. There are 2 adjacent paracentral fat-containing ventral hernias of the inferior abdomen, no internal bowel, larger than previously with the largest about 3.3 cm transverse with neck about 2.7 cm. There is more advanced degenerative disc disease L3-4, also disc osteophyte complex at this level and at least mild neural foramina compromise. There is multilevel lumbar facet degenerative change. There are again some nonspecific mesenteric nodes, some of which are larger more centrally. Largest individual node more centrally measures about 1.2 cm short axis dimension and largest on the right lower quadrant about 1.3 cm short axis dimension. Impression: 1. There is no new significant inflammatory change associated with the atrophic pancreas although imaging findings may be delayed relative to laboratory changes. 2. There are 2 adjacent ventral fat-containing hernias of the inferior abdomen, no internal bowel. 3. There is retained stool in segments of colon. 4. There are some nonspecific, somewhat enlarged mesenteric nodes somewhat larger than November 2016 exam. Findings are nonspecific and possibly reactive in etiology although neoplastic etiology such as lymphoma not excluded. Electronically signed by: Sreedhar Smith MD (03/26/2018 1:29 PM) [id number] DICTATED and SIGNED BY: SREEDHAR SMITH MD DATE: 03/26/18 1321 Course & Med Decision Making Course & Med Decision Making Pertinent Labs and Imaging studies reviewed. (See chart for details) This is a 38-year-old female patient with history of pancreatitis presenting today with left upper quadrant abdominal pain and nausea. Urine analysis is negative for infection, CBC no acute findings, CMP with glucose of 309, patient has history of diabetes, anion gap is 4, ALK 239,patient has history of chronically elevated ALK. CT of the abdomen and pelvic without IV contrast was negative for any acute findings. CT was noted for fat containing ventral hernia, also noted for retained stool in the colon as well as enlarged mesenteric lymph nodes. Patient instructed to follow-up with the primary care doctor considering radiologist mentions this lymph nodes are larger than 2017 scan and findings are nonspecific and possibly reactive although neoplastic etiology such as lymphoma was not excluded. Patient was discharged with instructions to use bowel prep medications including MiraLAX and magnesium citrate. Instructed to follow-up with her own PCP in the course of this week or next week. Provided return precautions and discharged in stable condition. Staff Physician Addendum: I was working in the ER during the course of this patient's visit. I was available for consultation as needed, but I was not directly involved in the care of this patient. Dragon Disclaimer Dragon Disclaimer This electronic medical record was generated, in whole or in part, using a voice recognition dictation system. Departure Departure Impression: Primary Impression: Abdominal pain, acute, left upper quadrant Additional Impression: Constipation Disposition: 01 HOME, SELF-CARE Condition: STABLE Referrals: VALERIA HAMPTON MD (PCP) Follow-up with your doctor in the course of this week or next week SAWYER BRASHER MD Follow-up for chronic abdominal pain Patient Instructions: Abdominal Pain, Constipation, Adult Additional Instructions: You were evaluated in the emergency room for abdominal pain. Your CT was negative for any acute findings, you were noted to have some enlarged lymph nodes in the groin. You need to be follow up with the primary care doctor. Also follow-up with the GI doctor provided. Consider taking MiraLAX every day to prevent constipation. Consider magnesium citrate daily until you have a normal bowel movement. Problem Qualifiers Additional Impression: Constipation Constipation type: unspecified constipation type Qualified Codes: K59.00 - Constipation, unspecified SUNDAR MOROCHO APRN Mar 26, 2018 09:00 CLARISSE ROSS MD Mar 26, 2018 16:02
[2018-03-26 09:12] LABS: BILIRUBIN,URINE NEGATIVE (NEG); CLARITY,URINE CLEAR; COLOR,URINE YELLOW; NITRITE,URINE NEGATIVE (NEG); PROTEIN,URINE NEGATIVE (NEG-TRACE)
[2018-03-26 09:24] LABS: BARBITURATES NEG (NEG); BENZODIAZEPINES NEG (NEG); CANNABINOIDS NEG (NEG); COCAINE NEG (NEG); METHADONE NEG (NEG); OPIATES NEG (NEG); PHENCYCLIDINE NEG (NEG)
[2018-03-26 09:33] LABS: AMPHETAMINE/METHAMPHETAMINE NEG (NEG)
[2018-03-26 09:36] LABS: BACTERIA,URINE 0 /HPF (0-FEW); RBC,URINE 0 /HPF (0-2); SQUAMOUS EPITHELIAL CELL,UR FEW /LPF; WBC,URINE 0 /HPF (0-4)
[2018-03-26 10:49] LABS: BASO % 1 % (0-3); EOS # 0.3 x10^3/uL (0.0-0.7); EOS % 3 % (0-3); HEMATOCRIT 36.1 % (36.0-47.0); HEMOGLOBIN 11.7 g/dL (12.0-15.5); LYMPH % 39 % (24-48); MEAN CORPUSCULAR HEMOGLOBIN 24 pg (25-35); MEAN CORPUSCULAR HGB CONC 33 g/dL (31-37); MEAN CORPUSCULAR VOLUME 75 fL (79-100); MONO # 0.5 x10^3/uL (0.0-1.1); MONO % 6 % (0-9); NEUT # 3.9 x10^3uL (1.8-7.7); NEUT % 51 % (31-73); PLATELET COUNT 185 x10^3/uL (140-400); RED BLOOD COUNT 4.84 x10^6/uL (3.50-5.40); RED CELL DISTRIBUTION WIDTH 15.5 % (11.5-14.5); WHITE BLOOD COUNT 7.6 x10^3/uL (4.0-11.0)
[2018-03-26 10:58] LABS: CALCIUM 8.9 mg/dL (8.5-10.1); CREATININE 0.8 mg/dL (0.6-1.0); GFR 96.1; POTASSIUM 3.9 mmol/L (3.5-5.1)
[2018-03-26 11:04] LABS: ALBUMIN 3.1 g/dL (3.4-5.0); ALBUMIN/GLOBULIN RATIO 0.8 (1.0-1.7); TOTAL BILIRUBIN 0.3 mg/dL (0.2-1.0); TOTAL PROTEIN 7.1 g/dL (6.4-8.2)
--- NOTE | 2018-03-26 13:32 | RAD ---
CT Abdomen and Pelvis without contrast History: Upper abdominal pain, history of pancreatitis Technique: Noncontrast CT imaging was performed of the abdomen and pelvis. Multiplanar images are reviewed. Exposure: One or more of the following individualized dose reduction techniques were utilized for this examination: 1. Automated exposure control 2. Adjustment of the mA and/or kV according to patient size 3. Use of iterative reconstruction technique. Comparison: December 03, 2016 Findings: There is no pleural fluid at the visualized lung bases. Accurate evaluation of abdominal visceral organs is limited without intravenous contrast. There is no obvious abnormality of the spleen, liver, or atrophic pancreas. 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 There has been cholecystectomy. There is no adrenal nodularity. No urolithiasis or hydronephrosis is identified. There is stable borderline caliber of the appendix without new adjacent inflammatory-type change. Accurate evaluation of bowel is limited without oral contrast. There are now postsurgical changes of the stomach. There is retained stool greater of the ascending and transverse colon. There are 2 adjacent paracentral fat-containing ventral hernias of the inferior abdomen, no internal bowel, larger than previously with the largest about 3.3 cm transverse with neck about 2.7 cm. There is more advanced degenerative disc disease L3-4, also disc osteophyte complex at this level and at least mild neural foramina compromise. There is multilevel lumbar facet degenerative change. There are again some nonspecific mesenteric nodes, some of which are larger more centrally. Largest individual node more centrally measures about 1.2 cm short axis dimension and largest on the right lower quadrant about 1.3 cm short axis dimension. Impression: 1. There is no new significant inflammatory change associated with the atrophic pancreas although imaging findings may be delayed relative to laboratory changes. 2. There are 2 adjacent ventral fat-containing hernias of the inferior abdomen, no internal bowel. 3. There is retained stool in segments of colon. 4. There are some nonspecific, somewhat enlarged mesenteric nodes somewhat larger than November 2016 exam. Findings are nonspecific and possibly reactive in etiology although neoplastic etiology such as lymphoma not excluded. Electronically signed by: Jonas Noguera MD (03/26/2018 1:29 PM) [id number]
[2018-03-26 14:33] VITALS: BP 145/97
== END 2018-03-26 14:45 | disposition home or self-care (01) ==
LOC: ER 08:32
DX: R10.12 Left upper quadrant pain (principal); K59.00 Constipation, unspecified; R11.0 Nausea; E78.00 Pure hypercholesterolemia, unspecified; I10 Essential (primary) hypertension; E10.40 Type 1 diabetes mellitus with diabetic neuropathy, unspecified; E10.43 Type 1 diabetes mellitus with diabetic autonomic (poly)neuropathy; K31.84 Gastroparesis; Z90.49 Acquired absence of other specified parts of digestive tract; Z98.84 Bariatric surgery status; Z88.1 Allergy status to other antibiotic agents; Z91.041 Radiographic dye allergy status; Z88.0 Allergy status to penicillin; Z91.013 Allergy to seafood
CPT/HCPCS: 36415; 74176; 80053; 80307; 81001; 83690; 85025; 96374; 96375; 96376; 99285; G0480; J2270; J2405; J7030; G0479

== ENCOUNTER 2018-09-19 11:22 | Inpatient (IN) | payer MEDICARE, OTHER ==
[~2018-09-19] VITALS: Ht 172.7 cm; Wt 116.1 kg
[~2018-09-19 11:22] MED LIST changes: +ALBU2.5V8 IH; +CARV6.2511 PO; -CARV6.252 PO; +HYDR-3135 PO; +HYDR-3164 PO; -HYDR-963 PO; -HYDR-971 PO; -OXYC-327 PO; +OXYC1TAB19 PO; -PROAIR HFA8.5 GM IH
[2018-09-19] MEDS ORDERED: ONDANSETRON PF 4 MG/2 ML VIAL. IV ONE (12:00)
[2018-09-19] MEDS ORDERED: IV NORMAL SALINE 1000ML BAG 1,000 ML IV ONE (12:00)
[2018-09-19] MEDS ORDERED: LABETALOL 20 MG/4 ML DISP.SYRIN. IVP ONE (12:00)
[2018-09-19] MEDS ORDERED: MORPHINE SULFATE 4 MG/ML VIAL. IV ONE ×2 (12:00→14:00)
[2018-09-19 12:03] LABS: BILIRUBIN,URINE NEGATIVE (NEG); CLARITY,URINE CLEAR; COLOR,URINE YELLOW; NITRITE,URINE NEGATIVE (NEG); PROTEIN,URINE NEGATIVE (NEG-TRACE); UROBILINOGEN,URINE 0.2 mg/dL (0.2 mg/dL)
--- NOTE | 2018-09-19 12:08 | PHYS DOC ---
Past Medical History Past Medical History: Diabetes-Type I, High Cholesterol, Hypertension, Pancreatitis, Other Additional Past Medical Histor: GASTROPORESIS, chronic pain, NEUROPATHY Past Surgical History: Cholecystectomy, Gastric Bypass, Other Additional Past Surgical Histo: Eye surgery, pancreatic shunts; partial pancreatectomy Alcohol Use: None Drug Use: Marijuana Adult General Chief Complaint Chief Complaint: ABDOMINAL PAIN HPI HPI Patient is a 38 year old female presenting with left upper quadrant pain history of chronic pancreatitis she says there is a flareup 3 days tried director home health similar previous Percocet minimal relief. Pain is dull social with vomiting no fever. Review of Systems Review of Systems Constitutional: Denies fever or chills [] Eyes: Denies change in visual acuity, redness, or eye pain [] HENT: Denies nasal congestion or sore throat [] Respiratory: Denies cough or shortness of breath [] Musculoskeletal: Denies back pain or joint pain [] Integument: Denies rash or skin lesions [] Neurologic: Denies headache, focal weakness or sensory changes [] Endocrine: Denies polyuria or polydipsia [] All other systems were reviewed and found to be within normal limits, except as documented in this note. Current Medications Current Medications Current Medications Medications (Trade) Dose Ordered Sig/Naveen Start Time Stop Time Status Last Admin Dose Admin Labetalol HCl (Normodyne Iv Push) 20 mg 1X ONCE 09/19/18 12:00 09/19/18 12:01 DC Morphine Sulfate (Morphine Sulfate) 4 mg 1X ONCE 09/19/18 14:00 09/19/18 14:01 DC 09/19/18 14:25 4 MG Ondansetron HCl (Zofran) 4 mg 1X ONCE 09/19/18 12:00 09/19/18 12:01 DC 09/19/18 12:28 4 MG Sodium Chloride 1,000 ml @ 1,000 mls/hr 1X ONCE 09/19/18 12:00 09/19/18 12:59 DC 09/19/18 12:28 1,000 MLS/HR Allergies Allergies Allergies Coded Allergies Type Severity Reaction Last Updated Verified shellfish derived Allergy Severe anaphylaxis 09/17/14 Yes Iodine and Iodide Containing Produc Allergy Intermediate hives, itching, fevers, anaphylaxis 09/17/14 Yes Penicillins Allergy Intermediate itching, vomiting, fevers 09/17/14 Yes iodine Allergy Intermediate 03/11/16 Yes meperidine Adverse Reaction Intermediate fevers, vomiting 02/15/15 Yes Physical Exam Physical Exam Constitutional: Well developed, well nourished, no acute distress, non-toxic appearance. [] HENT: Normocephalic, atraumatic, bilateral external ears normal, oropharynx moist, no oral exudates, nose normal. [] Eyes: PERRLA, EOMI, conjunctiva normal, no discharge. [] Neck: Normal range of motion, no tenderness, supple, no stridor. [] Cardiovascular:Heart rate regular rhythm, no murmur [] Lungs & Thorax: Bilateral breath sounds clear to auscultation [] Abdomen: Bowel sounds normal, soft, left upper quadrant tenderness, no masses, no pulsatile masses. [] Skin: Warm, dry, no erythema, no rash. [] Back: No tenderness, no CVA tenderness. [] Extremities: No tenderness, no cyanosis, no clubbing, ROM intact, no edema. [] Neurologic: Alert and oriented X 3, normal motor function, normal sensory function, no focal deficits noted. [] Psychologic: Affect normal, judgement normal, mood normal. [] Current Patient Data Vital Signs Vital Signs Date Time Temp Pulse Resp B/P (MAP) Pulse Ox O2 Delivery O2 Flow Rate FiO2 09/19/18 15:02 70 138/70 (92) 96 Room Air 09/19/18 14:55 16 09/19/18 11:32 98.6 98.6 Lab Values Laboratory Tests Test 09/19/18 11:30 09/19/18 11:38 09/19/18 12:23 Urine Color Yellow Urine Clarity Clear Urine pH 7.0 Urine Specific [place] 1.015 Urine Protein Negative mg/dL (NEG-TRACE) Urine Glucose (UA) 250 mg/dL (NEG) Urine Ketones (Stick) Negative mg/dL (NEG) Urine Blood Negative (NEG) Urine Nitrite Negative (NEG) Urine Bilirubin Negative (NEG) Urine Urobilinogen Dipstick 0.2 mg/dL (0.2 mg/dL) Urine Leukocyte Esterase Negative (NEG) Urine RBC Rare /HPF (0-2) Urine WBC Rare /HPF (0-4) Urine Squamous Epithelial Cells Few /LPF Urine Bacteria Few /HPF (0-FEW) POC Urine HCG, Qualitative Hcg negative (Negative) White Blood Count 7.4 x10^3/uL (4.0-11.0) Red Blood Count 4.64 x10^6/uL (3.50-5.40) Hemoglobin 11.3 g/dL (12.0-15.5) L Hematocrit 35.7 % (36.0-47.0) L Mean Corpuscular Volume 77 fL (79-100) L Mean Corpuscular Hemoglobin 24 pg (25-35) L Mean Corpuscular Hemoglobin Concent 32 g/dL (31-37) Red Cell Distribution Width 14.3 % (11.5-14.5) Platelet Count 166 x10^3/uL (140-400) Neutrophils (%) (Auto) 49 % (31-73) Lymphocytes (%) (Auto) 43 % (24-48) Monocytes (%) (Auto) 6 % (0-9) Eosinophils (%) (Auto) 2 % (0-3) Basophils (%) (Auto) 0 % (0-3) Neutrophils # (Auto) 3.6 x10^3uL (1.8-7.7) Lymphocytes # (Auto) 3.2 x10^3/uL (1.0-4.8) Monocytes # (Auto) 0.4 x10^3/uL (0.0-1.1) Eosinophils # (Auto) 0.2 x10^3/uL (0.0-0.7) Basophils # (Auto) 0.0 x10^3/uL (0.0-0.2) Sodium Level 140 mmol/L (136-145) Potassium Level 3.5 mmol/L (3.5-5.1) Chloride Level 103 mmol/L (98-107) Carbon Dioxide Level 29 mmol/L (21-32) Anion Gap 8 (6-14) Blood Urea Nitrogen 15 mg/dL (7-20) Creatinine 0.6 mg/dL (0.6-1.0) Estimated GFR (Cockcroft-Gault) 134.0 BUN/Creatinine Ratio 25 (6-20) H Glucose Level 222 mg/dL (70-99) H Calcium Level 8.4 mg/dL (8.5-10.1) L Total Bilirubin 0.3 mg/dL (0.2-1.0) Aspartate Amino Transferase (AST) 15 U/L (15-37) Alanine Aminotransferase (ALT) 17 U/L (14-59) Alkaline Phosphatase 159 U/L (46-116) H Total Protein 7.0 g/dL (6.4-8.2) Albumin 2.9 g/dL (3.4-5.0) L Albumin/Globulin Ratio 0.7 (1.0-1.7) L Lipase 91 U/L (73-393) Laboratory Tests 09/19/18 12:23 Laboratory Tests 09/19/18 12:23 EKG EKG [] Radiology/Procedures Radiology/Procedures [] Course & Med Decision Making Course & Med Decision Making Pertinent Labs and Imaging studies reviewed. (See chart for details) []History of chronic pancreatitis history of same in the past check labs gave pain control pt still having pain. Patient has had imaging fairly recently that was negative acute clinically I do not suspect an acute surgical process at this time. d/w riffel admit for pain control. labs look stable. Dragon Disclaimer Dragon Disclaimer This electronic medical record was generated, in whole or in part, using a voice recognition dictation system. Departure Departure Impression: Primary Impression: Abdominal pain, acute, left upper quadrant Disposition: ADMITTED INPATIENT Admitting Physician: Other Condition: STABLE Referrals: VALERIA HAMPTON MD (PCP) CLARISSE ROSS MD Sep 19, 2018 12:08
[2018-09-19 12:15] LABS: BACTERIA,URINE FEW /HPF (0-FEW); RBC,URINE RARE /HPF (0-2); SQUAMOUS EPITHELIAL CELL,UR FEW /LPF; WBC,URINE RARE /HPF (0-4)
[2018-09-19 12:51] LABS: CALCIUM 8.4 mg/dL (8.5-10.1); CREATININE 0.6 mg/dL (0.6-1.0); POTASSIUM 3.5 mmol/L (3.5-5.1)
[2018-09-19 12:57] LABS: ALBUMIN 2.9 g/dL (3.4-5.0); ALBUMIN/GLOBULIN RATIO 0.7 (1.0-1.7); TOTAL BILIRUBIN 0.3 mg/dL (0.2-1.0)
[2018-09-19 13:20] LABS: BASO % 0 % (0-3); EOS # 0.2 x10^3/uL (0.0-0.7); EOS % 2 % (0-3); HEMATOCRIT 35.7 % (36.0-47.0); HEMOGLOBIN 11.3 g/dL (12.0-15.5); LYMPH # 3.2 x10^3/uL (1.0-4.8); LYMPH % 43 % (24-48); MEAN CORPUSCULAR HEMOGLOBIN 24 pg (25-35); MEAN CORPUSCULAR HGB CONC 32 g/dL (31-37); MEAN CORPUSCULAR VOLUME 77 fL (79-100); MONO # 0.4 x10^3/uL (0.0-1.1); MONO % 6 % (0-9); NEUT # 3.6 x10^3uL (1.8-7.7); NEUT % 49 % (31-73); PLATELET COUNT 166 x10^3/uL (140-400); RED BLOOD COUNT 4.64 x10^6/uL (3.50-5.40); RED CELL DISTRIBUTION WIDTH 14.3 % (11.5-14.5); WHITE BLOOD COUNT 7.4 x10^3/uL (4.0-11.0)
--- NOTE | 2018-09-19 15:26 | PDOC1 ---
History and Physical Date of Admission Date of Admission DATE: 09/19/18 TIME: 15:25 Identification/Chief Complaint Chief Complaint Abdominal Pain Source Source: Patient History of Present Illness History of Present Illness 36 y/o morbidly obese AA female w/ PMHx CHF, HTN, HLD, cardiomyopathy, asthma, DM, GERD, anxiety, low back pain, allergic rhinitis, partial pancreatectomy, previous J tube chronic pancreatitis s/p cholecystectomy for cholelithiasis (h/o gallstone pancreatitis), s/p partial pancreatectomy, and s/p EUS w/ Dr. Unger at who comes to ED with 3 days of left upper quadrant pain, stating percocet "isn't cutting it". She has been vomiting. No fevers or chills or recent sick contacts. Lipase in ED was WNL. Worsening epigastric and LUQ discomfort w/ decreased oral intake and increased nausea. Diarrhea chronic/stable. Last EGD a couple years ago, unclear when last colonoscopy performed. No weight loss. WBC normal. Had CT in ER on w/o significant finding as below. Per RN, primary has just increased percocet dose for better pain control. Past Medical History Cardiovascular: CHF, HTN GI: No pertinent hx, Other Hepatobiliary: No pertinent hx Musculoskeletal: Osteoarthritis Endocrine: Diabetes Past Surgical History Past Surgical History: Cholecystectomy, Other Family History Family History: Heart Disease, Stroke Social History ALCOHOL: none Drugs: None Current Problem List Problem List Problems Medical Problems: (1) Abdominal pain, acute, left upper quadrant Status: Acute Current Medications Current Medications Current Medications Sodium Chloride 1,000 ml @ 1,000 mls/hr 1X ONCE IV Last administered on at 12:28; Start 09/19/18 at 12:00; Stop 09/19/18 at 12:59; Status DC Morphine Sulfate (Morphine Sulfate) 4 mg 1X ONCE IV Last administered on at 12:28; Start 09/19/18 at 12:00; Stop 09/19/18 at 12:01; Status DC Ondansetron HCl (Zofran) 4 mg 1X ONCE IV Last administered on 09/19/18at 12:28 ; Start 09/19/18 at 12:00; Stop 09/19/18 at 12:01; Status DC Labetalol HCl (Normodyne Iv Push) 20 mg 1X ONCE IVP ; Start 09/19/18 at 12:00; Stop 09/19/18 at 12:01; Status DC Morphine Sulfate (Morphine Sulfate) 4 mg 1X ONCE IV Last administered on at 14:25; Start 09/19/18 at 14:00; Stop 09/19/18 at 14:01; Status DC Ondansetron HCl (Zofran) 4 mg PRN Q8HRS PRN IV NAUSEA/VOMITING; Start 09/19/18 at 15:15; Stop 09/20/18 at 15:14 Morphine Sulfate (Morphine Sulfate) 4 mg PRN Q2HR PRN IV PAIN; Start 09/19/18 at 15:15; Stop 09/20/18 at 15:14 Sodium Chloride 1,000 ml @ 100 mls/hr Q10H IV ; Start 09/19/18 at 15:08; Stop 09/20/18 at 15:07 Active Scripts Active Bactrim Ds Tablet (Sulfamethoxazole/Trimethoprim) 1 Each Tablet 1 Tab PO BID Lotrisone Cream (Clotrimazole/Betamethasone Dip) 15 Gm Cream..g. 1 Peter TP BID Tramadol Hcl 50 Mg Tablet 50 Mg PO DAILY PRN Bactrim Ds Tablet (Sulfamethoxazole/Trimethoprim) 1 Each Tablet 1 Tab PO BID Zyvox (Linezolid) 600 Mg Tablet 600 Mg PO BID 7 Days Diflucan (Fluconazole) 200 Mg Tablet 1 Tab PO DAILY Coreg (Carvedilol) 12.5 Mg Tablet 1 Tab PO BID Sucralfate 1 Gm Tablet 1 Tab PO TID Do not take within 2 hours of taking furosemide. Bentyl (Dicyclomine Hcl) 10 Mg Capsule 1 Cap PO TID Reported Ondansetron Odt (Ondansetron) 4 Mg Tab.rapdis 1 Tab PO PRN Q8HRS PRN Tresiba Flextouch U-100 (Insulin Degludec) 100 Unit/1 Ml Insuln.pen 100 Unit SQ HS Ambien (Zolpidem Tartrate) 5 Mg Tablet 1 Tab PO QHS Novolog (Insulin Aspart) 100 Unit/1 Ml Cartridge 60 Unit SQ TIDWMEALS Proair Hfa Inhaler (Albuterol Sulfate) 8.5 Gm Hfa.aer.ad 2 Puff IH PRN Q4-6HRS Omeprazole 40 Mg Capsule.dr 40 Mg PO DAILY [pancrease mt16] Tab PO QIDACHS Allergies Allergies: Coded Allergies: shellfish derived (Verified Allergy, Severe, anaphylaxis, 09/17/14) Iodine and Iodide Containing Produc (Verified Allergy, Intermediate, hives , itching, fevers, anaphylaxis, 09/17/14) Penicillins (Verified Allergy, Intermediate, itching, vomiting, fevers, ) iodine (Verified Allergy, Intermediate, 03/11/16) meperidine (Verified Adverse Reaction, Intermediate, fevers, vomiting, ) ROS General: YES: Fatigue, Malaise, Appetite; No: Chills, Night Sweats, Other PSYCHOLOGICAL ROS: No: Anxiety, Behavioral Disorder, Concentration difficultie , Decreased libido, Depression, Disorientation, Hallucinations, Hostility, Irritablity, Memory difficulties, Mood Swings, Obsessive thoughts, Physical abuse, Sexual abuse, Sleep disturbances, Suicidal ideation, Other Eyes: No Blurry vision, No Decreased vision, No Double vision, No Dry eyes, No Excessive tearing, No Eye Pain, No Itchy Eyes, No Loss of vision, No Photophobia , No Scotomata, No Uses contacts, No Uses glasses, No Other HEENT: No: Heacaches, Visual Changes, Hearing change, Nasal congestion, Nasal discharge, Oral lesions, Sinus pain, Sore Throat, Epistaxis, Sneezing, Snoring, Tinnitus, Vertigo, Vocal changes, Other ALLERGY AND IMMUNOLOGY: No: Hives, Insect Bite Sensitivity, Itchy/Watery Eyes, Nasal Congestion, Post Nasal Drip, Seasonal Allergies, Other Hematological and Lymphatic: No: Bleeding Problems, Blood Clots, Blood Transfusions, Brusing, Night Sweats, Pallor, Swollen Lymph Nodes, Other ENDOCRINE: No: Breast Changes, Galactorrhea, Hair Pattern Changes, Hot Flashes , Malaise/lethargy, Mood Swings, Palpitations, Polydipsia/polyuria, Skin Changes , Temperature Intolerance, Unexpected Weight Changes, Other Breast: No New/Changing Breast Lumps, No Nipple changes, No Nipple discharge, No Other Respiratory: No: Cough, Hemoptysis, Orthopnea, Pleuritic Pain, Shortness of breath, SOB with excertion, Sputum Changes, Stridor, Tachypnea, Wheezing, Other Cardiovascular: No Chest Pain, No Palpitations, No Orthopnea, No Paroxysmal Noc. Dyspnea, No Edema, No Lt Headedness, No Other Gastrointestinal: Yes Nausea, Yes Vomiting, Yes Abdominal Pain, Yes Diarrhea; No Constipation, No Melena, No Hematochezia, No Other Genitourinary: No Dysuria, No Frequency, No Incontinence, No Hematuria, No Retention, No Discharge, No Urgency, No Pain, No Flank Pain, No Other, No , No , No , No , No , No , No Musculoskeletal: No Gait Disturbance, No Joint Pain, No Joint Stiffness, No Joint Swelling, No Muscle Pain, No Muscular Weakness, No Pain In:, No Swelling In:, No Other Neurological: No Behavorial Changes, No Bowel/Bladder ControlChng, No Confusion , No Dizziness, No Gait Disturbance, No Headaches, No Impaired Coord/balance, No Memory Loss, No Numbness/Tingling, No Seizures, No Speech Problems, No Tremors, No Visual Changes, No Weakness, No Other Skin: No Dry Skin, No Eczema, No Hair Changes, No Lumps, No Mole Changes, No Mottling, No Nail Changes, No Pruritus, No Rash, No Skin Lesion Changes, No Other, No Acne Physical Exam General: Alert, Oriented X3, Cooperative, No acute distress HEENT: Atraumatic, PERRLA, EOMI, Mucous membr. moist/pink Lungs: Clear to auscultation, Normal air movement Heart: S1S2, RRR, no gallops, no murmurs Abdomen: Normal bowel sounds, Soft, No hepatosplenomegaly, No masses, Other ( LUQ tender) Rectal Exam: not examined Extremities: No clubbing, No cyanosis, No edema, Normal pulses, No tenderness/ swelling Skin: No rashes, No breakdown, No significant lesion Neuro: Normal speech, Strength at 5/5 X4 ext, Normal tone, Sensation intact, Cranial nerves 3-12 NL, Reflexes 2+ Psych/Mental Status: Mental status NL, Mood NL Vitals Vitals Vital Signs Date Time Temp Pulse Resp B/P (MAP) Pulse Ox O2 Delivery O2 Flow Rate FiO2 09/19/18 14:25 18 98 Room Air 09/19/18 14:02 66 160/93 (115) 09/19/18 11:32 98.6 98.6 Labs Labs Laboratory Tests Test 09/19/18 11:30 09/19/18 11:38 09/19/18 12:23 Urine Color Yellow Urine Clarity Clear Urine pH 7.0 Urine Specific [place] 1.015 Urine Protein Negative mg/dL (NEG-TRACE) Urine Glucose (UA) 250 mg/dL (NEG) Urine Ketones (Stick) Negative mg/dL (NEG) Urine Blood Negative (NEG) Urine Nitrite Negative (NEG) Urine Bilirubin Negative (NEG) Urine Urobilinogen Dipstick 0.2 mg/dL (0.2 mg/dL) Urine Leukocyte Esterase Negative (NEG) Urine RBC Rare /HPF (0-2) Urine WBC Rare /HPF (0-4) Urine Squamous Epithelial Cells Few /LPF Urine Bacteria Few /HPF (0-FEW) Bedside Urine HCG, Qualitative Hcg negative (Negative) White Blood Count 7.4 x10^3/uL (4.0-11.0) Red Blood Count 4.64 x10^6/uL (3.50-5.40) Hemoglobin 11.3 g/dL (12.0-15.5) Hematocrit 35.7 % (36.0-47.0) Mean Corpuscular Volume 77 fL (79-100) Mean Corpuscular Hemoglobin 24 pg (25-35) Mean Corpuscular Hemoglobin Concent 32 g/dL (31-37) Red Cell Distribution Width 14.3 % (11.5-14.5) Platelet Count 166 x10^3/uL (140-400) Neutrophils (%) (Auto) 49 % (31-73) Lymphocytes (%) (Auto) 43 % (24-48) Monocytes (%) (Auto) 6 % (0-9) Eosinophils (%) (Auto) 2 % (0-3) Basophils (%) (Auto) 0 % (0-3) Neutrophils # (Auto) 3.6 x10^3uL (1.8-7.7) Lymphocytes # (Auto) 3.2 x10^3/uL (1.0-4.8) Monocytes # (Auto) 0.4 x10^3/uL (0.0-1.1) Eosinophils # (Auto) 0.2 x10^3/uL (0.0-0.7) Basophils # (Auto) 0.0 x10^3/uL (0.0-0.2) Sodium Level 140 mmol/L (136-145) Potassium Level 3.5 mmol/L (3.5-5.1) Chloride Level 103 mmol/L (98-107) Carbon Dioxide Level 29 mmol/L (21-32) Anion Gap 8 (6-14) Blood Urea Nitrogen 15 mg/dL (7-20) Creatinine 0.6 mg/dL (0.6-1.0) Estimated GFR (Cockcroft-Gault) 134.0 BUN/Creatinine Ratio 25 (6-20) Glucose Level 222 mg/dL (70-99) Calcium Level 8.4 mg/dL (8.5-10.1) Total Bilirubin 0.3 mg/dL (0.2-1.0) Aspartate Amino Transf (AST/SGOT) 15 U/L (15-37) Alanine Aminotransferase (ALT/SGPT) 17 U/L (14-59) Alkaline Phosphatase 159 U/L (46-116) Total Protein 7.0 g/dL (6.4-8.2) Albumin 2.9 g/dL (3.4-5.0) Albumin/Globulin Ratio 0.7 (1.0-1.7) Lipase 91 U/L (73-393) Laboratory Tests Test 09/19/18 11:30 09/19/18 11:38 09/19/18 12:23 Urine Color Yellow Urine Clarity Clear Urine pH 7.0 Urine Specific [place] 1.015 Urine Protein Negative mg/dL (NEG-TRACE) Urine Glucose (UA) 250 mg/dL (NEG) Urine Ketones (Stick) Negative mg/dL (NEG) Urine Blood Negative (NEG) Urine Nitrite Negative (NEG) Urine Bilirubin Negative (NEG) Urine Urobilinogen Dipstick 0.2 mg/dL (0.2 mg/dL) Urine Leukocyte Esterase Negative (NEG) Urine RBC Rare /HPF (0-2) Urine WBC Rare /HPF (0-4) Urine Squamous Epithelial Cells Few /LPF Urine Bacteria Few /HPF (0-FEW) Bedside Urine HCG, Qualitative Hcg negative (Negative) White Blood Count 7.4 x10^3/uL (4.0-11.0) Red Blood Count 4.64 x10^6/uL (3.50-5.40) Hemoglobin 11.3 g/dL (12.0-15.5) Hematocrit 35.7 % (36.0-47.0) Mean Corpuscular Volume 77 fL (79-100) Mean Corpuscular Hemoglobin 24 pg (25-35) Mean Corpuscular Hemoglobin Concent 32 g/dL (31-37) Red Cell Distribution Width 14.3 % (11.5-14.5) Platelet Count 166 x10^3/uL (140-400) Neutrophils (%) (Auto) 49 % (31-73) Lymphocytes (%) (Auto) 43 % (24-48) Monocytes (%) (Auto) 6 % (0-9) Eosinophils (%) (Auto) 2 % (0-3) Basophils (%) (Auto) 0 % (0-3) Neutrophils # (Auto) 3.6 x10^3uL (1.8-7.7) Lymphocytes # (Auto) 3.2 x10^3/uL (1.0-4.8) Monocytes # (Auto) 0.4 x10^3/uL (0.0-1.1) Eosinophils # (Auto) 0.2 x10^3/uL (0.0-0.7) Basophils # (Auto) 0.0 x10^3/uL (0.0-0.2) Sodium Level 140 mmol/L (136-145) Potassium Level 3.5 mmol/L (3.5-5.1) Chloride Level 103 mmol/L (98-107) Carbon Dioxide Level 29 mmol/L (21-32) Anion Gap 8 (6-14) Blood Urea Nitrogen 15 mg/dL (7-20) Creatinine 0.6 mg/dL (0.6-1.0) Estimated GFR (Cockcroft-Gault) 134.0 BUN/Creatinine Ratio 25 (6-20) Glucose Level 222 mg/dL (70-99) Calcium Level 8.4 mg/dL (8.5-10.1) Total Bilirubin 0.3 mg/dL (0.2-1.0) Aspartate Amino Transf (AST/SGOT) 15 U/L (15-37) Alanine Aminotransferase (ALT/SGPT) 17 U/L (14-59) Alkaline Phosphatase 159 U/L (46-116) Total Protein 7.0 g/dL (6.4-8.2) Albumin 2.9 g/dL (3.4-5.0) Albumin/Globulin Ratio 0.7 (1.0-1.7) Lipase 91 U/L (73-393) VTE Prophylaxis Ordered VTE Prophylaxis Devices: Contraindicated VTE Pharmacological Prophylaxi: No Assessment/Plan Assessment/Plan A/P: Acute on Chronic pancreatitis - s/p cholecystectomy, partial pancreatectomy, EUS , and previous J-tube placement (now removed). Lipase WNL. may not have been taking her pancreatic enzyme replacement, will cont this, consult GI, well known patient. Pain control DM - difficult to control sugars with partial pancreatectomy. 60u glargine and 10-15u lispro with meals plus sliding scale insulin dCHF - not exacerbated currently, will monitor HTN - cont meds HLD - stating Asthma - nebs GERD - PPI + carafate (carafate may be inactivating her pancreatic enzyme, will d/w GI) Anxiety - monitor Low back pain - complicates her pain management Allergic rhinitis - treat Anemia - likely of chronic disease. monitor FEN - ADAT, NPO for now PPX - Lovenox FULL CODE Inpatient for acute on chronic pancreatitis, will be in 2-3 days for resolution ANTOLIN NINO MD Sep 19, 2018 15:26
[2018-09-19] MEDS: IV NORMAL SALINE 1000ML BAG 1,000 ML IV SCH (15:44)
[2018-09-19 15:45] VITALS: BP 165/85
[2018-09-19] MEDS: MORPHINE SULFATE 4 MG/ML VIAL. IV PRN ×3 (16:00→21:00)
[2018-09-19] MEDS ORDERED: traMADol 50 MG TABLET PO PRN (16:15)
[2018-09-19] MEDS ORDERED: DEXTROSE 50% 25 GM / 50ML DISP.SYRIN. IV PRN (16:15)
[2018-09-19] MEDS ORDERED: ONDANSETRON ODT 4 MG TAB.RAPDIS. PO PRN (16:15)
[2018-09-19] MEDS ORDERED: PROC5TAB14 PO (16:23)
--- NOTE | 2018-09-19 16:38 | NUR ---
This nurse called Pharmacy at [phone] to verify home medications, Norvasc 5mg daily, and Prozac 20mg daily. Lisinopril 40 mg daily had not been filled since 12/12, did not restart that medication. This nurse informed SALVADOR Muhammad, and will continue to assist with this patient as needed.
[2018-09-19] MEDS: INSULIN LISPRO 300 UNITS/3 ML INSULN.PEN. SQ SCH ×2 (17:00)
[2018-09-19] MEDS ORDERED: INSULIN LISPRO 300 UNITS/3 ML INSULN.PEN. SQ SCH (17:00)
[2018-09-19] MEDS: CARVEDILOL 12.5 MG TABLET. PO SCH (17:15)
[2018-09-19] MEDS: LIPASE/PROTEAS/AMYLAS 10/32/42 CAPSULE.DR. PO SCH (17:15)
[2018-09-19] MEDS ORDERED: PROCHLORPERAZINE 5 MG TABLET. PO PRN (18:00)
[2018-09-19] MEDS ORDERED: PROCHLORPERAZINE 5 MG TABLET. PO SCH (18:00)
[2018-09-19 19:00] VITALS: BP 169/73
[2018-09-19] MEDS: ALBUTEROL SULFATE 2.5 MG/3 ML NEBU. NEB SCH (20:02)
[2018-09-19] MEDS: DICYCLOMINE HCL 10 MG CAPSULE PO SCH (21:00)
[2018-09-19] MEDS ORDERED: INSULIN GLARGINE 300 UNITS/3 ML INSULN.PEN. SQ SCH (21:00)
[2018-09-19] MEDS ORDERED: CLOTRIMAZOLE/BETAMETH 1%-0.05% TOPICAL CREAM 15GM TUBE. TP SCH (21:00)
[2018-09-19] MEDS: INSULIN GLARGINE 300 UNITS/3 ML INSULN.PEN. SQ SCH (21:00)
[2018-09-19] MEDS: ZOLPIDEM 5 MG TABLET. PO SCH (21:00)
--- NOTE | 2018-09-19 21:00 | NUR ---
Patient's blood sugar at bedtime is 173. Patient has decreased appetite and only wanted to take 20 units of Lantus tonight instead of 60 units.
[2018-09-19] MEDS: SUCRALFATE 1 GM TABLET. PO SCH (21:48)
[2018-09-19 23:00] VITALS: BP 161/89
[2018-09-20 03:00] VITALS: BP 178/99
[2018-09-20] MEDS: MORPHINE SULFATE 4 MG/ML VIAL. IV PRN ×5 (03:13→22:13)
[2018-09-20] MEDS: IV NORMAL SALINE 1000ML BAG 1,000 ML IV SCH ×2 (03:15→13:10)
[2018-09-20] MEDS: ONDANSETRON PF 4 MG/2 ML VIAL. IV PRN ×2 (06:45→15:02)
[2018-09-20 07:00] VITALS: BP 161/96
[2018-09-20] MEDS: PANTOPRAZOLE 40 MG TABLET.DR. PO SCH (07:30)
[2018-09-20] MEDS: ALBUTEROL SULFATE 2.5 MG/3 ML NEBU. NEB SCH ×4 (07:43→19:20)
[2018-09-20] MEDS: LIPASE/PROTEAS/AMYLAS 10/32/42 CAPSULE.DR. PO SCH ×3 (08:00→17:44)
[2018-09-20] MEDS: INSULIN LISPRO 300 UNITS/3 ML INSULN.PEN. SQ SCH ×6 (08:00→17:00)
[2018-09-20] MEDS: CARVEDILOL 12.5 MG TABLET. PO SCH ×2 (08:00→17:43)
[2018-09-20 08:29] LABS: CHOLESTEROL/HDL RATIO 7.1
[2018-09-20] MEDS: DICYCLOMINE HCL 10 MG CAPSULE PO SCH ×3 (09:00→21:41)
[2018-09-20] MEDS: PROCHLORPERAZINE 10 MG/2 ML VIAL. IV PRN ×2 (09:23→21:42)
[2018-09-20] MEDS: SUCRALFATE 1 GM TABLET. PO SCH ×3 (09:31→22:13)
[2018-09-20 11:00] VITALS: BP 155/91
--- NOTE | 2018-09-20 11:17 | PDOC ---
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 monitor History of Present Illness History of Present Illness cannot eat, try clears if pain better marked nausea, added other PRN nausea meds, IV compazine, cont current Vitals Vitals Vital Signs Date Time Temp Pulse Resp B/P (MAP) Pulse Ox O2 Delivery O2 Flow Rate FiO2 09/20/18 09:25 95 Room Air 09/20/18 07:00 97.4 78 18 161/96 (117) 97.4 Physical Exam General: Alert, Oriented X3, Cooperative, No acute distress Heart: No murmurs Lungs: Clear, Other Abdomen: Normal bowel sounds, Soft, No hepatosplenomegaly, No masses, Other ( LUQ tender) Extremities: No clubbing, No cyanosis, No edema, Normal pulses, No tenderness/ swelling Skin: No rashes, No breakdown, No significant lesion Labs LABS Laboratory Tests Test 09/19/18 11:30 09/19/18 11:38 09/19/18 12:23 09/19/18 17:15 Urine Color Yellow Urine Clarity Clear Urine pH 7.0 Urine Specific Rose[place] 1.015 Urine Protein Negative mg/dL (NEG-TRACE) Urine Glucose (UA) 250 mg/dL (NEG) Urine Ketones (Stick) Negative mg/dL (NEG) Urine Blood Negative (NEG) Urine Nitrite Negative (NEG) Urine Bilirubin Negative (NEG) Urine Urobilinogen Dipstick 0.2 mg/dL (0.2 mg/dL) Urine Leukocyte Esterase Negative (NEG) Urine RBC Rare /HPF (0-2) Urine WBC Rare /HPF (0-4) Urine Squamous Epithelial Cells Few /LPF Urine Bacteria Few /HPF (0-FEW) Bedside Urine HCG, Qualitative Hcg negative (Negative) White Blood Count 7.4 x10^3/uL (4.0-11.0) Red Blood Count 4.64 x10^6/uL (3.50-5.40) Hemoglobin 11.3 g/dL (12.0-15.5) Hematocrit 35.7 % (36.0-47.0) Mean Corpuscular Volume 77 fL (79-100) Mean Corpuscular Hemoglobin 24 pg (25-35) Mean Corpuscular Hemoglobin Concent 32 g/dL (31-37) Red Cell Distribution Width 14.3 % (11.5-14.5) Platelet Count 166 x10^3/uL (140-400) Neutrophils (%) (Auto) 49 % (31-73) Lymphocytes (%) (Auto) 43 % (24-48) Monocytes (%) (Auto) 6 % (0-9) Eosinophils (%) (Auto) 2 % (0-3) Basophils (%) (Auto) 0 % (0-3) Neutrophils # (Auto) 3.6 x10^3uL (1.8-7.7) Lymphocytes # (Auto) 3.2 x10^3/uL (1.0-4.8) Monocytes # (Auto) 0.4 x10^3/uL (0.0-1.1) Eosinophils # (Auto) 0.2 x10^3/uL (0.0-0.7) Basophils # (Auto) 0.0 x10^3/uL (0.0-0.2) Sodium Level 140 mmol/L (136-145) Potassium Level 3.5 mmol/L (3.5-5.1) Chloride Level 103 mmol/L (98-107) Carbon Dioxide Level 29 mmol/L (21-32) Anion Gap 8 (6-14) Blood Urea Nitrogen 15 mg/dL (7-20) Creatinine 0.6 mg/dL (0.6-1.0) Estimated GFR (Cockcroft-Gault) 134.0 BUN/Creatinine Ratio 25 (6-20) Glucose Level 222 mg/dL (70-99) Calcium Level 8.4 mg/dL (8.5-10.1) Total Bilirubin 0.3 mg/dL (0.2-1.0) Aspartate Amino Transf (AST/SGOT) 15 U/L (15-37) Alanine Aminotransferase (ALT/SGPT) 17 U/L (14-59) Alkaline Phosphatase 159 U/L (46-116) Total Protein 7.0 g/dL (6.4-8.2) Albumin 2.9 g/dL (3.4-5.0) Albumin/Globulin Ratio 0.7 (1.0-1.7) Lipase 91 U/L (73-393) Glucose (Fingerstick) 168 mg/dL (70-99) Test 09/19/18 20:26 09/20/18 07:40 Glucose (Fingerstick) 173 mg/dL (70-99) Triglycerides Level 138 mg/dL (0-150) Cholesterol Level 199 mg/dL (0-200) LDL Cholesterol, Calculated 143 mg/dL (0-100) VLDL Cholesterol, Calculated 28 mg/dL (0-40) Non-HDL Cholesterol Calculated 171 mg/dL (0-129) HDL Cholesterol 28 mg/dL (40-60) Cholesterol/HDL Ratio 7.1 Assessment and Plan Assessmemt and Plan Problems Medical Problems: (1) Abdominal pain, acute, left upper quadrant Status: Acute Comment Review of Relevant I have reviewed the following items snow (where applicable) has been applied. Labs Laboratory Tests Test 09/19/18 11:30 09/19/18 11:38 09/19/18 12:23 09/19/18 17:15 Urine Color Yellow Urine Clarity Clear Urine pH 7.0 Urine Specific [place] 1.015 Urine Protein Negative mg/dL (NEG-TRACE) Urine Glucose (UA) 250 mg/dL (NEG) Urine Ketones (Stick) Negative mg/dL (NEG) Urine Blood Negative (NEG) Urine Nitrite Negative (NEG) Urine Bilirubin Negative (NEG) Urine Urobilinogen Dipstick 0.2 mg/dL (0.2 mg/dL) Urine Leukocyte Esterase Negative (NEG) Urine RBC Rare /HPF (0-2) Urine WBC Rare /HPF (0-4) Urine Squamous Epithelial Cells Few /LPF Urine Bacteria Few /HPF (0-FEW) Bedside Urine HCG, Qualitative Hcg negative (Negative) White Blood Count 7.4 x10^3/uL (4.0-11.0) Red Blood Count 4.64 x10^6/uL (3.50-5.40) Hemoglobin 11.3 g/dL (12.0-15.5) Hematocrit 35.7 % (36.0-47.0) Mean Corpuscular Volume 77 fL (79-100) Mean Corpuscular Hemoglobin 24 pg (25-35) Mean Corpuscular Hemoglobin Concent 32 g/dL (31-37) Red Cell Distribution Width 14.3 % (11.5-14.5) Platelet Count 166 x10^3/uL (140-400) Neutrophils (%) (Auto) 49 % (31-73) Lymphocytes (%) (Auto) 43 % (24-48) Monocytes (%) (Auto) 6 % (0-9) Eosinophils (%) (Auto) 2 % (0-3) Basophils (%) (Auto) 0 % (0-3) Neutrophils # (Auto) 3.6 x10^3uL (1.8-7.7) Lymphocytes # (Auto) 3.2 x10^3/uL (1.0-4.8) Monocytes # (Auto) 0.4 x10^3/uL (0.0-1.1) Eosinophils # (Auto) 0.2 x10^3/uL (0.0-0.7) Basophils # (Auto) 0.0 x10^3/uL (0.0-0.2) Sodium Level 140 mmol/L (136-145) Potassium Level 3.5 mmol/L (3.5-5.1) Chloride Level 103 mmol/L (98-107) Carbon Dioxide Level 29 mmol/L (21-32) Anion Gap 8 (6-14) Blood Urea Nitrogen 15 mg/dL (7-20) Creatinine 0.6 mg/dL (0.6-1.0) Estimated GFR (Cockcroft-Gault) 134.0 BUN/Creatinine Ratio 25 (6-20) Glucose Level 222 mg/dL (70-99) Calcium Level 8.4 mg/dL (8.5-10.1) Total Bilirubin 0.3 mg/dL (0.2-1.0) Aspartate Amino Transf (AST/SGOT) 15 U/L (15-37) Alanine Aminotransferase (ALT/SGPT) 17 U/L (14-59) Alkaline Phosphatase 159 U/L (46-116) Total Protein 7.0 g/dL (6.4-8.2) Albumin 2.9 g/dL (3.4-5.0) Albumin/Globulin Ratio 0.7 (1.0-1.7) Lipase 91 U/L (73-393) Glucose (Fingerstick) 168 mg/dL (70-99) Test 09/19/18 20:26 09/20/18 07:40 Glucose (Fingerstick) 173 mg/dL (70-99) Triglycerides Level 138 mg/dL (0-150) Cholesterol Level 199 mg/dL (0-200) LDL Cholesterol, Calculated 143 mg/dL (0-100) VLDL Cholesterol, Calculated 28 mg/dL (0-40) Non-HDL Cholesterol Calculated 171 mg/dL (0-129) HDL Cholesterol 28 mg/dL (40-60) Cholesterol/HDL Ratio 7.1 Laboratory Tests Test 09/19/18 11:30 09/19/18 11:38 09/19/18 12:23 09/19/18 17:15 Urine Color Yellow Urine Clarity Clear Urine pH 7.0 Urine Specific [place] 1.015 Urine Protein Negative mg/dL (NEG-TRACE) Urine Glucose (UA) 250 mg/dL (NEG) Urine Ketones (Stick) Negative mg/dL (NEG) Urine Blood Negative (NEG) Urine Nitrite Negative (NEG) Urine Bilirubin Negative (NEG) Urine Urobilinogen Dipstick 0.2 mg/dL (0.2 mg/dL) Urine Leukocyte Esterase Negative (NEG) Urine RBC Rare /HPF (0-2) Urine WBC Rare /HPF (0-4) Urine Squamous Epithelial Cells Few /LPF Urine Bacteria Few /HPF (0-FEW) Bedside Urine HCG, Qualitative Hcg negative (Negative) White Blood Count 7.4 x10^3/uL (4.0-11.0) Red Blood Count 4.64 x10^6/uL (3.50-5.40) Hemoglobin 11.3 g/dL (12.0-15.5) Hematocrit 35.7 % (36.0-47.0) Mean Corpuscular Volume 77 fL (79-100) Mean Corpuscular Hemoglobin 24 pg (25-35) Mean Corpuscular Hemoglobin Concent 32 g/dL (31-37) Red Cell Distribution Width 14.3 % (11.5-14.5) Platelet Count 166 x10^3/uL (140-400) Neutrophils (%) (Auto) 49 % (31-73) Lymphocytes (%) (Auto) 43 % (24-48) Monocytes (%) (Auto) 6 % (0-9) Eosinophils (%) (Auto) 2 % (0-3) Basophils (%) (Auto) 0 % (0-3) Neutrophils # (Auto) 3.6 x10^3uL (1.8-7.7) Lymphocytes # (Auto) 3.2 x10^3/uL (1.0-4.8) Monocytes # (Auto) 0.4 x10^3/uL (0.0-1.1) Eosinophils # (Auto) 0.2 x10^3/uL (0.0-0.7) Basophils # (Auto) 0.0 x10^3/uL (0.0-0.2) Sodium Level 140 mmol/L (136-145) Potassium Level 3.5 mmol/L (3.5-5.1) Chloride Level 103 mmol/L (98-107) Carbon Dioxide Level 29 mmol/L (21-32) Anion Gap 8 (6-14) Blood Urea Nitrogen 15 mg/dL (7-20) Creatinine 0.6 mg/dL (0.6-1.0) Estimated GFR (Cockcroft-Gault) 134.0 BUN/Creatinine Ratio 25 (6-20) Glucose Level 222 mg/dL (70-99) Calcium Level 8.4 mg/dL (8.5-10.1) Total Bilirubin 0.3 mg/dL (0.2-1.0) Aspartate Amino Transf (AST/SGOT) 15 U/L (15-37) Alanine Aminotransferase (ALT/SGPT) 17 U/L (14-59) Alkaline Phosphatase 159 U/L (46-116) Total Protein 7.0 g/dL (6.4-8.2) Albumin 2.9 g/dL (3.4-5.0) Albumin/Globulin Ratio 0.7 (1.0-1.7) Lipase 91 U/L (73-393) Glucose (Fingerstick) 168 mg/dL (70-99) Test 09/19/18 20:26 09/20/18 07:40 Glucose (Fingerstick) 173 mg/dL (70-99) Triglycerides Level 138 mg/dL (0-150) Cholesterol Level 199 mg/dL (0-200) LDL Cholesterol, Calculated 143 mg/dL (0-100) VLDL Cholesterol, Calculated 28 mg/dL (0-40) Non-HDL Cholesterol Calculated 171 mg/dL (0-129) HDL Cholesterol 28 mg/dL (40-60) Cholesterol/HDL Ratio 7.1 Medications Current Medications Sodium Chloride 1,000 ml @ 1,000 mls/hr 1X ONCE IV Last administered on 12:28; Start 09/19/18 at 12:00; Stop 09/19/18 at 12:59; Status DC Morphine Sulfate (Morphine Sulfate) 4 mg 1X ONCE IV Last administered on at 12:28; Start 09/19/18 at 12:00; Stop 09/19/18 at 12:01; Status DC Ondansetron HCl (Zofran) 4 mg 1X ONCE IV Last administered on 09/19/18at 12:28 ; Start 09/19/18 at 12:00; Stop 09/19/18 at 12:01; Status DC Labetalol HCl (Normodyne Iv Push) 20 mg 1X ONCE IVP ; Start 09/19/18 at 12:00; Stop 09/19/18 at 12:01; Status DC Morphine Sulfate (Morphine Sulfate) 4 mg 1X ONCE IV Last administered on at 14:25; Start 09/19/18 at 14:00; Stop 09/19/18 at 14:01; Status DC Ondansetron HCl (Zofran) 4 mg PRN Q8HRS PRN IV NAUSEA/VOMITING Last administered on 09/20/18at 06:45; Start 09/19/18 at 15:15; Stop 09/20/18 at 15:14 Morphine Sulfate (Morphine Sulfate) 4 mg PRN Q2HR PRN IV PAIN Last administered on 09/20/18at 09:25; Start 09/19/18 at 15:15; Stop 09/20/18 at 15:14 Sodium Chloride 1,000 ml @ 100 mls/hr Q10H IV Last administered on 09/20/18at 03:15; Start 09/19/18 at 15:08; Stop 09/20/18 at 15:07 Carvedilol (Coreg) 12.5 mg BIDWMEALS PO Last administered on 09/19/18at 17:15; Start 09/19/18 at 17:00 Betamethasone/ Clotrimazole (Lotrisone) 1 nikole BID TP ; Start 09/19/18 at 21:00; Stop 09/19/18 at 21:00; Status Cancel Dicyclomine HCl (Bentyl) 10 mg TID PO Last administered on 09/19/18at 21:00; Start 09/19/18 at 21:00 Ondansetron HCl (Zofran Odt) 4 mg PRN Q8HRS PRN PO NAUSEA/VOMITING; Start 09/19 at 16:15 Tramadol HCl (Ultram) 50 mg DAILY PRN PO PAIN; Start 09/19/18 at 16:15 Zolpidem Tartrate (Ambien) 5 mg QHS PO Last administered on 09/19/18at 21:00; Start 09/19/18 at 21:00 Insulin Human Lispro (HumaLOG) 60 units TIDWMEALS SQ ; Start 09/19/18 at 17:00; Stop 09/19/18 at 17:00; Status DC Insulin Glargine (Lantus) 100 units QHS SQ ; Start 09/19/18 at 21:00; Stop 09/19 at 21:00; Status DC Pantoprazole Sodium (Protonix) 40 mg DAILYAC PO ; Start 09/20/18 at 07:30 Sucralfate (Carafate) 1 gm TID@1000,1400,2200 PO Last administered on at 21:48; Start 09/19/18 at 22:00 Amylase/Lipase/ Protease (Zenpep 10,000) 2 cap TIDWMEALS PO Last administered on 09/19/18at 17:15; Start 09/19/18 at 17:00 Insulin Human Lispro (HumaLOG) 0-7 UNITS TIDWMEALS SQ ; Start 09/19/18 at 17:00 Dextrose (Dextrose 50%-Water Syringe) 12.5 gm PRN Q15MIN PRN IV SEE COMMENTS; Start 09/19/18 at 16:15 Insulin Glargine (Lantus) 60 units QHS SQ Last administered on 09/19/18at 21:00 ; Start 09/19/18 at 21:00 Insulin Human Lispro (HumaLOG) 10 units TIDWMEALS SQ ; Start 09/19/18 at 17:00 Prochlorperazine Maleate (Compazine) 10 mg Q6HRS PO ; Start 09/19/18 at 18:00; Stop 09/19/18 at 18:00; Status DC Albuterol Sulfate (Ventolin Neb Soln) 2.5 mg RTQID NEB Last administered on at 07:43; Start 09/19/18 at 20:00 Amlodipine Besylate (Norvasc) 5 mg DAILY PO ; Start 09/20/18 at 09:00 Fluoxetine HCl (PROzac) 20 mg DAILY PO ; Start 09/20/18 at 09:00 Prochlorperazine Maleate (Compazine) 10 mg PRN Q6HRS PRN PO Nausea; Start 09/19 at 18:00 Prochlorperazine Edisylate (Compazine) 10 mg PRN Q6HRS PRN IV NAUSEA/VOMITING Last administered on 09/20/18at 09:23; Start 09/20/18 at 09:00 Hydralazine HCl (Apresoline Inj) 10 mg PRN Q6HRS PRN IVP ELEVATED BP, SEE COMMENTS; Start 09/20/18 at 09:00 Active Scripts Active Tramadol Hcl 50 Mg Tablet 50 Mg PO DAILY PRN Coreg (Carvedilol) 12.5 Mg Tablet 1 Tab PO BID Sucralfate 1 Gm Tablet 1 Tab PO TID Do not take within 2 hours of taking furosemide. Bentyl (Dicyclomine Hcl) 10 Mg Capsule 1 Cap PO TID Reported Prochlorperazine Maleate 10 Mg Tablet 1 Tab PO Q6HRS Ondansetron Odt (Ondansetron) 4 Mg Tab.rapdis 1 Tab PO PRN Q8HRS PRN Tresiba Flextouch U-100 (Insulin Degludec) 100 Unit/1 Ml Insuln.pen 60 Unit SQ HS Ambien (Zolpidem Tartrate) 5 Mg Tablet 1 Tab PO QHS Novolog (Insulin Aspart) 100 Unit/1 Ml Cartridge 10 Unit SQ TIDWMEALS Proair Hfa Inhaler (Albuterol Sulfate) 8.5 Gm Hfa.aer.ad 2 Puff IH PRN Q4-6HRS Omeprazole 40 Mg Capsule.dr 40 Mg PO DAILY [pancrease mt16] Tab PO QIDACHS Vitals/I & O Vital Sign - Last 24 Hours 09/19/18 09/19/18 09/19/18 09/19/18 11:32 12:07 12:28 12:30 Temp 98.6 98.6 Pulse 65 70 64 Resp 18 20 B/P (MAP) 218/126 (156) 185/96 (125) 203/92 (129) Pulse Ox 100 100 100 99 O2 Delivery Room Air Room Air Room Air Room Air 09/19/18 09/19/18 09/19/18 09/19/18 12:32 12:34 12:37 12:42 Pulse 72 70 64 64 B/P (MAP) 202/96 (131) 174/96 (122) 183/88 (119) 192/98 (129) Pulse Ox 98 97 98 97 O2 Delivery Room Air Room Air Room Air Room Air 09/19/18 09/19/18 09/19/18 09/19/18 12:47 12:52 12:57 12:58 Pulse 60 60 60 Resp 20 B/P (MAP) 198/88 (124) 187/83 (117) 187/85 (119) Pulse Ox 97 97 97 97 O2 Delivery Room Air Room Air Room Air Room Air 09/19/18 09/19/18 09/19/18 09/19/18 13:02 13:07 13:32 14:02 Pulse 62 60 62 66 B/P (MAP) 190/92 (124) 174/97 (122) 176/83 (114) 160/93 (115) Pulse Ox 97 97 97 96 O2 Delivery Room Air Room Air Room Air Room Air 09/19/18 09/19/18 09/19/18 09/19/18 14:25 14:32 14:55 15:02 Pulse 70 70 Resp 18 16 B/P (MAP) 159/82 (107) 138/70 (92) Pulse Ox 98 95 96 96 O2 Delivery Room Air Room Air Room Air Room Air 09/19/18 09/19/18 09/19/18 09/19/18 15:45 16:00 16:30 17:15 Temp 97.8 97.8 Pulse 66 66 Resp 16 B/P (MAP) 165/85 (111) 165/85 Pulse Ox 100 O2 Delivery Room Air Room Air Room Air 09/19/18 09/19/18 09/19/18 09/19/18 18:13 19:00 19:50 20:02 Temp 97.4 97.4 Pulse 93 Resp 18 B/P (MAP) 169/73 (105) Pulse Ox 93 93 O2 Delivery Room Air Room Air Room Air Room Air 09/19/18 09/19/18 09/20/18 09/20/18 21:00 23:00 03:00 03:13 Temp 97.4 97.5 97.4 97.5 Pulse 84 77 Resp 20 18 18 20 B/P (MAP) 161/89 (113) 178/99 (125) Pulse Ox 95 100 O2 Delivery Room Air Room Air Room Air Room Air 09/20/18 09/20/18 09/20/18 09/20/18 03:43 06:41 07:00 07:20 Temp 97.4 97.4 Pulse 78 Resp 20 20 18 B/P (MAP) 161/96 (117) Pulse Ox 100 95 O2 Delivery Room Air Room Air Room Air 09/20/18 09/20/18 07:43 09:25 Pulse Ox 95 95 O2 Delivery Room Air Room Air Intake and Output 09/19/18 09/19/18 09/20/18 14:59 22:59 06:59 Intake Total 1000 ml 120 ml 2140 ml Balance 1000 ml 120 ml 2140 ml SWEETIE PIKE MD Sep 20, 2018 11:17
[2018-09-20] MEDS: FLUoxetine HCL 20 MG CAPSULE PO SCH (13:02)
[2018-09-20] MEDS: amLODIPine BESYLATE 5 MG TABLET PO SCH (13:03)
--- NOTE | 2018-09-20 13:31 | PDOC2 ---
GI CONSULT Reason For Consult: Pancreatitis HPI: HPI: 38 y/o female known to us. H/o complicated biliary pancreatitis years ago with pseudocysts, etc. Ultimately underwent distal pancreatectomy with pancreaticojejunostomy. Chronic pain issues thereafter. Daily pain, usually managed with perc's. Since Friday, more pain with nausea and vomiting and unable to control at home, so came here. Pain in near-epigastrium tending toward LUQ and radiating to back. Does feel some better this afternoon. Historically attempts have been made to stent the PD w/o helping. Takes pancreatic enzymes, but doesn't think help much. H/o GERD taking daily PPI +/- sucralfate. No dysphagia; multiple EGD's. No h/o ulcers or primary liver disease. Mild elevation of alk phos seems chronic and non-progressive. No alcohol or tobacco use. Frequent loose stools w/o ongoing diarrhea or constipation. No overt blood in stool or melena. Says attempted colonoscopy incomplete due to poor prep a few years ago. PMH: PMH: HTN, CHF, HLP, cardiomyopathy, asthma, DM, anxiety, lower back pain,hay fever. S/p bev/distal pancreatectomy with pancreaticojejunostomy/J-tube (since removed). FH: Family History: No pertinent hx Social History: Smoke: No ALCOHOL: none Drugs: None ROS: GEN: Denies fevers, chills, sweats HEENT: Denies blurred vision, sore throat CV: Denies chest pain RESP: Denies shortness of air, cough GI: Per HPI : Denies hematuria, dysuria ENDO: Denies weight changes NEURO: Denies confusion, dizziness MSK: Denies weakness, joint pain/swelling SKIN: Denies jaundice, pruritus Vitals: Vitals: Vital Signs Date Time Temp Pulse Resp B/P (MAP) Pulse Ox O2 Delivery O2 Flow Rate FiO2 09/20/18 13:05 97 Room Air 09/20/18 13:03 56 155/91 09/20/18 11:00 97.3 18 97.3 Labs: Labs: Laboratory Tests Test 09/19/18 17:15 09/19/18 20:26 09/20/18 07:40 Glucose (Fingerstick) 168 mg/dL (70-99) 173 mg/dL (70-99) Triglycerides Level 138 mg/dL (0-150) Cholesterol Level 199 mg/dL (0-200) LDL Cholesterol, Calculated 143 mg/dL (0-100) VLDL Cholesterol, Calculated 28 mg/dL (0-40) Non-HDL Cholesterol Calculated 171 mg/dL (0-129) HDL Cholesterol 28 mg/dL (40-60) Cholesterol/HDL Ratio 7.1 Lipase normal; may not have enough gland left to mount elevation. Allergies: Coded Allergies: shellfish derived (Verified Allergy, Severe, anaphylaxis, 09/17/14) Iodine and Iodide Containing Produc (Verified Allergy, Intermediate, hives , itching, fevers, anaphylaxis, 09/17/14) Penicillins (Verified Allergy, Intermediate, itching, vomiting, fevers, ) iodine (Verified Allergy, Intermediate, 03/11/16) meperidine (Verified Adverse Reaction, Intermediate, fevers, vomiting, ) Medications: Current Medications Medications (Trade) Dose Ordered Sig/Naveen Route PRN Reason Start Time Stop Time Status Last Admin Dose Admin Morphine Sulfate (Morphine Sulfate) 4 mg 1X ONCE IV 09/19/18 14:00 09/19/18 14:01 DC 09/19/18 14:25 Ondansetron HCl (Zofran) 4 mg PRN Q8HRS PRN IV NAUSEA/VOMITING 09/19/18 15:15 09/20/18 15:14 09/20/18 06:45 Morphine Sulfate (Morphine Sulfate) 4 mg PRN Q2HR PRN IV PAIN 09/19/18 15:15 09/20/18 15:14 09/20/18 13:05 Sodium Chloride 1,000 ml @ 100 mls/hr Q10H IV 09/19/18 15:08 09/20/18 15:07 09/20/18 13:10 Carvedilol (Coreg) 12.5 mg BIDWMEALS PO 09/19/18 17:00 09/19/18 17:15 Dicyclomine HCl (Bentyl) 10 mg TID PO 09/19/18 21:00 09/19/18 21:00 Zolpidem Tartrate (Ambien) 5 mg QHS PO 09/19/18 21:00 09/19/18 21:00 Sucralfate (Carafate) 1 gm TID@1000,1400,2200 PO 09/19/18 22:00 09/19/18 21:48 Amylase/Lipase/ Protease (Zenpep 10,000) 2 cap TIDWMEALS PO 09/19/18 17:00 09/20/18 13:04 Insulin Glargine (Lantus) 60 units QHS SQ 09/19/18 21:00 09/19/18 21:00 Albuterol Sulfate (Ventolin Neb Soln) 2.5 mg RTQID NEB 09/19/18 20:00 09/20/18 12:11 Amlodipine Besylate (Norvasc) 5 mg DAILY PO 09/20/18 09:00 09/20/18 13:03 Fluoxetine HCl (PROzac) 20 mg DAILY PO 09/20/18 09:00 09/20/18 13:02 Prochlorperazine Edisylate (Compazine) 10 mg PRN Q6HRS PRN IV NAUSEA/VOMITING 09/20/18 09:00 09/20/18 09:23 Imaging: Imaging: Last CT here in February 2018 with chronic changes, but no new acute findings. PE: GEN: NAD HEENT: Atraumatic, PERRLA LUNGS: CTAB HEART: RRR, no murmurs ABD: NABS, S/ND, no masses. Tender epigastrium/LUQ EXTREMITY: No edema SKIN: No rashes, no jaundice NEURO/PSYCH: A & O 3 A/P: A/P: IMP: Chronic pancreatic pain. Likely related to some impairment of pancreatic drainage post-op her resection. Now with exacerbation of her chronic pain. GERD. Mild chronic elevation of alkaline phosphatase. Given multiple imaging in past, not likely significant. REC: Continue IVF's, analgesia, general support. As able, diet. Ultimately, f/u with physicians at . Thank you for allowing us to assist in the care of this patient. Please call if questions. DENNIS SANTANA MD Sep 20, 2018 13:31
[2018-09-20 15:00] VITALS: BP 153/94
[2018-09-20 19:00] VITALS: BP 143/81
[2018-09-20] MEDS: INSULIN GLARGINE 300 UNITS/3 ML INSULN.PEN. SQ SCH (21:00)
[2018-09-20] MEDS: ZOLPIDEM 5 MG TABLET. PO SCH (21:41)
[2018-09-20] MEDS ORDERED: ONDANSETRON PF 4 MG/2 ML VIAL. IV PRN (21:45)
[2018-09-20 23:00] VITALS: BP 127/72
[2018-09-21] VITALS (9 sets, daily range): BP systolic 131–202; BP diastolic 76–112
[2018-09-21] MEDS: hydrALAZINE 20 MG/ML VIAL. IVP PRN ×2 (03:30→20:46)
[2018-09-21] MEDS: MORPHINE SULFATE 4 MG/ML VIAL. IV PRN ×2 (03:31→08:22)
[2018-09-21] MEDS: ALBUTEROL SULFATE 2.5 MG/3 ML NEBU. NEB SCH ×2 (05:58→20:10)
[2018-09-21 06:36] LABS: ALBUMIN 2.8 g/dL (3.4-5.0); ALBUMIN/GLOBULIN RATIO 0.7 (1.0-1.7); CALCIUM 8.3 mg/dL (8.5-10.1); CREATININE 0.7 mg/dL (0.6-1.0); GFR 112.1; POTASSIUM 3.2 mmol/L (3.5-5.1); TOTAL BILIRUBIN 0.6 mg/dL (0.2-1.0); TOTAL PROTEIN 6.9 g/dL (6.4-8.2)
[2018-09-21 07:00] LABS: BASO % 1 % (0-3); EOS # 0.2 x10^3/uL (0.0-0.7); EOS % 3 % (0-3); HEMATOCRIT 37.5 % (36.0-47.0); LYMPH # 2.1 x10^3/uL (1.0-4.8); LYMPH % 36 % (24-48); MEAN CORPUSCULAR HEMOGLOBIN 25 pg (25-35); MEAN CORPUSCULAR HGB CONC 32 g/dL (31-37); MEAN CORPUSCULAR VOLUME 77 fL (79-100); MONO # 0.3 x10^3/uL (0.0-1.1); MONO % 6 % (0-9); NEUT # 3.2 x10^3uL (1.8-7.7); NEUT % 54 % (31-73); PLATELET COUNT 169 x10^3/uL (140-400); RED BLOOD COUNT 4.88 x10^6/uL (3.50-5.40); RED CELL DISTRIBUTION WIDTH 14.4 % (11.5-14.5); WHITE BLOOD COUNT 5.9 x10^3/uL (4.0-11.0)
[2018-09-21] MEDS: INSULIN LISPRO 300 UNITS/3 ML INSULN.PEN. SQ SCH ×6 (08:00→17:00)
[2018-09-21] MEDS: LIPASE/PROTEAS/AMYLAS 10/32/42 CAPSULE.DR. PO SCH ×3 (08:22→17:25)
[2018-09-21] MEDS: DICYCLOMINE HCL 10 MG CAPSULE PO SCH ×3 (08:22→20:33)
[2018-09-21] MEDS: CARVEDILOL 12.5 MG TABLET. PO SCH ×2 (08:23→17:25)
[2018-09-21] MEDS: FLUoxetine HCL 20 MG CAPSULE PO SCH (08:23)
[2018-09-21] MEDS: PANTOPRAZOLE 40 MG TABLET.DR. PO SCH (08:23)
[2018-09-21] MEDS: amLODIPine BESYLATE 5 MG TABLET PO SCH (08:24)
[2018-09-21] MEDS ORDERED: oxyCODONE/APAP 5/325 1 TAB TABLET PO PRN (08:45)
--- NOTE | 2018-09-21 09:19 | NUR ---
SW reviewed pt's medical chart and evaluated for potential dc needs. Pt is from home and was admitted for chronic pancreatitis. PT/OT has not been ordered and there are no dc needs at this time. SW will be available if pt's condition changes and there is a need for services.
[2018-09-21] MEDS: SUCRALFATE 1 GM TABLET. PO SCH ×2 (10:00→14:12)
[2018-09-21] MEDS ORDERED: OXYC1TAB15 PO (10:19)
--- NOTE | 2018-09-21 10:21 | PDOC ---
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 monitor Recent bariatric surgery [facility]-1 year ago-lost 100 plus pounds History of Present Illness History of Present Illness Still abdominal pain she claims needing IV pain medicines every 2 hours She lost 100 and plus pounds after bariatric surgery at [facility] She is very pleased about her outcome She will need some skin excess trimming done by plastic surgery also with [facility] Lipase is normal-history of partial pancreatectomy Potassium mildly low 3.2 cup replacement Plan: GI soft. re check K If tolerates a GI soft and pain under control she can go home later this afternoon NO Further plans from GI Vitals Vitals Vital Signs Date Time Temp Pulse Resp B/P (MAP) Pulse Ox O2 Delivery O2 Flow Rate FiO2 09/21/18 10:02 Room Air 09/21/18 08:24 79 182/91 09/21/18 07:00 98.0 18 96 98.0 Physical Exam General: Alert, Oriented X3, Cooperative, No acute distress Heart: No murmurs Lungs: Clear, Other Abdomen: Normal bowel sounds, Soft, No hepatosplenomegaly, No masses, Other ( LUQ tender) Extremities: No clubbing, No cyanosis, No edema, Normal pulses, No tenderness/ swelling Skin: No rashes, No breakdown, No significant lesion Labs LABS Laboratory Tests Test 09/20/18 11:29 09/20/18 16:21 09/20/18 21:21 09/21/18 05:00 Glucose (Fingerstick) 125 mg/dL (70-99) 106 mg/dL (70-99) 102 mg/dL (70-99) White Blood Count 5.9 x10^3/uL (4.0-11.0) Red Blood Count 4.88 x10^6/uL (3.50-5.40) Hemoglobin 12.0 g/dL (12.0-15.5) Hematocrit 37.5 % (36.0-47.0) Mean Corpuscular Volume 77 fL (79-100) Mean Corpuscular Hemoglobin 25 pg (25-35) Mean Corpuscular Hemoglobin Concent 32 g/dL (31-37) Red Cell Distribution Width 14.4 % (11.5-14.5) Platelet Count 169 x10^3/uL (140-400) Neutrophils (%) (Auto) 54 % (31-73) Lymphocytes (%) (Auto) 36 % (24-48) Monocytes (%) (Auto) 6 % (0-9) Eosinophils (%) (Auto) 3 % (0-3) Basophils (%) (Auto) 1 % (0-3) Neutrophils # (Auto) 3.2 x10^3uL (1.8-7.7) Lymphocytes # (Auto) 2.1 x10^3/uL (1.0-4.8) Monocytes # (Auto) 0.3 x10^3/uL (0.0-1.1) Eosinophils # (Auto) 0.2 x10^3/uL (0.0-0.7) Basophils # (Auto) 0.0 x10^3/uL (0.0-0.2) Sodium Level 142 mmol/L (136-145) Potassium Level 3.2 mmol/L (3.5-5.1) Chloride Level 105 mmol/L (98-107) Carbon Dioxide Level 27 mmol/L (21-32) Anion Gap 10 (6-14) Blood Urea Nitrogen 6 mg/dL (7-20) Creatinine 0.7 mg/dL (0.6-1.0) Estimated GFR (Cockcroft-Gault) 112.1 BUN/Creatinine Ratio 9 (6-20) Glucose Level 165 mg/dL (70-99) Calcium Level 8.3 mg/dL (8.5-10.1) Total Bilirubin 0.6 mg/dL (0.2-1.0) Aspartate Amino Transf (AST/SGOT) 47 U/L (15-37) Alanine Aminotransferase (ALT/SGPT) 44 U/L (14-59) Alkaline Phosphatase 229 U/L (46-116) Total Protein 6.9 g/dL (6.4-8.2) Albumin 2.8 g/dL (3.4-5.0) Albumin/Globulin Ratio 0.7 (1.0-1.7) Test 09/21/18 07:49 Glucose (Fingerstick) 151 mg/dL (70-99) Review of Systems Review of Systems abd pain, the rest of ROS 14 point negative Assessment and Plan Assessmemt and Plan Problems Medical Problems: (1) Abdominal pain, acute, left upper quadrant Status: Acute Comment Review of Relevant I have reviewed the following items snow (where applicable) has been applied. Labs Laboratory Tests Test 09/19/18 11:30 09/19/18 11:38 09/19/18 12:23 09/19/18 17:15 Urine Color Yellow Urine Clarity Clear Urine pH 7.0 Urine Specific [place] 1.015 Urine Protein Negative mg/dL (NEG-TRACE) Urine Glucose (UA) 250 mg/dL (NEG) Urine Ketones (Stick) Negative mg/dL (NEG) Urine Blood Negative (NEG) Urine Nitrite Negative (NEG) Urine Bilirubin Negative (NEG) Urine Urobilinogen Dipstick 0.2 mg/dL (0.2 mg/dL) Urine Leukocyte Esterase Negative (NEG) Urine RBC Rare /HPF (0-2) Urine WBC Rare /HPF (0-4) Urine Squamous Epithelial Cells Few /LPF Urine Bacteria Few /HPF (0-FEW) Bedside Urine HCG, Qualitative Hcg negative (Negative) White Blood Count 7.4 x10^3/uL (4.0-11.0) Red Blood Count 4.64 x10^6/uL (3.50-5.40) Hemoglobin 11.3 g/dL (12.0-15.5) Hematocrit 35.7 % (36.0-47.0) Mean Corpuscular Volume 77 fL (79-100) Mean Corpuscular Hemoglobin 24 pg (25-35) Mean Corpuscular Hemoglobin Concent 32 g/dL (31-37) Red Cell Distribution Width 14.3 % (11.5-14.5) Platelet Count 166 x10^3/uL (140-400) Neutrophils (%) (Auto) 49 % (31-73) Lymphocytes (%) (Auto) 43 % (24-48) Monocytes (%) (Auto) 6 % (0-9) Eosinophils (%) (Auto) 2 % (0-3) Basophils (%) (Auto) 0 % (0-3) Neutrophils # (Auto) 3.6 x10^3uL (1.8-7.7) Lymphocytes # (Auto) 3.2 x10^3/uL (1.0-4.8) Monocytes # (Auto) 0.4 x10^3/uL (0.0-1.1) Eosinophils # (Auto) 0.2 x10^3/uL (0.0-0.7) Basophils # (Auto) 0.0 x10^3/uL (0.0-0.2) Sodium Level 140 mmol/L (136-145) Potassium Level 3.5 mmol/L (3.5-5.1) Chloride Level 103 mmol/L (98-107) Carbon Dioxide Level 29 mmol/L (21-32) Anion Gap 8 (6-14) Blood Urea Nitrogen 15 mg/dL (7-20) Creatinine 0.6 mg/dL (0.6-1.0) Estimated GFR (Cockcroft-Gault) 134.0 BUN/Creatinine Ratio 25 (6-20) Glucose Level 222 mg/dL (70-99) Calcium Level 8.4 mg/dL (8.5-10.1) Total Bilirubin 0.3 mg/dL (0.2-1.0) Aspartate Amino Transf (AST/SGOT) 15 U/L (15-37) Alanine Aminotransferase (ALT/SGPT) 17 U/L (14-59) Alkaline Phosphatase 159 U/L (46-116) Total Protein 7.0 g/dL (6.4-8.2) Albumin 2.9 g/dL (3.4-5.0) Albumin/Globulin Ratio 0.7 (1.0-1.7) Lipase 91 U/L (73-393) Glucose (Fingerstick) 168 mg/dL (70-99) Test 09/19/18 20:26 09/20/18 07:24 09/20/18 07:40 09/20/18 11:29 Glucose (Fingerstick) 173 mg/dL (70-99) 110 mg/dL (70-99) 125 mg/dL (70-99) Triglycerides Level 138 mg/dL (0-150) Cholesterol Level 199 mg/dL (0-200) LDL Cholesterol, Calculated 143 mg/dL (0-100) VLDL Cholesterol, Calculated 28 mg/dL (0-40) Non-HDL Cholesterol Calculated 171 mg/dL (0-129) HDL Cholesterol 28 mg/dL (40-60) Cholesterol/HDL Ratio 7.1 Test 09/20/18 16:21 09/20/18 21:21 09/21/18 05:00 09/21/18 07:49 Glucose (Fingerstick) 106 mg/dL (70-99) 102 mg/dL (70-99) 151 mg/dL (70-99) White Blood Count 5.9 x10^3/uL (4.0-11.0) Red Blood Count 4.88 x10^6/uL (3.50-5.40) Hemoglobin 12.0 g/dL (12.0-15.5) Hematocrit 37.5 % (36.0-47.0) Mean Corpuscular Volume 77 fL (79-100) Mean Corpuscular Hemoglobin 25 pg (25-35) Mean Corpuscular Hemoglobin Concent 32 g/dL (31-37) Red Cell Distribution Width 14.4 % (11.5-14.5) Platelet Count 169 x10^3/uL (140-400) Neutrophils (%) (Auto) 54 % (31-73) Lymphocytes (%) (Auto) 36 % (24-48) Monocytes (%) (Auto) 6 % (0-9) Eosinophils (%) (Auto) 3 % (0-3) Basophils (%) (Auto) 1 % (0-3) Neutrophils # (Auto) 3.2 x10^3uL (1.8-7.7) Lymphocytes # (Auto) 2.1 x10^3/uL (1.0-4.8) Monocytes # (Auto) 0.3 x10^3/uL (0.0-1.1) Eosinophils # (Auto) 0.2 x10^3/uL (0.0-0.7) Basophils # (Auto) 0.0 x10^3/uL (0.0-0.2) Sodium Level 142 mmol/L (136-145) Potassium Level 3.2 mmol/L (3.5-5.1) Chloride Level 105 mmol/L (98-107) Carbon Dioxide Level 27 mmol/L (21-32) Anion Gap 10 (6-14) Blood Urea Nitrogen 6 mg/dL (7-20) Creatinine 0.7 mg/dL (0.6-1.0) Estimated GFR (Cockcroft-Gault) 112.1 BUN/Creatinine Ratio 9 (6-20) Glucose Level 165 mg/dL (70-99) Calcium Level 8.3 mg/dL (8.5-10.1) Total Bilirubin 0.6 mg/dL (0.2-1.0) Aspartate Amino Transf (AST/SGOT) 47 U/L (15-37) Alanine Aminotransferase (ALT/SGPT) 44 U/L (14-59) Alkaline Phosphatase 229 U/L (46-116) Total Protein 6.9 g/dL (6.4-8.2) Albumin 2.8 g/dL (3.4-5.0) Albumin/Globulin Ratio 0.7 (1.0-1.7) Laboratory Tests Test 09/20/18 11:29 09/20/18 16:21 09/20/18 21:21 09/21/18 05:00 Glucose (Fingerstick) 125 mg/dL (70-99) 106 mg/dL (70-99) 102 mg/dL (70-99) White Blood Count 5.9 x10^3/uL (4.0-11.0) Red Blood Count 4.88 x10^6/uL (3.50-5.40) Hemoglobin 12.0 g/dL (12.0-15.5) Hematocrit 37.5 % (36.0-47.0) Mean Corpuscular Volume 77 fL (79-100) Mean Corpuscular Hemoglobin 25 pg (25-35) Mean Corpuscular Hemoglobin Concent 32 g/dL (31-37) Red Cell Distribution Width 14.4 % (11.5-14.5) Platelet Count 169 x10^3/uL (140-400) Neutrophils (%) (Auto) 54 % (31-73) Lymphocytes (%) (Auto) 36 % (24-48) Monocytes (%) (Auto) 6 % (0-9) Eosinophils (%) (Auto) 3 % (0-3) Basophils (%) (Auto) 1 % (0-3) Neutrophils # (Auto) 3.2 x10^3uL (1.8-7.7) Lymphocytes # (Auto) 2.1 x10^3/uL (1.0-4.8) Monocytes # (Auto) 0.3 x10^3/uL (0.0-1.1) Eosinophils # (Auto) 0.2 x10^3/uL (0.0-0.7) Basophils # (Auto) 0.0 x10^3/uL (0.0-0.2) Sodium Level 142 mmol/L (136-145) Potassium Level 3.2 mmol/L (3.5-5.1) Chloride Level 105 mmol/L (98-107) Carbon Dioxide Level 27 mmol/L (21-32) Anion Gap 10 (6-14) Blood Urea Nitrogen 6 mg/dL (7-20) Creatinine 0.7 mg/dL (0.6-1.0) Estimated GFR (Cockcroft-Gault) 112.1 BUN/Creatinine Ratio 9 (6-20) Glucose Level 165 mg/dL (70-99) Calcium Level 8.3 mg/dL (8.5-10.1) Total Bilirubin 0.6 mg/dL (0.2-1.0) Aspartate Amino Transf (AST/SGOT) 47 U/L (15-37) Alanine Aminotransferase (ALT/SGPT) 44 U/L (14-59) Alkaline Phosphatase 229 U/L (46-116) Total Protein 6.9 g/dL (6.4-8.2) Albumin 2.8 g/dL (3.4-5.0) Albumin/Globulin Ratio 0.7 (1.0-1.7) Test 09/21/18 07:49 Glucose (Fingerstick) 151 mg/dL (70-99) Medications Current Medications Sodium Chloride 1,000 ml @ 1,000 mls/hr 1X ONCE IV Last administered on at 12:28; Start 09/19/18 at 12:00; Stop 09/19/18 at 12:59; Status DC Morphine Sulfate (Morphine Sulfate) 4 mg 1X ONCE IV Last administered on at 12:28; Start 09/19/18 at 12:00; Stop 09/19/18 at 12:01; Status DC Ondansetron HCl (Zofran) 4 mg 1X ONCE IV Last administered on 09/19/18at 12:28 ; Start 09/19/18 at 12:00; Stop 09/19/18 at 12:01; Status DC Labetalol HCl (Normodyne Iv Push) 20 mg 1X ONCE IVP ; Start 09/19/18 at 12:00; Stop 09/19/18 at 12:01; Status DC Morphine Sulfate (Morphine Sulfate) 4 mg 1X ONCE IV Last administered on at 14:25; Start 09/19/18 at 14:00; Stop 09/19/18 at 14:01; Status DC Ondansetron HCl (Zofran) 4 mg PRN Q8HRS PRN IV NAUSEA/VOMITING Last administered on 09/20/18at 15:02; Start 09/19/18 at 15:15; Stop 09/20/18 at 15:14 ; Status DC Morphine Sulfate (Morphine Sulfate) 4 mg PRN Q2HR PRN IV PAIN Last administered on 09/20/18at 13:05; Start 09/19/18 at 15:15; Stop 09/20/18 at 15:14 ; Status DC Sodium Chloride 1,000 ml @ 100 mls/hr Q10H IV Last administered on 09/20/18at 13:10; Start 09/19/18 at 15:08; Stop 09/20/18 at 15:07; Status DC Carvedilol (Coreg) 12.5 mg BIDWMEALS PO Last administered on 09/21/18at 08:23; Start 09/19/18 at 17:00 Betamethasone/ Clotrimazole (Lotrisone) 1 nikole BID TP ; Start 09/19/18 at 21:00; Stop 09/19/18 at 21:00; Status Cancel Dicyclomine HCl (Bentyl) 10 mg TID PO Last administered on 09/21/18at 08:22; Start 09/19/18 at 21:00 Ondansetron HCl (Zofran Odt) 4 mg PRN Q8HRS PRN PO NAUSEA/VOMITING, 1ST CHOICE ; Start 09/19/18 at 16:15 Tramadol HCl (Ultram) 50 mg DAILY PRN PO PAIN; Start 09/19/18 at 16:15 Zolpidem Tartrate (Ambien) 5 mg QHS PO Last administered on 09/20/18at 21:41; Start 09/19/18 at 21:00 Insulin Human Lispro (HumaLOG) 60 units TIDWMEALS SQ ; Start 09/19/18 at 17:00; Stop 09/19/18 at 17:00; Status DC Insulin Glargine (Lantus) 100 units QHS SQ ; Start 09/19/18 at 21:00; Stop 09/19 at 21:00; Status DC Pantoprazole Sodium (Protonix) 40 mg DAILYAC PO Last administered on 09/21/18 08:23; Start 09/20/18 at 07:30 Sucralfate (Carafate) 1 gm TID@1000,1400,2200 PO Last administered on at 10:00; Start 09/19/18 at 22:00 Amylase/Lipase/ Protease (Zenpep 10,000) 2 cap TIDWMEALS PO Last administered on 09/21/18 08:22; Start 09/19/18 at 17:00 Insulin Human Lispro (HumaLOG) 0-7 UNITS TIDWMEALS SQ Last administered on 09/21at 08:28; Start 09/19/18 at 17:00 Dextrose (Dextrose 50%-Water Syringe) 12.5 gm PRN Q15MIN PRN IV SEE COMMENTS; Start 09/19/18 at 16:15 Insulin Glargine (Lantus) 60 units QHS SQ Last administered on 09/19/18at 21:00 ; Start 09/19/18 at 21:00 Insulin Human Lispro (HumaLOG) 10 units TIDWMEALS SQ ; Start 09/19/18 at 17:00 Prochlorperazine Maleate (Compazine) 10 mg Q6HRS PO ; Start 09/19/18 at 18:00; Stop 09/19/18 at 18:00; Status DC Albuterol Sulfate (Ventolin Neb Soln) 2.5 mg RTQID NEB Last administered on at 16:33; Start 09/19/18 at 20:00; Stop 09/20/18 at 16:55; Status DC Amlodipine Besylate (Norvasc) 5 mg DAILY PO Last administered on 09/21/18at 08: 24; Start 09/20/18 at 09:00 Fluoxetine HCl (PROzac) 20 mg DAILY PO Last administered on 2/25/19at 08:23; Start 09/20/18 at 09:00 Prochlorperazine Maleate (Compazine) 10 mg PRN Q6HRS PRN PO Nausea, 2ND CHOICE ; Start 09/19/18 at 18:00 Prochlorperazine Edisylate (Compazine) 10 mg PRN Q6HRS PRN IV NAUSEA/VOMITING Last administered on 09/20/18at 21:42; Start 09/20/18 at 09:00 Hydralazine HCl (Apresoline Inj) 10 mg PRN Q6HRS PRN IVP ELEVATED BP, SEE COMMENTS Last administered on 09/21/18at 03:30; Start 09/20/18 at 09:00 Albuterol Sulfate (Ventolin Neb Soln) 2.5 mg RTBID NEB ; Start 09/20/18 at 20:00 Morphine Sulfate (Morphine Sulfate) 4 mg PRN Q2HR PRN IV PAIN Last administered on 09/21/18at 08:22; Start 09/20/18 at 22:00 Ondansetron HCl (Zofran) 4 mg PRN Q6HRS PRN IV NAUSEA/VOMITING; Start 09/20/18 at 21:45 Oxycodone/ Acetaminophen (Percocet 5/325) 1 tab PRN Q4HRS PRN PO MODERATE PAIN Last administered on 09/21/18at 10:02; Start 09/21/18 at 08:45 Oxycodone/ Acetaminophen (Percocet 10/325) 1 tab PRN Q4HRS PRN PO SEVERE PAIN; Start 09/21/18 at 08:45 Active Scripts Active Percocet 5-325 Mg Tablet (Oxycodone/Acetaminophen) 1 Each Tablet 1 Tab PO PRN Q4HRS PRN MDD 1 Tramadol Hcl 50 Mg Tablet 50 Mg PO DAILY PRN Coreg (Carvedilol) 12.5 Mg Tablet 1 Tab PO BID Sucralfate 1 Gm Tablet 1 Tab PO TID Do not take within 2 hours of taking furosemide. Bentyl (Dicyclomine Hcl) 10 Mg Capsule 1 Cap PO TID Reported Prochlorperazine Maleate 10 Mg Tablet 1 Tab PO Q6HRS Ondansetron Odt (Ondansetron) 4 Mg Tab.rapdis 1 Tab PO PRN Q8HRS PRN Tresiba Flextouch U-100 (Insulin Degludec) 100 Unit/1 Ml Insuln.pen 60 Unit SQ HS Ambien (Zolpidem Tartrate) 5 Mg Tablet 1 Tab PO QHS Novolog (Insulin Aspart) 100 Unit/1 Ml Cartridge 10 Unit SQ TIDWMEALS Proair Hfa Inhaler (Albuterol Sulfate) 8.5 Gm Hfa.aer.ad 2 Puff IH PRN Q4-6HRS Omeprazole 40 Mg Capsule.dr 40 Mg PO DAILY [pancrease mt16] Tab PO QIDACHS Vitals/I & O Vital Sign - Last 24 Hours 09/20/18 09/20/18 09/20/18 09/20/18 11:00 12:11 13:03 13:05 Temp 97.3 97.3 Pulse 56 56 Resp 18 B/P (MAP) 155/91 (112) 155/91 Pulse Ox 97 97 97 O2 Delivery Room Air Room Air Room Air 09/20/18 09/20/18 09/20/18 09/20/18 14:00 15:00 16:33 17:43 Temp 97.4 97.4 Pulse 56 56 Resp 18 B/P (MAP) 153/94 (113) 153/94 Pulse Ox 97 98 O2 Delivery Room Air Room Air Room Air 09/20/18 09/20/18 09/20/18 09/20/18 19:00 19:50 22:13 23:00 Temp 97.7 98.1 97.7 98.1 Pulse 76 90 Resp 18 20 18 B/P (MAP) 143/81 (101) 127/72 (90) Pulse Ox 100 100 O2 Delivery Room Air Room Air Room Air Room Air 09/21/18 09/21/18 09/21/18 09/21/18 03:00 03:30 03:31 04:01 Temp 97.9 97.9 Pulse 77 84 Resp 18 20 20 B/P (MAP) 183/99 (127) 183/99 Pulse Ox 100 O2 Delivery Room Air Room Air 09/21/18 09/21/18 09/21/18 09/21/18 07:00 07:25 08:22 08:23 Temp 98.0 98.0 Pulse 79 79 Resp 18 B/P (MAP) 182/91 (121) 182/91 Pulse Ox 96 O2 Delivery Room Air Room Air Room Air 09/21/18 09/21/18 09/21/18 08:24 10:00 10:02 Pulse 79 B/P (MAP) 182/91 O2 Delivery Room Air Room Air Intake and Output 09/20/18 09/20/18 09/21/18 14:59 22:59 06:59 Intake Total 1440 ml Balance 1440 ml MARSHA KENNY MD Sep 21, 2018 10:21
--- NOTE | 2018-09-21 12:47 | PDOC ---
Subjective: Subjective: Still has pain but better. No n/v. Passing gas. Going to try mechanical soft diet for lunch. Awaiting call back from GI @ [facility] to schedule an appointment. Objective: Objective: Reviewed w/ RN - discharged considered when tolerating PO. Vital Signs: Vital Signs Date Time Temp Pulse Resp B/P (MAP) Pulse Ox O2 Delivery O2 Flow Rate FiO2 09/21/18 11:31 Room Air 09/21/18 11:00 97.5 63 18 131/101 (111) 99 97.5 Labs: Laboratory Tests Test 09/20/18 16:21 09/20/18 21:21 09/21/18 05:00 09/21/18 07:49 Glucose (Fingerstick) 106 mg/dL 102 mg/dL 151 mg/dL White Blood Count 5.9 x10^3/uL Red Blood Count 4.88 x10^6/uL Hemoglobin 12.0 g/dL Hematocrit 37.5 % Mean Corpuscular Volume 77 fL Mean Corpuscular Hemoglobin 25 pg Mean Corpuscular Hemoglobin Concent 32 g/dL Red Cell Distribution Width 14.4 % Platelet Count 169 x10^3/uL Neutrophils (%) (Auto) 54 % Lymphocytes (%) (Auto) 36 % Monocytes (%) (Auto) 6 % Eosinophils (%) (Auto) 3 % Basophils (%) (Auto) 1 % Neutrophils # (Auto) 3.2 x10^3uL Lymphocytes # (Auto) 2.1 x10^3/uL Monocytes # (Auto) 0.3 x10^3/uL Eosinophils # (Auto) 0.2 x10^3/uL Basophils # (Auto) 0.0 x10^3/uL Sodium Level 142 mmol/L Potassium Level 3.2 mmol/L Chloride Level 105 mmol/L Carbon Dioxide Level 27 mmol/L Anion Gap 10 Blood Urea Nitrogen 6 mg/dL Creatinine 0.7 mg/dL Estimated GFR (Cockcroft-Gault) 112.1 BUN/Creatinine Ratio 9 Glucose Level 165 mg/dL Calcium Level 8.3 mg/dL Total Bilirubin 0.6 mg/dL Aspartate Amino Transf (AST/SGOT) 47 U/L Alanine Aminotransferase (ALT/SGPT) 44 U/L Alkaline Phosphatase 229 U/L Total Protein 6.9 g/dL Albumin 2.8 g/dL Albumin/Globulin Ratio 0.7 Test 09/21/18 11:46 Glucose (Fingerstick) 189 mg/dL PE: GEN: NAD LUNGS: CTAB HEART: RRR ABD: soft, perhaps mildly tender NEURO/PSYCH: A & O 3 A/P: Chronic pancreatic pain H/o complicated biliary pancreatitis, s/p distal pancreatectomy with pancreaticojejunostomy Elevated Alk Phos - chronic -- Pain has improved. Plans to try diet and look to DC - okay per GI. Follow-up w/ [facility] as planned. CLIFFORD MORRISON Sep 21, 2018 12:47 SAWYER BRASHER MD Sep 21, 2018 13:04
[2018-09-21] MEDS: oxyCODONE/APAP 10/325 1 TAB TABLET PO PRN ×2 (14:16→20:34)
--- NOTE | 2018-09-21 14:31 | NUR ---
Pt. states she is not feeling well enough to go home after eating. She states nausea is better but she is still very painful.
--- NOTE | 2018-09-21 20:30 | NUR ---
Patient called to nursing station to advise that 'the room is spinning' and would also like pain medication. RN entered room with HS medications and pain medication. Patient stated that the room was still spinning, blood sugar checked at this time and was 217. Blood pressure was elevated at shift change, this RN rechecked and it was 202/112 HR 70. This RN administered pain medication and PRN Hydralizine. Will recheck blood pressure. RN advised for patient to call when getting d/t dizziness.
[2018-09-21] MEDS: INSULIN GLARGINE 300 UNITS/3 ML INSULN.PEN. SQ SCH (20:38)
[2018-09-21] MEDS: ZOLPIDEM 5 MG TABLET. PO SCH (22:01)
[2018-09-21 23:13] LABS: HEMOGLOBIN A1C 10.5 % (4.8-5.6)
[2018-09-22] MEDS: SUCRALFATE 1 GM TABLET. PO SCH ×3 (00:05→13:18)
[2018-09-22] MEDS: oxyCODONE/APAP 10/325 1 TAB TABLET PO PRN ×2 (01:16→05:53)
[2018-09-22 03:00] VITALS: BP 141/94
[2018-09-22] MEDS: PANTOPRAZOLE 40 MG TABLET.DR. PO SCH (05:53)
[2018-09-22 07:00] VITALS: BP 134/82
[2018-09-22] MEDS: ALBUTEROL SULFATE 2.5 MG/3 ML NEBU. NEB SCH (07:46)
[2018-09-22] MEDS: INSULIN LISPRO 300 UNITS/3 ML INSULN.PEN. SQ SCH ×4 (08:00→12:00)
[2018-09-22] MEDS: CARVEDILOL 12.5 MG TABLET. PO SCH (08:53)
[2018-09-22] MEDS: DICYCLOMINE HCL 10 MG CAPSULE PO SCH ×2 (08:53→13:15)
[2018-09-22] MEDS: LIPASE/PROTEAS/AMYLAS 10/32/42 CAPSULE.DR. PO SCH ×2 (08:53→12:18)
[2018-09-22] MEDS: FLUoxetine HCL 20 MG CAPSULE PO SCH (08:53)
[2018-09-22] MEDS: amLODIPine BESYLATE 5 MG TABLET PO SCH (08:54)
[2018-09-22] MEDS ORDERED: MECLIZINE HCL 12.5 MG TABLET. PO PRN (09:00)
--- NOTE | 2018-09-22 10:45 | PDOC3 ---
Discharge Summary Visit Information Date of Admission: Sep 19, 2018 Date of Discharge: Sep 22, 2018 Admitting Diagnosis Comment: Acute on Chronic pancreatitis - s/p cholecystectomy, partial pancreatectomy, EUS , and previous J-tube placement DM2 - poor control at baseline dCHF - not exacerbated currently, will monitor HTN - cont meds HLD - stating Asthma - nebs GERD - PPI + carafate (carafate may be inactivating her pancreatic enzyme, will d/w GI) Anxiety - monitor Low back pain - complicates her pain management Allergic rhinitis - treat Anemia - likely of chronic disease. monitor Recent bariatric surgery [facility]-1 year ago-lost 100 plus pounds Final Diagnosis Problems Medical Problems: (1) Abdominal pain, acute, left upper quadrant Status: Acute Brief Hospital Course Allergies Allergies Coded Allergies Type Severity Reaction Last Updated Verified shellfish derived Allergy Severe anaphylaxis 09/17/14 Yes Iodine and Iodide Containing Produc Allergy Intermediate hives, itching, fevers, anaphylaxis 09/17/14 Yes Penicillins Allergy Intermediate itching, vomiting, fevers 09/17/14 Yes iodine Allergy Intermediate 03/11/16 Yes meperidine Adverse Reaction Intermediate fevers, vomiting 02/15/15 Yes Vital Signs Vital Signs Date Time Temp Pulse Resp B/P (MAP) Pulse Ox O2 Delivery O2 Flow Rate FiO2 09/22/18 08:54 72 134/82 09/22/18 07:30 Room Air 09/22/18 07:00 97.8 18 94 97.8 Lab Results Laboratory Tests Test 09/20/18 11:29 09/20/18 16:21 09/20/18 21:21 09/21/18 05:00 Glucose (Fingerstick) 125 mg/dL (70-99) 106 mg/dL (70-99) 102 mg/dL (70-99) White Blood Count 5.9 x10^3/uL (4.0-11.0) Red Blood Count 4.88 x10^6/uL (3.50-5.40) Hemoglobin 12.0 g/dL (12.0-15.5) Hematocrit 37.5 % (36.0-47.0) Mean Corpuscular Volume 77 fL (79-100) Mean Corpuscular Hemoglobin 25 pg (25-35) Mean Corpuscular Hemoglobin Concent 32 g/dL (31-37) Red Cell Distribution Width 14.4 % (11.5-14.5) Platelet Count 169 x10^3/uL (140-400) Neutrophils (%) (Auto) 54 % (31-73) Lymphocytes (%) (Auto) 36 % (24-48) Monocytes (%) (Auto) 6 % (0-9) Eosinophils (%) (Auto) 3 % (0-3) Basophils (%) (Auto) 1 % (0-3) Neutrophils # (Auto) 3.2 x10^3uL (1.8-7.7) Lymphocytes # (Auto) 2.1 x10^3/uL (1.0-4.8) Monocytes # (Auto) 0.3 x10^3/uL (0.0-1.1) Eosinophils # (Auto) 0.2 x10^3/uL (0.0-0.7) Basophils # (Auto) 0.0 x10^3/uL (0.0-0.2) Sodium Level 142 mmol/L (136-145) Potassium Level 3.2 mmol/L (3.5-5.1) Chloride Level 105 mmol/L (98-107) Carbon Dioxide Level 27 mmol/L (21-32) Anion Gap 10 (6-14) Blood Urea Nitrogen 6 mg/dL (7-20) Creatinine 0.7 mg/dL (0.6-1.0) Estimated GFR (Cockcroft-Gault) 112.1 BUN/Creatinine Ratio 9 (6-20) Glucose Level 165 mg/dL (70-99) Hemoglobin A1c 10.5 % (4.8-5.6) Calcium Level 8.3 mg/dL (8.5-10.1) Total Bilirubin 0.6 mg/dL (0.2-1.0) Aspartate Amino Transf (AST/SGOT) 47 U/L (15-37) Alanine Aminotransferase (ALT/SGPT) 44 U/L (14-59) Alkaline Phosphatase 229 U/L (46-116) Total Protein 6.9 g/dL (6.4-8.2) Albumin 2.8 g/dL (3.4-5.0) Albumin/Globulin Ratio 0.7 (1.0-1.7) Test 09/21/18 07:49 09/21/18 11:46 09/21/18 16:26 09/21/18 20:32 Glucose (Fingerstick) 151 mg/dL (70-99) 189 mg/dL (70-99) 101 mg/dL (70-99) 217 mg/dL (70-99) Test 09/22/18 07:46 Glucose (Fingerstick) 69 mg/dL (70-99) Laboratory Tests Test 09/21/18 11:46 09/21/18 16:26 09/21/18 20:32 09/22/18 07:46 Glucose (Fingerstick) 189 mg/dL (70-99) 101 mg/dL (70-99) 217 mg/dL (70-99) 69 mg/dL (70-99) Brief Hospital Course Ms. Celeste is a 38 old obese -[place] female who had bariatric surgery [facility] 1 year ago and loss 100 something pounds, comes in because of pancreatitis with a normal lipase. She had a history of partial pancreatectomy along with her bariatric surgery hence she would always have a normal lipase despite abdominal pain and pancreatitis on imaging # In any case better with conservative treatment. GI consulted, CPM. No new home meds except for pain medicine Discharge disposition to home Discharge is follow-up with her bariatric surgeons SOme vertigo, that resolved, did not wsh for meclizine to home Discharge Information Condition at Discharge: Improved, Stable Follow Up: Weeks ( bariatric sx) Disposition/Orders: D/C to Home Scheduled Albuterol Sulfate (Proair Hfa Inhaler) 8.5 Gm Hfa.aer.ad, 2 PUFF IH PRN Q4-6HRS , #1 (Reported) Entered as Reported by: Adele Willett on 02/16/15 0334 Carvedilol (Coreg ) 12.5 Mg Tablet, 1 TAB PO BID, #180 Ref 1 Prescribed by: MARSHA KENNY on 08/27/17 0843 Last Action: Continued on 09/19/181615 by ANTOLIN NINO MD Dicyclomine Hcl (Bentyl) 10 Mg Capsule, 1 CAP PO TID, #12 Ref 1 Prescribed by: CHONG GANNON MD on 12/03/16 1456 Last Action: Continued on 09/19/181615 by ANTOLIN NINO MD Insulin Aspart (Novolog) 100 Unit/1 Ml Cartridge, 10 UNIT SQ TIDWMEALS for DM I, (Reported) Entered as Reported by: NERISSA MADYSON on 12/10/15 0615 Last Action: Reviewed on 09/19/181622 by SRIDEVI TEMPLETON Insulin Degludec (Tresiba Flextouch U-100) 100 Unit/1 Ml Insuln.pen, 60 UNIT SQ HS for DM I, (Reported) Entered as Reported by: SERA FONSECA on 09/26/162121 Last Action: Reviewed on 09/19/181622 by SRIDEVI TEMPLETON Omeprazole (Omeprazole) 40 Mg Capsule.dr, 40 MG PO DAILY, (Reported) Entered as Reported by: Adele Willett on 02/16/15 0333 Last Action: Converted on 09/19/181615 by ANTOLIN NINO MD Prochlorperazine Maleate (Prochlorperazine Maleate) 10 Mg Tablet, 1 TAB PO Q6HRS for Nausea/Vomiting, #30 Ref 3 (Reported) Entered as Reported by: SRIDEVI TEMPLETON on 09/19/181622 Last Action: Continued on 09/19/181626 by SRIDEVI TEMPLETON Sucralfate (Sucralfate) 1 Gm Tablet, 1 TAB PO TID, #45 Ref 0 Do not take within 2 hours of taking furosemide. Prescribed by: TIFFANIE FISCHER MD on 01/01/17 0855 Last Action: Converted on 09/19/181615 by ANTOLIN NINO MD Zolpidem Tartrate (Ambien) 5 Mg Tablet, 1 TAB PO QHS, #30 Ref 2 (Reported) Entered as Reported by: ANSLEY COFFEY on 02/19/16 1637 Last Action: Continued on 09/19/181615 by ANTOLIN NINO MD [pancrease mt16] , TAB PO QIDACHS, #6 (Reported) Entered as Reported by: ERNESTINE CANCINO on 09/17/14 1733 Last Action: Converted on 09/19/181615 by ANTOLIN NINO MD Scheduled PRN Ondansetron (Ondansetron Odt) 4 Mg Tab.rapdis, 1 TAB PO PRN Q8HRS PRN for NAUSEA /VOMITING, #16 (Reported) Entered as Reported by: TAMMY NGO on 12/17/16 0018 Last Action: Continued on 09/19/181615 by ANTOLIN NINO MD Oxycodone/Apap 5-325 (Percocet 5-325 Mg Tablet ) 1 Each Tablet, 1 TAB PO PRN Q4HRS PRN for MODERATE PAIN MDD 1, #20 Prescribed by: MARSHA KENNY on 09/21/18 1019 Tramadol Hcl (Tramadol Hcl) 50 Mg Tablet, 50 MG PO DAILY PRN for PAIN, #6 Ref 0 Prescribed by: TARA SIMMONS MD on 10/28/17 0333 Last Action: Continued on 09/19/181615 by MD ZOYA MIRANDA CHERRIE Y MD Sep 22, 2018 10:45
[2018-09-22 11:00] VITALS: BP 153/91
--- NOTE | 2018-09-22 14:45 | PDOC ---
Subjective: Subjective: Improved, going home today. Objective: Vital Signs: Vital Signs Date Time Temp Pulse Resp B/P (MAP) Pulse Ox O2 Delivery O2 Flow Rate FiO2 09/22/18 11:00 97.6 72 18 153/91 (111) 98 Room Air 97.6 Labs: Laboratory Tests Test 09/21/18 16:26 09/21/18 20:32 09/22/18 07:46 09/22/18 11:21 Glucose (Fingerstick) 101 mg/dL 217 mg/dL 69 mg/dL 133 mg/dL PE: GEN: NAD, dressed to leave LUNGS: CTAB HEART: RRR ABD: S/ND/NT NEURO/PSYCH: A & O 3 A/P: Chronic pancreatic pain - improved -- DC per primary. Follow-up w/ [facility] as planned. CLIFFORD MORRISON Sep 22, 2018 14:45
--- NOTE | 2018-09-22 15:30 | NUR ---
Pt discharged to home with Rx, verbalized understanding of discharge instructions.
== END 2018-09-22 15:20 | disposition home or self-care (01) | DRG 439 ==
LOC: ER 11:22 → 4 NORTH 15:05
PROVIDERS: ADMIT Internal Medicine; ATTEND Internal Medicine
DX: K85.90 Acute pancreatitis without necrosis or infection, unspecified (principal); E44.0 Moderate protein-calorie malnutrition; E11.65 Type 2 diabetes mellitus with hyperglycemia; D63.8 Anemia in other chronic diseases classified elsewhere; E78.00 Pure hypercholesterolemia, unspecified; E78.5 Hyperlipidemia, unspecified; F41.9 Anxiety disorder, unspecified; G89.29 Other chronic pain; I11.0 Hypertensive heart disease with heart failure; E66.01 Morbid (severe) obesity due to excess calories; I50.9 Heart failure, unspecified; J45.909 Unspecified asthma, uncomplicated; K21.9 Gastro-esophageal reflux disease without esophagitis; K86.1 Other chronic pancreatitis; D64.9 Anemia, unspecified; M19.90 Unspecified osteoarthritis, unspecified site; M54.5 Low back pain; Z82.3 Family history of stroke; Z79.4 Long term (current) use of insulin; Z90.49 Acquired absence of other specified parts of digestive tract; Z98.84 Bariatric surgery status; Z88.8 Allergy status to other drugs, medicaments and biological substances; Z91.041 Radiographic dye allergy status; Z88.0 Allergy status to penicillin; Z91.013 Allergy to seafood; Z82.49 Family history of ischemic heart disease and other diseases of the circulatory system; Z90.411 Acquired partial absence of pancreas
CPT/HCPCS: 36415; 80053; 80061; 81001; 81025; 82962; 83036; 83690; 85025; 94640; 94760; 96361; 96374; 96375; 96376; J0360; J0780; J1815; J2270; J2405; J7030; J7613; 99285-25

== ENCOUNTER 2018-10-30 01:09 | Emergency (ER) | payer MEDICARE, OTHER ==
[~2018-10-30] VITALS: Ht 172.7 cm; Wt 116.1 kg
[~2018-10-30 01:09] MED LIST changes: +OXYC1TAB15 PO; +PROC5TAB14 PO
[2018-10-30 01:23] VITALS: BP 160/89
[2018-10-30] MEDS ORDERED: IPRATRPIUM/ALBUTEROL 0.5/2.5MG 3 ML NEBU. NEB ONE (01:30)
[2018-10-30] MEDS ORDERED: DEXAMETHASONE 4 MG TABLET PO ONE (01:30)
[2018-10-30] MEDS ORDERED: ALBU2.5V8 INH (02:23)
--- NOTE | 2018-10-30 02:23 | PHYS DOC ---
Past Medical History Past Medical History: Asthma, Diabetes-Type I, High Cholesterol, Hypertension, Pancreatitis, Other Additional Past Medical Histor: GASTROPORESIS, chronic pain, NEUROPATHY Past Surgical History: Cholecystectomy, Gastric Bypass, Other Additional Past Surgical Histo: Eye surgery, pancreatic shunts; partial pancreatectomy Smoking: Quit Greater Than 1 Year Alcohol Use: None Drug Use: Marijuana Adult General Chief Complaint Chief Complaint: SHORTNESS OF BREATH HPI HPI 38 y/o female presents with 1 week history of progressive shortness of breath. Reports history of asthma. Reports has been having nonproductive cough and increased wheezing. Patient reports use of MDI with improvement of symptoms but reports increased use. Denies fever/chills. Denies trauma. Denies leg swelling or calf tenderness. Denies known sick contacts. Review of Systems Review of Systems Constitutional: Denies fever or chills [] Eyes: Denies change in visual acuity, redness, or eye pain [] HENT: Reports nasal congestion; denies sore throat [] Respiratory: Reports nonproductive cough and shortness of breath [] Cardiovascular: Denies chest pain or palpitation GI: Denies abdominal pain, nausea, vomiting, bloody stools or diarrhea [] : Denies dysuria or hematuria [] Musculoskeletal: Denies back pain or joint pain [] Integument: Denies rash or skin lesions [] Neurologic: Denies headache, focal weakness or sensory changes [] Complete systems were reviewed and found to be within normal limits, except as documented in this note. Current Medications Current Medications Current Medications Medications (Trade) Dose Ordered Sig/Naveen Start Time Stop Time Status Last Admin Dose Admin Albuterol/ Ipratropium (Duoneb) 3 ml 1X ONCE 10/30/18 01:30 10/30/18 01:31 DC 10/30/18 02:23 3 ML Dexamethasone (Decadron) 10 mg 1X ONCE 10/30/18 01:30 10/30/18 01:31 DC 10/30/18 02:23 10 MG Allergies Allergies Allergies Coded Allergies Type Severity Reaction Last Updated Verified shellfish derived Allergy Severe anaphylaxis 09/17/14 Yes Iodine and Iodide Containing Produc Allergy Intermediate hives, itching, fevers, anaphylaxis 09/17/14 Yes Penicillins Allergy Intermediate itching, vomiting, fevers 09/17/14 Yes iodine Allergy Intermediate 03/11/16 Yes meperidine Adverse Reaction Intermediate fevers, vomiting 02/15/15 Yes Physical Exam Physical Exam Constitutional: Well developed, well nourished, no acute distress, non-toxic appearance. [] HENT: Normocephalic, atraumatic, oropharynx moist, nasal congestion noted Eyes: Conjunctiva normal, no discharge. [] Neck: Normal range of motion, no tenderness, supple Cardiovascular: Heart rate regular rhythm, no murmur [] Lungs & Thorax: Bilateral breath sounds noted, scattered wheezing noted Abdomen: Soft, no tenderness Skin: Warm, dry, no erythema, no rash. [] Back: No tenderness, no CVA tenderness. [] Extremities: No tenderness, ROM intact, no edema. [] Neurologic: Alert and oriented X 3, no focal deficits noted. [] Psychologic: Affect normal, judgement normal, mood normal. [] Current Patient Data Vital Signs Vital Signs Date Time Temp Pulse Resp B/P (MAP) Pulse Ox O2 Delivery O2 Flow Rate FiO2 10/30/18 02:22 96 Room Air 10/30/18 01:23 96.7 106 24 160/89 (112) 96.7 Lab Values Laboratory Tests Test 10/30/18 01:48 POC Urine HCG, Qualitative Hcg negative (Negative) EKG EKG [] Radiology/Procedures Radiology/Procedures PROCEDURE: CHEST PA & LATERAL CHEST PA LATERAL Technique: PA and lateral views of the chest were obtained. Clinical History: COUGH;SOA Comparison: None. Findings: The heart and pulmonary vasculature appear within normal limits. The lungs are clear. The pleural margins are clear. Impression: No acute chest process is seen. Electronically signed by: Geovany Conroy III, MD (10/30/2018 2:37 AM) [facility] Course & Med Decision Making Course & Med Decision Making Pertinent imaging studies reviewed. (See chart for details) Patient with pmh of asthma presents with HPI and physical exam consistent for asthma exacerbation. VS stable. O2 sats stable on RA. Symptomatic treatment provided including PO steroid and respiratory neb. CXR without acute process. Patient stable for discharge home with outpatient follow-up with PCP. Discussed findings and plan with patient, who acknowledges understanding and agreement. Dragon Disclaimer Dragon Disclaimer This electronic medical record was generated, in whole or in part, using a voice recognition dictation system. Departure Departure Impression: Primary Impression: Asthma exacerbation Disposition: HOME, SELF-CARE Condition: STABLE Referrals: VALERIA HAMPTON MD (PCP) Patient Instructions: Asthma, Adult, [id number] Scripts Albuterol Sulfate (Proair Hfa) 8.5 Gm Hfa.aer.ad 1 PUFF INH PRN Q6HRS PRN for SHORTNESS OF BREATH, #1 INHALER Prov: DENNIS STAPLES DO 10/30/18 Problem Qualifiers Primary Impression: Asthma exacerbation Asthma severity: mild Asthma persistence: intermittent Qualified Codes: J45.21 - Mild intermittent asthma with (acute) exacerbation DENNIS STAPLES DO Oct 30, 2018 02:23
--- NOTE | 2018-10-30 02:40 | RAD ---
CHEST PA LATERAL Technique: PA and lateral views of the chest were obtained. Clinical History: COUGH;SOA Comparison: None. Findings: The heart and pulmonary vasculature appear within normal limits. The lungs are clear. The pleural margins are clear. Impression: No acute chest process is seen. Electronically signed by: Geovany Conroy III, MD (10/30/2018 2:37 AM) [facility]
== END 2018-10-30 02:47 | disposition home or self-care (01) ==
LOC: ER 01:09
DX: I10 Essential (primary) hypertension (principal); J45.21 Mild intermittent asthma with (acute) exacerbation; E78.00 Pure hypercholesterolemia, unspecified; E10.40 Type 1 diabetes mellitus with diabetic neuropathy, unspecified; Z91.041 Radiographic dye allergy status; G89.29 Other chronic pain; Z88.0 Allergy status to penicillin; Z88.1 Allergy status to other antibiotic agents; Z88.8 Allergy status to other drugs, medicaments and biological substances; Z91.013 Allergy to seafood
CPT/HCPCS: 71046; 81025; 94640; 99283; J7620; J8540

== ENCOUNTER 2018-11-30 23:38 | Emergency (ER) | payer MEDICARE, OTHER ==
[~2018-11-30] VITALS: Ht 170.2 cm; Wt 110.7 kg
[~2018-11-30 23:38] MED LIST changes: +ALBU2.5V8 INH
--- NOTE | 2018-11-30 23:57 | PHYS DOC ---
Past Medical History Past Medical History: Diabetes-Type I, High Cholesterol, Hypertension, Pancreatitis, Other Additional Past Medical Histor: GASTROPORESIS, chronic pain, NEUROPATHY Past Surgical History: Cholecystectomy, Gastric Bypass, Other Additional Past Surgical Histo: Eye surgery, pancreatic shunts; partial pancreatectomy Alcohol Use: None Drug Use: Marijuana Adult General Chief Complaint Chief Complaint: ABDOMINAL PAIN [facility] HPI Patient is a 38-year-old female who presents with complaint of upper abdominal pain that radiates into her back. Patient states that pain has been present for the last few days and states that she took her last Percocet. Patient indicates that she has chronic pancreatitis but was initially due to gallstones. She states that she takes Percocet for the chronic pain but indicates that she had been using a little bit more than prescribed because of her level of pain. She admits to nausea but is had no vomiting. She also denies any diarrhea. She rates her pain to be an 8 out of 10 and states the pain is worsened with eating and drinking. She states that nothing is improving her pain with the exception of the Percocet. Review of Systems Review of Systems Constitutional: Denies fever or chills [] Respiratory: Denies cough or shortness of breath [] Cardiovascular: No additional information not addressed in HPI [] GI: Complains of abdominal pain with nausea. Denies vomiting or diarrhea [] : Denies dysuria or hematuria [] Musculoskeletal: Complains of mid back pain [] All other systems were reviewed and found to be within normal limits, except as documented in this note. Current Medications Current Medications Current Medications Medications (Trade) Dose Ordered Sig/Naveen Start Time Stop Time Status Last Admin Dose Admin Fentanyl Citrate (Fentanyl 2ml Vial) 100 mcg STK-MED ONCE 12/01/18 00:45 12/01/18 00:46 DC Morphine Sulfate (Morphine Sulfate) 8 mg 1X ONCE 12/01/18 00:45 12/01/18 00:46 DC Ondansetron HCl (Zofran Odt) 4 mg 1X ONCE 12/01/18 00:45 12/01/18 00:46 DC Ondansetron HCl (Zofran) 4 mg STK-MED ONCE 12/01/18 00:45 12/01/18 00:46 DC Sodium Chloride 1,000 ml @ 1,000 mls/hr Q1H 12/01/18 00:00 12/01/18 00:39 DC Allergies Allergies Allergies Coded Allergies Type Severity Reaction Last Updated Verified shellfish derived Allergy Severe anaphylaxis 09/17/14 Yes Iodine and Iodide Containing Produc Allergy Intermediate hives, itching, fevers, anaphylaxis 09/17/14 Yes Penicillins Allergy Intermediate itching, vomiting, fevers 09/17/14 Yes iodine Allergy Intermediate 03/11/16 Yes meperidine Adverse Reaction Intermediate fevers, vomiting 02/15/15 Yes Physical Exam Physical Exam Constitutional: Well developed, well nourished, no acute distress, non-toxic appearance. [] HENT: Normocephalic, atraumatic, bilateral external ears normal, oropharynx moist, no oral exudates, nose normal. [] Eyes: PERRLA, EOMI, conjunctiva normal, no discharge. [] Neck: Normal range of motion, no tenderness, supple, no stridor. [] Cardiovascular:Heart rate regular rhythm, no murmur [] Lungs & Thorax: Bilateral breath sounds clear to auscultation [] Abdomen: Bowel sounds normal, soft with moderate reported left upper quadrant and epigastric tenderness. [] Skin: Warm, dry, no erythema, no rash. [] Extremities: No tenderness, no cyanosis, no clubbing, ROM intact. [] Neurologic: Alert and oriented X 3, no focal deficits noted. [] Current Patient Data Lab Values Laboratory Tests Test 11/30/18 23:50 12/01/18 00:06 12/01/18 00:36 Urine Collection Type Unknown Urine Color Yellow Urine Clarity Clear Urine pH 6.0 Urine Specific [place] 1.020 Urine Protein 30 mg/dL (NEG-TRACE) Urine Glucose (UA) 250 mg/dL (NEG) Urine Ketones (Stick) Negative mg/dL (NEG) Urine Blood Negative (NEG) Urine Nitrite Negative (NEG) Urine Bilirubin Negative (NEG) Urine Urobilinogen Dipstick 1.0 mg/dL (0.2 mg/dL) Urine Leukocyte Esterase Negative (NEG) Urine RBC 0 /HPF (0-2) Urine WBC Occ /HPF (0-4) Urine Squamous Epithelial Cells Mod /LPF Urine Bacteria Few /HPF (0-FEW) Urine Mucus Mod /LPF POC Urine HCG, Qualitative Hcg negative (Negative) White Blood Count 9.1 x10^3/uL (4.0-11.0) Red Blood Count 4.79 x10^6/uL (3.50-5.40) Hemoglobin 11.6 g/dL (12.0-15.5) L Hematocrit 36.4 % (36.0-47.0) Mean Corpuscular Volume 76 fL (79-100) L Mean Corpuscular Hemoglobin 24 pg (25-35) L Mean Corpuscular Hemoglobin Concent 32 g/dL (31-37) Red Cell Distribution Width 14.9 % (11.5-14.5) H Platelet Count 203 x10^3/uL (140-400) Neutrophils (%) (Auto) 53 % (31-73) Lymphocytes (%) (Auto) 38 % (24-48) Monocytes (%) (Auto) 6 % (0-9) Eosinophils (%) (Auto) 2 % (0-3) Basophils (%) (Auto) 0 % (0-3) Neutrophils # (Auto) 4.9 x10^3uL (1.8-7.7) Lymphocytes # (Auto) 3.5 x10^3/uL (1.0-4.8) Monocytes # (Auto) 0.5 x10^3/uL (0.0-1.1) Eosinophils # (Auto) 0.2 x10^3/uL (0.0-0.7) Basophils # (Auto) 0.0 x10^3/uL (0.0-0.2) Sodium Level 138 mmol/L (136-145) Potassium Level 3.2 mmol/L (3.5-5.1) L Chloride Level 102 mmol/L (98-107) Carbon Dioxide Level 28 mmol/L (21-32) Anion Gap 8 (6-14) Blood Urea Nitrogen 9 mg/dL (7-20) Creatinine 1.0 mg/dL (0.6-1.0) Estimated GFR (Cockcroft-Gault) 74.3 BUN/Creatinine Ratio 9 (6-20) Glucose Level 236 mg/dL (70-99) H Calcium Level 8.7 mg/dL (8.5-10.1) Total Bilirubin 0.3 mg/dL (0.2-1.0) Aspartate Amino Transferase (AST) 12 U/L (15-37) L Alanine Aminotransferase (ALT) 15 U/L (14-59) Alkaline Phosphatase 178 U/L (46-116) H Total Protein 7.1 g/dL (6.4-8.2) Albumin 3.2 g/dL (3.4-5.0) L Albumin/Globulin Ratio 0.8 (1.0-1.7) L Lipase 95 U/L (73-393) Laboratory Tests 12/01/18 00:36 Laboratory Tests 12/01/18 00:36 EKG EKG [] Radiology/Procedures Radiology/Procedures [] Course & Med Decision Making Course & Med Decision Making Pertinent Labs and Imaging studies reviewed. (See chart for details) [] Dragon Disclaimer Dragon Disclaimer This electronic medical record was generated, in whole or in part, using a voice recognition dictation system. Departure Departure Impression: Primary Impression: Chronic abdominal pain Disposition: 01 HOME, SELF-CARE Condition: STABLE Referrals: VALERIA HAMPTON MD (PCP) Patient Instructions: Abdominal Pain Scripts Oxycodone/Apap 5-325 (PERCOCET 5-325 MG TABLET ) 1 Each Tablet 1 TAB PO Q6HRS PRN for PAIN, #6 TAB pain Prov: MARCO ANTONIO MATA Jr. DO 12/01/18 MARCO ANTONIO MATA Jr. DO November 30, 2018 23:57
[2018-12-01] MEDS ORDERED: fentaNYL PF VIAL 100 MCG/2 ML VIAL IV PRN
[2018-12-01] MEDS ORDERED: IV NORMAL SALINE 1000ML BAG 1,000 ML IV SCH
[2018-12-01 00:16] LABS: BILIRUBIN,URINE NEGATIVE (NEG); CLARITY,URINE CLEAR; COLOR,URINE YELLOW; NITRITE,URINE NEGATIVE (NEG); PROTEIN,URINE 30 mg/dL (NEG-TRACE)
[2018-12-01 00:19] LABS: BACTERIA,URINE FEW /HPF (0-FEW); RBC,URINE 0 /HPF (0-2); WBC,URINE OCC /HPF (0-4)
[2018-12-01 00:20] LABS: SQUAMOUS EPITHELIAL CELL,UR MOD /LPF
[2018-12-01] MEDS ORDERED: MORPHINE SULFATE 4 MG/ML VIAL. IM ONE (00:45)
[2018-12-01] MEDS ORDERED: ONDANSETRON PF 4 MG/2 ML VIAL. ONE (00:45)
[2018-12-01] MEDS ORDERED: fentaNYL PF VIAL 100 MCG/2 ML VIAL ONE (00:45)
[2018-12-01] MEDS ORDERED: MORPHINE SULFATE 10 MG/ML VIAL. IM ONE (00:45)
[2018-12-01] MEDS ORDERED: ONDANSETRON ODT 4 MG TAB.RAPDIS. PO ONE (00:45)
[2018-12-01 00:48] LABS: BASO % 0 % (0-3); EOS # 0.2 x10^3/uL (0.0-0.7); EOS % 2 % (0-3); HEMATOCRIT 36.4 % (36.0-47.0); HEMOGLOBIN 11.6 g/dL (12.0-15.5); LYMPH # 3.5 x10^3/uL (1.0-4.8); LYMPH % 38 % (24-48); MEAN CORPUSCULAR HEMOGLOBIN 24 pg (25-35); MEAN CORPUSCULAR HGB CONC 32 g/dL (31-37); MEAN CORPUSCULAR VOLUME 76 fL (79-100); MONO # 0.5 x10^3/uL (0.0-1.1); MONO % 6 % (0-9); NEUT # 4.9 x10^3uL (1.8-7.7); NEUT % 53 % (31-73); PLATELET COUNT 203 x10^3/uL (140-400); RED BLOOD COUNT 4.79 x10^6/uL (3.50-5.40); RED CELL DISTRIBUTION WIDTH 14.9 % (11.5-14.5); WHITE BLOOD COUNT 9.1 x10^3/uL (4.0-11.0)
[2018-12-01 00:53] LABS: CALCIUM 8.7 mg/dL (8.5-10.1); GFR 74.3; POTASSIUM 3.2 mmol/L (3.5-5.1)
[2018-12-01 01:00] LABS: ALBUMIN 3.2 g/dL (3.4-5.0); ALBUMIN/GLOBULIN RATIO 0.8 (1.0-1.7); TOTAL BILIRUBIN 0.3 mg/dL (0.2-1.0); TOTAL PROTEIN 7.1 g/dL (6.4-8.2)
[2018-12-01] MEDS ORDERED: OXYC1TAB15 PO (01:04)
[2018-12-01] MEDS ORDERED: fentaNYL PF VIAL 100 MCG/2 ML VIAL IV ONE (01:15)
[2018-12-01] MEDS ORDERED: IV NORMAL SALINE 1000ML BAG 1,000 ML IV ONE (01:15)
[2018-12-01] MEDS ORDERED: ONDANSETRON PF 4 MG/2 ML VIAL. IV ONE ×2 (01:15)
[2018-12-01 01:30] VITALS: BP 168/94
== END 2018-12-01 01:35 | disposition home or self-care (01) ==
LOC: ER 23:38
DX: G89.29 Other chronic pain (principal); R10.12 Left upper quadrant pain; R10.13 Epigastric pain; E10.40 Type 1 diabetes mellitus with diabetic neuropathy, unspecified; E78.00 Pure hypercholesterolemia, unspecified; E10.43 Type 1 diabetes mellitus with diabetic autonomic (poly)neuropathy; Z98.84 Bariatric surgery status; K31.84 Gastroparesis; Z90.49 Acquired absence of other specified parts of digestive tract; Z88.0 Allergy status to penicillin; Z88.1 Allergy status to other antibiotic agents; Z91.013 Allergy to seafood; Z91.041 Radiographic dye allergy status; Z88.8 Allergy status to other drugs, medicaments and biological substances
CPT/HCPCS: 36415; 80053; 81001; 81025; 83690; 85025; 96374; 96375; 99284; J2405; J3010; J7030

== ENCOUNTER 2021-05-05 11:49 | Observation (INO) | payer MEDICARE, OTHER ==
[~2021-05-05] VITALS: Ht 175.3 cm; Wt 126.1 kg
[~2021-05-05 11:49] MED LIST changes: +ACET500T68 PO; +AMLO-186 PO; +CEPH-264 PO; +CLIN-94 PO; -CLIN300C8 PO; +INSU100V31 SQ; -LINE600T PO; +LINE600T12 PO; +LIPA1CAP31 PO; +LISI10TA16 PO; +METR500T PO; -OMEP40CA5 PO; +OMEP40CA7 PO; +SPIR25TA PO
[2021-05-05] MEDS ORDERED: MORPHINE SULFATE 4 MG/ML INJ. IVP ONE (12:15)
[2021-05-05] MEDS ORDERED: ONDANSETRON PF 4 MG/2 ML VIAL. IVP ONE (12:15)
[2021-05-05] MEDS ORDERED: DOXYCYCLINE HYCLATE 100 MG TABLET PO ONE (12:30)
--- NOTE | 2021-05-05 12:30 | PHYS DOC ---
Past Medical History Past Medical History: CHF, Diabetes-Type I, GERD, High Cholesterol, Hyper tension, Pancreatitis, Other Additional Past Medical Histor: GASTROPORESIS, chronic pain, NEUROPATHY Past Surgical History: Appendectomy, Cholecystectomy, Gastric Bypass, Other Additional Past Surgical Histo: Eye surgery, pancreatic shunts; partial pancreatectomy Smoking Status: Never Smoker Alcohol Use: None Drug Use: Marijuana General Adult EDM: Chief Complaint: ABDOMINAL PAIN HPI: HPI: Patient is a 41 year old female with history of chronic pancreatitis, gastroparesis, Abigail-en-Y gastric bypass who presents with upper abdominal pain and swelling in her lower extremities. States upper abdominal pain has been worse for 3-4 days. Is epigastric and radiates to her back. Is consistent with her previous episodes of pancreatitis. She had a partial pancreatectomy due to her chronic pancreatitis, and states since then flares have not always correlated with the lipase elevation. Denies any fever/chills. Does have nausea and some vomiting, that is not changed significantly from her baseline. Has been taking 10 mg percocet every 12 hours which has not been able to manage her pain. She also complains of several days of increasing bilateral lower extremity swelling. In the past couple of days her right lower extremity has become red and more painful, and has become more swollen than her left. This area of i ncreased swelling is localized to the dorsum of the right foot. Review of Systems: Review of Systems: Constitutional: Denies fever or chills. [] Eyes: Denies change in visual acuity. [] HENT: Denies nasal congestion or sore throat. [] Respiratory: Denies cough or shortness of breath. [] Cardiovascular: Denies chest pain [] GI: Reports abdominal pain, nausea, vomiting. Denies bloody stools or diarrhea. [] : Denies dysuria, urgency, frequency. Denies vaginal discharge or bleeding.. [] Musculoskeletal: Reports back pain emanates from her epigastrium. Integument: Reports redness and swelling in her right foot. Reports bilateral lower extremity edema. Neurologic: Denies headache, focal weakness or sensory changes. [] Endocrine: Denies polyuria or polydipsia. [] Lymphatic: Denies swollen glands. [] Psychiatric: Denies depression or anxiety. [] Heart Score: C/O Chest Pain: No Risk Factors: Risk Factors: DM, Current or recent (<one month) smoker, HTN, HLP, family history of CAD, obesity. Risk Scores: Score 0 - 3: 2.5% MACE over next 6 weeks - Discharge Home Score 4 - 6: 20.3% MACE over next 6 weeks - Admit for Clinical Observation Score 7 - 10: 72.7% MACE over next 6 weeks - Early Invasive Strategies Current Medications: Current Medications Medications (Trade) Dose Ordered Sig/Naveen Start Time Stop Time Status Last Admin Dose Admin Morphine Sulfate (Morphine Sulfate) 4 mg 1X ONCE 05/05/21 12:15 05/05/21 12:18 DC Ondansetron HCl (Zofran) 4 mg 1X ONCE 05/05/21 12:15 05/05/21 12:18 DC Allergies: Allergies: Allergies Coded Allergies Type Severity Reaction Last Updated Verified shellfish derived Allergy Severe anaphylaxis 09/17/14 Yes Iodine and Iodide Containing Produc Allergy Intermediate hives, itching, 07/16/19 Yes Penicillins Allergy Intermediate itching, vomiting, fevers 09/17/14 Yes iodine Allergy Intermediate 03/11/16 Yes meperidine Adverse Reaction Intermediate fevers, vomiting 02/15/15 Yes Physical Exam: PE: Constitutional: Well developed, well nourished, no acute distress, non-toxic appearance. [] HENT: Normocephalic, atraumatic, bilateral external ears normal, oropharynx moist, no oral exudates, nose normal. [] Eyes: PERRLA, EOMI, conjunctiva normal, no discharge. [] Neck: Normal range of motion, no tenderness, supple, no stridor. [] Cardiovascular:Heart rate regular rhythm, no murmur [] Lungs & Thorax: Bilateral breath sounds clear to auscultation [] Abdomen: Obese abdomen. Soft. Nondistended. Significant epigastric tenderness to palpation. Still patient states this is a similar amount of tenderness to her usual chronic pancreatitis flares. Skin: Warm, dry, no erythema, no rash. [] Back: No tenderness, no CVA tenderness. [] Extremities: No tenderness, no cyanosis, no clubbing, ROM intact, no edema. [] Neurologic: Alert and oriented X 3, normal motor function, normal sensory function, no focal deficits noted. [] Psychologic: Affect normal, judgement normal, mood normal. [] Current Patient Data: Vital Signs: Vital Signs Date Time Temp Pulse Resp B/P (MAP) Pulse Ox O2 Delivery O2 Flow Rate FiO2 05/05/21 12:01 98.4 82 16 167/105 (125) 98 Room Air 98.4 EKG: EKG: [] Radiology/Procedures: Radiology/Procedures: [] Course & Med Decision Making: Course & Med Decision Making Pertinent Labs and Imaging studies reviewed. (See chart for details) Patient a 41-year-old female with history of chronic pancreatitis, gastroparesis, Abigail-en-Y gastric bypass who presents with epigastric pain radiating to her back similar to previous spells of chronic pancreatitis. Afebrile, vital signs stable. Overall well-appearing. She also complains of bilateral lower extremity edema, with advancing redness just in the right foot. Exam shows bilateral edema as well, with a focal c ellulitis on the right foot. We will treat with doxycycline for the cellulitis. Regarding abdominal pain this does seem most consistent with chronic pancreatitis, will check CMP, lipase, CBC, UA. We will treat with morphine and IV Zofran. We will defer imaging at this time. [id number] Labs with only mild anemia. No acute abnormalities on CMP. Lipase not elevated. Patient continues to have pain despite IV morphine. Will dose with IV Dilaudid at this time. Discussed pain control for likely chronic pancreatitis with the patient, she does not feel that she would be able to handle this at home. No large WBC count, abdominal exam remains largely reassuring. We will continue to defer abdominal imaging at this time. I will discuss admission with hospitalist for acute exacerbation of chronic pancreatitis. [id number] Vickey Disclaimer: Vickey Disclaimer: This electronic medical record was generated, in whole or in part, using a voice recognition dictation system. Departure Departure Impression: Primary Impression: Chronic pancreatitis Additional Impressions: Cellulitis of right foot Epigastric abdominal pain Disposition: ADMITTED INPATIENT Admitting Physician: KIMBERLEE Matias) Condition: STABLE Referrals: VALERIA HAMPTON MD (PCP) SAIDA ACEVEDO MD May 05, 2021 12:30
[2021-05-05 13:03] LABS: BASO # 0.1 x10^3/uL (0.0-0.2); BASO % 1 % (0-3); EOS # 0.2 x10^3/uL (0.0-0.7); EOS % 3 % (0-3); HEMATOCRIT 35.5 % (36.0-47.0); HEMOGLOBIN 11.4 g/dL (12.0-15.5); LYMPH # 2.6 x10^3/uL (1.0-4.8); LYMPH % 34 % (24-48); MEAN CORPUSCULAR HEMOGLOBIN 25 pg (25-35); MEAN CORPUSCULAR HGB CONC 32 g/dL (31-37); MEAN CORPUSCULAR VOLUME 77 fL (79-100); MONO # 0.3 x10^3/uL (0.0-1.1); MONO % 4 % (0-9); NEUT # 4.5 x10^3/uL (1.8-7.7); NEUT % 58 % (31-73); PLATELET COUNT 201 x10^3/uL (140-400); RED BLOOD COUNT 4.62 x10^6/uL (3.50-5.40); RED CELL DISTRIBUTION WIDTH 15.3 % (11.5-14.5); WHITE BLOOD COUNT 7.7 x10^3/uL (4.0-11.0)
[2021-05-05 13:09] LABS: U PREG PATIENT NEGATIVE (NEG)
[2021-05-05 13:15] LABS: BILIRUBIN,URINE NEGATIVE (NEG); CLARITY,URINE CLEAR; COLOR,URINE YELLOW; NITRITE,URINE NEGATIVE (NEG); PH,URINE 5.5 (<5.0-8.0); PROTEIN,URINE NEGATIVE (NEG-TRACE)
[2021-05-05 13:18] LABS: CALCIUM 8.2 mg/dL (8.5-10.1); GFR 73.2; POTASSIUM 3.9 mmol/L (3.5-5.1)
[2021-05-05 13:19] LABS: BACTERIA,URINE FEW /HPF (0-FEW); RBC,URINE 0 /HPF (0-2)
[2021-05-05 13:24] LABS: ALBUMIN 3.2 g/dL (3.4-5.0); ALBUMIN/GLOBULIN RATIO 0.7 (1.0-1.7); TOTAL BILIRUBIN 0.3 mg/dL (0.2-1.0); TOTAL PROTEIN 7.5 g/dL (6.4-8.2)
[2021-05-05] MEDS ORDERED: IV NORMAL SALINE 1000ML BAG 1,000 ML IV SCH (14:15)
[2021-05-05] MEDS ORDERED: HYDROmorphone 2 MG/ML VIAL IVP ONE (14:15)
--- NOTE | 2021-05-05 15:10 | PDOC1 ---
History and Physical Date of Service: DOS: DATE: 05/05/21 TIME: 15:05 Chief Complaint: Chief Complain: Abdominal pain History of Present Illness: HPI: History obtained from discussion with the ED physician and chart review: 41-year-old female with past medical history of of pseudocyst x2, chronic pancreatitis, gastroparesis, Abigail-en-Y gastric bypass comes in with plaints of left foot pain and cellulitis. She also has left lower extremity edema. She also endorses associated nausea vomiting and abdominal pain. This worsened the last 3 to 4 days. Pain about a week ago. She does have some onychomycosis on her toenails that she had made a appointment with podiatry for May. There are no alleviating or exacerbating factors she has tried taking Percocet which did not control her pain. Patient denies any trauma or falls to her foot. Denies fevers, chest pain, dysuria, hematuria, dizziness or diarrhea. Past Medical/Surgical History: PMH/PSH: Past Medical History: CHF, Diabetes-Type I, GERD, High Cholesterol, Hypertension, Pancreatitis, GASTROPORESIS, chronic pain, NEUROPATHY Past Surgical History: Appendectomy, Cholecystectomy, Gastric Bypass, Eye surgery, resection of the pancreatic head for pseudocyst. A cyst gastrostomy for her second pseudocyst at the tail of the pancreas Allergies: Allergies: Coded Allergies: shellfish derived (Verified Allergy, Severe, anaphylaxis, 09/17/14) Iodine and Iodide Containing Produc (Verified Allergy, Intermediate, hives, itching,, 07/16/19) pt. ok with pre-medicated Penicillins (Verified Allergy, Intermediate, itching, vomiting, fevers, 09/17/14) iodine (Verified Allergy, Intermediate, 03/11/16) meperidine (Verified Adverse Reaction, Intermediate, fevers, vomiting, 02/15/15) Family History: Family History: Reviewed with no relevant findings Social History: Social History: Smoking Status: Never Smoker Alcohol Use: None Drug Use: Marijuana Current Medications: Current Medications Current Medications Morphine Sulfate (Morphine Sulfate) 4 mg 1X ONCE IVP Last administered on 05/05/21at 13:51; Start 05/05/21 at 12:15; Stop 05/05/21 at 12:18; Status DC Ondansetron HCl (Zofran) 4 mg 1X ONCE IVP Last administered on 05/05/21at 13:47; Start 05/05/21 at 12:15; Stop 05/05/21 at 12:18; Status DC Doxycycline Hyclate (Vibra-Tab) 100 mg 1X ONCE PO Last administered on 05/05/21at 13:47; Start 05/05/21 at 12:30; Stop 05/05/21 at 12:31; Status DC Hydromorphone HCl (Dilaudid) 1 mg 1X ONCE IVP ; Start 05/05/21 at 14:15; Stop 05/05/21 at 14:16; Status DC Sodium Chloride 1,000 ml @ 100 mls/hr Q10H IV ; Start 05/05/21 at 14:15; Stop 05/06/21 at 14:14 Active Scripts Active Acetaminophen 500 Mg Tablet 500 Mg PO PRN Q6HRS PRN 30 Days Amlodipine Besylate 5 Mg Tablet 5 Mg PO DAILY 30 Days Aldactone (Spironolactone) 25 Mg Tablet 25 Mg PO DAILY Lisinopril 10 Mg Tablet 10 Mg PO BID Proair Hfa (Albuterol Sulfate) 8.5 Gm Hfa.aer.ad 1 Puff INH PRN Q6HRS PRN Reported Novolog (Insulin Aspart) 100 Unit/1 Ml Vial Unknown Dose SQ TIDWMEALS Prochlorperazine Maleate 10 Mg Tablet 1 Tab PO Q6HRS Tresiba Flextouch U-100 (Insulin Degludec) 100 Unit/1 Ml Insuln.pen 20 Unit SQ HS Omeprazole 40 Mg Capsule.dr 40 Mg PO DAILY [pancrease mt16] Tab PO QIDACHS ROS: Review of Systems Review of System REVIEW OF SYSTEMS: GENERAL: Denies weakness SKIN: No bruising, hair changes or rashes. EYES: No blurred, double or loss of vision. NOSE AND THROAT: No history of nosebleeds, hoarseness or sore throat. HEART: No history of palpitations, chest pain or shortness of breath on exertion. LUNGS: Denies cough, hemoptysis, wheezing or shortness of breath. GASTROINTESTINAL: Abdominal pain GENITOURINARY: No history of frequency, urgency, hesitancy or nocturia. NEUROLOGIC: Denies history of numbness, tingling, or tremor. PSYCHIATRIC: No history of panic, anxiety or depression. ENDOCRINE: No history of heat or cold intolerance, polyuria or polydipsia. EXTREMITIES: Denies joint pain, pain on walking or stiffness. Physical Exam: Vital Signs: Vital Signs Date Time Temp Pulse Resp B/P (MAP) Pulse Ox O2 Delivery O2 Flow Rate FiO2 05/05/21 13:51 16 99 05/05/21 12:01 98.4 82 167/105 (125) Room Air 98.4 Physcial Exam: General: Well developed, well nourished, no acute distress, well appearing HEENT: Pupils equally round and reactive to light, EOMI, no discharge, normal conjunctiva Neck: Supple, no nuchal rigidity, no JVD, trachea midline, no tenderness Cardiac: RRR, no murmurs, no gallops, no rubs Chest/Lungs: CTAB, no wheeze, no rhonchi, no crackles Abdomen: soft, obese, non-distended, no guarding, no peritoneal signs, epigastric tenderness upon palpation Back: No tenderness Extremities: Bilateral lower extremity edema with right foot redness and tender to palpation concerning for cellulitis Neuro: Alert and oriented x 4, no focal deficits, normal speech Labs: Labs: Laboratory Tests Test 05/05/21 12:37 05/05/21 12:55 Urine Collection Type Unknown Urine Color Yellow Urine Clarity Clear Urine pH 5.5 (<5.0-8.0) Urine Specific Dexter 1.025 (1.000-1.030) Urine Protein Negative mg/dL (NEG-TRACE) Urine Glucose (UA) Negative mg/dL (NEG) Urine Ketones (Stick) Negative mg/dL (NEG) Urine Blood Negative (NEG) Urine Nitrite Negative (NEG) Urine Bilirubin Negative (NEG) Urine Urobilinogen Dipstick 1.0 mg/dL (0.2 mg/dL) Urine Leukocyte Esterase Negative (NEG) Urine RBC 0 /HPF (0-2) Urine WBC 1-4 /HPF (0-4) Urine Squamous Epithelial Cells Mod /LPF Urine Bacteria Few /HPF (0-FEW) Urine Mucus Marked /LPF Urine Test Negative (NEG) White Blood Count 7.7 x10^3/uL (4.0-11.0) Red Blood Count 4.62 x10^6/uL (3.50-5.40) Hemoglobin 11.4 g/dL (12.0-15.5) Hematocrit 35.5 % (36.0-47.0) Mean Corpuscular Volume 77 fL (79-100) Mean Corpuscular Hemoglobin 25 pg (25-35) Mean Corpuscular Hemoglobin Concent 32 g/dL (31-37) Red Cell Distribution Width 15.3 % (11.5-14.5) Platelet Count 201 x10^3/uL (140-400) Neutrophils (%) (Auto) 58 % (31-73) Lymphocytes (%) (Auto) 34 % (24-48) Monocytes (%) (Auto) 4 % (0-9) Eosinophils (%) (Auto) 3 % (0-3) Basophils (%) (Auto) 1 % (0-3) Neutrophils # (Auto) 4.5 x10^3/uL (1.8-7.7) Lymphocytes # (Auto) 2.6 x10^3/uL (1.0-4.8) Monocytes # (Auto) 0.3 x10^3/uL (0.0-1.1) Eosinophils # (Auto) 0.2 x10^3/uL (0.0-0.7) Basophils # (Auto) 0.1 x10^3/uL (0.0-0.2) Sodium Level 138 mmol/L (136-145) Potassium Level 3.9 mmol/L (3.5-5.1) Chloride Level 105 mmol/L (98-107) Carbon Dioxide Level 25 mmol/L (21-32) Anion Gap 8 (6-14) Blood Urea Nitrogen 17 mg/dL (7-20) Creatinine 1.0 mg/dL (0.6-1.0) Estimated GFR (Cockcroft-Gault) 73.2 BUN/Creatinine Ratio 17 (6-20) Glucose Level 217 mg/dL (70-99) Calcium Level 8.2 mg/dL (8.5-10.1) Total Bilirubin 0.3 mg/dL (0.2-1.0) Aspartate Amino Transf (AST/SGOT) 18 U/L (15-37) Alanine Aminotransferase (ALT/SGPT) 26 U/L (14-59) Alkaline Phosphatase 218 U/L (46-116) Total Protein 7.5 g/dL (6.4-8.2) Albumin 3.2 g/dL (3.4-5.0) Albumin/Globulin Ratio 0.7 (1.0-1.7) Lipase 59 U/L (73-393) Laboratory Tests Test 05/05/21 12:37 05/05/21 12:55 Urine Collection Type Unknown Urine Color Yellow Urine Clarity Clear Urine pH 5.5 (<5.0-8.0) Urine Specific Dexter 1.025 (1.000-1.030) Urine Protein Negative mg/dL (NEG-TRACE) Urine Glucose (UA) Negative mg/dL (NEG) Urine Ketones (Stick) Negative mg/dL (NEG) Urine Blood Negative (NEG) Urine Nitrite Negative (NEG) Urine Bilirubin Negative (NEG) Urine Urobilinogen Dipstick 1.0 mg/dL (0.2 mg/dL) Urine Leukocyte Esterase Negative (NEG) Urine RBC 0 /HPF (0-2) Urine WBC 1-4 /HPF (0-4) Urine Squamous Epithelial Cells Mod /LPF Urine Bacteria Few /HPF (0-FEW) Urine Mucus Marked /LPF Urine Test Negative (NEG) White Blood Count 7.7 x10^3/uL (4.0-11.0) Red Blood Count 4.62 x10^6/uL (3.50-5.40) Hemoglobin 11.4 g/dL (12.0-15.5) Hematocrit 35.5 % (36.0-47.0) Mean Corpuscular Volume 77 fL (79-100) Mean Corpuscular Hemoglobin 25 pg (25-35) Mean Corpuscular Hemoglobin Concent 32 g/dL (31-37) Red Cell Distribution Width 15.3 % (11.5-14.5) Platelet Count 201 x10^3/uL (140-400) Neutrophils (%) (Auto) 58 % (31-73) Lymphocytes (%) (Auto) 34 % (24-48) Monocytes (%) (Auto) 4 % (0-9) Eosinophils (%) (Auto) 3 % (0-3) Basophils (%) (Auto) 1 % (0-3) Neutrophils # (Auto) 4.5 x10^3/uL (1.8-7.7) Lymphocytes # (Auto) 2.6 x10^3/uL (1.0-4.8) Monocytes # (Auto) 0.3 x10^3/uL (0.0-1.1) Eosinophils # (Auto) 0.2 x10^3/uL (0.0-0.7) Basophils # (Auto) 0.1 x10^3/uL (0.0-0.2) Sodium Level 138 mmol/L (136-145) Potassium Level 3.9 mmol/L (3.5-5.1) Chloride Level 105 mmol/L (98-107) Carbon Dioxide Level 25 mmol/L (21-32) Anion Gap 8 (6-14) Blood Urea Nitrogen 17 mg/dL (7-20) Creatinine 1.0 mg/dL (0.6-1.0) Estimated GFR (Cockcroft-Gault) 73.2 BUN/Creatinine Ratio 17 (6-20) Glucose Level 217 mg/dL (70-99) Calcium Level 8.2 mg/dL (8.5-10.1) Total Bilirubin 0.3 mg/dL (0.2-1.0) Aspartate Amino Transf (AST/SGOT) 18 U/L (15-37) Alanine Aminotransferase (ALT/SGPT) 26 U/L (14-59) Alkaline Phosphatase 218 U/L (46-116) Total Protein 7.5 g/dL (6.4-8.2) Albumin 3.2 g/dL (3.4-5.0) Albumin/Globulin Ratio 0.7 (1.0-1.7) Lipase 59 U/L (73-393) Images: Images CT abdomen pelvis obtained from October 2020 shows sequela of Abigail-en-Y gastric bypass and ventral midline diastases and a small left paramidline fat-containing supraumbilical hernia. Assessment/Plan Assessment/Plan Acute abdominal pain, possible acute on chronic pancreatitis Right foot cellulitis Hyperglycemia Microcytic anemia, likely due to RUBIN Moderate protein malnutrition History of diabetes mellitus type 1 History of pancreatitis History of GERD History of dyslipidemia Obesity class I Chronic pain History of gastric bypass Admit to hospitalist service for further management IV n.p.o. pain control GI consult Continue empiric IV antibiotics Pending blood cultures Lovenox for DVT prophylaxis Protonix GI prophylaxis ADA diet CODE STATUS full Discussed with RN and SW Disposition inpatient management as above DPOA: Undesignated Justifications for Admission Other Justification SUSAN DIAZ MD May 05, 2021 15:10
[2021-05-05] MEDS ORDERED: LORazepam 0.5 MG TABLET PO PRN (15:15)
[2021-05-05] MEDS ORDERED: ZOLPIDEM 5 MG TABLET. PO PRN (15:15)
[2021-05-05] MEDS: IV NORMAL SALINE 1000ML BAG 1,000 ML IV SCH (15:15)
[2021-05-05] MEDS ORDERED: ACETAMINOPHEN 325 MG TABLET. PO PRN (15:15)
[2021-05-05] MEDS ORDERED: DOCUSATE SODIUM 100 MG CAPSULE. PO PRN (15:15)
[2021-05-05] MEDS ORDERED: SENNOSIDES 8.6 MG TABLET PO PRN (15:15)
[2021-05-05] MEDS ORDERED: DEXTROSE 50% 25 GM / 50ML DISP.SYRIN. IV PRN (15:15)
[2021-05-05] MEDS ORDERED: MORPHINE SULFATE 2 MG/ML INJ. IVP PRN (15:15)
[2021-05-05] MEDS ORDERED: ONDANSETRON PF 4 MG/2 ML VIAL. IVP PRN (15:15)
[2021-05-05] MEDS ORDERED: PROCHLORPERAZINE 10 MG/2 ML VIAL. IV PRN (15:15)
[2021-05-05 16:00] VITALS: BP 202/38
[2021-05-05] MEDS ORDERED: VANCOMYCIN 2 GM in IV NORMAL SALINE 500ML BAG 500 ML IV ONE (16:00)
[2021-05-05] MEDS: VANCOMYCIN PER PHARMACY MC PRN (16:16)
--- NOTE | 2021-05-05 16:26 | NUR ---
Pharmacy Vancomycin Dosing Note S:Consulted to monitor and dose vancomycin started 05/05/21. O:MAGNUS HERBERT is a 41 year old F with Cellulitis Height: 5 feet, 9 inches Weight: 110.0 kg [place] Body Weight: 66.20 Adjusted Body Weight: 83.72 Dosing Weight: Actual LABS: Last BUN: 17 Last Creatinine: 1 Creatinine Clearance: 96 mL/min Last WBC: 7.7 Last Procalcitonin: Tmax (past 24 hours): 98.4 Microbiology: - Vancomycin Dosing: Loading Dose: 2000 mg x1 Dosing Weight: Actual Target Trough: 10-20 A: Based on: weight and renal function P: 1. Begin Vancomycin 1500 mg IV q12h 2. Follow up Trough level on 05/07/21 at 0530 3. Pharmacy will continue to monitor, follow and adjust therapy as needed. Minnie Gaspar [facility], 05/05/21 [id number]
[2021-05-05] MEDS: MORPHINE SULFATE 2 MG/ML INJ. IV PRN ×2 (16:43→23:21)
[2021-05-05] MEDS: ENOXAPARIN 40 MG/0.4 ML SYRINGE. SQ SCH (16:43)
[2021-05-05] MEDS: INSULIN LISPRO 300 UNITS/3 ML VIAL. SQ SCH (18:09)
[2021-05-05 19:00] VITALS: BP 144/89
[2021-05-05] MEDS: INSULIN GLARGINE SYRINGE. SQ SCH ×2 (21:00→21:05)
[2021-05-05] MEDS: LISINOPRIL 10 MG TABLET PO SCH (21:06)
[2021-05-05 23:00] VITALS: BP 169/98
[2021-05-06] MEDS: IV NORMAL SALINE 1000ML BAG 1,000 ML IV SCH ×2 (01:15→11:15)
[2021-05-06] MEDS: HYDROcodone/APAP 5/325MG 1 TAB TABLET PO PRN (02:17)
[2021-05-06 02:54] VITALS: BP 170/88
[2021-05-06 05:13] LABS: BASO % 1 % (0-3); EOS # 0.3 x10^3/uL (0.0-0.7); EOS % 4 % (0-3); HEMATOCRIT 37.6 % (36.0-47.0); HEMOGLOBIN 11.6 g/dL (12.0-15.5); LYMPH # 2.9 x10^3/uL (1.0-4.8); LYMPH % 38 % (24-48); MEAN CORPUSCULAR HEMOGLOBIN 25 pg (25-35); MEAN CORPUSCULAR HGB CONC 31 g/dL (31-37); MEAN CORPUSCULAR VOLUME 80 fL (79-100); MONO # 0.4 x10^3/uL (0.0-1.1); MONO % 6 % (0-9); NEUT # 4.1 x10^3/uL (1.8-7.7); NEUT % 53 % (31-73); PLATELET COUNT 178 x10^3/uL (140-400); RED BLOOD COUNT 4.69 x10^6/uL (3.50-5.40); RED CELL DISTRIBUTION WIDTH 15.6 % (11.5-14.5); WHITE BLOOD COUNT 7.8 x10^3/uL (4.0-11.0)
[2021-05-06 05:54] LABS: CALCIUM 8.4 mg/dL (8.5-10.1); CREATININE 0.9 mg/dL (0.6-1.0); GFR 82.7; MAGNESIUM 1.9 mg/dL (1.8-2.4); PHOSPHORUS 2.9 mg/dL (2.6-4.7)
[2021-05-06] MEDS: VANCOMYCIN 1.5 GM in IV NORMAL SALINE 500ML BAG 500 ML IV SCH ×2 (06:00→16:56)
[2021-05-06 07:00] VITALS: BP 141/86
[2021-05-06] MEDS: INSULIN LISPRO 300 UNITS/3 ML VIAL. SQ SCH ×3 (08:00→17:00)
[2021-05-06] MEDS: PANTOPRAZOLE 40 MG TABLET.DR. PO SCH (09:04)
[2021-05-06] MEDS: SPIRONOLACTONE 25 MG TABLET PO SCH (09:04)
[2021-05-06] MEDS: LISINOPRIL 10 MG TABLET PO SCH ×2 (09:05→20:37)
[2021-05-06] MEDS: VANCOMYCIN PER PHARMACY MC PRN (09:12)
--- NOTE | 2021-05-06 10:56 | PDOC ---
[employer] PROGRESS NOTE Date of Service DOS: DATE: 05/06/21 TIME: 10:53 Chief Complaint Chief Complaint Right foot cellulitis Acute abdominal pain due to chronic pancreatitisimproved Hyperglycemia Microcytic anemia, likely due to RUBIN Onychomycosis Moderate protein malnutrition History of diabetes mellitus type 1 History of pancreatitis History of GERD History of dyslipidemia Obesity class I Chronic pain History of gastric bypass Admit to hospitalist service for further management IV n.p.o. pain control GI consult Continue empiric IV antibiotics Pending blood cultures Lovenox for DVT prophylaxis Protonix GI prophylaxis ADA diet CODE STATUS full Discussed with RN and SW Disposition inpatient management as above DPOA: Undesignated History of Present Illness History of Present Illness 41-year-old female with past medical history of of pseudocyst x2, chronic pancreatitis, gastroparesis, Abigail-en-Y gastric bypass comes in with plaints of left foot pain and cellulitis. She also has left lower extremity edema. She also endorses associated nausea vomiting and abdominal pain. This worsened the last 3 to 4 days. Pain about a week ago. She does have some onychomycosis on her toenails that she had made a appointment with podiatry for May. There are no alleviating or exacerbating factors she has tried taking Percocet which did not control her pain. Patient denies any trauma or falls to her foot. De nies fevers, chest pain, dysuria, hematuria, dizziness or diarrhea. 05/06/2021 No acute events overnight. Patient seen and examined bedside. Pain is controlled. Improvement in left foot pain and redness. Blood cultures pending. Patient's chart, labs, images were reviewed and discussed with RN Vitals/I&O Vitals/I&O: Vital Signs Date Time Temp Pulse Resp B/P (MAP) Pulse Ox O2 Delivery O2 Flow Rate FiO2 05/06/21 09:05 64 141/86 05/06/21 08:00 Room Air 05/06/21 07:00 98.0 18 95 98.0 I & O 05/05/21 05/05/21 05/06/21 15:00 23:00 07:00 Intake Total 600 ml Balance 600 ml Physical Exam General: Alert, Oriented X3 Heart: Regular rate Lungs: Clear, Other Abdomen: Normal bowel sounds Extremities: No clubbing, Other (Bilateral lower extremity edema with right foot redness and tender to palpation) Labs Labs: Laboratory Tests Test 05/05/21 12:37 05/05/21 12:55 05/05/21 16:36 05/05/21 20:43 Urine Collection Type Unknown Urine Color Yellow Urine Clarity Clear Urine pH 5.5 (<5.0-8.0) Urine Specific Alpha 1.025 (1.000-1.030) Urine Protein Negative mg/dL (NEG-TRACE) Urine Glucose (UA) Negative mg/dL (NEG) Urine Ketones (Stick) Negative mg/dL (NEG) Urine Blood Negative (NEG) Urine Nitrite Negative (NEG) Urine Bilirubin Negative (NEG) Urine Urobilinogen Dipstick 1.0 mg/dL (0.2 mg/dL) Urine Leukocyte Esterase Negative (NEG) Urine RBC 0 /HPF (0-2) Urine WBC 1-4 /HPF (0-4) Urine Squamous Epithelial Cells Mod /LPF Urine Bacteria Few /HPF (0-FEW) Urine Mucus Marked /LPF Urine Test Negative (NEG) White Blood Count 7.7 x10^3/uL (4.0-11.0) Red Blood Count 4.62 x10^6/uL (3.50-5.40) Hemoglobin 11.4 g/dL (12.0-15.5) Hematocrit 35.5 % (36.0-47.0) Mean Corpuscular Volume 77 fL (79-100) Mean Corpuscular Hemoglobin 25 pg (25-35) Mean Corpuscular Hemoglobin Concent 32 g/dL (31-37) Red Cell Distribution Width 15.3 % (11.5-14.5) Platelet Count 201 x10^3/uL (140-400) Neutrophils (%) (Auto) 58 % (31-73) Lymphocytes (%) (Auto) 34 % (24-48) Monocytes (%) (Auto) 4 % (0-9) Eosinophils (%) (Auto) 3 % (0-3) Basophils (%) (Auto) 1 % (0-3) Neutrophils # (Auto) 4.5 x10^3/uL (1.8-7.7) Lymphocytes # (Auto) 2.6 x10^3/uL (1.0-4.8) Monocytes # (Auto) 0.3 x10^3/uL (0.0-1.1) Eosinophils # (Auto) 0.2 x10^3/uL (0.0-0.7) Basophils # (Auto) 0.1 x10^3/uL (0.0-0.2) Sodium Level 138 mmol/L (136-145) Potassium Level 3.9 mmol/L (3.5-5.1) Chloride Level 105 mmol/L (98-107) Carbon Dioxide Level 25 mmol/L (21-32) Anion Gap 8 (6-14) Blood Urea Nitrogen 17 mg/dL (7-20) Creatinine 1.0 mg/dL (0.6-1.0) Estimated GFR (Cockcroft-Gault) 73.2 BUN/Creatinine Ratio 17 (6-20) Glucose Level 217 mg/dL (70-99) Calcium Level 8.2 mg/dL (8.5-10.1) Total Bilirubin 0.3 mg/dL (0.2-1.0) Aspartate Amino Transf (AST/SGOT) 18 U/L (15-37) Alanine Aminotransferase (ALT/SGPT) 26 U/L (14-59) Alkaline Phosphatase 218 U/L (46-116) Total Protein 7.5 g/dL (6.4-8.2) Albumin 3.2 g/dL (3.4-5.0) Albumin/Globulin Ratio 0.7 (1.0-1.7) Lipase 59 U/L (73-393) Glucose (Fingerstick) 183 mg/dL (70-99) 127 mg/dL (70-99) Test 05/06/21 04:55 05/06/21 08:20 White Blood Count 7.8 x10^3/uL (4.0-11.0) Red Blood Count 4.69 x10^6/uL (3.50-5.40) Hemoglobin 11.6 g/dL (12.0-15.5) Hematocrit 37.6 % (36.0-47.0) Mean Corpuscular Volume 80 fL (79-100) Mean Corpuscular Hemoglobin 25 pg (25-35) Mean Corpuscular Hemoglobin Concent 31 g/dL (31-37) Red Cell Distribution Width 15.6 % (11.5-14.5) Platelet Count 178 x10^3/uL (140-400) Neutrophils (%) (Auto) 53 % (31-73) Lymphocytes (%) (Auto) 38 % (24-48) Monocytes (%) (Auto) 6 % (0-9) Eosinophils (%) (Auto) 4 % (0-3) Basophils (%) (Auto) 1 % (0-3) Neutrophils # (Auto) 4.1 x10^3/uL (1.8-7.7) Lymphocytes # (Auto) 2.9 x10^3/uL (1.0-4.8) Monocytes # (Auto) 0.4 x10^3/uL (0.0-1.1) Eosinophils # (Auto) 0.3 x10^3/uL (0.0-0.7) Basophils # (Auto) 0.0 x10^3/uL (0.0-0.2) Sodium Level 136 mmol/L (136-145) Potassium Level 4.0 mmol/L (3.5-5.1) Chloride Level 104 mmol/L (98-107) Carbon Dioxide Level 22 mmol/L (21-32) Anion Gap 10 (6-14) Blood Urea Nitrogen 11 mg/dL (7-20) Creatinine 0.9 mg/dL (0.6-1.0) Estimated GFR (Cockcroft-Gault) 82.7 Glucose Level 197 mg/dL (70-99) Calcium Level 8.4 mg/dL (8.5-10.1) Phosphorus Level 2.9 mg/dL (2.6-4.7) Magnesium Level 1.9 mg/dL (1.8-2.4) Glucose (Fingerstick) 149 mg/dL (70-99) Assessment and Plan Assessmemt and Plan Problems Medical Problems: (1) Cellulitis of right foot Status: Acute (2) Chronic pancreatitis Status: Acute (3) Epigastric abdominal pain Status: Acute Comment Review of Relevant I have reviewed the following items snow (where applicable) has been applied. Medications: Current Medications Medications (Trade) Dose Ordered Sig/Naveen Route PRN Reason Start Time Stop Time Status Last Admin Dose Admin Morphine Sulfate (Morphine Sulfate) 4 mg 1X ONCE IVP 05/05/21 12:15 05/05/21 12:18 DC 05/05/21 13:51 Ondansetron HCl (Zofran) 4 mg 1X ONCE IVP 05/05/21 12:15 05/05/21 12:18 DC 05/05/21 13:47 Doxycycline Hyclate (Vibra-Tab) 100 mg 1X ONCE PO 05/05/21 12:30 05/05/21 12:31 DC 05/05/21 13:47 Hydromorphone HCl (Dilaudid) 1 mg 1X ONCE IVP 05/05/21 14:15 05/05/21 14:16 DC 05/05/21 15:06 Amlodipine Besylate (Norvasc) 5 mg DAILY PO 05/06/21 09:00 05/06/21 09:04 Lisinopril (Prinivil) 10 mg BID PO 05/05/21 21:00 05/06/21 09:05 Spironolactone (Aldactone) 25 mg DAILY PO 05/06/21 09:00 05/06/21 09:04 Pantoprazole Sodium (Protonix) 40 mg DAILYAC PO 05/06/21 07:30 05/06/21 09:04 Insulin Human Lispro (HumaLOG) 0-7 UNITS TIDWMEALS SQ 05/05/21 17:00 05/05/21 18:09 Sodium Chloride 1,000 ml @ 100 mls/hr Q10H IV 05/05/21 15:15 05/05/21 15:15 Enoxaparin Sodium (Lovenox 40mg Syringe) 40 mg Q24H SQ 05/05/21 16:00 05/05/21 16:43 Acetaminophen/ Hydrocodone Bitart (Lortab 5/325) 1 tab PRN Q4HRS PRN PO MODERATE - SEVERE PAIN 05/05/21 15:15 05/06/21 02:17 Morphine Sulfate (Morphine Sulfate) 1 mg PRN Q1HR PRN IV PAIN 05/05/21 15:15 05/05/21 23:21 Prochlorperazine Edisylate (Compazine) 10 mg PRN Q6HRS PRN IV NAUSEA/VOMITING, 2ND CHOICE 05/05/21 15:15 05/05/21 16:42 Vancomycin HCl (Vanco Per Pharmacy) 1 each PRN DAILY PRN MC SEE COMMENTS 05/05/21 15:30 05/06/21 09:12 Vancomycin HCl 2 gm/Sodium Chloride 500 ml @ 250 mls/hr 1X ONCE IV 05/05/21 16:00 05/05/21 17:59 DC 05/05/21 18:00 Justifications for Admission Other Justification Pancreatitis and cellulitis of the right foot SUSAN DIAZ MD May 06, 2021 10:56
[2021-05-06 11:00] VITALS: BP 153/94
[2021-05-06 15:00] VITALS: BP 151/100
[2021-05-06] MEDS: MORPHINE SULFATE 2 MG/ML INJ. IV PRN (16:56)
[2021-05-06] MEDS: ENOXAPARIN 40 MG/0.4 ML SYRINGE. SQ SCH (16:57)
[2021-05-06 19:00] VITALS: BP 174/114
[2021-05-06] MEDS: INSULIN GLARGINE SYRINGE. SQ SCH (20:38)
[2021-05-06 23:00] VITALS: BP 146/92
[2021-05-07] MEDS: IV NORMAL SALINE 1000ML BAG 1,000 ML IV SCH (02:09)
[2021-05-07 03:00] VITALS: BP 153/100
[2021-05-07 03:54] LABS: BASO # 0.1 x10^3/uL (0.0-0.2); BASO % 1 % (0-3); EOS # 0.2 x10^3/uL (0.0-0.7); EOS % 3 % (0-3); HEMATOCRIT 35.7 % (36.0-47.0); HEMOGLOBIN 11.4 g/dL (12.0-15.5); LYMPH # 3.4 x10^3/uL (1.0-4.8); LYMPH % 50 % (24-48); MEAN CORPUSCULAR HEMOGLOBIN 24 pg (25-35); MEAN CORPUSCULAR HGB CONC 32 g/dL (31-37); MEAN CORPUSCULAR VOLUME 77 fL (79-100); MONO # 0.4 x10^3/uL (0.0-1.1); MONO % 6 % (0-9); NEUT # 2.7 x10^3/uL (1.8-7.7); NEUT % 40 % (31-73); PLATELET COUNT 190 x10^3/uL (140-400); RED BLOOD COUNT 4.65 x10^6/uL (3.50-5.40); RED CELL DISTRIBUTION WIDTH 15.1 % (11.5-14.5); WHITE BLOOD COUNT 6.9 x10^3/uL (4.0-11.0)
[2021-05-07 04:49] LABS: CALCIUM 8.4 mg/dL (8.5-10.1); CREATININE 0.9 mg/dL (0.6-1.0); GFR 82.7; MAGNESIUM 1.7 mg/dL (1.8-2.4); POTASSIUM 3.8 mmol/L (3.5-5.1)
[2021-05-07] MEDS: HYDROcodone/APAP 5/325MG 1 TAB TABLET PO PRN (05:16)
[2021-05-07] MEDS: VANCOMYCIN 1.5 GM in IV NORMAL SALINE 500ML BAG 500 ML IV SCH (05:16)
[2021-05-07] MEDS: MORPHINE SULFATE 2 MG/ML INJ. IV PRN (05:22)
[2021-05-07 07:00] VITALS: BP 143/92
[2021-05-07] MEDS: INSULIN LISPRO 300 UNITS/3 ML VIAL. SQ SCH ×2 (08:00→12:20)
[2021-05-07] MEDS: PANTOPRAZOLE 40 MG TABLET.DR. PO SCH (09:36)
[2021-05-07] MEDS: SPIRONOLACTONE 25 MG TABLET PO SCH (09:36)
[2021-05-07] MEDS: LISINOPRIL 10 MG TABLET PO SCH (09:37)
[2021-05-07 11:00] VITALS: BP 143/92
--- NOTE | 2021-05-07 11:21 | PDOC ---
[employer] PROGRESS NOTE Date of Service DOS: DATE: 05/07/21 TIME: 11:14 Chief Complaint Chief Complaint Right foot cellulitis Acute abdominal pain due to chronic pancreatitisimproved Hyperglycemia Microcytic anemia, likely due to RUBIN Onychomycosis Moderate protein malnutrition History of diabetes mellitus type 1 History of pancreatitis History of GERD History of dyslipidemia Obesity class I Chronic pain History of gastric bypass Admit to hospitalist service for further management IV n.p.o. pain control GI consult Continue empiric IV antibiotics Pending blood cultures Lovenox for DVT prophylaxis Protonix GI prophylaxis ADA diet CODE STATUS full Discussed with RN and SW Disposition inpatient management as above DPOA: Undesignated History of Present Illness History of Present Illness 41-year-old female with past medical history of of pseudocyst x2, chronic pancreatitis, gastroparesis, Abigail-en-Y gastric bypass comes in with plaints of left foot pain and cellulitis. She also has left lower extremity edema. She also endorses associated nausea vomiting and abdominal pain. This worsened the last 3 to 4 days. Pain about a week ago. She does have some onychomycosis on her toenails that she had made a appointment with podiatry for May. There are no alleviating or exacerbating factors she has tried taking Percocet which did not control her pain. Patient denies any trauma or falls to her foot. De nies fevers, chest pain, dysuria, hematuria, dizziness or diarrhea. 05/06: No acute events overnight. Patient seen and examined bedside. Pain is controlled. Improvement in left foot pain and redness. Blood cultures pending. Afebrile. WBC normal. Mag 1.7. Further improved pain, able to bear weight on ankle. Previously tolerated PO keflex and doxycycline well. will discharge home on PO antibiotics. Blood cultures negative. Vitals/I&O Vitals/I&O: Vital Signs Date Time Temp Pulse Resp B/P (MAP) Pulse Ox O2 Delivery O2 Flow Rate FiO2 05/07/21 09:37 77 143/92 05/07/21 07:00 97.4 20 95 Room Air 97.4 I & O 05/06/21 05/06/21 05/07/21 15:00 23:00 07:00 Intake Total 500 ml 1480 ml Balance 500 ml 1480 ml Physical Exam General: Alert, Oriented X3 Heart: Regular rate Lungs: Clear, Other Abdomen: Normal bowel sounds Extremities: No clubbing, Other (Bilateral lower extremity edema with right foot redness and tender to palpation) Labs Labs: Laboratory Tests Test 05/06/21 12:20 05/06/21 20:17 05/07/21 02:40 05/07/21 07:47 Glucose (Fingerstick) 149 mg/dL (70-99) 234 mg/dL (70-99) 137 mg/dL (70-99) White Blood Count 6.9 x10^3/uL (4.0-11.0) Red Blood Count 4.65 x10^6/uL (3.50-5.40) Hemoglobin 11.4 g/dL (12.0-15.5) Hematocrit 35.7 % (36.0-47.0) Mean Corpuscular Volume 77 fL (79-100) Mean Corpuscular Hemoglobin 24 pg (25-35) Mean Corpuscular Hemoglobin Concent 32 g/dL (31-37) Red Cell Distribution Width 15.1 % (11.5-14.5) Platelet Count 190 x10^3/uL (140-400) Neutrophils (%) (Auto) 40 % (31-73) Lymphocytes (%) (Auto) 50 % (24-48) Monocytes (%) (Auto) 6 % (0-9) Eosinophils (%) (Auto) 3 % (0-3) Basophils (%) (Auto) 1 % (0-3) Neutrophils # (Auto) 2.7 x10^3/uL (1.8-7.7) Lymphocytes # (Auto) 3.4 x10^3/uL (1.0-4.8) Monocytes # (Auto) 0.4 x10^3/uL (0.0-1.1) Eosinophils # (Auto) 0.2 x10^3/uL (0.0-0.7) Basophils # (Auto) 0.1 x10^3/uL (0.0-0.2) Sodium Level 137 mmol/L (136-145) Potassium Level 3.8 mmol/L (3.5-5.1) Chloride Level 104 mmol/L (98-107) Carbon Dioxide Level 24 mmol/L (21-32) Anion Gap 9 (6-14) Blood Urea Nitrogen 9 mg/dL (7-20) Creatinine 0.9 mg/dL (0.6-1.0) Estimated GFR (Cockcroft-Gault) 82.7 Glucose Level 110 mg/dL (70-99) Calcium Level 8.4 mg/dL (8.5-10.1) Magnesium Level 1.7 mg/dL (1.8-2.4) Assessment and Plan Assessmemt and Plan Problems Medical Problems: (1) Cellulitis of right foot Status: Acute (2) Chronic pancreatitis Status: Acute (3) Epigastric abdominal pain Status: Acute Comment Review of Relevant I have reviewed the following items snow (where applicable) has been applied. Justifications for Admission Other Justification Pancreatitis and cellulitis of the right foot ANTOLIN NINO MD May 07, 2021 11:21
[2021-05-07] MEDS ORDERED: CEPH250C PO (11:22)
[2021-05-07] MEDS ORDERED: DOXY100T PO (11:22)
--- NOTE | 2021-05-07 11:25 | PDOC3 ---
Discharge Summary Visit Information Date of Admission: May 05, 2021 Date of Discharge: May 07, 2021 Admitting Diagnosis: Right foot cellulitis Final Diagnosis Problems Medical Problems: (1) Cellulitis of right foot Status: Acute (2) Chronic pancreatitis Status: Acute (3) Epigastric abdominal pain Status: Acute Brief Hospital Course Allergies Allergies Coded Allergies Type Severity Reaction Last Updated Verified shellfish derived Allergy Severe anaphylaxis 09/17/14 Yes Iodine and Iodide Containing Produc Allergy Intermediate hives, itching, 07/16/19 Yes Penicillins Allergy Intermediate itching, vomiting, fevers 09/17/14 Yes iodine Allergy Intermediate 03/11/16 Yes meperidine Adverse Reaction Intermediate fevers, vomiting 02/15/15 Yes Vital Signs Vital Signs Date Time Temp Pulse Resp B/P (MAP) Pulse Ox O2 Delivery O2 Flow Rate FiO2 05/07/21 09:37 77 143/92 05/07/21 07:00 97.4 20 95 Room Air 97.4 Lab Results Laboratory Tests Test 05/05/21 12:37 05/05/21 12:55 05/05/21 16:36 05/05/21 20:43 Urine Collection Type Unknown Urine Color Yellow Urine Clarity Clear Urine pH 5.5 (<5.0-8.0) Urine Specific [place] 1.025 (1.000-1.030) Urine Protein Negative mg/dL (NEG-TRACE) Urine Glucose (UA) Negative mg/dL (NEG) Urine Ketones (Stick) Negative mg/dL (NEG) Urine Blood Negative (NEG) Urine Nitrite Negative (NEG) Urine Bilirubin Negative (NEG) Urine Urobilinogen Dipstick 1.0 mg/dL (0.2 mg/dL) Urine Leukocyte Esterase Negative (NEG) Urine RBC 0 /HPF (0-2) Urine WBC 1-4 /HPF (0-4) Urine Squamous Epithelial Cells Mod /LPF Urine Bacteria Few /HPF (0-FEW) Urine Mucus Marked /LPF Urine Test Negative (NEG) White Blood Count 7.7 x10^3/uL (4.0-11.0) Red Blood Count 4.62 x10^6/uL (3.50-5.40) Hemoglobin 11.4 g/dL (12.0-15.5) Hematocrit 35.5 % (36.0-47.0) Mean Corpuscular Volume 77 fL (79-100) Mean Corpuscular Hemoglobin 25 pg (25-35) Mean Corpuscular Hemoglobin Concent 32 g/dL (31-37) Red Cell Distribution Width 15.3 % (11.5-14.5) Platelet Count 201 x10^3/uL (140-400) Neutrophils (%) (Auto) 58 % (31-73) Lymphocytes (%) (Auto) 34 % (24-48) Monocytes (%) (Auto) 4 % (0-9) Eosinophils (%) (Auto) 3 % (0-3) Basophils (%) (Auto) 1 % (0-3) Neutrophils # (Auto) 4.5 x10^3/uL (1.8-7.7) Lymphocytes # (Auto) 2.6 x10^3/uL (1.0-4.8) Monocytes # (Auto) 0.3 x10^3/uL (0.0-1.1) Eosinophils # (Auto) 0.2 x10^3/uL (0.0-0.7) Basophils # (Auto) 0.1 x10^3/uL (0.0-0.2) Sodium Level 138 mmol/L (136-145) Potassium Level 3.9 mmol/L (3.5-5.1) Chloride Level 105 mmol/L (98-107) Carbon Dioxide Level 25 mmol/L (21-32) Anion Gap 8 (6-14) Blood Urea Nitrogen 17 mg/dL (7-20) Creatinine 1.0 mg/dL (0.6-1.0) Estimated GFR (Cockcroft-Gault) 73.2 BUN/Creatinine Ratio 17 (6-20) Glucose Level 217 mg/dL (70-99) Calcium Level 8.2 mg/dL (8.5-10.1) Total Bilirubin 0.3 mg/dL (0.2-1.0) Aspartate Amino Transf (AST/SGOT) 18 U/L (15-37) Alanine Aminotransferase (ALT/SGPT) 26 U/L (14-59) Alkaline Phosphatase 218 U/L (46-116) Total Protein 7.5 g/dL (6.4-8.2) Albumin 3.2 g/dL (3.4-5.0) Albumin/Globulin Ratio 0.7 (1.0-1.7) Lipase 59 U/L (73-393) Glucose (Fingerstick) 183 mg/dL (70-99) 127 mg/dL (70-99) Test 05/06/21 04:55 05/06/21 08:20 05/06/21 12:20 05/06/21 20:17 White Blood Count 7.8 x10^3/uL (4.0-11.0) Red Blood Count 4.69 x10^6/uL (3.50-5.40) Hemoglobin 11.6 g/dL (12.0-15.5) Hematocrit 37.6 % (36.0-47.0) Mean Corpuscular Volume 80 fL (79-100) Mean Corpuscular Hemoglobin 25 pg (25-35) Mean Corpuscular Hemoglobin Concent 31 g/dL (31-37) Red Cell Distribution Width 15.6 % (11.5-14.5) Platelet Count 178 x10^3/uL (140-400) Neutrophils (%) (Auto) 53 % (31-73) Lymphocytes (%) (Auto) 38 % (24-48) Monocytes (%) (Auto) 6 % (0-9) Eosinophils (%) (Auto) 4 % (0-3) Basophils (%) (Auto) 1 % (0-3) Neutrophils # (Auto) 4.1 x10^3/uL (1.8-7.7) Lymphocytes # (Auto) 2.9 x10^3/uL (1.0-4.8) Monocytes # (Auto) 0.4 x10^3/uL (0.0-1.1) Eosinophils # (Auto) 0.3 x10^3/uL (0.0-0.7) Basophils # (Auto) 0.0 x10^3/uL (0.0-0.2) Sodium Level 136 mmol/L (136-145) Potassium Level 4.0 mmol/L (3.5-5.1) Chloride Level 104 mmol/L (98-107) Carbon Dioxide Level 22 mmol/L (21-32) Anion Gap 10 (6-14) Blood Urea Nitrogen 11 mg/dL (7-20) Creatinine 0.9 mg/dL (0.6-1.0) Estimated GFR (Cockcroft-Gault) 82.7 Glucose Level 197 mg/dL (70-99) Calcium Level 8.4 mg/dL (8.5-10.1) Phosphorus Level 2.9 mg/dL (2.6-4.7) Magnesium Level 1.9 mg/dL (1.8-2.4) Glucose (Fingerstick) 149 mg/dL (70-99) 149 mg/dL (70-99) 234 mg/dL (70-99) Test 05/07/21 02:40 05/07/21 07:47 White Blood Count 6.9 x10^3/uL (4.0-11.0) Red Blood Count 4.65 x10^6/uL (3.50-5.40) Hemoglobin 11.4 g/dL (12.0-15.5) Hematocrit 35.7 % (36.0-47.0) Mean Corpuscular Volume 77 fL (79-100) Mean Corpuscular Hemoglobin 24 pg (25-35) Mean Corpuscular Hemoglobin Concent 32 g/dL (31-37) Red Cell Distribution Width 15.1 % (11.5-14.5) Platelet Count 190 x10^3/uL (140-400) Neutrophils (%) (Auto) 40 % (31-73) Lymphocytes (%) (Auto) 50 % (24-48) Monocytes (%) (Auto) 6 % (0-9) Eosinophils (%) (Auto) 3 % (0-3) Basophils (%) (Auto) 1 % (0-3) Neutrophils # (Auto) 2.7 x10^3/uL (1.8-7.7) Lymphocytes # (Auto) 3.4 x10^3/uL (1.0-4.8) Monocytes # (Auto) 0.4 x10^3/uL (0.0-1.1) Eosinophils # (Auto) 0.2 x10^3/uL (0.0-0.7) Basophils # (Auto) 0.1 x10^3/uL (0.0-0.2) Sodium Level 137 mmol/L (136-145) Potassium Level 3.8 mmol/L (3.5-5.1) Chloride Level 104 mmol/L (98-107) Carbon Dioxide Level 24 mmol/L (21-32) Anion Gap 9 (6-14) Blood Urea Nitrogen 9 mg/dL (7-20) Creatinine 0.9 mg/dL (0.6-1.0) Estimated GFR (Cockcroft-Gault) 82.7 Glucose Level 110 mg/dL (70-99) Calcium Level 8.4 mg/dL (8.5-10.1) Magnesium Level 1.7 mg/dL (1.8-2.4) Glucose (Fingerstick) 137 mg/dL (70-99) Laboratory Tests Test 05/06/21 12:20 05/06/21 20:17 05/07/21 02:40 05/07/21 07:47 Glucose (Fingerstick) 149 mg/dL (70-99) 234 mg/dL (70-99) 137 mg/dL (70-99) White Blood Count 6.9 x10^3/uL (4.0-11.0) Red Blood Count 4.65 x10^6/uL (3.50-5.40) Hemoglobin 11.4 g/dL (12.0-15.5) Hematocrit 35.7 % (36.0-47.0) Mean Corpuscular Volume 77 fL (79-100) Mean Corpuscular Hemoglobin 24 pg (25-35) Mean Corpuscular Hemoglobin Concent 32 g/dL (31-37) Red Cell Distribution Width 15.1 % (11.5-14.5) Platelet Count 190 x10^3/uL (140-400) Neutrophils (%) (Auto) 40 % (31-73) Lymphocytes (%) (Auto) 50 % (24-48) Monocytes (%) (Auto) 6 % (0-9) Eosinophils (%) (Auto) 3 % (0-3) Basophils (%) (Auto) 1 % (0-3) Neutrophils # (Auto) 2.7 x10^3/uL (1.8-7.7) Lymphocytes # (Auto) 3.4 x10^3/uL (1.0-4.8) Monocytes # (Auto) 0.4 x10^3/uL (0.0-1.1) Eosinophils # (Auto) 0.2 x10^3/uL (0.0-0.7) Basophils # (Auto) 0.1 x10^3/uL (0.0-0.2) Sodium Level 137 mmol/L (136-145) Potassium Level 3.8 mmol/L (3.5-5.1) Chloride Level 104 mmol/L (98-107) Carbon Dioxide Level 24 mmol/L (21-32) Anion Gap 9 (6-14) Blood Urea Nitrogen 9 mg/dL (7-20) Creatinine 0.9 mg/dL (0.6-1.0) Estimated GFR (Cockcroft-Gault) 82.7 Glucose Level 110 mg/dL (70-99) Calcium Level 8.4 mg/dL (8.5-10.1) Magnesium Level 1.7 mg/dL (1.8-2.4) Brief Hospital Course 41-year-old female with past medical history of of pseudocyst x2, chronic pancreatitis, gastroparesis, Abigail-en-Y gastric bypass comes in with plaints of right foot pain and cellulitis. She also has right lower extremity edema. She also endorses associated nausea vomiting and abdominal pain. This worsened the last 3 to 4 days. Pain about a week ago. She does have some onychomycosis on h er toenails that she had made a appointment with podiatry for May. There are no alleviating or exacerbating factors she has tried taking Percocet which did not control her pain. Patient denies any trauma or falls to her foot. Denies fevers, chest pain, dysuria, hematuria, dizziness or diarrhea. 05/06: No acute events overnight. Patient seen and examined bedside. Pain is controlled. Improvement in left foot pain and redness. Blood cultures pending. Afebrile. WBC normal. Mag 1.7. Further improved pain, able to bear weight on ankle. Previously tolerated PO keflex and doxycycline well. will discharge home on PO antibiotics. Blood cultures negative. After 2 days of IV vancomycin improved unable to walk. Home on p.o. Keflex and doxycycline Problem list: Right foot cellulitis Acute abdominal pain due to chronic pancreatitisimproved Hyperglycemia Microcytic anemia, likely due to RUBIN Onychomycosis Moderate protein malnutrition History of diabetes mellitus type 1 History of pancreatitis History of GERD History of dyslipidemia Obesity class I Chronic pain History of gastric bypass Greater than 30 minutes spent on d/c home with self care. Discharge Information Condition at Discharge: Improved Follow Up: Weeks (1) Disposition/Orders: D/C to Home Scheduled Amlodipine Besylate (Amlodipine Besylate) 5 Mg Tablet, 5 MG PO DAILY for BLOOD PRESSURE for 30 Days, #30 Prescribed by: SHALOM FRANKLIN MD on 07/18/19 1636 Last Action: Continued on 05/05/211511 by SUSAN DIAZ MD Cephalexin (Keflex) 250 Mg Capsule, 500 MG PO BID for Cellulitis for 10 Days, #40 Prescribed by: ANTOLIN NINO MD on 05/07/21 1122 Doxycycline Hyclate (Doxycycline Hyclate) 100 Mg Tablet, 100 MG PO BID for Cellulitis for 10 Days, #20 Prescribed by: ANTOLIN NINO MD on 05/07/21 1122 Insulin Aspart (Novolog) 100 Unit/1 Ml Vial, Unknown Dose SQ TIDWMEALS for dm, (Reported) Entered as Reported by: DEA LAM on 07/15/19 0855 Insulin Degludec (Tresiba Flextouch U-100) 100 Unit/1 Ml Insuln.pen, 20 UNIT SQ HS for DM I, (Reported) Entered as Reported by: SERA FONSECA on 09/26/162121 Last Action: Converted on 05/05/211511 by SUSAN DIAZ MD Lisinopril (Lisinopril) 10 Mg Tablet, 10 MG PO BID for htn, #60 Prescribed by: MARSHA KENNY on 02/14/1954 Last Action: Continued on 05/05/211511 by SUSAN DIAZ MD Omeprazole (Omeprazole) 40 Mg Capsule.dr, 40 MG PO DAILY, (Reported) Entered as Reported by: Adele Willett on 02/16/15 0333 Last Action: Converted on 05/05/211510 by SUSAN DIAZ MD Prochlorperazine Maleate (Prochlorperazine Maleate) 10 Mg Tablet, 1 TAB PO Q6HRS for Nausea/Vomiting, #30 Ref 3 (Reported) Entered as Reported by: SRIDEVI TEMPLETON on 09/19/18 1623 Spironolactone (Aldactone) 25 Mg Tablet, 25 MG PO DAILY for htn, #60 Prescribed by: MARSHA KENNY on 02/14/19 0852 Last Action: Continued on 05/05/211511 by SUSAN DIAZ MD [pancrease mt16] , TAB PO QIDACHS, #6 (Reported) Entered as Reported by: ERNESTINE CANCINO on 09/17/14 1733 Scheduled PRN Acetaminophen (Acetaminophen) 500 Mg Tablet, 500 MG PO PRN Q6HRS PRN for MILD PAIN / TEMP for 30 Days, #100 Prescribed by: SHALOM FRANKLIN MD on 07/18/19 1636 Albuterol Sulfate (Proair Hfa) 8.5 Gm Hfa.aer.ad, 1 PUFF INH PRN Q6HRS PRN for SHORTNESS OF BREATH, #1 Prescribed by: DENNIS STAPLES D.O. on 10/30/18 0223 Justicifation of Admission Dx: Justifications for Admission: Justification of Admission Dx: Yes ANTOLIN NINO MD May 07, 2021 11:25
[2021-05-07] MEDS ORDERED: CEPHALEXIN 250 MG CAPSULE. PO SCH (11:30)
[2021-05-07] MEDS ORDERED: DOXYCYCLINE HYCLATE 100 MG TABLET PO SCH (11:30)
--- NOTE | 2021-05-07 11:31 | NUR ---
SW following. Discussed with RN, pt from home, room air, ada diet. Discharge order for home with self care. RN advised no SW needs.
[2021-05-07] MEDS ORDERED: MAGNESIUM SULFATE 2GM 50 ML IV ONE (12:00)
--- NOTE | 2021-05-07 13:14 | NUR ---
Discharge Note: MAGNUS HERBERT Discharge instructions and discharge home medications reviewed with Patient and a copy given. All questions have been answered and understanding verbalized. The following instructions and handouts were given: follow up instructions, medication education. Discontinued lines and drains: 20 guage right EJ, tip intact, 22 guage right hand, tip intact. patient tolerated well. Patient discharged to home with self care via friend.
== END 2021-05-07 13:15 | disposition home or self-care (01) ==
LOC: ER 11:49 → 5 SOUTH 14:07
PROVIDERS: ADMIT Internal Medicine; ATTEND Internal Medicine
DX: L03.115 Cellulitis of right lower limb (principal); K86.1 Other chronic pancreatitis; E10.65 Type 1 diabetes mellitus with hyperglycemia; D64.9 Anemia, unspecified; K21.9 Gastro-esophageal reflux disease without esophagitis; E78.5 Hyperlipidemia, unspecified; E10.43 Type 1 diabetes mellitus with diabetic autonomic (poly)neuropathy; I11.0 Hypertensive heart disease with heart failure; I50.9 Heart failure, unspecified; K31.84 Gastroparesis; G89.29 Other chronic pain; E44.0 Moderate protein-calorie malnutrition; E66.9 Obesity, unspecified; E78.00 Pure hypercholesterolemia, unspecified; F12.90 Cannabis use, unspecified, uncomplicated; Z79.4 Long term (current) use of insulin; Z90.411 Acquired partial absence of pancreas; Z90.49 Acquired absence of other specified parts of digestive tract; Z98.84 Bariatric surgery status; Z79.899 Other long term (current) drug therapy; Z98.890 Other specified postprocedural states; Z68.41 Body mass index [BMI] 40.0-44.9, adult
CPT/HCPCS: 36415; 80048; 80053; 81001; 81025; 82962; 83690; 83735; 84100; 85025; 87040; 96361; 96365; 96366; 96367; 96372; 96375; 96376; 99284; G0378; J0780; J1170; J1650; J1815; J2270; J2405; J3370; J3475; J7030; J7040; G0379

== ENCOUNTER 2021-07-06 10:54 | Emergency (ER) | payer MEDICARE, OTHER ==
[~2021-07-06] VITALS: Ht 172.7 cm; Wt 111.8 kg
[~2021-07-06 10:54] MED LIST changes: +CEPH250C PO; +DOXY100T PO
--- NOTE | 2021-07-06 11:07 | PHYS DOC ---
Past Medical History Past Medical History: CHF, Diabetes-Type I, GERD, High Cholesterol, Hyper tension, Pancreatitis, Other Additional Past Medical Histor: GASTROPORESIS, chronic pain, NEUROPATHY Past Surgical History: Appendectomy, Cholecystectomy, Gastric Bypass, Other Additional Past Surgical Histo: Eye surgery, pancreatic shunts; partial pancreatectomy Smoking Status: Never Smoker Alcohol Use: None Drug Use: Marijuana General Adult EDM: Chief Complaint: ABDOMINAL PAIN HPI: HPI: Patient is a 41-year-old female presenting via EMS for abdominal pain. This is an acute on chronic issue. She has history of multiple abdominal issues and chronic pancreatitis per patient and is followed extensively by [facility] health system. States she has had chronic pancreatitis due to gallstones, her gallbladder was removed in addition to head and body of pancreas due to cyst formation. States she has been at baseline health but ran out of chronically prescribed pain medication 1 week ago. As a result, she states poorly controlled pain that has been worsening for past 24 hours without any obvious trauma, ingestion, exposure or other exacerbating factor. She has had uncontrolled pain, nausea and several episodes of dry heaving without any formal emesis. No other reported symptoms. She does disclose she has HFrEF and insulin-dependent type 1 diabetes with last known A1c 8.4%. 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 See HPI for pertinent positives and negative responses, other escobar all other systems are negative, non-pertinent or non-contributory Heart Score: C/O Chest Pain: No HEART Score for Chest Pain: HEART Score for Chest Pain Response (Comments) Value History Slighlty/Non-Suspicious 0 ECG Normal 0 Age < 45 0 Risk Factors >3 Risk Factors or Hx CAD 2 Troponin < Normal Limit 0 Total 2 Risk Factors: Risk Factors: DM, Current or recent (<one month) smoker, HTN, HLP, family history of CAD, obesity. Risk Scores: Score 0 - 3: 2.5% MACE over next 6 weeks - Discharge Home Score 4 - 6: 20.3% MACE over next 6 weeks - Admit for Clinical Observation Score 7 - 10: 72.7% MACE over next 6 weeks - Early Invasive Strategies Allergies: Allergies: Allergies Coded Allergies Type Severity Reaction Last Updated Verified shellfish derived Allergy Severe anaphylaxis 09/17/14 Yes Iodine and Iodide Containing Produc Allergy Intermediate hives, itching, 07/16/19 Yes Penicillins Allergy Intermediate itching, vomiting, fevers 09/17/14 Yes iodine Allergy Intermediate 03/11/16 Yes meperidine Adverse Reaction Intermediate fevers, vomiting 02/15/15 Yes Physical Exam: PE: Constitutional: Well developed, well nourished, obese, appears to be in pain but is nontoxic in appearance HENT: Normocephalic, atraumatic, bilateral external ears normal, oropharynx moist, no oral exudates, nose normal. Eyes: PERRLA, EOMI, conjunctiva normal, no discharge. Neck: Normal range of motion, no tenderness, supple, no stridor. Cardiovascular: Heart rate regular, sinus rhythm, no murmurs rubs or gallops Lungs & Thorax: Bilateral breath sounds clear to auscultation Abdomen: Bowel sounds normal, soft and protuberant, generalized abdominal tenderness primarily localized to epigastric region with guarding present, no rebound, no masses, no pulsatile masses. Nonsurgical abdomen, no peritoneal signs Skin: Warm, dry, no erythema, no rash. Back: No tenderness, no CVA tenderness. Extremities: No tenderness, no cyanosis, no clubbing, ROM intact, no edema. Neurologic: Alert and oriented X 3, grossly normal motor & sensory function, no focal deficits noted. Psychologic: Anxious affect and mood EKG: EKG: [] Radiology/Procedures: Radiology/Procedures: [] Course & Med Decision Making: Course & Med Decision Making Pertinent Labs and Imaging studies reviewed. (See chart for details) [] Vickey Disclaimer: Vickey Disclaimer: This electronic medical record was generated, in whole or in part, using a voice recognition dictation system. Departure Departure Impression: Primary Impression: Chronic abdominal pain Disposition: HOME / SELF CARE / HOMELESS Condition: IMPROVED Additional Instructions: You have been evaluated in the Emergency Department today for abdominal pain. Your evaluation was not suggestive of any emergent condition requiring medical intervention at this time. However, some abdominal problems make take more time to appear. Therefore, it is important for you to watch for any new symptoms or worsening of your current condition. As discussed you need to contact your [facility] office to review need for reassignment of a new primary care physician to manage your multiple comorbid conditions in outpatient setting and address chronic pain as they are better equipped to do this in an ER Return to the Emergency Department if you experience worsening pain, persistent fevers greater than 100.4, recurrent vomiting, blood in vomit, blood in stool, dark tarry stool, chest pain, difficulty breathing, or any other concerning symptoms. Scripts Oxycodone Hcl (OXYCODONE HCL IMMED.RELEASE) 10 Mg Tablet 1 TAB PO BID PRN for pain MDD 4 Tablet(s) for 5 Days, #20 TAB 0 Refills Prov: SAIRA FERNANDEZ DO 07/06/21 SAIRA FERNANDEZ DO Jul 06, 2021 11:06
[2021-07-06 11:15] LABS: BASO % 0 % (0-3); EOS # 0.1 x10^3/uL (0.0-0.7); EOS % 1 % (0-3); HEMATOCRIT 36.3 % (36.0-47.0); HEMOGLOBIN 11.4 g/dL (12.0-15.5); LYMPH # 2.6 x10^3/uL (1.0-4.8); LYMPH % 32 % (24-48); MEAN CORPUSCULAR HEMOGLOBIN 24 pg (25-35); MEAN CORPUSCULAR HGB CONC 32 g/dL (31-37); MEAN CORPUSCULAR VOLUME 77 fL (79-100); MONO # 0.5 x10^3/uL (0.0-1.1); MONO % 7 % (0-9); NEUT # 4.8 x10^3/uL (1.8-7.7); NEUT % 60 % (31-73); PLATELET COUNT 217 x10^3/uL (140-400); RED BLOOD COUNT 4.73 x10^6/uL (3.50-5.40); RED CELL DISTRIBUTION WIDTH 15.4 % (11.5-14.5); WHITE BLOOD COUNT 8.1 x10^3/uL (4.0-11.0)
[2021-07-06] MEDS ORDERED: IV NORMAL SALINE 1000ML BAG 1,000 ML IV SCH (11:15)
[2021-07-06] MEDS ORDERED: HYDROmorphone 2 MG/ML VIAL IVP ONE ×2 (11:15→15:30)
[2021-07-06 11:29] LABS: CALCIUM 8.5 mg/dL (8.5-10.1); CREATININE 0.7 mg/dL (0.6-1.0); GFR 110.5; POTASSIUM 3.8 mmol/L (3.5-5.1)
[2021-07-06 11:37] LABS: ALBUMIN 3.2 g/dL (3.4-5.0); ALBUMIN/GLOBULIN RATIO 0.8 (1.0-1.7); TOTAL BILIRUBIN 0.3 mg/dL (0.2-1.0); TOTAL PROTEIN 7.2 g/dL (6.4-8.2)
[2021-07-06] MEDS ORDERED: FAMOTIDINE 20 MG/2 ML VIAL IVP ONE (12:00)
[2021-07-06] MEDS ORDERED: ONDANSETRON PF 4 MG/2 ML VIAL. IVP ONE (12:00)
[2021-07-06] MEDS ORDERED: diphenhydrAMINE 50 MG/ML VIAL IVP ONE (12:00)
[2021-07-06] MEDS ORDERED: methylPREDNISolone SOD SUCC PF 125 MG/2 ML VIAL. IV ONE (12:00)
[2021-07-06 12:19] LABS: U PREG PATIENT NEGATIVE (NEG)
[2021-07-06 12:25] LABS: BARBITURATES NEG (NEG); BENZODIAZEPINES NEG (NEG); BILIRUBIN,URINE NEGATIVE (NEG); CANNABINOIDS POS (NEG); CLARITY,URINE CLEAR; COCAINE NEG (NEG); COLOR,URINE YELLOW; METHADONE NEG (NEG); NITRITE,URINE NEGATIVE (NEG); OPIATES NEG (NEG); PH,URINE 6.5 (<5.0-8.0); PHENCYCLIDINE NEG (NEG); PROTEIN,URINE 30 mg/dL (NEG-TRACE); UROBILINOGEN,URINE 0.2 mg/dL (0.2 mg/dL)
[2021-07-06 12:26] LABS: BACTERIA,URINE 0 /HPF (0-FEW); RBC,URINE 0 /HPF (0-2)
[2021-07-06] MEDS ORDERED: IOHEXOL 300 MG/ML 100ML VIAL. IV ONE (12:30)
[2021-07-06] MEDS ORDERED: CONTRAST GIVEN. MC PRN (12:30)
[2021-07-06 12:32] LABS: AMPHETAMINE/METHAMPHETAMINE NEG (NEG)
--- NOTE | 2021-07-06 13:20 | RAD ---
CT of the abdomen and pelvis with contrast 07/06/2021 1:15 PM Indication: Reason: Epigastric pain, chronic pancreatitis with pancreatic head and body removal Comparison study: None Technique: Multidetector CT imaging of the abdomen and pelvis was performed following the administrat ion of IV contrast. Findings: The partially visualized lung bases demonstrate no acute abnormality. Solid viscera of the abdomen are unremarkable. Postoperative changes of the pancreas noted. Postopera tive changes following gastric bypass noted. No bowel obstruction is seen. There is no bowel obstruct ion. No acute inflammatory changes involving the bowel are identified. Bladder is grossly unremarkabl e. No free fluid or free air is seen in the abdomen or pelvis. Anterior abdominal wall diastases smal l fat filled ventral hernias are similar to comparison studies. No acute osseous changes are identifi ed. Impression: No evidence of acute intra-abdominal abnormality CT DOSING PQRS STATEMENT: One or more of the following individualized dose reduction techniques were utilized for this examinat ion: 1. Automated exposure control 2. Adjustment of the mA and/or kV according to patient size 3. Use of iterative reconstruction technique Electronically signed by: Christian Downs MD (07/06/2021 1:17 PM) [id number]
[2021-07-06] MEDS ORDERED: OXYC10TA PO (14:28)
[2021-07-06 15:18] VITALS: BP 160/91
--- NOTE | 2021-07-07 04:42 | EKG ---
[facility] [address] [place] [address] Test Date: 2021-07-06 Test Time: 11:25:43 Pat Name: MAGNUS HERBERT Department: Room: Gender: F Vp [employer]: : 1980 Requested By: SAIRA FERNANDEZ Order Number: [id number] Reading MD: Measurements Intervals [place] Rate: 79 P: 36 UT: 158 QRS: -16 QRSD: 86 T: 76 QT: 396 QTc: 455 Interpretive Statements SINUS RHYTHM LEFTWARD AXIS CONSIDER LEFT VENTRICULAR HYPERTROPHY T ABNORMALITY IN HIGH LATERAL LEADS ABNORMAL ECG RI6.02 No previous ECG available for comparison
== END 2021-07-06 15:50 ==
LOC: ER 10:54
DX: R10.84 Generalized abdominal pain (principal); G89.29 Other chronic pain; K21.9 Gastro-esophageal reflux disease without esophagitis; I11.0 Hypertensive heart disease with heart failure; I50.9 Heart failure, unspecified; E78.00 Pure hypercholesterolemia, unspecified; E10.40 Type 1 diabetes mellitus with diabetic neuropathy, unspecified; Z90.89 Acquired absence of other organs; Z90.49 Acquired absence of other specified parts of digestive tract; Z95.1 Presence of aortocoronary bypass graft; Z90.81 Acquired absence of spleen; Z88.0 Allergy status to penicillin; Z88.1 Allergy status to other antibiotic agents; Z91.041 Radiographic dye allergy status; Z91.013 Allergy to seafood; Z88.8 Allergy status to other drugs, medicaments and biological substances
CPT/HCPCS: 36415; 74177; 80053; 80307; 81001; 81025; 83690; 84484; 85025; 93005; 96361; 96374; 96375; 96376; 99285; J1170; J1200; J2405; J2930; J3490; J7030; Q9967

== ENCOUNTER 2021-08-17 02:26 | Emergency (ER) | payer OTHER ==
[~2021-08-17] VITALS: Ht 172.7 cm; Wt 111.0 kg
[~2021-08-17 02:26] MED LIST changes: +OXYC10TA PO
--- NOTE | 2021-08-17 02:41 | PHYS DOC ---
Past Medical History Past Medical History: CHF, Diabetes-Type I, GERD, High Cholesterol, Hyper tension, Pancreatitis, Other Additional Past Medical Histor: GASTROPORESIS, chronic pain, NEUROPATHY (SANDI VALADEZ DO) Past Surgical History: Appendectomy, Cholecystectomy, Gastric Bypass, Splenect zuly, Other Additional Past Surgical Histo: Eye surgery,pancreatic shunts;partial pancreatectomy,MULTIPLE ABD SURGERIES (SANDI VALADEZ DO) Smoking Status: Never Smoker Alcohol Use: None Drug Use: Marijuana (SANDI VALADEZ DO) General Adult EDM: Chief Complaint: ABDOMINAL PAIN HPI: HPI: Patient is a 41 year old female who presents with 3 days of progressively worsening epigastric and left upper quadrant abdominal pain. She reports that she has chronic pancreatitis. She reports that she has pain every day but it is progressively been worse recently. She reports nausea without vomiting. She reports diarrhea, which is common for her. Denies melena or hematochezia. She denies urinary symptoms. She denies chest pain, cough, dyspnea. She denies dizziness or syncope. She has had multiple abdominal surgeries, including cholecystectomy, partial pancreatectomy, gastric bypass surgery. She reports that the pancreatitis began with gallstone pancreatitis many years ago. All of her surgeries and treatment for her pancreatitis have been at [facility]. Her last surgery occurred several years ago. She denies any known history of previous bowel obstruction. She has taken oral Oxycodone for many years for her chronic pain. She is taking this at home, but it's not helping the pain recently. She has not run out of this medication. (SANDI VALADEZ DO) Review of Systems: Review of Systems: Constitutional: Denies fever or chills. [] HENT: Denies nasal congestion or sore throat. [] Respiratory: Denies cough or shortness of breath. [] Cardiovascular: Denies chest pain or edema. [] GI: Abdominal pain, nausea, no vomiting; diarrhea : Denies urinary symptoms Musculoskeletal: Mid back pain radiating from abdomen Integument: Denies rash. [] Neurologic: Denies headache, focal weakness or sensory changes. [] ] Psychiatric: Denies depression or anxiety. [] (SANDI VALADEZ DO) Heart Score: C/O Chest Pain: No Risk Factors: Risk Factors: DM, Current or recent (<one month) smoker, HTN, HLP, family history of CAD, obesity. Risk Scores: Score 0 - 3: 2.5% MACE over next 6 weeks - Discharge Home Score 4 - 6: 20.3% MACE over next 6 weeks - Admit for Clinical Observation Score 7 - 10: 72.7% MACE over next 6 weeks - Early Invasive Strategies (SANDI VALADEZ DO) C/O Chest Pain: No (KADIE JIMENEZ DO) Allergies: Allergies: Allergies Coded Allergies Type Severity Reaction Last Updated Verified shellfish derived Allergy Severe anaphylaxis 09/17/14 Yes Iodine and Iodide Containing Produc Allergy Intermediate hives, itching, 07/16/19 Yes Penicillins Allergy Intermediate itching, vomiting, fevers 09/17/14 Yes iodine Allergy Intermediate 03/11/16 Yes meperidine Adverse Reaction Intermediate fevers, vomiting 02/15/15 Yes (SANDI VALADEZ DO) Physical Exam: PE: Constitutional: Well developed, well nourished, no acute distress, non-toxic appearance. [] HENT: Normocephalic, atraumatic Eyes: Conjunctiva normal, no discharge. Sclera are anicteric. Neck: Normal range of motion, no tenderness, supple, no stridor. Trachea is midline. Cardiovascular:Heart rate regular rhythm, +2 dorsalis pedis and +2 radial pulses bilaterally Lungs & Thorax: Bilateral breath sounds clear to auscultation [] Abdomen: Abdomen is obese, soft, nondistended, epigastric and left upper quadrant tenderness to palpation with voluntary guarding. No rebound tenderness. No palpable pulsatile mass. Hypoactive bowel sounds. No CVA tenderness. No flank or abdominal ecchymoses. No lower abdominal tenderness. Skin: Warm, dry, no erythema, no rash. No jaundice. Back: No tenderness, no CVA tenderness. [] Extremities: No tenderness, no cyanosis, no clubbing, ROM intact, no edema. [] Neurologic: Alert and oriented X 3, normal motor function, normal sensory function, no focal deficits noted. [] Psychologic: Affect normal, judgement normal, mood normal. [] (SANDI VALADEZ DO) EKG: EKG: [] (SANDI VALADEZ DO) Radiology/Procedures: Radiology/Procedures: [] (SANDI VALADEZ DO) Course & Med Decision Making: Course & Med Decision Making Pertinent Labs and Imaging studies reviewed. (See chart for details) [] (SANDI VALADEZ DO) Course & Med Decision Making ED Summary: I assumed care of this patient from Dr. Valadez at shift turnover. Patient presented to the ER with acute on chronic abdominal pain. Has known history of Abigail-en-Y procedure and partial pancreatectomy. Does take chronic pain medications at home including oxycodone 10 mg tablets 1 to 4 tablets daily. She is in between physicians right now and has scheduled follow-up with new pain management doctor in 1.5 weeks. During the ER course, she received IV pain medications and Pepcid. She was given medicine for nausea. CT scan was completed but no acute findings are present. Patient stable for discharge home and was feeling improved at the time of discharge. Pain was adequately controlled. She was awake and alert and at normal mental status despite several doses of opiate pain medications. She is given some medication to use at home to get her through until her next appointment and she will come back to the ER for any new or severely worsening symptoms. Today, her labs are baseline and she needs no admission criteria. (KADIE JIMENEZ DO) Dragon Disclaimer: Dragon Disclaimer: This electronic medical record was generated, in whole or in part, using a voice recognition dictation system. (SANDI VALADEZ DO) Departure Departure Impression: Primary Impression: Chronic abdominal pain Disposition: HOME / SELF CARE / HOMELESS Condition: IMPROVED Referrals: NO PCP (PCP) Patient Instructions: Abdominal Pain Scripts Oxycodone Hcl (OXYCODONE HCL IMMED.RELEASE) 10 Mg Tablet 10 MG PO BID PRN for PAIN, #24 TAB 0 Refills Prov: KADIE JIMENEZ DO 08/17/21 SANDI VALADEZ DO Aug 17, 2021 02:41 KADIE JIMENEZ DO Aug 17, 2021 07:43
[2021-08-17] MEDS ORDERED: IV NORMAL SALINE 1000ML BAG 1,000 ML IV ONE (03:00)
[2021-08-17] MEDS ORDERED: ONDANSETRON PF 4 MG/2 ML VIAL. IVP ONE (03:00)
[2021-08-17] MEDS ORDERED: MORPHINE SULFATE 4 MG/ML INJ. IVP ONE (03:00)
[2021-08-17 03:32] LABS: BILIRUBIN,URINE SMALL (NEG); CLARITY,URINE CLEAR; COLOR,URINE YELLOW; NITRITE,URINE NEGATIVE (NEG); PROTEIN,URINE 100 mg/dL (NEG-TRACE)
[2021-08-17 03:35] LABS: BASO % 1 % (0-3); EOS # 0.3 x10^3/uL (0.0-0.7); EOS % 5 % (0-3); HEMATOCRIT 35.5 % (36.0-47.0); HEMOGLOBIN 11.2 g/dL (12.0-15.5); LYMPH # 3.1 x10^3/uL (1.0-4.8); LYMPH % 47 % (24-48); MEAN CORPUSCULAR HEMOGLOBIN 24 pg (25-35); MEAN CORPUSCULAR HGB CONC 31 g/dL (31-37); MEAN CORPUSCULAR VOLUME 75 fL (79-100); MONO # 0.5 x10^3/uL (0.0-1.1); MONO % 7 % (0-9); NEUT # 2.7 x10^3/uL (1.8-7.7); NEUT % 41 % (31-73); PLATELET COUNT 178 x10^3/uL (140-400); RED BLOOD COUNT 4.71 x10^6/uL (3.50-5.40); WHITE BLOOD COUNT 6.6 x10^3/uL (4.0-11.0)
[2021-08-17 03:38] LABS: CALCIUM 7.6 mg/dL (8.5-10.1); GFR 73.2; POTASSIUM 3.4 mmol/L (3.5-5.1)
[2021-08-17 03:44] LABS: BACTERIA,URINE FEW /HPF (0-FEW); RBC,URINE RARE /HPF (0-2)
[2021-08-17 03:44] LABS: ALBUMIN 3.1 g/dL (3.4-5.0); ALBUMIN/GLOBULIN RATIO 0.7 (1.0-1.7); TOTAL BILIRUBIN 0.3 mg/dL (0.2-1.0); TOTAL PROTEIN 7.5 g/dL (6.4-8.2)
[2021-08-17] MEDS ORDERED: diphenhydrAMINE 50 MG/ML VIAL ONE (04:00)
[2021-08-17] MEDS ORDERED: FAMOTIDINE 20 MG/2 ML VIAL ONE (04:00)
[2021-08-17] MEDS ORDERED: methylPREDNISolone SOD SUCC PF 125 MG/2 ML VIAL. ONE (04:00)
[2021-08-17] MEDS ORDERED: HYDROmorphone 2 MG/ML INJ. ONE (06:54)
[2021-08-17] MEDS ORDERED: MORPHINE SULFATE 4 MG/ML INJ. IV ONE ×2 (07:45→08:30)
[2021-08-17] MEDS ORDERED: IOHEXOL 300 MG/ML 100ML VIAL. IV ONE (07:45)
[2021-08-17] MEDS ORDERED: CONTRAST GIVEN. MC PRN (07:45)
[2021-08-17] MEDS ORDERED: OXYC10TA PO (08:31)
--- NOTE | 2021-08-17 08:33 | RAD ---
Study: CT abdomen/pelvis with intravenous contrast Indication: Left upper quadrant pain. History of pancreatitis. Comparison: Most recently on 07/06/2021 Technique: Helical CT imaging performed of the abdomen and pelvis after the intravenous administratio n of 75 cc Omnipaque 300 contrast. Sagittal and coronal reformats were obtained. One or more of the following individualized dose reduction techniques were utilized for this examinat ion: 1. Automated exposure control 2. Adjustment of the mA and/or kV according to patient size 3. Use of iterative reconstruction technique. Findings: No newly seen abnormality at the lower chest. Unchanged liver which is mildly prominent in size.. No newly seen abnormality of the spleen, adrenal glands, kidneys, bladder, uterus or ovaries. Surgically absent gallbladder. Nondilated biliary tree. The distal body and tail of the pancreas are atrophic. Much of the pancreatic body is not visualized potentially from partial pancreatectomy. Relatively normal appearance of the pancreatic head/uncinate process. No surrounding inflammation or fluid collection. Mild volume colonic stool burden. Normal appendix. No pathologic dilatation of small bowel. Status po st antecolic Abigail-en-Y gastric bypass. Unchanged anastomoses. The excluded portion of the stomach is unremarkable. Unchanged vasculature. No lymphadenopathy. Ventral midline diastases and fat-containing hernias also present previously. No complicating features. Midline surgical scarring. Moderate right and mild left hip arthrosis. Discogenic arthrosis mainly at L4-L5. Transitional lumbos acral anatomy with the S1 vertebral body considered mostly lumbarized. Impression: 1. No acute abnormality is identified throughout the abdomen or pelvis. No findings to indicate panc reatitis. 2. Abigail-en-Y gastric bypass. No bowel obstruction or internal hernia. Electronically signed by: SARAHI BILL MD (08/17/2021 8:30 AM) [facility]
[2021-08-17 08:38] VITALS: BP 126/78
[2021-08-18] MEDS ORDERED: FAMOTIDINE 20 MG/2 ML VIAL IVP ONE
[2021-08-18] MEDS ORDERED: methylPREDNISolone SOD SUCC PF 125 MG/2 ML VIAL. IV ONE
[2021-08-18] MEDS ORDERED: HYDROmorphone 2 MG/ML INJ. IVP ONE
[2021-08-18] MEDS ORDERED: diphenhydrAMINE 50 MG/ML VIAL IVP ONE
== END 2021-08-17 08:44 | disposition home or self-care (01) ==
LOC: ER 02:26
DX: G89.29 Other chronic pain (principal); R10.13 Epigastric pain; R10.12 Left upper quadrant pain; R19.7 Diarrhea, unspecified; E10.40 Type 1 diabetes mellitus with diabetic neuropathy, unspecified; I11.0 Hypertensive heart disease with heart failure; I50.9 Heart failure, unspecified; K21.9 Gastro-esophageal reflux disease without esophagitis; E78.00 Pure hypercholesterolemia, unspecified; Z90.89 Acquired absence of other organs; Z90.49 Acquired absence of other specified parts of digestive tract; Z90.81 Acquired absence of spleen; Z98.84 Bariatric surgery status; Z88.0 Allergy status to penicillin; Z91.041 Radiographic dye allergy status; Z88.1 Allergy status to other antibiotic agents; Z91.013 Allergy to seafood; Z88.8 Allergy status to other drugs, medicaments and biological substances
CPT/HCPCS: 36415; 74177; 80053; 81001; 81025; 83690; 85025; 87086; 96361; 96374; 96375; 96376; 99285; J1170; J1200; J2270; J2405; J2930; J3490; J7030; Q9967

== ENCOUNTER 2021-09-21 00:55 | Emergency (ER) | payer OTHER ==
[~2021-09-21] VITALS: Ht 175.3 cm; Wt 111.4 kg
[2021-09-21] MEDS ORDERED: MORPHINE SULFATE 4 MG/ML INJ. IVP ONE ×2 (01:30→04:30)
[2021-09-21] MEDS ORDERED: IV NORMAL SALINE 1000ML BAG 1,000 ML IV ONE (01:30)
[2021-09-21] MEDS ORDERED: ONDANSETRON PF 4 MG/2 ML VIAL. IVP ONE (01:30)
[2021-09-21] MEDS ORDERED: FAMOTIDINE 20 MG/2 ML VIAL IVP ONE (01:30)
[2021-09-21] MEDS ORDERED: methylPREDNISolone SOD SUCC PF 125 MG/2 ML VIAL. IV ONE (01:30)
[2021-09-21] MEDS ORDERED: diphenhydrAMINE 50 MG/ML VIAL IVP ONE (01:30)
[2021-09-21 01:45] LABS: PREG TEST PT QUAL NEGATIVE (NEG)
[2021-09-21 01:46] LABS: CALCIUM 7.2 mg/dL (8.5-10.1); CREATININE 0.9 mg/dL (0.6-1.0); GFR 82.7; POTASSIUM 3.9 mmol/L (3.5-5.1)
[2021-09-21 01:51] LABS: ALBUMIN 3.3 g/dL (3.4-5.0); TOTAL BILIRUBIN 0.2 mg/dL (0.2-1.0); TOTAL PROTEIN 6.6 g/dL (6.4-8.2)
[2021-09-21] MEDS ORDERED: CONTRAST GIVEN. MC PRN (02:00)
[2021-09-21 02:01] LABS: BASO % 1 % (0-3); EOS # 0.2 x10^3/uL (0.0-0.7); EOS % 3 % (0-3); HEMATOCRIT 33.4 % (36.0-47.0); HEMOGLOBIN 10.3 g/dL (12.0-15.5); LYMPH # 2.6 x10^3/uL (1.0-4.8); LYMPH % 39 % (24-48); MEAN CORPUSCULAR HEMOGLOBIN 24 pg (25-35); MEAN CORPUSCULAR HGB CONC 31 g/dL (31-37); MEAN CORPUSCULAR VOLUME 76 fL (79-100); MONO # 0.4 x10^3/uL (0.0-1.1); MONO % 6 % (0-9); NEUT # 3.4 x10^3/uL (1.8-7.7); NEUT % 51 % (31-73); PLATELET COUNT 181 x10^3/uL (140-400); RED BLOOD COUNT 4.38 x10^6/uL (3.50-5.40); RED CELL DISTRIBUTION WIDTH 15.8 % (11.5-14.5); WHITE BLOOD COUNT 6.7 x10^3/uL (4.0-11.0)
--- NOTE | 2021-09-21 02:26 | PHYS DOC ---
Past Medical History Past Medical History: CHF, Diabetes-Type I, GERD, High Cholesterol, Hypertension, Pancreatitis, Other Additional Past Medical Histor: GASTROPORESIS, chronic pain, NEUROPATHY Past Surgical History: Appendectomy, Cholecystectomy, Gastric Bypass, Splenectomy, Other Additional Past Surgical Histo: Eye surgery,pancreatic shunts;partial pancreatectomy,MULTIPLE ABD SURGERIES Smoking Status: Former Smoker Alcohol Use: None Drug Use: Marijuana General Adult EDM: Chief Complaint: ABDOMINAL PAIN HPI: HPI: Patient is a 41 year old female who presents here with left upper quad abdominal pain, rating to her left flank. Symptoms began yesterday and progressively worsened today. She reports nausea, no vomiting. She has chronic diarrhea, unchanged. Denies melena or hematochezia. She denies fevers chills but denies cough, dyspnea, chest pain. She has a history of chronic pancreatitis. She has had multiple previous abdominal surgeries, including cholecystectomy and partial pancreatectomy. She has had all of her surgical procedures performed at [facility]. All of her previous care, gastroenterology services and primary care physicians had previously been at [facility]. She recently changed primary care physicians to one at [facility]. She has not yet met this physician, however. She admits that her cur rent symptoms feel the same as her usual pancreatitis symptoms. She has had multiple previous CT imaging studies. She assures me no history of anaphylaxis with IV contrast dye, and she usually does very well with IV contrast if she is pretreated beforehand. The patient did not initially reveal us, but later in the ED course, she admits that she is out of the oxycodone that she has been prescribed for many years. She had a pain contract with her previous physician at , but since she has left and is establishing care at [facility], she does not have a pain contract with her new, yet to be seen primary care physician. She reports that she is only been out of the oxycodone for the last few days. She has all of her other regularly prescribed prescription medications. Review of Systems: Review of Systems: Constitutional: Denies fever or chills. [] HENT: Denies nasal congestion or sore throat. [] Respiratory: Denies cough or shortness of breath. [] Cardiovascular: Denies chest pain or edema. [] GI: Left upper quadrant abdominal pain, nausea, denies vomiting, chronic diarrhea and unchanged today. Denies melena or hematochezia. : Denies Serge symptoms. Musculoskeletal: Upper back/flank pain, radiating from left upper quadrant. No midline back pain or spine pain Integument: Denies rash. [] Neurologic: Denies headache, focal weakness or sensory changes. [] Endocrine: Type 1 diabetes, hyperglycemia Lymphatic: Denies swollen glands. [] Psychiatric: Denies depression or anxiety. [] Heart Score: C/O Chest Pain: No Risk Factors: Risk Factors: DM, Current or recent (<one month) smoker, HTN, HLP, family history of CAD, obesity. Risk Scores: Score 0 - 3: 2.5% MACE over next 6 weeks - Discharge Home Score 4 - 6: 20.3% MACE over next 6 weeks - Admit for Clinical Observation Score 7 - 10: 72.7% MACE over next 6 weeks - Early Invasive Strategies Current Medications: Current Medications Medications (Trade) Dose Ordered Sig/Naveen Start Time Stop Time Status Last Admin Dose Admin Diphenhydramine HCl (Benadryl) 25 mg 1X ONCE 09/21/21 01:30 09/21/21 01:31 DC 09/21/21 02:00 25 MG Famotidine (Pepcid Vial) 20 mg 1X ONCE 09/21/21 01:30 09/21/21 01:31 DC 09/21/21 02:00 20 MG Info (CONTRAST GIVEN -- Rx MONITORING) 1 each PRN DAILY PRN 09/21/21 02:00 09/23/21 01:59 Iohexol (Omnipaque 300 Mg/ml) 75 ml 1X ONCE 09/21/21 02:30 09/21/21 02:31 Methylprednisolone Sodium Succinate (SOLU-Medrol 125MG VIAL) 125 mg 1X ONCE 09/21/21 01:30 09/21/21 01:31 DC 09/21/21 02:01 125 MG Morphine Sulfate (Morphine Sulfate) 4 mg 1X ONCE 09/21/21 01:30 09/21/21 01:31 DC 09/21/21 02:02 4 MG Ondansetron HCl (Zofran) 4 mg 1X ONCE 09/21/21 01:30 09/21/21 01:31 DC 09/21/21 02:01 4 MG Sodium Chloride 1,000 ml @ 1,000 mls/hr 1X ONCE 09/21/21 01:30 09/21/21 02:29 09/21/21 02:02 1,000 MLS/HR Allergies: Allergies: Allergies Coded Allergies Type Severity Reaction Last Updated Verified shellfish derived Allergy Severe anaphylaxis 09/21/21 Yes Iodine and Iodide Containing Produc Allergy Intermediate hives, itching, 09/21/21 Yes Penicillins Allergy Intermediate itching, vomiting, fevers 09/21/21 Yes iodine Allergy Intermediate 09/21/21 Yes meperidine Adverse Reaction Intermediate fevers, vomiting 09/21/21 Yes Physical Exam: PE: Constitutional: Well developed, well nourished, no acute distress, non-toxic appearance. Chronically ill-appearing. She is not acutely ill-appearing. HENT: Normocephalic, atraumatic, mucous membranes are moist. Eyes: PERRL, EOMI, conjunctiva normal, no discharge. Sclera are anicteric. Neck: Normal range of motion, no tenderness, supple, no stridor. Achy midline, no JVD. Cardiovascular:Heart rate regular rhythm, +2 radial and +2 posterior tibial pulses bilaterally. Lungs & Thorax: Bilateral breath sounds clear to auscultation [] Abdomen: Abdomen is obese, soft, tender to palpation left upper quadrant and epigastrium. Voluntary guarding, no rebound tenderness, no rigidity, no lower abdominal tenderness, mild left CVA tenderness. No flank abdominal ecchymoses. No abdominal rash noted. No evidence abdominal trauma noted. Normal bowel sounds noted. Skin: Warm, dry, no erythema, no rash. [] Back: No tenderness, mild left CVA tenderness. Extremities: No tenderness, no cyanosis, no clubbing, ROM intact, no edema. No calf tenderness. Neurologic: She is awake, alert, oriented x3, no facial asymmetry, motor function grossly normal, sensation grossly normal, speech is clear and fluent Psychologic: Affect is flat, she is cooperative and pleasant Current Patient Data: Labs: Laboratory Tests Test 09/21/21 01:27 09/21/21 01:54 Sodium Level 138 mmol/L (136-145) Potassium Level 3.9 mmol/L (3.5-5.1) Chloride Level 106 mmol/L (98-107) Carbon Dioxide Level 23 mmol/L (21-32) Anion Gap 9 (6-14) Blood Urea Nitrogen 9 mg/dL (7-20) Creatinine 0.9 mg/dL (0.6-1.0) Estimated GFR (Cockcroft-Gault) 82.7 BUN/Creatinine Ratio 10 (6-20) Glucose Level 393 mg/dL (70-99) H Lactic Acid Level 2.0 mmol/L (0.4-2.0) Calcium Level 7.2 mg/dL (8.5-10.1) L Total Bilirubin 0.2 mg/dL (0.2-1.0) Aspartate Amino Transferase (AST) 16 U/L (15-37) Alanine Aminotransferase (ALT) 20 U/L (14-59) Alkaline Phosphatase 226 U/L (46-116) H Total Protein 6.6 g/dL (6.4-8.2) Albumin 3.3 g/dL (3.4-5.0) L Albumin/Globulin Ratio 1.0 (1.0-1.7) Lipase 55 U/L (73-393) L Serum Test, Qualitative Negative (NEG) White Blood Count 6.7 x10^3/uL (4.0-11.0) Red Blood Count 4.38 x10^6/uL (3.50-5.40) Hemoglobin 10.3 g/dL (12.0-15.5) L Hematocrit 33.4 % (36.0-47.0) L Mean Corpuscular Volume 76 fL (79-100) L Mean Corpuscular Hemoglobin 24 pg (25-35) L Mean Corpuscular Hemoglobin Concent 31 g/dL (31-37) Red Cell Distribution Width 15.8 % (11.5-14.5) H Platelet Count 181 x10^3/uL (140-400) Neutrophils (%) (Auto) 51 % (31-73) Lymphocytes (%) (Auto) 39 % (24-48) Monocytes (%) (Auto) 6 % (0-9) Eosinophils (%) (Auto) 3 % (0-3) Basophils (%) (Auto) 1 % (0-3) Neutrophils # (Auto) 3.4 x10^3/uL (1.8-7.7) Lymphocytes # (Auto) 2.6 x10^3/uL (1.0-4.8) Monocytes # (Auto) 0.4 x10^3/uL (0.0-1.1) Eosinophils # (Auto) 0.2 x10^3/uL (0.0-0.7) Basophils # (Auto) 0.0 x10^3/uL (0.0-0.2) Laboratory Tests 09/21/21 01:54 Laboratory Tests 09/21/21 01:27 Vital Signs: Vital Signs Date Time Temp Pulse Resp B/P (MAP) Pulse Ox O2 Delivery O2 Flow Rate FiO2 09/21/21 02:02 16 09/21/21 00:55 98.2 96 190/110 (136) 100 Room Air 98.2 EKG: EKG: [] Radiology/Procedures: Radiology/Procedures: IMAGING REPORT Signed PATIENT: MAGNUS HERBERT CACCOUNT: [id number] : 1980 LOCATION: ER AGE: 41 SEX: F EXAM STATUS: REG ER ORD. PHYSICIAN: SANDI VALADEZ DO REASON: abd pain, chronic pancreatitis;OMNI 300, 75ML-PT PREMEDICATED FOR ALLERGY PROCEDURE: CT ABD PELV W/ IV CONTRST ONLY PQRS Compliance Statement: One or more of the following individualized dose reduction techniques were utilized for this examination: 1. Automated exposure control 2. Adjustment of the mA and/or kV according to patient size 3. Use of iterative reconstruction technique CT abdomen/pelvis with contrast 09/21/2021 1:50 AM INDICATION: Abdominal pain, chronic pancreatitis COMPARISON: CT abdomen/pelvis 07/06/2021 TECHNIQUE: Multiple axial CT images of the abdomen and pelvis were obtained after the intravenous administration of 75 mL Omnipaque 300. Coronal and sagittal reformats are provided. FINDINGS: There is subsegmental atelectasis at the left lung base. Heart size is within normal limits. Liver, spleen, and adrenal glands are normal in appearance. Gallbladder surgically absent. There is moderate to advanced fatty atrophy of the pancreas with atrophy of the body and tail. Residual parenchymal identified in the head and uncinate process. No suspicious pancreatic mass or adjacent inflammatory changes. Few scattered calcifications could reflect sequela of chronic pancreatitis. The abdominal aorta is normal in course and caliber. There are no pathologically enlarged lymph nodes in the abdomen and pelvis. There is no abdominal free fluid. There is no free intraperitoneal air. Small and large bowel are normal in caliber. There is no evidence for bowel obstruction. There are no pericolonic inflammatory changes. A normal, nondilated appendix is visualized without adjacent inflammatory changes. Postoperative changes are identified from gastric bypass. Distal anastomosis is intact. Urinary bladder is within normal limits given degree of distention. Uterus and adnexa are normal by CT. The kidneys enhance symmetrically. There is no suspicious renal mass. There is no hydronephrosis. There are no suspected calculi within the kidneys, ureters or urinary bladder. No suspicious osseous abnormality is identified. Chronic degenerative changes are identified at L3-L4. IMPRESSION: No acute abnormality is identified in abdomen and pelvis. Sequela of chronic pancreatitis with atrophy of the body and tail the pancreas. No acute inflammatory changes are identified. Gastric bypass postsurgical changes without bowel obstruction or inflammation. No definite hernia visualized. Electronically signed by: Marjorie Cordova MD (09/21/2021 3:03 AM) [facility] DICTATED and SIGNED BY: MARJORIE CORDOVA MD DATE: 09/21/21 [id number] 0 Course & Med Decision Making: Course & Med Decision Making Pertinent Labs and Imaging studies reviewed. (See chart for details) The patient is given IV fluids, IV Zofran, IV morphine x2. She appears to be clinically much improved. She is resting very comfortably. No vomiting or diarrhea produced here. She has a nonsurgical abdominal exam. CT imaging does not reveal any acute life-threatening or surgical process. Laboratory exams are unremarkable, with exception of hyperglycemia. She is tolerating oral fluids without difficulty. I have discussed all the findings, differential diagnosis and plan of care with the patient. I did offer admission, though she certainly has a benign emergency department work-up, but she declines admission and is comfortable with plan for discharge home. I told her that it is imperative that she contact her new primary care physician to discuss urgent follow-up. She should keep any previously scheduled appointments with her specialists at as well. She will be given a very small amount of oxycodone for discharge. She will be given antiemetics. I told her that any further opioid medications should be prescribed by her primary care physician or pain management physician, not to the emergency department. I did give her very strict return precautions, she verbalizes understanding. She is discharged in stable condition. Vickey Disclaimer: Vickey Disclaimer: This electronic medical record was generated, in whole or in part, using a voice recognition dictation system. Departure Departure Impression: Primary Impression: Left upper quadrant abdominal pain Additional Impression: Chronic pancreatitis Qualified Codes: K86.1 - Other chronic pancreatitis Disposition: HOME / SELF CARE / HOMELESS Condition: STABLE Referrals: REJI SHAH (PCP) Patient Instructions: Abdominal Pain (Nonspecific), Acute Pancreatitis Additional Instructions: Use the prescription medication as needed/as directed. Eat a bland, low-fat diet. Make she also adhere to an ADA diet to help with your blood sugar. Ret urn to the ER for more severe pain, uncontrolled vomiting, dehydration, vomiting blood, temperature 100.4 or higher, chest pain, shortness of breath or any other concerns. Please contact your new primary care physician at [facility] to make sure you get an urgent follow-up appointment, you will need to receive any other opioid prescriptions from them. Please keep any previously scheduled appointments with your specialist at . Scripts Oxycodone Hcl (OXYCODONE HCL) 5 Mg Capsule 5 MG PO PRN Q6HRS PRN for PAIN, #20 TAB 0 Refills Prov: SANDI VALADEZ DO 09/21/21 Ondansetron Hcl (ONDANSETRON HCL) 4 Mg Tablet 1 TAB PO PRN Q8HRS PRN for VOMITING, #30 TAB 1 Refill Prov: SANDI VALADEZ DO 09/21/21 SANDI VALADEZ DO Sep 21, 2021 02:26
[2021-09-21] MEDS ORDERED: IOHEXOL 300 MG/ML 100ML VIAL. IV ONE (02:30)
--- NOTE | 2021-09-21 03:06 | RAD ---
PQRS Compliance Statement: One or more of the following individualized dose reduction techniques were utilized for this examinat ion: 1. Automated exposure control 2. Adjustment of the mA and/or kV according to patient size 3. Use of iterative reconstruction technique CT abdomen/pelvis with contrast 09/21/2021 1:50 AM INDICATION: Abdominal pain, chronic pancreatitis COMPARISON: CT abdomen/pelvis 07/06/2021 TECHNIQUE: Multiple axial CT images of the abdomen and pelvis were obtained after the intravenous adm inistration of 75 mL Omnipaque 300. Coronal and sagittal reformats are provided. FINDINGS: There is subsegmental atelectasis at the left lung base. Heart size is within normal limits . Liver, spleen, and adrenal glands are normal in appearance. Gallbladder surgically absent. There is moderate to advanced fatty atrophy of the pancreas with atrophy of the body and tail. Residual paren chymal identified in the head and uncinate process. No suspicious pancreatic mass or adjacent inflamm atory changes. Few scattered calcifications could reflect sequela of chronic pancreatitis. The abdominal aorta is normal in course and caliber. There are no pathologically enlarged lymph nodes in the abdomen and pelvis. There is no abdominal free fluid. There is no free intraperitoneal air. Small and large bowel are normal in caliber. There is no evidence for bowel obstruction. There are no pericolonic inflammatory changes. A normal, nondilated appendix is visualized without adjacent infla mmatory changes. Postoperative changes are identified from gastric bypass. Distal anastomosis is inta ct. Urinary bladder is within normal limits given degree of distention. Uterus and adnexa are normal by C T. The kidneys enhance symmetrically. There is no suspicious renal mass. There is no hydronephrosis. There are no suspected calculi within the kidneys, ureters or urinary bladder. No suspicious osseous abnormality is identified. Chronic degenerative changes are identified at L3-L4. IMPRESSION: No acute abnormality is identified in abdomen and pelvis. Sequela of chronic pancreatitis with atrophy of the body and tail the pancreas. No acute inflammatory changes are identified. Gastric bypass postsurgical changes without bowel obstruction or inflammation. No definite hernia vis ualized. Electronically signed by: Leisa Campbell MD (09/21/2021 3:03 AM) [facility]
[2021-09-21 04:11] LABS: BILIRUBIN,URINE NEGATIVE (NEG); CLARITY,URINE CLEAR; COLOR,URINE YELLOW; NITRITE,URINE NEGATIVE (NEG); PROTEIN,URINE NEGATIVE (NEG-TRACE); UROBILINOGEN,URINE 0.2 mg/dL (0.2 mg/dL)
[2021-09-21 04:14] LABS: BACTERIA,URINE MODERATE /HPF (0-FEW); RBC,URINE 0 /HPF (0-2)
[2021-09-21 04:16] LABS: AMORPHOUS SEDIMENT,UR PRESENT /HPF
[2021-09-21] MEDS ORDERED: ONDA-84 PO (05:24)
[2021-09-21] MEDS ORDERED: OXYC5CAP PO (05:24)
[2021-09-21 05:29] VITALS: BP 174/104
[2021-09-21] MEDS ORDERED: oxyCODONE IR 5 MG TABLET PO ONE (06:00)
== END 2021-09-21 05:48 | disposition home or self-care (01) ==
LOC: ER 00:55
DX: K86.1 Other chronic pancreatitis (principal); I11.0 Hypertensive heart disease with heart failure; I50.9 Heart failure, unspecified; E10.40 Type 1 diabetes mellitus with diabetic neuropathy, unspecified; K21.9 Gastro-esophageal reflux disease without esophagitis; G89.29 Other chronic pain; Z90.89 Acquired absence of other organs; Z90.49 Acquired absence of other specified parts of digestive tract; Z90.81 Acquired absence of spleen; Z98.84 Bariatric surgery status; Z87.891 Personal history of nicotine dependence; Z91.013 Allergy to seafood; Z91.041 Radiographic dye allergy status; Z88.0 Allergy status to penicillin; Z88.1 Allergy status to other antibiotic agents; Z88.8 Allergy status to other drugs, medicaments and biological substances
CPT/HCPCS: 36415; 74177; 80053; 81001; 83605; 83690; 84703; 85025; 87086; 96361; 96374; 96375; 96376; 99285; J1200; J2270; J2405; J2930; J3490; J7030; Q9967

== ENCOUNTER 2021-10-25 07:57 | Emergency (ER) | payer OTHER ==
[~2021-10-25] VITALS: Ht 172.7 cm; Wt 113.6 kg
[~2021-10-25 07:57] MED LIST changes: +ONDA-84 PO; +OXYC5CAP PO
--- NOTE | 2021-10-25 08:16 | PHYS DOC ---
Past Medical History Past Medical History: CHF, Diabetes-Type I, GERD, High Cholesterol, Hyper tension, Pancreatitis, Other Additional Past Medical Histor: GASTROPORESIS, chronic pain, NEUROPATHY Past Surgical History: Appendectomy, Cholecystectomy, Gastric Bypass, Splenectomy, Other Additional Past Surgical Histo: Eye surgery,pancreatic shunts;partial pancreatectomy,MULTIPLE ABD SURGERIES Smoking Status: Former Smoker Alcohol Use: None Drug Use: Marijuana General Adult EDM: Chief Complaint: ABDOMINAL PAIN HPI: HPI: Patient is a 41 year old who is here with multiple complaints. She reports that she has had some nausea symptoms, no vomiting. He also reports her generalized, chronic upper and mid abdominal pain, consistent with chronic pancreatitis. No acute changes regarding her kaylen today. She had recently had all of her gastrointestinal care and surgical care at [facility], but she has since left , she is transitioning care to [facility], the she has reportedly not seen her new physicians there yet. I saw her about a month ago, she told me she had a pending appointment there, but this has not been done apparently. She denies chest pain, cough, dyspnea. She denies dizziness, diaphoresis. She denies urinary symptoms. She denies acute bowel habit changes. Her main complaint however, is that she feels like she has cellulitis of her left foot. She reports that she feels like it is red and painful and swollen. She denies any trauma or injury to the foot. She has chronic but diabetic neuropathy, so she has chronic [id number] type feeling and pain in both of her feet, this is largely unchanged today. She de nies any open wounds. No fevers or chills. Review of Systems: Review of Systems: As per HPI Heart Score: C/O Chest Pain: No Risk Factors: Risk Factors: DM, Current or recent (<one month) smoker, HTN, HLP, family history of CAD, obesity. Risk Scores: Score 0 - 3: 2.5% MACE over next 6 weeks - Discharge Home Score 4 - 6: 20.3% MACE over next 6 weeks - Admit for Clinical Observation Score 7 - 10: 72.7% MACE over next 6 weeks - Early Invasive Strategies Allergies: Allergies: Allergies Coded Allergies Type Severity Reaction Last Updated Verified shellfish derived Allergy Severe anaphylaxis 09/21/21 Yes Iodine and Iodide Containing Produc Allergy Intermediate hives, itching, 09/21/21 Yes Penicillins Allergy Intermediate itching, vomiting, fevers 09/21/21 Yes iodine Allergy Intermediate 09/21/21 Yes meperidine Adverse Reaction Intermediate fevers, vomiting 09/21/21 Yes Physical Exam: PE: Constitutional: Well developed, well nourished, no acute distress, non-toxic appearance. HENT: Normocephalic, atraumatic, oropharynx is patent and clear, mucous members are moist Eyes: Conjunctiva normal, no discharge. Sclera are anicteric Neck: Normal range of motion, no tenderness, supple, no stridor. Trachea is midline Cardiovascular:Heart rate regular rhythm, was 2 radial and +2 posterior tibial pulses bilaterally. Lungs & Thorax: Bilateral breath sounds clear to auscultation, no rales, rhonchi or wheezes. Abdomen: Abdomen is obese, soft, nondistended, I am unable to elicit any tenderness at all. No palpable mass organomegaly. No palpable pulsatile mass. No CVA tenderness Skin: Warm, dry and intact. No jaundice. There is very subtle soft tissue swelling and very subtle erythema of the dorsum of her left foot. No open wounds. No palpable fluctuance, no significant induration. No ascending or linear lymphangitis. No focal abscess or fluctuance is noted. No rashes noted. Back: No tenderness, no CVA tenderness. [] Extremities: No tenderness, no cyanosis, no clubbing, ROM intact, subtle erythema of the dorsum of the left foot, consistent with possible early cellulitis. No crepitus or subcutaneous emphysema. No calf tenderness. No lymphangitis. Compartments are soft. No pain or tenderness at a proportion to exam. Neurologic: Alert and oriented X 3, normal motor function, normal sensory function, no focal deficits noted. [] Psychologic: Affect normal, judgement normal, mood normal. [] EKG: EKG: [] Radiology/Procedures: Radiology/Procedures: [] Course & Med Decision Making: Course & Med Decision Making Pertinent Labs and Imaging studies reviewed. (See chart for details) The patient is given IV fluids, IV Zofran and IV morphine. She is resting comfortably. She is a benign, nonsurgical dominant. Abdominal pain is admittedly chronic, unchanged. She is nontoxic, nonill appearing. She will be treated empirically, as an outpatient comfort cellulitis of the left foot. I explained to her that she must follow-up with her new PCP at [facility]. Return precautions are given. She verbalized understanding. Vickey Disclaimer: Vickey Disclaimer: This electronic medical record was generated, in whole or in part, using a voice recognition dictation system. Departure Departure Impression: Primary Impression: Chronic pancreatitis Qualified Codes: K86.1 - Other chronic pancreatitis Additional Impressions: Nausea Chronic abdominal pain Cellulitis of left foot Disposition: HOME / SELF CARE / HOMELESS Condition: STABLE Referrals: REJI SHAH (PCP) Patient Instructions: Abdominal Pain (Nonspecific), Cellulitis Additional Instructions: Take the full course of antibiotics. Use the medicine as needed for pain and nausea. Return to the ER immediately for uncontrolled vomiting, dehydration, vomiting blood, if you notice increase in swelling, redness or red streaks going up your leg or for any other concerns. Please contact your doctor at [facility] to arrange for close follow-up. Scripts Doxycycline Hyclate (DOXYCYCLINE HYCLATE) 100 Mg Tablet 1 TAB PO BID, #14 TAB Prov: SANDI VALADEZ DO 10/25/21 Hydrocodone Bit/Acetaminophen (HYDROCODONE-APAP 5-325 ) 1 Tab Tablet 1 TAB PO PRN Q6HRS PRN for PAIN, #10 TAB 0 Refills Prov: SANDI VALADEZ DO 10/25/21 Ondansetron (ONDANSETRON ODT) 4 Mg Tab.rapdis 1 TAB PO PRN Q6-8HRS for nausea and vomiting, #20 TAB Prov: SANDI VALADEZ DO 10/25/21 SANDI VALADEZ DO Oct 25, 2021 08:16
[2021-10-25] MEDS ORDERED: MORPHINE SULFATE 4 MG/ML INJ. IVP ONE (08:45)
[2021-10-25] MEDS ORDERED: IV NORMAL SALINE 1000ML BAG 1,000 ML IV ONE (08:45)
[2021-10-25] MEDS ORDERED: ONDANSETRON PF 4 MG/2 ML VIAL. IVP ONE (08:45)
[2021-10-25 09:00] LABS: BACTERIA,URINE 0 /HPF (0-FEW); RBC,URINE 0 /HPF (0-2); WBC,URINE OCC /HPF (0-4)
[2021-10-25 09:21] VITALS: BP 169/94
[2021-10-25 09:28] LABS: BASO % 1 % (0-3); EOS # 0.3 x10^3/uL (0.0-0.7); EOS % 5 % (0-3); HEMATOCRIT 35.3 % (36.0-47.0); LYMPH # 2.9 x10^3/uL (1.0-4.8); LYMPH % 42 % (24-48); MEAN CORPUSCULAR HEMOGLOBIN 23 pg (25-35); MEAN CORPUSCULAR HGB CONC 31 g/dL (31-37); MEAN CORPUSCULAR VOLUME 75 fL (79-100); MONO # 0.4 x10^3/uL (0.0-1.1); MONO % 6 % (0-9); NEUT # 3.2 x10^3/uL (1.8-7.7); NEUT % 47 % (31-73); PLATELET COUNT 190 x10^3/uL (140-400); RED CELL DISTRIBUTION WIDTH 15.6 % (11.5-14.5); WHITE BLOOD COUNT 6.9 x10^3/uL (4.0-11.0)
[2021-10-25 09:35] LABS: CALCIUM 8.2 mg/dL (8.5-10.1); GFR 73.2; POTASSIUM 4.2 mmol/L (3.5-5.1)
[2021-10-25 09:41] LABS: ALBUMIN 3.3 g/dL (3.4-5.0); ALBUMIN/GLOBULIN RATIO 0.8 (1.0-1.7); MAGNESIUM 1.7 mg/dL (1.8-2.4); TOTAL BILIRUBIN 0.3 mg/dL (0.2-1.0); TOTAL PROTEIN 7.5 g/dL (6.4-8.2)
[2021-10-25] MEDS ORDERED: HYDR-2761 PO (10:58)
[2021-10-25] MEDS ORDERED: DOXY100T PO (10:58)
[2021-10-25] MEDS ORDERED: ONDA4TAB12 PO (10:58)
== END 2021-10-25 11:06 | disposition home or self-care (01) ==
LOC: ER 07:57
DX: K86.1 Other chronic pancreatitis (principal); R11.0 Nausea; K21.9 Gastro-esophageal reflux disease without esophagitis; L03.116 Cellulitis of left lower limb; E78.00 Pure hypercholesterolemia, unspecified; E10.40 Type 1 diabetes mellitus with diabetic neuropathy, unspecified; I11.0 Hypertensive heart disease with heart failure; I50.9 Heart failure, unspecified; Z87.891 Personal history of nicotine dependence; Z95.1 Presence of aortocoronary bypass graft; Z90.49 Acquired absence of other specified parts of digestive tract; Z90.89 Acquired absence of other organs; Z90.81 Acquired absence of spleen; Z88.0 Allergy status to penicillin; Z88.1 Allergy status to other antibiotic agents; Z91.013 Allergy to seafood; Z88.8 Allergy status to other drugs, medicaments and biological substances; Z91.041 Radiographic dye allergy status
CPT/HCPCS: 36415; 80053; 81001; 81025; 83690; 83735; 85025; 96361; 96374; 96375; 99284; J2270; J2405; J7030

== ENCOUNTER 2021-11-20 20:35 | Emergency (ER) | payer OTHER ==
[~2021-11-20] VITALS: Ht 175.3 cm; Wt 115.0 kg
[~2021-11-20 20:35] MED LIST changes: +HYDR-2761 PO
[2021-11-20] MEDS ORDERED: MORPHINE SULFATE 4 MG/ML INJ. IVP ONE (21:00)
[2021-11-20] MEDS ORDERED: IV NORMAL SALINE 1000ML BAG 1,000 ML IV ONE (21:00)
--- NOTE | 2021-11-20 21:05 | PHYS DOC ---
Past Medical History Past Medical History: CHF, Diabetes-Type I, GERD, High Cholesterol, Hyper tension, Pancreatitis, Other Additional Past Medical Histor: GASTROPORESIS, chronic pain, NEUROPATHY Past Surgical History: Other Additional Past Surgical Histo: PANCREATIC SURGERIES 'MULTIPLE' ,LAP DEVON Smoking Status: Never Smoker Alcohol Use: None Drug Use: Marijuana General Adult EDM: Chief Complaint: ABDOMINAL PAIN HPI: HPI: Patient is a 41 year old female with a history of chronic pancreatitis comes in with epigastric pain. Patient states that she ran pain prescription 2 days ago. Reports nausea vomiting diarrhea. Review of Systems: Review of Systems: Constitutional: Denies fever or chills. [] Eyes: Denies change in visual acuity. [] HENT: Denies nasal congestion or sore throat. [] Respiratory: Denies cough or shortness of breath. [] Cardiovascular: Denies chest pain or edema. [] GI: Epigastric pain nausea vomiting diarrhea : Denies dysuria. [] Musculoskeletal: Denies back pain or joint pain. [] Integument: Denies rash. [] Neurologic: Denies headache, focal weakness or sensory changes. [] Endocrine: Denies polyuria or polydipsia. [] Lymphatic: Denies swollen glands. [] Psychiatric: Denies depression or anxiety. [] Heart Score: C/O Chest Pain: No Risk Factors: Risk Factors: DM, Current or recent (<one month) smoker, HTN, HLP, family history of CAD, obesity. Risk Scores: Score 0 - 3: 2.5% MACE over next 6 weeks - Discharge Home Score 4 - 6: 20.3% MACE over next 6 weeks - Admit for Clinical Observation Score 7 - 10: 72.7% MACE over next 6 weeks - Early Invasive Strategies Current Medications: Current Medications Medications (Trade) Dose Ordered Sig/Naveen Start Time Stop Time Status Last Admin Dose Admin Morphine Sulfate (Morphine Sulfate) 4 mg 1X ONCE 11/20/21 21:00 11/20/21 21:01 DC Sodium Chloride 1,000 ml @ 1,000 mls/hr 1X ONCE 11/20/21 21:00 11/20/21 21:59 Allergies: Allergies: Allergies Coded Allergies Type Severity Reaction Last Updated Verified shellfish derived Allergy Severe anaphylaxis 10/25/21 Yes Iodine and Iodide Containing Produc Allergy Intermediate hives, itching, 10/25/21 Yes Penicillins Allergy Intermediate itching, vomiting, fevers 10/25/21 Yes iodine Allergy Intermediate 10/25/21 Yes meperidine Adverse Reaction Intermediate fevers, vomiting 10/25/21 Yes Physical Exam: PE: Constitutional: Well developed, well nourished, no acute distress, non-toxic appearance. [] HENT: Normocephalic, atraumatic, bilateral external ears normal, oropharynx moist, no oral exudates, nose normal. [] Eyes: PERRLA, EOMI, conjunctiva normal, no discharge. [] Neck: Normal range of motion, no tenderness, supple, no stridor. [] Cardiovascular:Heart rate regular rhythm, no murmur [] Lungs & Thorax: Bilateral breath sounds clear to auscultation [] Abdomen: Bowel sounds normal, soft, no tenderness, no masses, no pulsatile masses. [] Skin: Warm, dry, no erythema, no rash. [] Back: No tenderness, no CVA tenderness. [] Extremities: No tenderness, no cyanosis, no clubbing, ROM intact, no edema. [] Neurologic: Alert and oriented X 3, normal motor function, normal sensory function, no focal deficits noted. [] Psychologic: Affect normal, judgement normal, mood normal. [] Current Patient Data: Vital Signs: Vital Signs Date Time Temp Pulse Resp B/P (MAP) Pulse Ox O2 Delivery O2 Flow Rate FiO2 11/20/21 20:44 98.5 83 20 180/71 (107) 98 Room Air 98.5 EKG: EKG: [] Patient has a normal sinus rhythm heart rate 76. Patient has a PVC. Radiology/Procedures: Radiology/Procedures: []Comparison: September 21, 2021. Procedure: Axial images are obtained of the abdomen and pelvis, without IV or oral contrast. Oral Contrast: No Findings: Evaluation of solid organs is limited without contrast. Liver: Normal. Spleen: Normal. Pancreas: Normal. Adrenal Glands: Normal. Kidneys: Normal. There is no free air or free fluid. There is multiple small mesenteric lymph nodes on the right. The urinary bladder is mostly collapsed there is moderate wall thickening. There is no pericolonic inflammation identified. There is ventral fat-containing hernia. There is prior gastric bypass. Impression: 1. Moderate wall thickening urinary bladder likely hypertrophy. 2. Prior gastric bypass. 3. Mild lymphadenopathy in the right tibial lymphadenitis. Was seen previously. 4. Stable appearance of the abdomen and pelvis. Course & Med Decision Making: Course & Med Decision Making Pertinent Labs and Imaging studies reviewed. (See chart for details) [] Patient is hemodynamically stable. Patient will follow-up in the outpatient setting with her GI physician. Patient was given 2 days of her chronic pain medication. Return precautions were discussed Vickey Disclaimer: Vickey Disclaimer: This electronic medical record was generated, in whole or in part, using a voice recognition dictation system. Departure Departure Referrals: REJI SHAH (PCP) EBONIE SÁNCHEZ DO Nov 20, 2021 21:05
[2021-11-20 22:29] LABS: BACTERIA,URINE 0 /HPF (0-FEW)
--- NOTE | 2021-11-20 22:34 | RAD ---
Abdominal and Pelvis CT, Without Contrast: History: Reason: Epigastric pain / Spl. Instructions: / History: Comparison: September 21, 2021. Procedure: Axial images are obtained of the abdomen and pelvis, without IV or oral contrast. Oral Contrast: No Findings: Evaluation of solid organs is limited without contrast. Liver: Normal. Spleen: Normal. Pancreas: Normal. Adrenal Glands: Normal. Kidneys: Normal. There is no free air or free fluid. There is multiple small mesenteric lymph nodes on the right. The urinary bladder is mostly collapsed there is moderate wall thickening. There is no pericolonic inflammation identified. There is ventral fat-containing hernia. There is prior gastric bypass. Impression: 1. Moderate wall thickening urinary bladder likely hypertrophy. 2. Prior gastric bypass. 3. Mild lymphadenopathy in the right tibial lymphadenitis. Was seen previously. 4. Stable appearance of the abdomen and pelvis. End impression PQRS Compliance Statement: One or more of the following individualized dose reduction techniques were utilized for this examinat ion: 1. Automated exposure control 2. Adjustment of the mA and/or kV according to patient size 3. Use of iterative reconstruction technique Electronically signed by: Geovany Conroy III, MD (11/20/2021 10:31 PM) [facility]
[2021-11-20 22:50] LABS: BASO # 0.1 x10^3/uL (0.0-0.2); BASO % 2 % (0-3); EOS # 0.2 x10^3/uL (0.0-0.7); EOS % 2 % (0-3); HEMATOCRIT 37.9 % (36.0-47.0); HEMOGLOBIN 12.2 g/dL (12.0-15.5); LYMPH % 33 % (24-48); MEAN CORPUSCULAR HEMOGLOBIN 24 pg (25-35); MEAN CORPUSCULAR HGB CONC 32 g/dL (31-37); MEAN CORPUSCULAR VOLUME 76 fL (79-100); MONO # 0.4 x10^3/uL (0.0-1.1); MONO % 5 % (0-9); NEUT # 5.4 x10^3/uL (1.8-7.7); NEUT % 59 % (31-73); PLATELET COUNT 235 x10^3/uL (140-400); RED BLOOD COUNT 5.02 x10^6/uL (3.50-5.40); RED CELL DISTRIBUTION WIDTH 15.2 % (11.5-14.5); WHITE BLOOD COUNT 9.1 x10^3/uL (4.0-11.0)
[2021-11-20 23:06] LABS: CREATININE 0.8 mg/dL (0.6-1.0); GFR 94.7; POTASSIUM 3.8 mmol/L (3.5-5.1)
[2021-11-20 23:15] LABS: ALBUMIN 3.4 g/dL (3.4-5.0); ALBUMIN/GLOBULIN RATIO 0.7 (1.0-1.7); TOTAL BILIRUBIN 0.4 mg/dL (0.2-1.0); TOTAL PROTEIN 8.3 g/dL (6.4-8.2)
[2021-11-20 23:20] VITALS: BP 183/101
[2021-11-20] MEDS ORDERED: OXYC1TAB15 PO (23:38)
[2021-11-20] MEDS ORDERED: oxyCODONE/APAP 5/325 1 TAB TABLET PO ONE (23:45)
--- NOTE | 2021-11-21 00:44 | EKG ---
[facility] [address] [place] [address] Test Date: 2021-11-20 Test Time: 21:01:42 Pat Name: MAGNUS HERBERT Department: Room: Gender: F [employer]: : [id number] Requested By: EBONIE SÁNCHEZ Order Number: [id number] Reading MD: Grayson Ward Measurements Intervals Clemons Rate: 76 P: 144 DE: 158 QRS: 186 QRSD: 84 T: 105 QT: 394 QTc: 448 Interpretive Statements SINUS RHYTHM VENTRICULAR PREMATURE COMPLEX(ES) NON SPECIFIC ST-T WAVE CHANGES Electronically Signed On 11-21-2021 16:23:06 CDT by Grayson Ward
== END 2021-11-20 23:55 | disposition home or self-care (01) ==
LOC: ER 20:35
DX: R10.13 Epigastric pain (principal); R11.2 Nausea with vomiting, unspecified; R19.7 Diarrhea, unspecified; I11.0 Hypertensive heart disease with heart failure; I50.9 Heart failure, unspecified; E10.9 Type 1 diabetes mellitus without complications; K21.9 Gastro-esophageal reflux disease without esophagitis; E78.00 Pure hypercholesterolemia, unspecified; E10.40 Type 1 diabetes mellitus with diabetic neuropathy, unspecified; Z91.013 Allergy to seafood; Z91.041 Radiographic dye allergy status; Z88.0 Allergy status to penicillin; Z88.1 Allergy status to other antibiotic agents; Z88.8 Allergy status to other drugs, medicaments and biological substances
CPT/HCPCS: 36415; 74176; 80053; 81001; 83690; 85025; 93005; 96361; 96374; 99285; J2270; J7030